=== PATIENT | female | born 1960 | race Caucasian/White ===

== ENCOUNTER 2016-07-06 00:54 | Emergency (ER) | payer OTHER ==
[~2016-07-06] VITALS: Ht 165.1 cm; Wt 63.5 kg
[~2016-07-06 00:54] MED LIST: K-TAB ER20 MEQ PO
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
--- NOTE | 2016-07-06 02:15 | CT SCAN REPORT ---
EXAMINATION: NONCONTRAST HEAD CT NONCONTRAST MAXILLOFACIAL CT INDICATION INFORMATION: Fall, struck head COMPARISON: None TECHNIQUE: Separate noncontrast CT examinations of the head and maxillofacial bones were performed. Coronal and sagittal images were created for each examination at the technologist workstation. DLP: 1036.36 mGy-cm FINDINGS: Head: There is no evidence of acute intracranial hemorrhage or territorial infarction. No abnormal mass-effect or midline shift is seen. Huang to white matter differentiation is well preserved. No extra-axial fluid collections are identified. The ventricles are normal in size. There is no abnormal attenuation within the brain parenchyma. The osseous structures and soft tissues are normal. The mastoid air cells are well aerated. Maxillofacial: No acute maxillofacial fractures are seen. There is mild deformity of the left orbital floor, suggesting sequelae of prior injury. The frontal, maxillary, ethmoid, and sphenoid sinuses are well aerated. The uncinate process is normal bilaterally. The infundibula and middle meati are patent. The nasal septum is midline. The mandibular condyles are well-seated in the condylar fossa. There is degenerative change at the atlantodens articulation. The orbits demonstrate a normal appearance bilaterally. The globes are intact, and there are no suspicious findings to suggest retrobulbar hemorrhage. IMPRESSION: 1. Head: No acute intracranial findings. 2. Maxillofacial: No acute findings identified. Suspect old left orbital floor fracture.
--- NOTE | 2016-07-06 02:17 | RADIOLOGY REPORT ---
EXAMINATION: XR SHOULDER, RIGHT CLINICAL INFORMATION: Fall, pain COMPARISON: None TECHNIQUE: Three views of the right shoulder. FINDINGS: There is a displaced fracture through the humeral neck, with displacement of the humeral shaft anteriorly relative to the humeral head. The humeral head fragment appears aligned with the glenoid. The acromioclavicular joint is intact. IMPRESSION: Displaced fracture of the humeral neck.
[2016-07-06 02:48] VITALS: BP 102/54
== END 2016-07-06 02:49 ==
LOC: ERH 00:54
DX: S42.201A Unspecified fracture of upper end of right humerus, initial encounter for closed fracture (principal); W19.XXXA Unspecified fall, initial encounter
CPT/HCPCS: 73030-RT

== ENCOUNTER 2016-07-11 14:08 | Observation (INO) | payer OTHER ==
[~2016-07-11] VITALS: Ht 160 cm; Wt 49.9 kg
--- NOTE | 2016-07-11 14:20 | NUR ---
PT TO TRIAGE SENT IN BY DR CHILDRESS FOR LOW POTASSIUM AND WBC COUNT. HX OF SAME AND RECEIVES INFUSIONS. DENIES CHEST PAIN/SOB. HX IBS AND RECENT EPISODES OF DIARRHEA. AFEBRILE ON ARRIVAL 96.3. PT IN R ARM IMMOBILIZER FOR SHOULDER FX, TOOK VICODIN AT 1PM AND CURRENTLY REPORTS PAIN 7/10
--- NOTE | 2016-07-11 14:28 | ED GENERAL ADULT ---
History of Present Illness General Chief Complaint: General Adult Stated Complaint: SIB DR. CHILDRESS FOR EVAL Source: patient, family Exam Limitations: no limitations Vital Signs & Intake/Output Vital Signs & Intake/Output Vital Signs Date Time Temp Pulse Resp B/P Pulse O2 O2 Flow FiO2 Ox Delivery Rate 07/11 1934 96.2 71 18 133/63 93 Room Air 07/11 1609 96.1 80 18 128/65 98 Room Air 07/11 1415 96.2 75 16 97/65 96 Room Air Allergies Coded Allergies: moxifloxacin (From AVELOX) (Severe, ANAPHYLAXIS 11/07/15) Penicillins (Intermediate, RASH 11/07/15) bupropion (From WELLBUTRIN) (Intermediate, HEADACHES, SEVERE VOMITING 11/07/15) cephalexin (From KEFLEX) (Intermediate, SEVERE VOMITING 11/07/15) clindamycin (From CLEOCIN) (Intermediate, SEVERE VOMITING 11/07/15) erythromycin base (Intermediate, SEVERE VOMITING 11/07/15) varenicline (From CHANTIX) (SEVERE HEADACHE MAKES LOOPY PER PT 07/11/16) Reconcile Medications Albuterol Sulfate (Ventolin Hfa) 90 MCG HFA.AER.AD 2 PUF INH PRN COPD ( Reported) Albuterol Sulfate 2.5 MG/3 ML (0.083 %) VIAL.NEB 1 Vial INH/ERICA PRN COPD ( Reported) Aspirin (Ecotrin*) 81 MG TABLET.DR 1 TAB PO DAILY HEART/BLOOD (Reported) Bepotastine Besilate (Bepreve) 1.5 % DROPS 1 GTT OPH PRN BOTH EYES - PROPHYLAXIS (Reported) Celecoxib 200 MG CAPSULE 1 CAP PO BID PAIN/INFLAMMATION (Reported) Cholecalciferol (Vitamin D3) (Vitamin D3) 1,000 UNIT CAPSULE 1 CAP PO DAILY SUPPLEMENT (Reported) Cyanocobalamin (Vitamin B-12) (Vitamin B12) (Unknown Strength) TABLET (Unknown Dose) PO DAILY SUPPLEMENT (Reported) Diclofenac Sodium (Voltaren) 1 % GEL..GRAM. 1 GM TOP PRN JOINT PAIN (Reported ) apply to affected area(s) Fluticasone/Salmeterol (Advair 500-50 Diskus) 500 MCG-50 MCG/DOSE BLST.W.DEV 1 PUF INH BID COPD (Reported) Hydrocodone/Acetaminophen (Hydrocodon-Acetaminoph 7.5-325) 7.5 MG-325 MG TABLET 1-2 TAB PO Q4-6 PRN PRN PAIN (Reported) Lorazepam (Ativan) 0.5 MG TABLET 1 TAB PO PRN ANXIETY (Reported) Loteprednol Etabonate (Lotemax) 0.5 % DROPS.SUSP 1 GTT OPH PRN BOTH EYES - PROPHYLAXIS (Reported) Metaxalone 800 MG TABLET 1 TAB PO TID PRN MUSCLE SPASMS (Reported) Metoprolol Tartrate 25 MG TABLET 0.5 TAB PO DAILY BP (Reported) Potassium Chloride 10 MEQ CAPSULE.ER 1 CAP PO BID SUPPLEMENT (Reported) Rosuvastatin Calcium (Crestor) 10 MG TABLET 1 TAB PO DAILY CHOLESTEROL ( Reported) Tiotropium [place] (Spiriva) 18 MCG CAP.W.DEV 1 CAP INH DAILY COPD (Reported) Tramadol HCl 50 MG TABLET 1 TAB PO TIDPRN PRN PAIN (Reported) Zolpidem Tartrate 10 MG TABLET 1 TAB PO PRN SLEEP (Reported) Triage Note: PT TO TRIAGE SENT IN BY DR CHILDRESS FOR LOW POTASSIUM AND WBC COUNT. HX OF SAME AND RECEIVES INFUSIONS. DENIES CHEST PAIN/SOB. HX IBS AND RECENT EPISODES OF DIARRHEA. AFEBRILE ON ARRIVAL 96.3. PT IN R ARM IMMOBILIZER FOR SHOULDER FX, TOOK VICODIN AT 1PM AND CURRENTLY REPORTS PAIN 11/10 Triage Nurses Notes Reviewed? yes Onset: Abrupt Duration: day(s): Timing: recent history HPI: 07/11/16 55-year-old female presents to the emergency department status post vomiting, had outpatient labs that showed hypokalemia. Potassium was 2.4. She denies chest pain or shortness of breath. She has a history of COPD and a lung nodule. She also has a recent history for right humerus fracture. No abdominal pain or fever. She says she's had significant hypokalemia in the past. The onset of the symptoms were abrupt, the duration is really unknown, the severity is significant as her symptoms required her to come to the emergency department for care. Past History Travel History Traveled to [place] past 21 day No Medical History Any Pertinent Medical History? 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 No Review of Systems Review of Systems Constitutional: Denies: fever. EENTM: Denies: visual changes. Respiratory: Reports: no symptoms. Cardiovascular: Denies: chest pain. GI: Reports: vomiting. Denies: abdominal pain. Genitourinary: Reports: no symptoms. Musculoskeletal: Reports: no symptoms. Skin: Reports: no symptoms. Neurological/Psychological: Reports: no symptoms. Hematologic/Endocrine: Reports: no symptoms. Immunologic/Allergic: Reports: no symptoms. Physical Exam Physical Exam General Appearance: alert, awake, anxious, mild distress Head: atraumatic, normal appearance Eyes: Bilateral: normal appearance, PERRL, EOMI. Ears, Nose, Throat: normal pharynx, normal ENT inspection Neck: normal inspection, supple, full range of motion Respiratory: normal breath sounds, chest non-tender, no respiratory distress Cardiovascular: regular rate/rhythm Peripheral Pulses: 4+ brachial (R), 4+ brachial (L) Gastrointestinal: non-tender Back: decreased range of motion Extremities: normal inspection, normal range of motion Neurologic/Psych: no motor/sensory deficits, awake, alert, oriented x 3, normal gait Skin: intact, normal color, warm/dry Core Measures ACS in differential dx? No CVA/TIA Diagnosis: No Severe Sepsis Present: No Septic Shock Present: No Progress Differential Diagnoses I considered the following diagnoses in my evaluation of the patient: [Cyclic vomiting syndrome, hypokalemia, renal disease, cardiac dysrhythmia, invasive lung cancer] Plan of Care: Orders Procedure Date/time Status Heart Healthy Diet 07/12 B Active CBC WITHOUT DIFFERENTIAL 07/12 06 Active BASIC ELECTROLYTES PLUS BUN&CR 07/12 06 Active Pathway - chart 07/11 195 Active House Staff 07/11 195 Active MAGNESIUM 07/11 1950 Complete POTASSIUM 07/11 1945 Complete Patient Data 07/[address] in observation 07/11 1841 Active Vital Signs 07/11 1841 Active Code Status 07/11 1841 Active Intake & Output 07/11 1444 Active COMPREHENSIVE METABOLIC PANEL 07/11 1429 Complete CBC WITHOUT DIFFERENTIAL 07/11 1429 Complete EKG 07/11 142 Active Lab Add-on Test 07/11 UNK Active Current Medications Sig/Ida Start time Last Medication Dose Stop Time Status Admin Magnesium Sulfate 2 GM ONCE ONE 07/11 2144 UNVr (Mag Sulfate) 07/12 0144 Dextrose/Water 250 ML (D5W) Potassium Chloride 40 MEQ Q10H 07/11 2144 UNVr (KCl 40MEQ in D5W NS 07/12 0744 1000ML) Dextrose/Sodium 1,000 ML Chloride (D5-Normal Saline) Ondansetron HCl 4 MG Q6P PRN 07/11 2114 AC (Zofran) Pantoprazole Sodium 40 MG DAILY 07/11 2114 AC (Protonix) Potassium Chloride 40 MEQ ONCE ONE 07/12 1999 CAN (K-Dur) 07/11 2000 Potassium Chloride 10 MEQ Q2H 07/11 1500 CAN 07/12 1701 Potassium Chloride 20 MEQ ONCE ONE 07/11 1430 CAN 07/12 1431 Laboratory Tests 07/11/16 1950: Magnesium 0.9 *L 07/11/16 1430: Anion Gap 15, Estimated GFR > 60, BUN/Creatinine Ratio 11.4, Glucose 88, Calcium 9.0, Total Bilirubin 0.7, AST 21, ALT 24, Alkaline Phosphatase 169 H, Total Protein 6.8, Albumin 3.9, Globulin 2.9, Albumin/Globulin Ratio 1.3, CBC w Diff NO MAN DIFF REQ, RBC 3.85 L, MCV 95.2, MCH 32.5 H, RDW 16.4 H, MPV 9.5, Gran % 70.6, Lymphocytes % 19.9 L, Monocytes % 8.5, Eosinophils % 0.4, Basophils % 0.6, Absolute Granulocytes 10.8 H, Absolute Lymphocytes 3.0, Absolute Monocytes 1.3 H, Absolute Eosinophils 0.1, Absolute Basophils 0.1, PUBS MCHC 34.1 Initial ED EKG: NSR, prolonged QT, ST segment depressions Prior EKG: unchanged Departure Departure Disposition: STILL A PATIENT Condition: Stable Clinical Impression Primary Impression: Hypokalemia Referrals: CAROL SHERMAN APRN (PCP/Family) Departure Forms: Customer Survey General Discharge Information Comments CT scan shown below PATIENT: GALDINO RYAN PRESENT AGE: 55 PATIENT ACCOUNT NO: [id number] : 56 LOCATION: [facility] ORDERING PHYSICIAN: ZACKARY SHER DO SERVICE DATE: 07/11/16 EXAM TYPE: CAT - CT CHEST W IV CONTRAST EXAMINATION: CT CHEST WITH CONTRAST CLINICAL INFORMATION: Lung nodule. Follow up. COMPARISON: Chest x-ray 07/13/2013. CT of chest 12/19/2015. CT chest 06/25/2016. TECHNIQUE: Multidetector volumetric CT imaging of the chest was obtained after the administration of 93 mL of Optiray 320 intravenous contrast without immediate adverse reactions. Axial MIP volume rendering provided. Sagittal and coronal reformatted images were obtained. DLP: 163.5 mGy-cm FINDINGS: LUNGS: Lung masses: 1. Mass in left hilum. This measures AP 3.5 x transverse 2.9 cm on axial image 245 (4). This has increased in size since CAT scan 12/19/2015. This is highly suspicious for lung malignancy. 2. Ground-glass nodule right upper lobe measuring 6 mm image 66 (5). 3. Multiple micronodules that are stable since CAT scan 09/14/2014 favoring benign etiology. There is ground-glass and linear opacities of both lung bases, can be subsegmental atelectasis and/or scarring. No infiltrate. There are emphysematous changes of the lungs. Bilateral apical pleural parenchymal reticular nodular scarring again noted. MEDIASTINUM: Bulky lymphadenopathy in the mediastinum in the pretracheal retrovascular space, AP window and subcarinal. Normal enhancement of the pulmonary arteries. Atherosclerotic vascular wall calcifications of aorta without aneurysm. There are coronary artery calcifications. PLEURA: There is no pleural effusion. No pleural mass or thickening. AXILLA: No lymphadenopathy. UPPER ABDOMEN: There is fullness without specific nodule of the left adrenal gland. The right adrenal gland normal. No focal lesion. Partially visualized liver or spleen. OSSEOUS STRUCTURES: Fracture through the surgical neck of the right humerus with displacement of the fracture. This is only partially imaged. Multilevel degenerative change of the dorsal spine. Neural stimulator probe at the midthoracic spinal canal. IMPRESSION: 1. Left hilar lung mass highly suspicious for malignancy. Consider bronchoscopy for further assessment. There is associated mediastinal lymphadenopathy. 2. A 5 mm ground-glass nodule right upper lobe. 3. Multiple small subcentimeter micronodules in lungs stable since CAT scan 09/14/2014 favoring benign etiology. 4. Fullness of the left adrenal gland without specific mass. 5. Displaced fracture of the right proximal humerus. DICTATED BY: CAMERON HILL MD DATE/TIME DICTATED:07/11/161808 COMMUNITY RESOURCE OFFICER:JP DATE/TIME TRANSCRIBED:07/11/161808 CONFIDENTIAL, DO NOT COPY WITHOUT APPROPRIATE AUTHORIZATION. <Electronically signed in Other Vendor System> SIGNED BY: CAMERON HILL MD 07/11/16 4574 Observation Note Spoke With: MARY PENN MD Physician Advisor Notified: BRANT GOEL,KAJAL Bain Place Patient In: Non-ED OBS Care Area Rationale for Observation: My rational for observation is as follows [the patient needs observation for IV potassium, repeat serum potassium level, follow CT scan of the chest with IV contrast; consider pulmonary consultation]. Critical Care Note Critical Care Note Critical Care Time: 30-74 min
[2016-07-11 14:50] LABS: ABSOLUTE BASOPHIL COUNT 0.1 /CUMM (0.0-0.2); ABSOLUTE EOSINOPHIL COUNT 0.1 /CUMM (0.0-0.7); ABSOLUTE GRANULOCYTE CT 10.8 /CUMM (1.4-6.5); ABSOLUTE MONOCYTE COUNT 1.3 /CUMM (0.10-0.60); BASOPHIL % 0.6 % (0.0-2.0); EOSINOPHIL % 0.4 % (0-5); GRANULOCYTE % 70.6 % (42.2-75.2); HEMATOCRIT 36.7 % (37-47); MEAN CORPUSCULAR HGB 32.5 PG (27.0-31.0); MEAN CORPUSCULAR HGB CONC 34.1 G/DL (33.0-37.0); MEAN CORPUSCULAR VOLUME 95.2 FL (81.0-99.0); MEAN PLATELET VOLUME 9.5 FL (7.4-10.4); PLATELET COUNT 219 /CUMM (130-400); RBC DISTRIBUTION WIDTH 16.4 % (11.5-14.5); RED BLOOD CELL CT 3.85 /CUMM (4.20-5.40); WHITE BLOOD CELL COUNT 15.3 /CUMM (4.8-10.8)
--- NOTE | 2016-07-11 14:53 | NUR ---
PT TO RM 8, UNABLE TO CHANGE INTO GOWN D/T FX SHOULDER, PT STATES TOO PAINFUL TO MOVE. PT PLACED ON DYE EXPERT WHICH SHOWS NSR, RATE OF 73. IV INITIATED, LABS DRAWN AND SENT. EKG IN PROGRESS. FAMILY AT BEDSIDE
--- NOTE | 2016-07-11 14:59 | NUR ---
CRITICAL TEST RESULTS [id number] GALDINO RYAN 55 F TESTS AND RESULTS: POTASSIUM 2.2 Results received and read back by: HUY ZAMBRANO Results received date and time: 07/11/16 1500 The following provider was notified of the results, and read the results back: DR SHER Notified date and time: 07/11/16 at 1500
--- NOTE | 2016-07-11 16:08 | NUR ---
2ND KCL 10MEQ INFUSING PER EMAR. PT MEDICATED WIHT VICODIN PER EMAR FOR R SHOULDER PAIN. AWAITING CAT SCAN.
--- NOTE | 2016-07-11 16:21 | NUR ---
PT TO CAT SCAN BY WHEELCHAIR.
--- NOTE | 2016-07-11 16:55 | NUR ---
PT WAS UNABLE TO LAY DOWN FOR CAT SCAN DUE TO R SHOULDER PAIN. PT RETURNED TO ROOM, MD CHRISTOS MADE AWARE, PT MEDICATED WITH DILAUDID PER EMAR.
[2016-07-11] MEDS ORDERED: VITAMIN B122500 MC1 PO (17:22)
[2016-07-11] MEDS ORDERED: METAXALONE800 M1 PO (17:23)
[2016-07-11] MEDS ORDERED: CELECOXIB200 M1 PO (17:23)
[2016-07-11] MEDS ORDERED: VITAMIN D31000 UNI1 PO (17:23)
[2016-07-11] MEDS ORDERED: VENTOLIN HFA18 GM INH (17:24)
[2016-07-11] MEDS ORDERED: TRAMADOL HCL50 M1 PO (17:25)
[2016-07-11] MEDS ORDERED: CRESTOR10 M1 PO (17:25)
[2016-07-11] MEDS ORDERED: HYDROCODON-ACE1 EAC3 PO (17:25)
[2016-07-11] MEDS ORDERED: LOTEMAX5 ML OPH (17:26)
[2016-07-11] MEDS ORDERED: ADVAIR 500-501 EACH INH (17:26)
[2016-07-11] MEDS ORDERED: BEPREVE10 ML OPH (17:27)
[2016-07-11] MEDS ORDERED: ZOLPIDEM TARTRA10 M1 PO (17:27)
[2016-07-11] MEDS ORDERED: SPIRIVA18 MCG INH (17:27)
[2016-07-11] MEDS ORDERED: ASPIRIN EC81 M1 PO (17:29)
[2016-07-11] MEDS ORDERED: ATIVAN0.5 M1 PO (17:29)
[2016-07-11] MEDS ORDERED: VOLTAREN100 GM TOP (17:29)
[2016-07-11] MEDS ORDERED: POTASSIUM CHLO10 ME3 PO (17:30)
[2016-07-11] MEDS ORDERED: METOPROLOL TART25 M1 PO (17:31)
[2016-07-11] MEDS ORDERED: ALBUTEROL2.5 MG/3 M INH/SOL (17:32)
--- NOTE | 2016-07-11 17:33 | NUR ---
PT REPORTS PAIN DECREASED AND 2/10 NOW, PT READY FOR CAT SCAN. CT CALLED.
--- NOTE | 2016-07-11 17:55 | NUR ---
PT TO AND FROM CAT SCAN BY STRETCHER.
--- NOTE | 2016-07-11 18:45 | CT SCAN REPORT ---
EXAMINATION: CT CHEST WITH CONTRAST CLINICAL INFORMATION: Lung nodule. Follow up. COMPARISON: Chest x-ray 07/13/2013. CT of chest 12/19/2015. CT chest 06/25/2016. TECHNIQUE: Multidetector volumetric CT imaging of the chest was obtained after the administration of 93 mL of Optiray 320 intravenous contrast without immediate adverse reactions. Axial MIP volume rendering provided. Sagittal and coronal reformatted images were obtained. DLP: 163.5 mGy-cm FINDINGS: LUNGS: Lung masses: 1. Mass in left hilum. This measures AP 3.5 x transverse 2.9 cm on axial image 245 (4). This has increased in size since CAT scan 12/19/2015. This is highly suspicious for lung malignancy. 2. Ground-glass nodule right upper lobe measuring 6 mm image 66 (5). 3. Multiple micronodules that are stable since CAT scan 09/14/2014 favoring benign etiology. There is ground-glass and linear opacities of both lung bases, can be subsegmental atelectasis and/or scarring. No infiltrate. There are emphysematous changes of the lungs. Bilateral apical pleural parenchymal reticular nodular scarring again noted. MEDIASTINUM: Bulky lymphadenopathy in the mediastinum in the pretracheal retrovascular space, AP window and subcarinal. Normal enhancement of the pulmonary arteries. Atherosclerotic vascular wall calcifications of aorta without aneurysm. There are coronary artery calcifications. PLEURA: There is no pleural effusion. No pleural mass or thickening. AXILLA: No lymphadenopathy. UPPER ABDOMEN: There is fullness without specific nodule of the left adrenal gland. The right adrenal gland normal. No focal lesion. Partially visualized liver or spleen. OSSEOUS STRUCTURES: Fracture through the surgical neck of the right humerus with displacement of the fracture. This is only partially imaged. Multilevel degenerative change of the dorsal spine. Neural stimulator probe at the midthoracic spinal canal. IMPRESSION: 1. Left hilar lung mass highly suspicious for malignancy. Consider bronchoscopy for further assessment. There is associated mediastinal lymphadenopathy. 2. A 5 mm ground-glass nodule right upper lobe. 3. Multiple small subcentimeter micronodules in lungs stable since CAT scan 09/14/2014 favoring benign etiology. 4. Fullness of the left adrenal gland without specific mass. 5. Displaced fracture of the right proximal humerus.
--- NOTE | 2016-07-11 18:46 | NUR ---
3RD KCL 10MEQ INFUSING PER EMAR.
--- NOTE | 2016-07-11 19:57 | NUR ---
SST TUBE DRAWN FOR POTASSIUM LEVEL AND SENT TO LAB. MD ANDIE AT BEDSIDE FOR PT EVAL.
--- NOTE | 2016-07-11 20:05 | NUR ---
PT BECAME NAUSIOUS, VOMITED WITH CLEAR WATERY EMESIS, MEDICATED WITH ZOFRAN 4MG IV PER MD ANDIE ORDER.
--- NOTE | 2016-07-11 20:39 | NUR ---
PT STATES NAUSEA SUBSIDED. FOOD PROVIDED TO PT.
--- NOTE | 2016-07-11 20:57 | NUR ---
PT TO ROOM 174 BED 1
--- NOTE | 2016-07-11 21:08 | NUR ---
CRITICAL TEST RESULTS [id number] GALDINO RYAN 55 F TESTS AND RESULTS: POTASSIUM 2.7, MAGNESIUM 0.9 Results received and read back by: TETO MALHOTRA Results received date and time: 07/11/162107 The following provider was notified of the results, and read the results back: TRISTON GILL AT 420 Notified date and time: 07/11/16 at 2110
--- NOTE | 2016-07-11 21:48 | NUR ---
KIKE PAGED TWO TIMES TO REPORT PT REQUEST FOR PAIN MEDICATIONS WITH NO RESPONSE SINCE 2114. SOCRATES PAGED TWO TIMES WITH NO RESPONSE SINCE 2139.
--- NOTE | 2016-07-11 22:08 | NUR ---
REPORT GIVEN TO GENET COULTER. HOUSE STAFF TO BEDSIDE FOR EVAL AT THIS TIME. PAIN MEDICATIONS REQUESTED FOR PT AT THIS TIME BY THIS NURSE.
--- NOTE | 2016-07-11 22:10 | NUR ---
PER PHARMACY KCL 40MEQ IN D5WNS 1000ML WILL BE SENT TO FLOOR. MAGNESIUM SULFATE 2GM IN D5W HUNG AT THIS TIME PER EMAR. NURSE NOTIFIED IN REPORT AND AGREEABLE TO PLAN.
[2016-07-11 23:12] VITALS: BP 122/74
--- NOTE | 2016-07-11 23:56 | History & Physical ---
SANDOR GOEL,[facility] 07/11/16 8195: General Information and HPI MD Statement: I have seen and personally examined GALDINO RYAN and documented this H&P. The patient is a 55 year old F who presented with a patient stated chief complaint of abnormal lab values. Source of Information: patient Exam Limitations: no limitations History of Present Illness: This is a 55-year-old very pleasant lady with a past medical history of COPD, lung nodule, GERD, diarrhea predominant IBS, anxiety, hypertension, and a recent right shoulder immerse fracture secondary to a fall, is sent in by her mountain guide (Dr. Marcus) for evaluation of low potassium levels. Patient was scheduled for right shoulder fracture repair by Dr. Nice ( orthopedics) on July 16 and was at her mountain guide for preop evaluation and clearance. Of note, patient was seen in 11/07/2015 at the ED for hypokalemia and hypomagnesemia, she received potassium and magnesium replenishment and was sent home. Patient is endorsing an intermittent history of nausea vomiting, with 2 episodes of vomiting witnessed at the ED. She denies any blood in vomit or acute abdominal pain. She is also endorsing unintentional weight loss of about 30 pounds in about 4 months. Of note, she is following up with a mountain guide and Dr. Cortes for possible bronchoscopy for left hilar lung mass and right upper lobe nodules. She is still an active smoker and currently smokes half a pack a day. Patient denies any fever, chills or cough, increased use of her nebulizer therapy, recent infection, sick contacts, recent travel, chest pain, palpitation , abdominal pain, dizziness, weakness or dysuria. Allergies/Medications Allergies: Coded Allergies: moxifloxacin (From AVELOX) (Severe, ANAPHYLAXIS 11/07/15) Penicillins (Intermediate, RASH 11/07/15) bupropion (From WELLBUTRIN) (Intermediate, HEADACHES, SEVERE VOMITING 11/07/15) cephalexin (From KEFLEX) (Intermediate, SEVERE VOMITING 11/07/15) clindamycin (From CLEOCIN) (Intermediate, SEVERE VOMITING 11/07/15) erythromycin base (Intermediate, SEVERE VOMITING 11/07/15) varenicline (From CHANTIX) (SEVERE HEADACHE MAKES LOOPY PER PT 07/11/16) Home Med list Albuterol Sulfate (Ventolin Hfa) 90 MCG HFA.AER.AD 2 PUF INH Q4-PRN PRN COPD (Reported) Albuterol Sulfate 2.5 MG/3 ML (0.083 %) VIAL.NEB 1 Vial INH/ERICA DAILY NEEDED PRN COPD (Reported) Aspirin (Ecotrin*) 81 MG TABLET.DR 1 TAB PO DAILY HEART/BLOOD (Reported) Bepotastine Besilate (Bepreve) 1.5 % DROPS 1 GTT OPH PRN BOTH EYES - PROPHYLAXIS (Reported) Celecoxib 200 MG CAPSULE 1 CAP PO BID PAIN/INFLAMMATION (Reported) Cholecalciferol (Vitamin D3) (Vitamin D3) 1,000 UNIT CAPSULE 1 CAP PO DAILY SUPPLEMENT (Reported) Cyanocobalamin (Vitamin B-12) (Vitamin B12) 2,500 MCG TABLET 1 TAB PO DAILY SUPPLEMENT (Reported) Diclofenac Sodium (Voltaren) 1 % GEL..GRAM. 1 GM TOP PRN JOINT PAIN (Reported ) apply to affected area(s) Fluticasone/Salmeterol (Advair 500-50 Diskus) 500 MCG-50 MCG/DOSE BLST.W.DEV 1 PUF INH BID COPD (Reported) Hydrocodone/Acetaminophen (Hydrocodon-Acetaminoph 7.5-325) 7.5 MG-325 MG TABLET 1-2 TAB PO Q4-6 PRN PRN PAIN (Reported) Reason to Stop at ADM: pain pathway Lorazepam (Ativan) 0.5 MG TABLET 1 TAB PO DAILY NEEDED PRN ANXIETY ( Reported) Loteprednol Etabonate (Lotemax) 0.5 % DROPS.SUSP 1 GTT OPH PRN BOTH EYES - PROPHYLAXIS (Reported) Metaxalone 800 MG TABLET 1 TAB PO TID PRN MUSCLE SPASMS (Reported) Metoprolol Tartrate 25 MG TABLET 0.5 TAB PO DAILY BP (Reported) Potassium Chloride 10 MEQ CAPSULE.ER 1 CAP PO BID SUPPLEMENT (Reported) Rosuvastatin Calcium (Crestor) 10 MG TABLET 1 TAB PO DAILY CHOLESTEROL ( Reported) Tiotropium [place] (Spiriva) 18 MCG CAP.W.DEV 1 CAP INH DAILY COPD (Reported) Zolpidem Tartrate 10 MG TABLET 1 TAB PO AT BEDTIME PRN SLEEP (Reported) Past History Travel History Traveled to [place] past 21 day No Medical History Neurological: migraine EENT: NONE Cardiovascular: hypertension, hyperlipidemia Respiratory: COPD, LUNG CA Gastrointestinal: GERD, irritable bowel syndrome Hepatic: NONE Renal: NONE Musculoskeletal: chronic back pain, R SHOULDER FX Psychiatric: anxiety Endocrine: NONE Blood Disorders: NONE Cancer(s): NONE 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 Exam & Diagnostic Data Last 24 Hrs of Vital Signs/I&O Vital Signs Date Time Temp Pulse Resp B/P Pulse O2 O2 Flow FiO2 Ox Delivery Rate 07/11 2312 99.6 72 20 122/74 93 Room Air 07/11 2208 96.4 73 18 124/66 93 Room Air Room Air 07/11 1934 96.2 71 18 133/63 93 Room Air 07/11 1609 96.1 80 18 128/65 98 Room Air 07/11 1415 96.2 75 16 97/65 96 Room Air Intake & Output 07/12 0800 07/12 0000 07/11 1600 Intake Total 100 Output Total Balance 100 Intake, Oral 100 Patient 49.895 kg Weight Physical Exam General Appearance Alert, Oriented X3, Cooperative, No Acute Distress Skin No Significant Lesion HEENT EOMI, Mucous Membr. moist/pink, healing scar at the right maxillary area Neck Supple, No JVD, No thryomegaly, +2 Carotid Pulse wo Bruit Lymphatic Cervical nl Cardiovascular Regular Rate, Normal S1, Normal S2, No Murmurs, Gallops, Rubs Lungs b/l faint wheezes on the upper lobes Abdomen Normal Bowel Sounds, Soft, No Tenderness, No Hepatospenomegaly, No Masses Neurological Normal Speech, Normal Tone, Sensation Intact Extremities No Edema, Normal Pulses, No Tenderness/Swelling Vascular Normal Pulses, Pulses Symmetrical Assessment/Plan Assessment: This is a 35-year-old very pleasant lady with one episode of ED visit for hypokalemia and hypomagnesemia in 2016, and self-reported history of chronic intermittent vomiting presents for evaluation of hyperkalemia. At the ED patient had about 2 episodes of vomiting. At the ED she is noted to have a potassium level of 2.2 and magnesium levels 0.9. Her EKG is noted to be remarkable for symmetrical T-wave changes and QTC prolongation. Assessment and plan #Hypokalemia Patient's BEP does not show any renal etiology for her hypokalemia, she does not have any metabolic acidosis either. Most likely cause of patient's hypokalemia is ongoing history of intermittent vomiting. Albuterol use can cause hypokalemia however patient does not endorse frequent use and only uses albuterol about 2 times a week. Plan Status post 30 mEq potassium, will continue to replenish with 40 mEq Will trend BEP #Hypomagnesemia Possible etiology of hypomagnesemia include alcoholism, malnutrition, malabsorption from celiac and inflammatory bowel diseases and medication induced. Patient does have a social history of alcohol use however it is not frequent enough and therefore less likely to be the cause of hypomagnesemia. 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 Plan Status post 1 g, will administer another gram IV magnesium. Will start magnesium oxide 400 mg twice a day #Tobacco abuse She is currently smoking half a pack a day. Plan Smoking cessation counseling was done Nicotine patch 14 mg daily #History of right humerus fracture Will continue immobilization with sling Continue Celebrex Pain management #History of hypertension Continue metoprolol 12.5 daily #History of hyperlipidemia Continue atorvastatin #History of COPD No current acute exacerbation. Continue home meds of albuterol Spiriva, and Symbicort. . As Ranked By This Provider Problem List: 1. Hypokalemia 2. Hypomagnesemia Core Measures/Miscellaneous Acute Coronary Syndrome ACS Diagnosis: No Cerebrovascular Accident CVA/TIA Diagnosis: No Congestive Heart Failure CHF Diagnosis: No Venous Thromboembolism VTE Risk Factors: Age > 40 No Mech VTE prophylaxis d/t: No contraindications No VTE Pharm Prophylaxis d/t: No contraindications VTE Diagnosis: No VTE Type: NONE VTE Confirmed by (Test): NONE Severe Sepsis Severe Sepsis Present: No Septic Shock Septic Shock Present: No Miscellaneous Documentation Attending Case Discussed With: NORRIS CHAVES MD Primary Care Physician: CAROL SHERMAN APRN Patient sees these Specialists Orthopedics Level of Patient Care: General Medicine LIZ DE JESUS MD 07/11/16 0022: Resident Review Statement Resident Statement: examined this patient, discussed with international relations teacher, agreed with international relations teacher, discussed with family, reviewed EMR data (avail), discussed with nursing , reviewed images, amended to note Other Findings: 55 yo female with pmh of HTN, HLD, COPD, GERD, anxiety, chronic back pain, current smoker (1/2ppd, 40PY) was sent from Dr. Marcus's office due to abnormal potassium level. She came to [facility] on 07/06/16 after mechanical fall on the floor while getting out of bed. She had Rt. humerus fracture and was seen by Dr. Nice, orthopedic surgery as outpt. She was scheduled to get a surgery on 07/16, and she saw Dr. Marcus for pulmonary pre-op evaluation today. She had low potassium of 2.4 at her office, and 2.2 in ED. She has long-standing history of periodic nausea/vomiting 2-3 times/month without any history of DM. She also has diarrhea every few days. She vomited 2 times (no blood) in ED today, but she denies any abdominal pain. She has 7/10, throbbing pain, on Rt. shoulder. She has recent weight loss of 38 lbs within 4 months. Her appetite has not been great. She violeta any fever/chills, cough/sputum, chest pain or shortness of breath. She drinks 1-2 glasses of wine, 2-3 times/week, denies heavy alcohol abuse. V/S: 96.2F GA 71 RR 18 BP 133/63 93% on RA, alert, oriented x 3, in moderate stress with Rt. arm fracture on sling, EOM intact, PERRLA, no cervical LAD, regular rate, normal S1/S2, no murmurs, scaterred mild wheezing, soft, non tender abdomen, normal bowel sounds, no LE edema, moving all extremities except RUE with fracture/sling placed, sensation intact, cranial nerves grossly intact, no tremors, Rt. facial bruise. Labs: WBC 15.3, hb/hct 12.5/36.7, plt 219, Na 129, K 2.2 -> 2.7, BUN/Cr 8/0.7, Mg 0.9 EKG: no previous EKG, NSR 70, GA 156, QTc 493, T wave flattening/inv V2-6. CT chest: 1. Left hilar lung mass highly suspicious for malignancy. Consider bronchoscopy for further assessment. There is associated mediastinal lymphadenopathy. 2. A 5 mm ground-glass nodule right upper lobe. 3. Multiple small subcentimeter micronodules in lungs stable since CAT scan 09/14/2014 favoring benign etiology. 4. Fullness of the left adrenal gland without specific mass. 5. Displaced fracture of the right proximal humerus. 1. Hypokalemia/hypomagnesemia: Likely secondary to GI loss (vomiting/diarrhea dominant irritable bowel syndrome)/chronic PPI use, no heavy alcohol star, EKG showed QTc prolongation with anterolateral T wave changes, IV potassium 30mEq was given in ED, continue IV K 40mEq D5NS, and po K as tolerated. Replete IV Mg and start po Mg. Repeat BEP/mg in AM. No PPI for now. Repeat EKG in AM with QTc prolongation. 2. Rt. humeral fracture: pain management with po tyrenol/vicodin, IV morphine per pain score, keep arm sling with elevation, follow orthopedic surgery as outpt. 3. Lt. lung mass & RUL 5mm nodule: Pt will follow up Dr. Marcus/Dr. Cortes with bronchoscopy as outpt. 4. COPD: stable, continue INH/nebs as home dose. 5. HTN/HLD: c/w home dose aspirin, metoprolol 12.5mg qd, statin 6. current smoker: nicotine patch 14mg daily, smoking cessation counseling given. DVT ppx: SC lovenox, full code. ANDIE GOEL, [facility] 07/12/16 0038: Attending MD Review Statement Attending Statement Attending MD Statement: examined this patient, discuss w/resident/PA/MACHINE I COREMAKER, agreed w/resident/PA/MACHINE I COREMAKER Attending Assessment/Plan: 55 yo F smoker, with h/o IBS (diarrhea-predominant), HTN, COPD, HLD, GERD, chronic nack and back pain, was SIB Dr. Marcus for abnormal bloodwork ( hypokalemia). Patient has a h/o ?lousy stomach as she describes it, with recurrent episodes of nausea and vomiting once every few days, since she was a child. She had EGD (2008) which showed gastritis and mild hiatal hernia. She also reports diarrhea related to IBS once every few days, which is well controlled with Imodium. Colonoscopy (2008): benign hyperplastic polyp. She has had multiple episodes of hypokalemia (since November 2015) when she was seen in ER and potassium/magnesium were repleted. She has been on PO potassium since, however she most of the times cannot keep it down. Of note, patient was seen in ER on July 06 s/p syncopal episode (?vertigo) with head strike, resulting in a displaced fracture of right humeral neck. Shoulder was placed in a sling and she followed with Dr. Nice (Orthopedics) with eventual plan for surgery (July 16) once Dr. Marcus gives Pulmonary clearance given COPD and new left hilar lung mass that is suspicious for malignancy. Patient has had 38 lb weight loss over 4 months, has no appetite. She is scheduled to see Dr. Cortes for a bronchoscopic biopsy. VSS. Exam: AAO in distress due to right shoulder pain in sling, diffuse ecchymosis ++, dry mucous membranes. Chest b/l few scattered wheeze, but otherwise clear. Heart S1S2 regular, Abd soft, NT. Labs: WBC 15.3, K 2.2, Na 129 , Mag 0.9. EKG: SR, Qtc 493, ST depressions and TWI in lead V2-6 (old). CT chest : left hilar lung mass suspicious for malignancy with associated lymphadenopathy. 1. Hypokalemia in the setting of hypomagnesemia 2/2 recurrent nausea/ vomiting/ dirrhea predominant IBS and concurrent chronic PPI use. Patient does consume alcohol in moderation, another cause for low magnesium. She does not have hypercalcemia. No new EKG changes. 23 Obs on GM, replete potassium and magnesium through IV supplementation, anti- emetic, IV fluids. She has been on protonix since 2008, discontinuing PPI for now. Monitor Mag/ K levels. Will initiate slow Mag TID and PO Kdur BID (changed from daily to BID) from AM. 2. Hyponatremia likely 2/2 hypovolemia. Will give isotonic fluids and recheck sodium levels in AM. 3. Right displaced humeral neck fracture. Awaiting Pulm clearance by Dr. Marcus, needs outpatient broncho to assess lung mass. Continue pain management with tramadol and Vicodin, immobilizer and eventual outpatient surgery to repair the fracture by Dr. Nice. 4. COPD. Not in exacerbation. Smoking cessation counseling, nicotine patch. Ct. Advair and albuterol. DVT ppx Lovenox. Full code.
--- NOTE | 2016-07-12 07:30 | PN- Housestaff ---
See Addendum Subjective Follow-up For: Hypokalemia Hyponatremia Hypomagnesemia Right humerus fracture Tele-Events Since Last Visit: [employer] Hold. Subjective: Patient seen and examined at bedside this AM. She is sitting up in bed and her right arm remains in a sling. She has eaten about 1/3 of her diet. She reports her pain is a 7/10 but she just received some pain medication and is waiting for it to kick in. Review of Systems Constitutional: Denies: chills, fever, malaise. EENTM: Denies: visual changes, nasal congestion. Cardiovascular: Denies: chest pain, palpitations. Respiratory: Denies: cough, short of breath. Gastrointestinal: Denies: abdominal pain, nausea. Genitourinary: Denies: dysuria. Musculoskeletal: Reports: joint pain (Right shoulder). Skin: Reports: lesions (Bruises s/p fall, face and arm). Neurological/Psychological: Denies: confusion, headache. Hematologic/Endocrine: Denies: bleeding. Objective Last 24 Hrs of Vital Signs/I&O Vital Signs Date Time Temp Pulse Resp B/P Pulse O2 O2 Flow FiO2 Ox Delivery Rate 07/12 0748 97.7 62 16 110/70 97 Room Air 07/11 2312 99.6 72 20 122/74 93 Room Air 07/11 2208 96.4 73 18 124/66 93 Room Air Room Air 07/11 1934 96.2 71 18 133/63 93 Room Air 07/11 1609 96.1 80 18 128/65 98 Room Air 07/11 1415 96.2 75 16 97/65 96 Room Air Intake & Output 07/12 1600 07/12 0800 07/12 0000 Intake Total 500 100 Output Total Balance 500 100 Intake, IV 300 Intake, Oral 200 100 Patient 110 lb Weight Physical Exam General Appearance: Alert, Oriented X3, Cooperative, No Acute Distress Skin: Scattered bruises, noted on right face, right forarm and left arm s/p fall. HEENT: PERRLA, EOMI, Mucous Membr. moist/pink Neck: Supple, No JVD, +2 Carotid Pulse wo Bruit Lymphatic: Cervical nl Cardiovascular: Regular Rate, Normal S1, Normal S2, No Murmurs Lungs: Clear to Auscultation, Normal Air Movement Abdomen: Normal Bowel Sounds, Soft, No Tenderness, No Hepatospenomegaly, No Masses Neurological: Normal Speech, Normal Tone Extremities: No Clubbing, No Cyanosis, No Edema Vascular: Pulses Symmetrical Current Medications: Current Medications Sig/Ida Start time Last Medication Dose Route Stop Time Status Admin Acetaminophen 650 MG Q6P PRN 07/11 2200 AC PO Acetaminophen/ 1 TAB Q6P PRN 07/11 2200 AC Hydrocodone Bitart PO Acetaminophen/ 1 TAB ONCE ONE 07/11 1615 DC 07/11 Hydrocodone Bitart PO 07/11 1616 1607 Acetaminophen/ 0 .STK-MED ONE 07/11 1608 DC Hydrocodone Bitart PO Albuterol Sulfate 2 PUF Q4-PRN PRN 07/11 223 AC INH Albuterol Sulfate 3 ML DAILY NEEDED PRN 07/11 223 AC INH Aspirin Buffered 81 MG DAILY 07/12 1000 AC PO Atorvastatin Calcium 40 MG 1700 07/12 1700 AC PO Budesonide/ 2 PUF BID 07/11 2219 AC 07/11 Formoterol Fumarate INH 2300 Celecoxib 200 MG BID 07/12 1000 AC PO Cholecalciferol 1,000 IU DAILY 07/12 1000 AC PO Cyanocobalamin 1,000 MCG DAILY 07/12 1000 AC PO Diclofenac Sodium 1 KWADWO DAILY PRN 07/11 223 AC TOP Enoxaparin Sodium 40 MG DAILY 07/12 1000 AC SC Hydromorphone HCl 0 .STK-MED ONE 07/11 1646 DC .ROUTE Hydromorphone HCl 1 MG ONCE ONE 07/11 1645 DC 07/11 IV 07/11 1646 1655 Lorazepam 0.5 MG DAILY NEEDED PRN 07/11 2230 AC PO 07/18 2229 Magnesium Chloride 64 MG TID 07/12 1000 AC PO Magnesium Oxide 400 MG BID 07/12 0055 DC 07/11 PO 0130 Magnesium Sulfate 1 GM Q2H 07/11 2145 DC 07/12 Dextrose/Water 100 ML IV 07/12 0144 0000 Metaxalone 800 MG TID PRN 07/11 2230 AC PO Metoprolol Tartrate 12.5 MG DAILY 07/12 1000 AC PO Morphine Sulfate 0 .STK-MED ONE 07/11 2218 DC .ROUTE Morphine Sulfate 2 MG Q4P PRN 07/11 2200 AC 07/12 IV 0616 Nicotine 14 MG DAILY 07/12 1000 AC TOP Non-Formulary 0 SEE ADMIN CRITERIA 07/11 2229 UNV Medication ANY Omeprazole 0 .STK-MED ONE 07/11 191 DC PO Omeprazole 40 MG ONCE ONE 07/11 1845 DC 07/11 PO 07/11 184 191 Ondansetron HCl 4 MG Q6P PRN 07/11 2115 AC IV Ondansetron HCl 0 .STK-MED ONE 07/12 2003 DC .ROUTE Ondansetron HCl 4 MG ONCE ONE 07/12 1999 DC 07/11 IV 07/11 Pantoprazole Sodium 0 .STK-MED ONE 07/11 2218 DC IV Pantoprazole Sodium 40 MG DAILY 07/11 2115 DC 07/11 IV 2300 Potassium Chloride 20 MEQ BID 07/12 1000 AC PO Potassium Chloride 20 MEQ BID 07/11 2230 DC 07/11 PO 2300 Potassium Chloride 40 MEQ Q10H 07/11 2145 DC 07/12 Dextrose/Sodium 1,000 ML IV 07/12 0744 0000 Chloride Potassium Chloride 0 .STK-MED ONE 07/12 2003 DC PO Potassium Chloride 40 MEQ ONCE ONE 07/11 2000 CAN PO 07/11 2000 Potassium Chloride 10 MEQ ONCE ONE 07/11 1845 DC 07/11 IV 07/11 1846 1846 Potassium Chloride 10 MEQ Q2H 07/11 1500 CAN IV 07/12 1701 Potassium Chloride 10 MEQ Q1H 07/11 1500 DC 07/11 IV 07/11 1601 1607 Potassium Chloride 20 MEQ ONCE ONE 07/11 1430 CAN IV 07/12 1431 Sodium Chloride 1,000 ML ONCE ONE 07/11 1430 DC 07/11 IV 07/12 0029 1505 Tiotropium [place] 1 PUF DAILY 07/12 1000 AC INH Zolpidem Tartrate 10 MG AT BEDTIME PRN 07/11 2215 AC PO Last 24 Hrs of Lab/[place] Results Last 24 Hrs of Labs/Mics: Laboratory Tests 07/12/16 0720: Sodium Pending, Potassium Pending, Chloride Pending, Carbon Dioxide Pending, Anion Gap Pending, BUN Pending, Creatinine Pending, BUN/Creatinine Ratio Pending , Magnesium Pending, CBC w Diff Pending, WBC Pending, RBC Pending, Hgb Pending, Hct Pending, MCV Pending, MCH Pending, RDW Pending, Plt Count Pending, MPV Pending, PUBS MCHC Pending 07/11/16 1950: Phosphorus 3.4, Magnesium 0.9 *L 07/11/16 1430: Anion Gap 15, Estimated GFR > 60, BUN/Creatinine Ratio 11.4, Glucose 88, Calcium 9.0, Total Bilirubin 0.7, AST 21, ALT 24, Alkaline Phosphatase 169 H, Total Protein 6.8, Albumin 3.9, Globulin 2.9, Albumin/Globulin Ratio 1.3, CBC w Diff NO MAN DIFF REQ, RBC 3.85 L, MCV 95.2, MCH 32.5 H, RDW 16.4 H, MPV 9.5, Gran % 70.6, Lymphocytes % 19.9 L, Monocytes % 8.5, Eosinophils % 0.4, Basophils % 0.6, Absolute Granulocytes 10.8 H, Absolute Lymphocytes 3.0, Absolute Monocytes 1.3 H, Absolute Eosinophils 0.1, Absolute Basophils 0.1, PUBS MCHC 34.1 Orders Radiology Findings: Chest CT 07/11: IMPRESSION: 1. Left hilar lung mass highly suspicious for malignancy. Consider bronchoscopy for further assessment. There is associated mediastinal lymphadenopathy. 2. A 5 mm ground-glass nodule right upper lobe. 3. Multiple small subcentimeter micronodules in lungs stable since CAT scan 09/14/2014 favoring benign etiology. 4. Fullness of the left adrenal gland without specific mass. 5. Displaced fracture of the right proximal humerus. Assessment/Plan Assessment: Ms. Bolton is a pleasant 55 year old female with PMH COPD, lung nodule, GERD, diarrhea predominant IBS, anxiety, HTN and recent right shoulder humerus fracture secondary to fall who was sent in by her dry box tender Dr. Marcus for evaluation of her low potassium. Patient is an observation on the telemetry floor and the following is the management: 1. Hypokalmeia, hypomagnesemia * K of 2.2 on admission, Mg o 0.9 on admission * S/P repletion both in the ED and overnight * AM labs pending, will replete as necessary * Continue 20 mg PO KDur BID and 64 mg PO slow mag TID * Trend BEP 2. Tobacco abuse * Patient counseled on tobacco cessation * Continue nicotine patch 14 mg daily 3. Right humerus fracture s/p fall * Continue immobilization in sling * Continue celebrex, voltaren gel * Pain management pathway * F/U with Dr. Nice for further management after electrolyte optimization and clearance from Dr. Marcus 4. Lung nodule in setting of COPD * NO current COPD exacerbation * Continue spiriva, symbicort * F/U with Dr. Marcus for further mangement of lung nodule and COPD 5. HTN, HLD * Continue metoprolol 12.5 mg PO daily, atorvastatin daily, ASA 81 daily * Vital signs Q shift 6. Anxiety * Continue ativan as needed FULL CODE DVTP: SC Lovenox Problem List: 1. Hypokalemia 2. Hypomagnesemia 3. Proximal humeral fracture Pain Ratin Pain Location: Right humerus Pain Goal: Pain 7 or less Pain Plan: Per pain pathway Tomorrow's Labs & Rationales: BEP with magnesium
[2016-07-12] MEDS ORDERED: PRILOSEC OTC20 M1 PO (07:32)
[2016-07-12 07:48] VITALS: BP 110/70
[2016-07-12 09:03] LABS: ABSOLUTE BASOPHIL COUNT 0 /CUMM (0.0-0.2); ABSOLUTE EOSINOPHIL COUNT 0.1 /CUMM (0.0-0.7); ABSOLUTE GRANULOCYTE CT 8.2 /CUMM (1.4-6.5); ABSOLUTE LYMPH COUNT 1.2 /CUMM (1.2-3.4); ABSOLUTE MONOCYTE COUNT 0.7 /CUMM (0.10-0.60); BASOPHIL % 0.4 % (0.0-2.0); EOSINOPHIL % 0.5 % (0-5); GRANULOCYTE % 80.6 % (42.2-75.2); HEMATOCRIT 37.4 % (37-47); MEAN CORPUSCULAR HGB 32.1 PG (27.0-31.0); MEAN CORPUSCULAR VOLUME 97.1 FL (81.0-99.0); PLATELET COUNT 168 /CUMM (130-400); RBC DISTRIBUTION WIDTH 16.4 % (11.5-14.5); RED BLOOD CELL CT 3.85 /CUMM (4.20-5.40); WHITE BLOOD CELL COUNT 10.2 /CUMM (4.8-10.8)
--- NOTE | 2016-07-12 12:57 | Patient Discharge Instructions ---
Discharge Instructions General Discharge Information You were seen/treated for: Hypokalemia Hypomagnesemia Right humerus fracture Special Instructions: PLease follow up with your PCP within 7 days of discharge. PLease follow up with both Dr. Nice and Dr. Marcus within 7 days of discharge. Please attend your scheduled appt with Dr. Cortes and Dr. Marcus on for your biopsy. PLease take all meds as directed. Please have lab work on Thursday07/15/16 to check your potassium and magnesium levels. Send results to Dr. Marcus who you will see on that . Diet Recommended Diet: Heart Healthy Activity Activity Self Limited: Yes Acute Coronary Syndrome Inclusion Criteria At DC or during hospital stay patient has or had the following: ACS DIAGNOSIS No Discharge Core Measures Meds if any: Prescribed or Continued at Discharge Meds if any: NOT Prescribed or Continued at Discharge Congestive Heart Failure Inclusion Criteria At DC or during hospital stay patient has or had the following: CHF DIAGNOSIS No Discharge Core Measures Meds if any: Prescribed or Continued at Discharge Meds if any: NOT Prescribed or Continued at Discharge Cerebrovascular accident Inclusion Criteria At DC or during hospital stay patient has or had the following: CVA/TIA Diagnosis No Discharge Core Measures Meds if any: Prescribed or Continued at Discharge Meds if any: NOT Prescribed or Continued at Discharge Venous thromboembolism Inclusion Criteria VTE Diagnosis No VTE Type NONE VTE Confirmed by (Test) NONE Discharge Core Measures - Per Current guidelines, there needs to be overlap - treatment for the first 5 days of Warfarin therapy. - If discharged on Warfarin prior to 5 days of - overlap therapy, the patient will need to be - assessed for post discharge needs including - *Post discharge parental anticoagulation - *Warfarin and/or parental anticoagulation education - *Follow up date to check INR post discharge At least 5 days overlap therapy as Inpatient No Meds if any: Prescribed or Continued at Discharge Note: Overlap Therapy is Warfarin and Anticoagulant Meds if any: NOT Prescribed or Continued at Discharge
[2016-07-12] MEDS ORDERED: POTASSIUM CHLO20 ME4 PO ×2 (13:01→13:56)
[2016-07-12] MEDS ORDERED: MAGNESIUM OXID400 M1 PO (13:01)
[2016-07-12 15:21] VITALS: BP 110/60
[2016-07-12] MEDS ORDERED: POTASSIUM CHLO10 ME4 PO (16:10)
== END 2016-07-12 16:30 ==
LOC: ENRESERVDT → ENRESERVTM → ERH 14:08 → ERHI 18:41 → EDBEDREQ 19:44 → 1NO 22:29
PROVIDERS: Emergency Medicine; Internal Medicine; ADMIT Student in an Organized Health Care Education/Training Program
DX: E87.6 Hypokalemia (principal); J44.9 Chronic obstructive pulmonary disease, unspecified; K21.9 Gastro-esophageal reflux disease without esophagitis; K58.9 Irritable bowel syndrome, unspecified; F41.9 Anxiety disorder, unspecified; I10 Essential (primary) hypertension; F17.200 Nicotine dependence, unspecified, uncomplicated; E83.42 Hypomagnesemia; R91.1 Solitary pulmonary nodule
CPT/HCPCS: 6020; 36415; 82436; 93005; 93010; 96374; 96375; 99291; G0378; J1650; J2405; J3490; J7042

== ENCOUNTER 2016-07-17 16:29 | Observation (INO) | payer OTHER ==
[~2016-07-17] VITALS: Ht 160 cm; Wt 49.8 kg
[~2016-07-17 16:29] MED LIST changes: +ADVAIR 500-501 EACH INH; +ALBUTEROL2.5 MG/3 M INH/SOL; +ASPIRIN EC81 M1 PO; +ATIVAN0.5 M1 PO; +BEPREVE10 ML OPH; +CELECOXIB200 M1 PO; +CRESTOR10 M1 PO; +HYDROCODON-ACE1 EAC3 PO; +LOTEMAX5 ML OPH; +MAGNESIUM OXID400 M1 PO; +METAXALONE800 M1 PO; +METOPROLOL TART25 M1 PO; +POTASSIUM CHLO10 ME3 PO; +POTASSIUM CHLO10 ME4 PO; +POTASSIUM CHLO20 ME4 PO; +PRILOSEC OTC20 M1 PO; +SPIRIVA18 MCG INH; +TRAMADOL HCL50 M1 PO; +VENTOLIN HFA18 GM INH; +VITAMIN B122500 MC1 PO; +VITAMIN D31000 UNI1 PO; +VOLTAREN100 GM TOP; +ZOLPIDEM TARTRA10 M1 PO
--- NOTE | 2016-07-17 16:35 | ED UPPER/LOWER EXTREMITY COMPL ---
History of Present Illness General Chief Complaint: General Adult Stated Complaint: DVT PER DR Source: patient, old records, PCP Exam Limitations: no limitations Allergies Coded Allergies: moxifloxacin (From AVELOX) (Severe, ANAPHYLAXIS 11/07/15) Penicillins (Intermediate, RASH 11/07/15) bupropion (From WELLBUTRIN) (Intermediate, HEADACHES, SEVERE VOMITING 11/07/15) cephalexin (From KEFLEX) (Intermediate, SEVERE VOMITING 11/07/15) clindamycin (From CLEOCIN) (Intermediate, SEVERE VOMITING 11/07/15) erythromycin base (Intermediate, SEVERE VOMITING 11/07/15) varenicline (From CHANTIX) (SEVERE HEADACHE MAKES LOOPY PER PT 07/11/16) Reconcile Medications Albuterol Sulfate (Ventolin Hfa) 90 MCG HFA.AER.AD 2 PUF INH Q4-PRN PRN COPD (Reported) Albuterol Sulfate 2.5 MG/3 ML (0.083 %) VIAL.NEB 1 Vial INH/ERICA DAILY NEEDED PRN COPD (Reported) Apixaban (Eliquis) 5 MG TABLET 2 TAB PO BID BLOOD THINNER 2 TABS BID FOR 7 DAYS FOLLOWED BY 1 TAB BID Aspirin (Ecotrin*) 81 MG TABLET.DR 1 TAB PO DAILY HEART/BLOOD (Reported) Bepotastine Besilate (Bepreve) 1.5 % DROPS 1 GTT OPH PRN BOTH EYES - PROPHYLAXIS (Reported) Celecoxib 200 MG CAPSULE 1 CAP PO BID PAIN/INFLAMMATION (Reported) Cholecalciferol (Vitamin D3) (Vitamin D3) 1,000 UNIT CAPSULE 1 CAP PO DAILY SUPPLEMENT (Reported) Cyanocobalamin (Vitamin B-12) (Vitamin B12) 2,500 MCG TABLET 1 TAB PO DAILY SUPPLEMENT (Reported) Diclofenac Sodium (Voltaren) 1 % GEL..GRAM. 1 GM TOP PRN JOINT PAIN (Reported ) apply to affected area(s) Fluticasone/Salmeterol (Advair 500-50 Diskus) 500 MCG-50 MCG/DOSE BLST.W.DEV 1 PUF INH BID COPD (Reported) Hydrocodone/Acetaminophen (Hydrocodon-Acetaminoph 7.5-325) 7.5 MG-325 MG TABLET 1-2 TAB PO Q4-6 PRN PRN PAIN (Reported) Reason to Stop at ADM: pain pathway Lorazepam (Ativan) 0.5 MG TABLET 1 TAB PO DAILY NEEDED PRN ANXIETY ( Reported) Loteprednol Etabonate (Lotemax) 0.5 % DROPS.SUSP 1 GTT OPH PRN BOTH EYES - PROPHYLAXIS (Reported) Magnesium Oxide 400 MG TABLET 1 TAB PO DAILY Supplement Metaxalone 800 MG TABLET 1 TAB PO TID PRN MUSCLE SPASMS (Reported) Metoprolol Tartrate 25 MG TABLET 0.5 TAB PO DAILY BP (Reported) Omeprazole Magnesium (Prilosec Otc) (Unknown Strength) TABLET.DR (Unknown Dose ) PO EOD GERD (Reported) Reason to Stop at ADM: hypokalemia Potassium Chloride 10 MEQ TABLET.ER 2 TAB PO BID Supplement Rosuvastatin Calcium (Crestor) 10 MG TABLET 1 TAB PO DAILY CHOLESTEROL ( Reported) Tiotropium [place] (Spiriva) 18 MCG CAP.W.DEV 1 CAP INH DAILY COPD (Reported) Zolpidem Tartrate 10 MG TABLET 1 TAB PO AT BEDTIME PRN SLEEP (Reported) HPI: Patient presents for evaluation and treatment of a DVT. Unfortunately the patient has a lung cancer that will require a biopsy. In order to perform the biopsy the patient will have to stop discontinue anticoagulation therapy for her DVT placing her at risk of a PE. She is being evaluated for the possibility of an IVC filter placement to guard against pulmonary embolism during cessation of her anticoagulation treatment. Other than that to moderate constant aching left leg pain secondary to her DVT, the patient is without complaint at this time. (LYUDMILA GOEL,ZACKARY Davalos) Vital Signs & Intake/Output Vital Signs & Intake/Output Vital Signs Date Time Temp Pulse Resp B/P Pulse O2 O2 Flow FiO2 Ox Delivery Rate 07/18 1650 99.4 70 16 128/72 96 Room Air ED Intake and Output 07/19 0000 07/18 1200 Intake Total 110 600 Output Total 350 Balance -240 600 Intake, IV 50 Intake, Oral 60 600 Output, Urine 350 Patient 110 lb Weight Triage Nurses Notes Reviewed? yes (MASON GOEL,HUMBERTO) Past History Travel History Traveled to [place] past 21 day No Medical History Neurological: migraine EENT: NONE Cardiovascular: hypertension, hyperlipidemia Respiratory: COPD, LUNG CA Gastrointestinal: GERD, irritable bowel syndrome Hepatic: NONE Renal: NONE Musculoskeletal: chronic back pain, R SHOULDER FX Psychiatric: anxiety Endocrine: NONE Blood Disorders: NONE Cancer(s): NONE PEDIATRIC DENTAL HYGIENIST/Reproductive: NONE History of MRSA: No History of VRE: No History of CDIFF: No Surgical History Surgical History: non-contributory Psychosocial History Who do you live with Spouse What is your primary language [place] (LYUDMILA GOEL,ZACKARY Davalos) Medical History Any Pertinent Medical History? see below for history Family History Hx Contributory? No (HUMBERTO CUEVAS MD) Review of Systems Review of Systems Constitutional: Reports: no symptoms. EENTM: Reports: no symptoms. Respiratory: Reports: no symptoms. Cardiovascular: Reports: no symptoms. Gastrointestinal/Abdominal: Reports: diarrhea. Genitourinary: Reports: no symptoms. Musculoskeletal: Reports: see HPI, joint pain. Skin: Reports: no symptoms. Neurological/Psychological: Reports: no symptoms. Hematologic/Endocrine: Reports: no symptoms. Immunological: Reports: no symptoms. All Other Systems: Reviewed and Negative (HUMBERTO CUEVAS MD) Physical Exam Physical Exam General Appearance: well developed/nourished, mild distress Head: atraumatic Eyes: Bilateral: PERRL, EOMI. Ears, Nose, Throat: normal pharynx, normal ENT inspection, hearing grossly normal Neck: normal inspection, supple Cardiovascular/Respiratory: normal peripheral pulses, regular rate/rhythm Peripheral Pulses: 4+ carotid (R), 4+ carotid (L) Back: normal inspection, normal range of motion Shoulder Left: normal range of motion, normal inspection Shoulder Right: bone tenderness, evidence of injury, soft tissue tenderness, limited range of motion Elbow Left: normal range of motion, normal inspection Elbow Right: normal inspection Hand Left: normal inspection, normal range of motion Hand Right: normal inspection, normal range of motion Leg Left: normal range of motion, soft tissue tenderness, edema Leg Right: normal range of motion, normal inspection, edema Hip Left: normal range of motion, normal inspection Hip Right: normal range of motion, normal inspection Knee Left: normal range of motion, swelling, pain Knee Right: normal range of motion, normal inspection Foot Left: normal inspection, normal range of motion Foot Right: normal inspection, normal range of motion Neurologic/Tendon: normal sensation, normal motor functions, normal tendon functions Skin: intact, normal color, warm/dry Lymphatic: no anterior cervical lindsey (HUMBERTO CUEVAS MD) Progress Differential Diagnosis: DVT Plan of Care: Orders Procedure Date/time Status Heart Healthy Diet 07/18 D Active Nursing [facility] [place] 07/18 1714 Complete Nursing [facility] [place] 07/18 1713 Complete Diagnostic Imaging: Viewed by Me: Ultrasound. Discussed w/RAD: Ultrasound. Radiology Impression: occlusive thrombus L popliteal vein (HUMBERTO CUEVAS MD) Departure Departure Disposition: STILL A PATIENT Condition: Stable Referrals: CAROL SHERMAN APRN (PCP/Family) Departure Forms: Customer Survey General Discharge Information Prescriptions: Current Visit Scripts Apixaban (Eliquis) 2 TAB PO BID #60 TAB 2 TABS BID FOR 7 DAYS FOLLOWED BY 1 TAB BID Observation Note Spoke With: LAVINIA NAQVI MD Physician Advisor Notified: BRANT GOEL,KAJAL Bain (dr radha meehan) Place Patient In: Non-ED OBS Care Area Rationale for Observation: My rational for observation is as follows patient has a left lower extremity DVT and requires initiation of heparin prior to the placement of an IVC filter. The DVT places this patient at risk of a pulmonary embolism, dyspnea, chest pain, syncope, respiratory failure and . Initiation of newer novel anticoagulants such as Eliquis or XARALTO would place the patient at risk of bleeding with subsequent IVC filter placement given that these cannot be reversed easily. Ultimately the patient will require a biopsy of a lung cancer and the IVC filter were all for her some protection against pulmonary embolism while the patient is taken off of her anticoagulation. Given this I feel the patient requires hospitalization for the initiation of heparin and the placement of the IVC filter. (LYUDMILA GOEL,ZACKARY Davalos) Departure Time of Disposition: 1899 Clinical Impression Primary Impression: DVT, lower extremity, distal, acute Secondary Impressions: Leukocytosis Qualifiers: Leukocytosis type: unspecified Qualified Code: D72.829 - Elevated white blood cell count, unspecified (HUMBERTO CUEVAS MD)
--- NOTE | 2016-07-17 16:39 | NUR ---
PER PT AT DR WILLETT OFFICE FOR CONSULT SENT FOR US +FOR DVT TO LLE.
--- NOTE | 2016-07-17 18:09 | NUR ---
PT REFUSED BLOOD WORK AT THIS TIME
--- NOTE | 2016-07-17 18:46 | NUR ---
PER PT AT DR WILLETT OFFICE FOR CONSULT SENT FOR US +FOR DVT TO LLE. TRIAGE NOTE BY SARA Oh RN
--- NOTE | 2016-07-17 19:40 | NUR ---
LABS SENT (SST/LAV/BLUE/DU/PINK). PT CHANGED INTO GOWN, REQUESTED TO KEEP PANTS ON DUE TO BEING COLD.
[2016-07-17 19:51] LABS: ABSOLUTE BASOPHIL COUNT 0.1 /CUMM (0.0-0.2); ABSOLUTE EOSINOPHIL COUNT 0.2 /CUMM (0.0-0.7); ABSOLUTE GRANULOCYTE CT 14.5 /CUMM (1.4-6.5); ABSOLUTE LYMPH COUNT 1.7 /CUMM (1.2-3.4); ABSOLUTE MONOCYTE COUNT 0.8 /CUMM (0.10-0.60); BASOPHIL % 0.4 % (0.0-2.0); EOSINOPHIL % 1.1 % (0-5); GRANULOCYTE % 84.4 % (42.2-75.2); HEMATOCRIT 39.9 % (37-47); MEAN CORPUSCULAR HGB CONC 32.9 G/DL (33.0-37.0); MEAN CORPUSCULAR VOLUME 97.4 FL (81.0-99.0); MEAN PLATELET VOLUME 8.6 FL (7.4-10.4); PLATELET COUNT 227 /CUMM (130-400); RBC DISTRIBUTION WIDTH 16.4 % (11.5-14.5)
[2016-07-17 19:52] LABS: WHITE BLOOD CELL COUNT 17.1 /CUMM (4.8-10.8)
[2016-07-17 19:59] LABS: PTT 29 SEC (25-37)
--- NOTE | 2016-07-17 20:21 | NUR ---
HEPARIN INTIATED AFTER LABS SENT. PT WITH RIGHT ARM IN SLING AFTER FRACTURE PREVIOUSLY, NEEDS SURGERY BUT PER PT CANNOT BE CLEARED DUE TO LUNG NODULES AND NOW DVT. PT ONLY ABLE TO HAVE IV AND LABS IN LEFT ARM, MULTIPLE BRUISES LEFT ARM, IV PLACED LFA, PT REFUSING 2ND LINE TO ONLY OTHER AVAILABLE SITE WHICH IS [facility]. PT HAS NO NEED FOR OTHER IV MEDS AT THIS TIME.
--- NOTE | 2016-07-17 20:33 | NUR ---
MEDICATED WITH IMMODIUM FOR CHRONIC IBS SYMPTOMS; AWAITING ADMISSION AT THIS TIME.
--- NOTE | 2016-07-17 21:00 | History & Physical ---
MINOR GOEL,KRISSY 07/17/16 2100: General Information and HPI MD Statement: I have seen and personally examined VILMA RYAN and documented this H&P. The patient is a 55 year old F who presented with a patient stated chief complaint of [DVT]. Source of Information: patient, old records Exam Limitations: no limitations History of Present Illness: This is a 55-year-old female with past medical history significant for hypertension, hyperlipidemia, COPD, GERD, IBS diarrhea type, chronic back pain, and lung nodule, who comes in with chief complaint of swollen left lower extremity. Patient saw this a.m. for follow-up on a possible lung biopsy. At that time she was noted to have left calf swelling, erythema, and warmth, an outpatient ultrasound was ordered and DVT was confirmed. Of note, patient was last admitted on 07/11/2016 for a shoulder fracture after fall on July 05. She was evaluated and fracture was managed conservatively. During that admission she was noted to have low potassium at magnesium. Patient does state that she is less active over the past few days, however she is still able to ambulate and does get up out of bed every few hours for routine chores around home. Patient states she noticed swelling and erythema in bilateral LE on Thursday. The right LE gradually resolved, but the left continued to remain erythematous, warm to touch, and swollen. She noted a low-grade temp at home at 99.6. She does state she has some slight pain but doesn't cause her significant discomfort. When further questioning the patient, she states that she has noticed similar swelling off and on for the past few months. She denies any shortness of breath, or chest pain recently. She has noted a 38 pound unintentional weight loss in the past 4 months. Eyes any change in her bladder or bowel movement, or chest pain, but she does endorse low-grade fever, weight loss, and an episode of nausea/heaving when she first came into the ED. She drinks 2 alcoholic beverages a day, denies drug use, and she is down to less than half pack a day for smoking. However she states she was smoking half pack to a pack a day for about 40 years. Allergies/Medications Allergies: Coded Allergies: moxifloxacin (From AVELOX) (Severe, ANAPHYLAXIS 11/07/15) Penicillins (Intermediate, RASH 11/07/15) bupropion (From WELLBUTRIN) (Intermediate, HEADACHES, SEVERE VOMITING 11/07/15) cephalexin (From KEFLEX) (Intermediate, SEVERE VOMITING 11/07/15) clindamycin (From CLEOCIN) (Intermediate, SEVERE VOMITING 11/07/15) erythromycin base (Intermediate, SEVERE VOMITING 11/07/15) varenicline (From CHANTIX) (SEVERE HEADACHE MAKES LOOPY PER PT 07/11/16) Home Med list Albuterol Sulfate (Ventolin Hfa) 90 MCG HFA.AER.AD 2 PUF INH Q4-PRN PRN COPD (Reported) Albuterol Sulfate 2.5 MG/3 ML (0.083 %) VIAL.NEB 1 Vial INH/ERICA DAILY NEEDED PRN COPD (Reported) Aspirin (Ecotrin*) 81 MG TABLET.DR 1 TAB PO DAILY HEART/BLOOD (Reported) Bepotastine Besilate (Bepreve) 1.5 % DROPS 1 GTT OPH PRN BOTH EYES - PROPHYLAXIS (Reported) Celecoxib 200 MG CAPSULE 1 CAP PO BID PAIN/INFLAMMATION (Reported) Cholecalciferol (Vitamin D3) (Vitamin D3) 1,000 UNIT CAPSULE 1 CAP PO DAILY SUPPLEMENT (Reported) Cyanocobalamin (Vitamin B-12) (Vitamin B12) 2,500 MCG TABLET 1 TAB PO DAILY SUPPLEMENT (Reported) Diclofenac Sodium (Voltaren) 1 % GEL..GRAM. 1 GM TOP PRN JOINT PAIN (Reported ) apply to affected area(s) Fluticasone/Salmeterol (Advair 500-50 Diskus) 500 MCG-50 MCG/DOSE BLST.W.DEV 1 PUF INH BID COPD (Reported) Hydrocodone/Acetaminophen (Hydrocodon-Acetaminoph 7.5-325) 7.5 MG-325 MG TABLET 1-2 TAB PO Q4-6 PRN PRN PAIN (Reported) Reason to Stop at ADM: pain pathway Lorazepam (Ativan) 0.5 MG TABLET 1 TAB PO DAILY NEEDED PRN ANXIETY ( Reported) Loteprednol Etabonate (Lotemax) 0.5 % DROPS.SUSP 1 GTT OPH PRN BOTH EYES - PROPHYLAXIS (Reported) Magnesium Oxide 400 MG TABLET 1 TAB PO DAILY Supplement Metaxalone 800 MG TABLET 1 TAB PO TID PRN MUSCLE SPASMS (Reported) Metoprolol Tartrate 25 MG TABLET 0.5 TAB PO DAILY BP (Reported) Omeprazole Magnesium (Prilosec Otc) (Unknown Strength) TABLET.DR (Unknown Dose ) PO EOD GERD (Reported) Reason to Stop at ADM: hypokalemia Potassium Chloride 10 MEQ TABLET.ER 2 TAB PO BID Supplement Rosuvastatin Calcium (Crestor) 10 MG TABLET 1 TAB PO DAILY CHOLESTEROL ( Reported) Tiotropium [place] (Spiriva) 18 MCG CAP.W.DEV 1 CAP INH DAILY COPD (Reported) Zolpidem Tartrate 10 MG TABLET 1 TAB PO AT BEDTIME PRN SLEEP (Reported) Compliance With Home Meds: UNKNOWN Past History Travel History Traveled to [facility] past 21 day No Medical History Neurological: migraine EENT: NONE Cardiovascular: hypertension, hyperlipidemia Respiratory: COPD, LUNG CA Gastrointestinal: GERD, irritable bowel syndrome Hepatic: NONE Renal: NONE Musculoskeletal: chronic back pain, R SHOULDER FX Psychiatric: anxiety Endocrine: NONE Blood Disorders: NONE Cancer(s): NONE ACADEMIC COUNSELOR/Reproductive: NONE History of MRSA: No History of VRE: No History of CDIFF: No Surgical History Surgical History: non-contributory Past Family/Social History Functional Ability ADLs Independent: dressing, eating, toileting, bathing. Ambulation: independent IADLs Independent: shopping, housework, finances, food prep, telephone, transportation , medication admin. Review of Systems Review of Systems Constitutional: Reports: chills, fever, malaise, unexplained weight loss. EENTM: Reports: no symptoms. Cardiovascular: Denies: chest pain. Respiratory: Reports: cough. Denies: short of breath, wheezing. GI: Reports: diarrhea. Genitourinary: Reports: no symptoms. Musculoskeletal: Reports: muscle pain. Skin: Reports: erythema. Exam & Diagnostic Data Last 24 Hrs of Vital Signs/I&O Vital Signs Date Time Temp Pulse Resp B/P Pulse O2 O2 Flow FiO2 Ox Delivery Rate 07/17 2126 98.9 79 18 133/74 07/17 2124 98.9 79 18 133/74 96 Room Air 07/17 2016 99.3 88 18 146/75 93 Room Air 07/17 1807 97.0 80 20 118/56 100 Room Air 07/17 1641 96.8 90 24 115/75 92 Room Air Physical Exam General Appearance Alert, Oriented X3, Cooperative, No Acute Distress Skin left lower extremity calf swollen, erythematous, warm to touch. HEENT Atraumatic, PERRLA, EOMI Neck Supple Cardiovascular Regular Rate, Normal S1, Normal S2, No Murmurs Lungs Clear to Auscultation Abdomen Soft, No Tenderness Neurological Normal Speech, Cranial Nerves 3-12 NL Extremities left lower extremity, approximately twice the size of the right lower extremity. Erythematous. Warm to touch. Negative Homans sign. No tenderness to palpation. Vascular Pulses Symmetrical Last 24 Hrs of Labs/Flakito: Laboratory Tests 07/17/161934: Anion Gap 12, Estimated GFR > 60, BUN/Creatinine Ratio 14.0, Glucose 89, Calcium 9.6, PT 13.0 H, INR 1.24 H, APTT 29, CBC w Diff NO MAN DIFF REQ, RBC 4.10 L, MCV 97.4, MCH 32.0 H, RDW 16.4 H, MPV 8.6, Gran % 84.4 H, Lymphocytes % 9.7 L, Monocytes % 4.4, Eosinophils % 1.1, Basophils % 0.4, Absolute Granulocytes 14.5 H, Absolute Lymphocytes 1.7, Absolute Monocytes 0.8 H, Absolute Eosinophils 0.2, Absolute Basophils 0.1, PUBS MCHC 32.9 L Assessment/Plan Assessment: This is a 55-year-old female with past medical history significant for hypertension, hyperlipidemia, COPD, GERD, IBS, and lung nodule with 40 pounds of unintentional weight loss the last 4 months, who comes with chief complaint of swollen left lower extremity. Evaluation with outpatient ultrasound showed DVT. Patient admitted for anticoagulation and possible IVC filter placement. ED evaluation showed: Vitals: 99.3, 88, 18, 146/75, 93% on room air. CBC showed white count 17.1, hemoglobin 13.1, hematocrit 39.9, platelet 227. INR 1.24. BEP within normal limits. Plan 1. DVT: Patient has recent fracture of right upper extremity does managed conservatively. She does state that she is less active however denies prolonged immobility. Additionally, patient has suspicious lung mass in context of 40 pound weight loss in the past 4 months and almost [id number] smoking history. * IV heparin per protocol * Nothing by mouth at midnight in anticipation of IVC filter * Vascular surgery consult * Pulmonary consult * [facility] nebs * EKG 2. Leukocytosis: Patient has MAXIMUM TEMPERATURE 99.3, and a white count of 17.1. Of note, white count on July 12 was 10.2 and on it was 15.3 and she was not treated with abx in the interim. Currently looks like patient might have persistent leukocytosis or more likely has reactionary leukocytosis. She denies any upper respiratory symptoms, or any new GI symptoms. Continue to monitor patient closely. * Monitor off antibiotics 3. Alcohol withdrawal: Patient states that she drinks 2 alcoholic beverages a day. Denies any previous history of withdrawal seizures or difficulty skipping a beverage. * [facility] protocol 4. Fracture or r. humerus: Chronic stable. * Continue current management 5. COPD: Chronic and stable * [facility] fullcode npo heparin gtt As Ranked By This Provider Problem List: 1. DVT, lower extremity, distal, acute 2. Leukocytosis Qualifiers Leukocytosis type: unspecified Qualified Code: D72.829 - Elevated white blood cell count, unspecified 3. Proximal humeral fracture Core Measures/Miscellaneous Acute Coronary Syndrome ACS Diagnosis: No Cerebrovascular Accident CVA/TIA Diagnosis: No Congestive Heart Failure CHF Diagnosis: No Venous Thromboembolism VTE Risk Factors: Acute medical illness, Age > 40 [facility] prophylaxis d/t: No contraindications No VTE Pharm Prophylaxis d/t: No contraindications VTE Diagnosis: Yes VTE Type: Deep Venous Thrombosis VTE Confirmed by (Test): UNILATERAL VENOUS DOPPLER Severe Sepsis Severe Sepsis Present: No Septic Shock Septic Shock Present: No Miscellaneous Documentation Attending Case Discussed With: LAVINIA NAQVI MD Primary Care Physician: CAROL SHERMAN APRN Patient sees these Specialists unknown Level of Patient Care: General Medicine [facility] 07/17[facility]16 6863: Resident Review Statement Resident Statement: examined this patient, discussed with employee communications intern, agreed with employee communications intern, discussed with family, reviewed EMR data (avail), discussed with nursing , discussed with case mgmt, reviewed images, amended to note Other Findings: Vilma is a 55-year-old active smoker woman with a medical history of hypertension dyslipidemia COPD, IBS and GERD, chronic dependent edema w/o hx of HF (Echo 11/03/12 LVEF>65%). Recent mechanical fall resulting in displaced fracture of the humeral neck, was planned to undergo surgical repair, and was sent to her clinical nurse educator for pulmonary clearance. A CAT scan of the chest was done and revealed a left hilar lung mass highly suspicious for malignancy, 5 mm groundglass nodule in the right upper lobe, multiple small subcentimeter recurrent nodules this been stable since previous CAT scan done on 09/14/2014. Therefore, her surgery was deferred to a later time until further workup of this lung mass can be obtained. Since Thursday the patient began experiencing swelling and discomfort in the left lower extremity, and low-grade fevers of 99.9F. Of note, she has had 38 pounds of unintentional weight loss over the course of 3-4 months. She denies any lymphadenopathy anywhere else in her body, no abdominal fullness. Recent mammography was normal. Presently she does not have any pain in the left lower extremity, it is just swollen and warm. She denied any dyspnea and chest tightness or pain. No history of immobilization or personal/family history of hypercoagulable disorders. Vital signs stable, temperature is 99.9F, she is normotensive, 93% on room air. Physical examination is notable for swollen edematous left lower extremity with erythematous skin changes, and left arm in sling. Labs are notable for an elevated white count of 17,000. Bilateral Ultrasound of the lower extremities reveals occlusive thrombus within the left popliteal vein. DVT secondary to probable underlying malignancy, with resultant reactive leukocytosis in the setting of significant COPD. Presumably because of her lung disease, a resultant PE may be catastrophic in this patient and out of caution, her clinical nurse educator has recommended IVC filter placement. Additionally the patient is daily drinker of alcohol, however denies any episodes of withdrawal or seizures. Denies alcoholism. - Problems - Occlusive DVT in Left Popliteal vein Reactive leukocytosis Left hilar lung mass COPD ETOH R. Humeral Frx. - Plan - Heparin gtt to prevent thrombus extension Hold NSAIDs Consider transition to lovenox Keep NPO at midnight in anticipation of IVC filter placement Vascular surgery consult - ? IVC, local thrombolysis versus thrombolectomy Pulmonary consultation Obtain EKG Continue inhalers, TRC/nebs prn CIWA scoring given hx of 2 alcoholic beverages/day Pain control with tylenol/vicodin/morphine Full Code LAVINIA NAQVI 07/18/16 0534: Attending MD Review Statement Attending Statement Attending MD Statement: examined this patient, discuss w/resident/PA/INVESTIGATOR FRAUD, agreed w/resident/PA/INVESTIGATOR FRAUD, reviewed EMR data (avail), reviewed images, amended to note Attending Assessment/Plan: CC: left leg DVT PMH: HLD, COPD, GERD, IBS, chronic back pain, lung nodule under evaluation, ex- smoker Patient was following outpatient for left hilar lung mass with suspicion for malignancy, to be evaluated with bronchoscopy. Patient complained of left lower extremity swelling, started 3 days back. Outpatient Doppler was obtained which shows DVT, was sent for further management to ER. Off note patient also has right humerus fracture, right arm in sling, to be addressed after evaluation of lung mass. Patient denies chest pain, shortness of breath, palpitations, nausea, vomiting, LOC, fever. Vitals: Unremarkable, no tachycardia, saturating well on room air On examination: A O 3, right upper extremity in sling, neck supple, no JVD, no lymphadenopathy, mucosa moist. CVS: S1-S2, RRR. RS: Clear at bases. Abdomen: Soft, NT, bowel sounds present. No focal neurological deficit. Left lower extremity swollen. No dependent edema. Labs: WBC 17.1, neutrophils 84%, INR 1.24, BMP unremarkable Left lower extremity Doppler: Occlusive thrombus within the left popliteal vein. A AND P #1 left lower extremity DVT: In setting of Suspected malignant lung mass. Patient started on heparin, patient does not have any respiratory complaints at this point. Plan for IVC filter tomorrow as patient will be requiring time off anticoagulation for workup of lung mass. Consult Dr. Marcus #2 left hilar lung mass under evaluation #3 right humerus fracture: Continue sling, pain control #4 continue all her home medications #5 extensive alcohol history, continue when necessary Ativan according to CIWA protocol. Continue folic acid, thiamine
--- NOTE | 2016-07-17 21:23 | NUR ---
SEEN BY HOUSE STAFF. PAGED HOUSE STAFF AT 016 FOR COMPELTED EKG, NO REPLY AT THIS TIME.
[2016-07-17 21:27] VITALS: BP 133/74
--- NOTE | 2016-07-17 21:29 | NUR ---
PT TO ROOM 216 BED 1
--- NOTE | 2016-07-17 21:50 | NUR ---
REPORT CALLED TO NABEEL ON 2NB, MESSAGE LEFT FOR TRANSPORT.
--- NOTE | 2016-07-17 22:00 | NUR ---
RECEIVED PATIENT FROM ED. ALERT AND ORIENTED TIMES 3, VSS, ON ROOM AIR, NO SHORTNESS OF BREATH. ARRIVED ON A HEPARIN GTT SECONDARY TO LLE DTV, POSTIVE PULSES. RIGHT ARM IN SLING, S/P FRACTURE. PT HAS HISTORY OF FALLS, BED ALARM PLACED FOR SAFETY, PT IS ON CIWA, SCORING 1-2 AT THIS TIME. CALL COREAS WITHIN REACH. PT VERBAILIZES UNDERSTANDING.
[2016-07-18 01:49] LABS: PT 13.6 SEC (9.4-12.5); PTT 46 SEC (25-37)
--- NOTE | 2016-07-18 07:00 | PN- Housestaff ---
Subjective Follow-up For: DVT of left lower extremity Subjective: No acute events overnight. Patient seen and examined this morning. She feels good and has no complaints. She has pain in her right shoulder from the humerus fracture but it is well-controlled with pain medications. Review of Systems Constitutional: Reports: see HPI. Objective Last 24 Hrs of Vital Signs/I&O Vital Signs Date Time Temp Pulse Resp B/P Pulse O2 O2 Flow FiO2 Ox Delivery Rate 07/18 1650 99.4 70 16 128/72 96 Room Air 07/18 1442 98.9 80 20 118/70 94 Room Air 07/18 1205 80 124/72 07/18 1050 Room Air Room Air 07/18 0707 99.6 83 20 122/78 94 Room Air 07/17 212 98.9 79 18 133/74 07/17 2125 98.9 79 18 133/74 96 Room Air 07/17 2016 99.3 88 18 146/75 93 Room Air Intake & Output 07/18 1600 07/18 0800 07/18 0000 Intake Total 110 600 90 Output Total 350 Balance -240 600 90 Intake, IV 50 Intake, Oral 60 600 90 Output, Urine 350 Patient 49.786 kg 49.895 kg Weight Physical Exam General Appearance: Alert, Oriented X3, No Acute Distress HEENT: Atraumatic, Mucous Membr. moist/pink Neck: Supple Cardiovascular: Regular Rate, Normal S1, Normal S2 Lungs: Clear to Auscultation Abdomen: Soft, No Tenderness, Positive Bowel Sounds Extremities: LLE with 2+ Edema, RUE in Sling Current Medications: Current Medications Sig/Ida Start time Last Medication Dose Route Stop Time Status Admin Acetaminophen 650 MG Q6P PRN 07/17 2114 DCD PO Acetaminophen/ 1 TAB Q6P PRN 07/17 2114 DCD 07/18 Hydrocodone Bitart PO 1842 Acetaminophen/ 1 TAB ONCE ONE 07/17 2014 DC 07/17 Hydrocodone Bitart PO 07/17 Albuterol Sulfate 3 ML DAILY NEEDED PRN 07/17 2129 DCD INH Albuterol Sulfate 2 PUF Q4-PRN PRN 07/17 2129 DCD INH Aspirin Buffered 81 MG DAILY 07/18 1000 DCD 07/18 PO 0901 Atorvastatin Calcium 40 MG 1700 07/18 1700 DCD PO Cyanocobalamin 2,500 MCG DAILY 07/18 1000 DCD 07/18 PO 0901 Diphenhydramine HCl 25 MG Q6P PRN 07/17 211 DCD IV Fentanyl Citrate 0 .STK-MED ONE 07/18 1549 DC .ROUTE Heparin Sodium 5,000 UNIT .STK-MED ONE 07/18 0409 DC (Porcine) IV 07/18 0410 Heparin Sodium 2,064 UNIT BOLUS ONE 07/18 0300 DC 07/18 (Porcine) IV 07/18 0301 0413 Heparin Sodium 25,000 UNIT Q24H 07/17 1900 DC 07/17 (Porcine) IV 07/18 1007 1955 Sodium Chloride 500 ML Lidocaine 0 .STK-MED ONE 07/18 1404 DC .ROUTE Loperamide HCl 2 MG Q6P PRN 07/17 2330 DCD 07/18 PO 0901 Loperamide HCl 2 MG ONE ONE 07/17 2014 DC 07/17 PO 07/17 Lorazepam 0 Q1P PRN 07/17 2145 DCD IV Metoprolol Tartrate 12.5 MG DAILY 07/18 1000 DC PO Metoprolol Tartrate 12.5 MG DAILY 07/18 1000 DCD 07/18 PO 1205 Morphine Sulfate 10 MG .STK-MED ONE 07/18 0417 DC IM 07/18 0418 Morphine Sulfate 2 MG Q4P PRN 07/17 2115 DCD 07/18 IV 1651 Non-Formulary 0 SEE ADMIN CRITERIA 07/17 2130 CAN Medication ANY Non-Formulary 0 SEE ADMIN CRITERIA 07/17 2130 CAN Medication ANY Ondansetron HCl 4 MG .STK-MED ONE 07/18 1210 DC IM 07/18 1211 Ondansetron HCl 4 MG Q6P PRN 07/17 2115 DCD 07/18 IV 1214 Patient Medication 1 ED .STK-MED ONE 07/18 1356 DC Teaching ED 07/18 1357 Tetrahydrozoline HCl 1 GTT Q6P PRN 07/17 2330 DCD OPH Tiotropium [place] 1 PUF DAILY 07/18 1000 DCD 07/18 INH 0901 Zolpidem Tartrate 10 MG AT BEDTIME 07/18 2200 CAN PO Zolpidem Tartrate 10 MG AT BEDTIME PRN 07/17 2130 DCD 07/18 PO 0056 Last 24 Hrs of Lab/Flakito Results Last 24 Hrs of Labs/Mics: Laboratory Tests 07/18/16 0925: Anion Gap 8, Estimated GFR > 60, BUN/Creatinine Ratio 13.3, APTT 31, CBC w Diff NO MAN DIFF REQ, RBC 3.51 L, MCV 96.9, MCH 32.0 H, RDW 16.3 H, MPV 9.6, Gran % 81.3 H, Lymphocytes % 11.7 L, Monocytes % 5.6, Eosinophils % 1.0, Basophils % 0.4, Absolute Granulocytes 10.6 H, Absolute Lymphocytes 1.5, Absolute Monocytes 0.7 H, Absolute Eosinophils 0.1, Absolute Basophils 0.1, PUBS MCHC 33.0 07/18/16 0130: PT 13.6 H, INR 1.30 H, APTT 46 H Assessment/Plan Assessment: 55 y/o F with PMHx of COPD, HLD and lung mass suspicious for malignancy awaiting biopsy who presents with left lower extremity DVT. #Left lower extremity DVT: Needs IVC filter placement so that her anticoagulation can be stopped in anticipation for her lung biopsy. Started on IV heparin drip. * Plan for IR-guided IVC filter placement today. IV heparin stopped 4 hours prior to procedure. * Discharge home after procedure if clinically stable. * Start Eliquis 10 mg PO BID x 1 week followed by 5 mg PO BID after IVC placement. #Left lung hilar mass: * Follow up with Dr. Marcus as outpatient for further workup of the mass. Diet: Heart Healthy DVT PPx: IVC filter and Eliquis CODE: FULL Problem List: 1. Left leg DVT 2. Mass of left lung Pain Ratin Pain Location: RUE Pain Goal: Pain 4 or less Pain Plan: Morphine 2 mg IV Q4H PRN for severe pain (scale 7-10) Vicodin 1 tab PO Q6H PRN for moderate pain (scale 4-6) Tylenol 650 mg PO Q6H PRN for mild pain (scale 1-3) Tomorrow's Labs & Rationales: None Discharge Plan Discharge Disposition: home Stable for Discharge? Yes Anticipated Discharge (Day): today
[2016-07-18 07:07] VITALS: BP 122/78
[2016-07-18] MEDS ORDERED: ELIQUIS5 M1 PO ×2 (09:19→14:38)
--- NOTE | 2016-07-18 10:10 | NUR ---
1005 HEPARIN DRIP STOPPED PER MD ORDER.
[2016-07-18 10:12] LABS: ABSOLUTE BASOPHIL COUNT 0.1 /CUMM (0.0-0.2); ABSOLUTE EOSINOPHIL COUNT 0.1 /CUMM (0.0-0.7); ABSOLUTE GRANULOCYTE CT 10.6 /CUMM (1.4-6.5); ABSOLUTE LYMPH COUNT 1.5 /CUMM (1.2-3.4); ABSOLUTE MONOCYTE COUNT 0.7 /CUMM (0.10-0.60); BASOPHIL % 0.4 % (0.0-2.0); GRANULOCYTE % 81.3 % (42.2-75.2); MEAN CORPUSCULAR VOLUME 96.9 FL (81.0-99.0); MEAN PLATELET VOLUME 9.6 FL (7.4-10.4); PLATELET COUNT 193 /CUMM (130-400); RBC DISTRIBUTION WIDTH 16.3 % (11.5-14.5); RED BLOOD CELL CT 3.51 /CUMM (4.20-5.40); WHITE BLOOD CELL COUNT 13.1 /CUMM (4.8-10.8)
[2016-07-18 10:18] LABS: HEMATOCRIT 34.1 % (37-47)
[2016-07-18 10:19] LABS: PTT 31 SEC (25-37)
--- NOTE | 2016-07-18 13:30 | PN- Att Addend ---
Attending Addendum Attending Brief Note Patient seen and examined, feels okay. She does have pain in her right upper extremity from the previous humerus fracture. Vital Signs Date Time Temp Pulse Resp B/P Pulse O2 O2 Flow FiO2 Ox Delivery Rate 07/18 1205 80 124/72 07/18 1050 Room Air Room Air 07/18 0707 99.6 83 20 122/78 94 Room Air 07/17 2127 98.9 79 18 133/74 07/17 2125 98.9 79 18 133/74 96 Room Air 07/17 2016 99.3 88 18 146/75 93 Room Air 07/17 1807 97.0 80 20 118/56 100 Room Air 07/17 1641 96.8 90 24 115/75 92 Room Air on exam; aox3, nad. cv; s1,s2, rrr resp; clear abd; soft, nt, bs+ ext; 2+ edelle. rue is in a sling. Laboratory Tests 07/18 07/18 0925 0130 Chemistry Sodium (137 - 145 mmol/L) 133 L Potassium (3.5 - 5.1 mmol/L) 3.8 Chloride (98 - 107 mmol/L) 96 L Carbon Dioxide (22 - 30 mmol/L) 29 Anion Gap (5 - 16) 8 BUN (7 - 17 mg/dL) 8 Creatinine (0.5 - 1.0 mg/dL) 0.6 Estimated GFR (>60 ml/min) > 60 BUN/Creatinine Ratio (7 - 25 %) 13.3 Coagulation PT (9.4 - 12.5 SEC) 13.6 H INR (0.90 - 1.19) 1.30 H APTT (25 - 37 SEC) 31 46 H Hematology CBC w Diff NO MAN DIFF REQ WBC (4.8 - 10.8 /CUMM) 13.1 H RBC (4.20 - 5.40 /CUMM) 3.51 L Hgb (12.0 - 16.0 G/DL) 11.3 L Hct (37 - 47 %) 34.1 L MCV (81.0 - 99.0 FL) 96.9 MCH (27.0 - 31.0 PG) 32.0 H RDW (11.5 - 14.5 %) 16.3 H Plt Count (130 - 400 /CUMM) 193 MPV (7.4 - 10.4 FL) 9.6 Gran % (42.2 - 75.2 %) 81.3 H Lymphocytes % (20.5 - 51.1 %) 11.7 L Monocytes % (1.7 - 9.3 %) 5.6 Eosinophils % (0 - 5 %) 1.0 Basophils % (0.0 - 2.0 %) 0.4 Absolute Granulocytes (1.4 - 6.5 /CUMM) 10.6 H Absolute Lymphocytes (1.2 - 3.4 /CUMM) 1.5 Absolute Monocytes (0.10 - 0.60 /CUMM) 0.7 H Absolute Eosinophils (0.0 - 0.7 /CUMM) 0.1 Absolute Basophils (0.0 - 0.2 /CUMM) 0.1 PUBS MCHC (33.0 - 37.0 G/DL) 33.0 03/16 1935 Chemistry Sodium (137 - 145 mmol/L) 134 L Potassium (3.5 - 5.1 mmol/L) 4.3 Chloride (98 - 107 mmol/L) 94 L Carbon Dioxide (22 - 30 mmol/L) 28 Anion Gap (5 - 16) 12 BUN (7 - 17 mg/dL) 7 Creatinine (0.5 - 1.0 mg/dL) 0.5 Estimated GFR (>60 ml/min) > 60 BUN/Creatinine Ratio (7 - 25 %) 14.0 Glucose (65 - 99 mg/dL) 89 Calcium (8.4 - 10.2 mg/dL) 9.6 Coagulation PT (9.4 - 12.5 SEC) 13.0 H INR (0.90 - 1.19) 1.24 H APTT (25 - 37 SEC) 29 Hematology CBC w Diff NO MAN DIFF REQ WBC (4.8 - 10.8 /CUMM) 17.1 H RBC (4.20 - 5.40 /CUMM) 4.10 L Hgb (12.0 - 16.0 G/DL) 13.1 Hct (37 - 47 %) 39.9 MCV (81.0 - 99.0 FL) 97.4 MCH (27.0 - 31.0 PG) 32.0 H RDW (11.5 - 14.5 %) 16.4 H Plt Count (130 - 400 /CUMM) 227 MPV (7.4 - 10.4 FL) 8.6 Gran % (42.2 - 75.2 %) 84.4 H Lymphocytes % (20.5 - 51.1 %) 9.7 L Monocytes % (1.7 - 9.3 %) 4.4 Eosinophils % (0 - 5 %) 1.1 Basophils % (0.0 - 2.0 %) 0.4 Absolute Granulocytes (1.4 - 6.5 /CUMM) 14.5 H Absolute Lymphocytes (1.2 - 3.4 /CUMM) 1.7 Absolute Monocytes (0.10 - 0.60 /CUMM) 0.8 H Absolute Eosinophils (0.0 - 0.7 /CUMM) 0.2 Absolute Basophils (0.0 - 0.2 /CUMM) 0.1 PUBS MCHC (33.0 - 37.0 G/DL) 32.9 L A/P; 55 y/o F with pmh sig for hypertension, hyperlipidemia, COPD, GERD, IBS diarrhea type, chronic back pain, and recently diagnosed lung nodule who will be undergoing bx soon, placed on [employer] OBS for LLE DVT. Patient undergoing IVC filter placement today. Initially she was started on heparin drip. Heparin drip has been stopped for the procedure. After the procedure we will start her on Eliquis. She is scheduled to have a lung nodule biopsy done within the next [address] Marcus had recommended IVC filter so that and in anticipation for her lung biopsy procedure, her anticoagulation can be stopped. Continue all current medications. Patient is able to ambulate without any problem. After the procedure she can be discharged home.
--- NOTE | 2016-07-18 14:36 | Patient Discharge Instructions ---
Discharge Instructions General Discharge Information You were seen/treated for: Deep vein thrombosis of left leg You had these procedures: Inferior vena cava filter placement Watch for these problems: Black or bloody bowel movements Blood in your urine Confusion or difficulty speaking Chest pain worsened by deep breathing Shortness of breath or lightheadedness Special Instructions: Please see your primary care physician Genoveva Ledesma APRN within one week of discharge. Please follow up with your traffic police officer Dr. Marcus within two weeks of discharge. Please take all medications as prescribed. Diet Recommended Diet: Heart Healthy Activity Full Activity/No Limits: Yes Acute Coronary Syndrome Inclusion Criteria At DC or during hospital stay patient has or had the following: ACS DIAGNOSIS No Discharge Core Measures Meds if any: Prescribed or Continued at Discharge Meds if any: NOT Prescribed or Continued at Discharge Congestive Heart Failure Inclusion Criteria At DC or during hospital stay patient has or had the following: CHF DIAGNOSIS No Discharge Core Measures Meds if any: Prescribed or Continued at Discharge Meds if any: NOT Prescribed or Continued at Discharge Cerebrovascular accident Inclusion Criteria At DC or during hospital stay patient has or had the following: CVA/TIA Diagnosis No Discharge Core Measures Meds if any: Prescribed or Continued at Discharge Meds if any: NOT Prescribed or Continued at Discharge Venous thromboembolism Inclusion Criteria VTE Diagnosis No VTE Type Deep Venous Thrombosis VTE Confirmed by (Test) EXT BILATERAL VENOUS DOPP Discharge Core Measures - Per Current guidelines, there needs to be overlap - treatment for the first 5 days of Warfarin therapy. - If discharged on Warfarin prior to 5 days of - overlap therapy, the patient will need to be - assessed for post discharge needs including - *Post discharge parental anticoagulation - *Warfarin and/or parental anticoagulation education - *Follow up date to check INR post discharge At least 5 days overlap therapy as Inpatient No (Eliquis - No Need for Overlap) Why was Parental Med stopped Other Anticoagulant given Meds if any: Prescribed or Continued at Discharge Warfarin No Overlap Therapy No Note: Overlap Therapy is Warfarin and Anticoagulant Meds if any: NOT Prescribed or Continued at Discharge No Warfarin d/t Prescribed other Anticoag No Overlap Therapy d/t Prescribed other Anticoag Comment Eliquis - No Need for Overlap
[2016-07-18 14:42] VITALS: BP 118/70
[2016-07-18 16:50] VITALS: BP 128/72
--- NOTE | 2016-07-18 16:52 | ULTRASOUND REPORT ---
CLINICAL HISTORY: This patient is a 55-year-old female with DVT and contraindication to anticoagulation (upcoming surgery), who presents to interventional radiology for pulmonary embolus prophylaxis. PROCEDURES: 1. Real-time ultrasound-guided access into the right common femoral vein after documentation of selected vessel patency, and permanent imaging storing in the patient records. 2. Inferior venacavogram. 3. IVC filter placement. 4. Post filter placement venogram of the IVC. PHYSICIANS: Dr. Tierra Nash (attending). MONITORING: Continuous blood pressure, pulse oximetry as well as heartrate monitoring was performed by an independent registered nurse. MEDICATIONS: 10 mL of 1% lidocaine SQ. COMPLICATIONS: None. ESTIMATED BLOOD LOSS: <50 mL SPECIMENS: None. IMPLANT: [place] CONTRAST: 40 mL Optiray. FLUOROSCOPY TIME: 0.8 minutes. PROCEDURE NOTE: Informed consent was obtained from the patient prior to the procedure. During this process, the procedure and potential alternatives were explained along with the intended outcome and benefits. The risks of the procedure, including the possibility of an unsuccessful procedure, as well as the risk of not doing the procedure, were discussed. The patient was given the opportunity to ask questions regarding the procedure and appeared competent to make decisions. A signed consent form documenting this discussion was placed in the medical record. SITE MARKING: As part of the preprocedure verification policy, a site marking procedure was initiated. Due to the nature the procedure, the insertion site could not be predetermined thus invoking the policy of exemption to site laterality and marking. Insertion site marking was performed in the procedure room in conjunction with imaging confirmation. A time-out procedure was performed. The patient was placed supine on the fluoroscopy table. The right groin was prepped and draped in the usual sterile fashion. Under ultrasound and fluoroscopic guidance, the common femoral vein was accessed with a 5 Fr Micropuncture set. A 0.035 Bentson wire was advanced into the IVC. The sheath from a [place] filter set was advanced over the wire into the IVC, and the wire was removed. Gentle hand injection of contrast through the sheath confirmed positioning in the iliac vein. An inferior venacavogram was performed in this position. The sheath system was then placed in an infrarenal position, and the dilator was removed. The filter was then deployed in an infrarenal position. A venogram of the IVC was performed. The sheath was removed and manual compression was applied until hemostasis was achieved. FINDINGS: 1. Patient right common femoral vein. 2. Successful placement of a retrievable [place] filter in an infrarenal position. 3. Post filter placement venogram of the IVC. IMPRESSION: Successful placement of a retrievable IVC filter. PLAN: 1. The patient was stable after the procedure and was transferred to the interventional recovery area. The patient will be transferred to the floor. 2. The IVC filter may be removed if the high risk period for pulmonary embolus ceases or if systemic anticoagulation can administered without risk of complication. 3. The patient will follow up at the Interventional Radiology Clinic to assess timing of IVC filter removal if clinically appropriate.
--- NOTE | 2016-07-18 20:05 | Discharge Summary ---
Visit Information Visit Dates Admission Date: 07/17/16 Discharge Date: 07/18/16 Hospital Course Course Attending Physician: BRIANNE GOEL,[facility] Primary Care Physician: GENOVEVA SHERMAN APRN Other Care Providers: Time Clock Repairer Verona Marcus MD Hospital Course: Ms. Bolton is a 55 y/o female smoker with PMHx of COPD, HTN and left hilar lung mass suspicious for malignancy awaiting biopsy who was sent in from manager programs Dr. Marcus's office for further management of left lower extremity DVT found by Doppler ultrasound. Below are the issues that were addressed during current admission: #LLE DVT: Outpatient Doppler ultrasound had revealed occlusive thrombus within the left popliteal vein. Patient was started on IV heparin. Per Dr. Marcus, decision was made to place IVC filter so that anticoagulation could be stopped in anticipation for lung biopsy scheduled within the next 1-2 weeks. Patient went for IR-guided IVC filter placement the day following admission. IV heparin drip was stopped four hours prior to procedure. Following successful placement of IVC filter, patient was discharged home on Eliquis. She was instructed to take Eliquis 10 mg PO BID x 1 week followed by 5 mg PO BID and follow up with Dr. Marcus. Allergies: Coded Allergies: moxifloxacin (From AVELOX) (Severe, ANAPHYLAXIS 11/07/15) Penicillins (Intermediate, RASH 11/07/15) bupropion (From WELLBUTRIN) (Intermediate, HEADACHES, SEVERE VOMITING 11/07/15) cephalexin (From KEFLEX) (Intermediate, SEVERE VOMITING 11/07/15) clindamycin (From CLEOCIN) (Intermediate, SEVERE VOMITING 11/07/15) erythromycin base (Intermediate, SEVERE VOMITING 11/07/15) varenicline (From CHANTIX) (SEVERE HEADACHE MAKES LOOPY PER PT 07/11/16) Significant Procedures: IVC filter placement (07/18/16) Disposition Summary Disposition Principal Diagnosis: DVT of left lower extremity Additional Diagnosis: N/A Discharge Disposition: home or self care Discharge Instructions General Discharge Information Code Status: Full Code Patient's Diet: Heart Healthy Patient's Activity: Full Activity/No Limits Follow-Up Instructions/Appts: Please see your primary care physician Genoveva Sherman APRN within one week of discharge. Please follow up with your manager programs Dr. Marcus within two weeks of discharge. Please take all medications as prescribed. Medications at Discharge Discharge Medications: Continue taking these medications: Cyanocobalamin (Vitamin B-12) (Vitamin B12) 2,500 MCG TABLET 1 Tablet ORAL DAILY Comments: Last Taken: 07/18/16 Time: 9:00 AM Cholecalciferol (Vitamin D3) (Vitamin D3) 1,000 UNIT CAPSULE 1 Capsule ORAL DAILY Comments: NOT GIVEN IN HOSPITAL Celecoxib (Celecoxib) 200 MG CAPSULE 1 Capsule ORAL TWICE DAILY Qty = 60 Comments: NOT GIVEN IN HOSPITAL Metaxalone (Metaxalone) 800 MG TABLET 1 Tablet ORAL THREE TIMES DAILY as needed for MUSCLE SPASMS Qty = 60 Comments: Last Taken: NOT GIVEN IN HOSPITAL Time: Albuterol Sulfate (Ventolin Hfa) 90 MCG HFA.AER.AD 2 Puff Inhale through mouth EVERY 4 HOURS NEEDED as needed for COPD Qty = 18 Comments: Last Taken: NOT GIVEN IN HOSPITAL Time: Hydrocodone/Acetaminophen (Hydrocodon-Acetaminoph 7.5-325) 7.5 MG-325 MG TABLET 1-2 Tablet ORAL EVERY 4-6 HOURS NEEDED as needed for PAIN Qty = 40 Instructions: Reason to Stop at ADM: pain pathway Comments: Last Taken: 07/18/16 Time: 12:00 PM Rosuvastatin Calcium (Crestor) 10 MG TABLET 1 Tablet ORAL DAILY Qty = 90 Comments: Last Taken: NOT GIVEN IN HOSPITAL Time: Loteprednol Etabonate (Lotemax) 0.5 % DROPS.SUSP 1 Drop In the eye as needed for BOTH EYES - PROPHYLAXIS Qty = 5 Comments: Last Taken: NOT GIVEN IN HOSPITAL Time: Fluticasone/Salmeterol (Advair 500-50 Diskus) 500 MCG-50 MCG/DOSE BLST.W.DEV 1 Puff Inhale through mouth TWICE DAILY Qty = 60 Comments: Last Taken: NOT GIVEN IN HOSPITAL Time: Tiotropium [place] (Spiriva) 18 MCG CAP.W.DEV 1 Capsule Inhale through mouth DAILY Qty = 30 Comments: Last Taken: 07/18/16 Time: 9:00 AM Bepotastine Besilate (Bepreve) 1.5 % DROPS 1 Drop In the eye as needed for BOTH EYES - PROPHYLAXIS Qty = 10 Comments: Last Taken: NOT GIVEN IN HOSPITAL Time: Zolpidem Tartrate (Zolpidem Tartrate) 10 MG TABLET 1 Tablet ORAL AT BEDTIME as needed for SLEEP Qty = 30 Comments: Last Taken: 07/18/16 Time: 12:55 AM Diclofenac Sodium (Voltaren) 1 % GEL..GRAM. 1 Gram On the skin as needed for JOINT PAIN Qty = 300 Instructions: apply to affected area(s) Comments: Last Taken: NOT GIVEN IN HOSPITAL Time: Lorazepam (Ativan) 0.5 MG TABLET 1 Tablet ORAL DAILY NEEDED as needed for ANXIETY Comments: Last Taken: NOT GIVEN IN HOSPITAL Time: Aspirin (Ecotrin*) 81 MG TABLET.DR 1 Tablet ORAL DAILY Comments: Last Taken: 07/18/16 Time: 9:00 AM Metoprolol Tartrate (Metoprolol Tartrate) 25 MG TABLET 0.5 Tablet ORAL DAILY Comments: NOT GIVEN IN HOSPITAL 12.5 MG GIVEN 07/18/16 @ 12:00 PM Albuterol Sulfate (Albuterol Sulfate) 2.5 MG/3 ML (0.083 %) VIAL.NEB 1 Vial Inhale Solution DAILY NEEDED as needed for COPD Comments: Last Taken: NOT GIVEN IN HOSPITAL Time: Omeprazole Magnesium (Prilosec Otc) (Unknown Strength) TABLET. Unknown Dose ORAL Every other day Instructions: Reason to Stop at ADM: hypokalemia Comments: NOT GIVEN IN HOSPITAL Magnesium Oxide (Magnesium Oxide) 400 MG TABLET 1 Tablet ORAL DAILY Qty = 30 Comments: NOT GIVEN IN HOSPITAL Potassium Chloride (Potassium Chloride) 10 MEQ TABLET.ER 2 Tablet ORAL TWICE DAILY Days = 30 Comments: NOT GIVEN IN HOSPITAL Start taking the following new medications: Apixaban (Eliquis) 5 MG TABLET 2 Tablet ORAL TWICE DAILY Qty = 60 No Refills Instructions: 2 TABS BID FOR 7 DAYS FOLLOWED BY 1 TAB BID Comments: NOT GIVEN IN HOSPITAL Copies To: Verona MARCUS MD; GENOVEVA SHERMAN APRN
== END 2016-07-18 18:49 ==
LOC: ENRESERVDT → ENRESERVTM → ERH 16:29 → ENPENDDIS 19:54 → ERHI 19:54 → 2NB 19:54
PROVIDERS: Emergency Medicine; Internal Medicine Hematology & Oncology; ADMIT Internal Medicine
DX: I82.4Z2 Acute embolism and thrombosis of unspecified deep veins of left distal lower extremity (principal); I10 Essential (primary) hypertension; E78.5 Hyperlipidemia, unspecified; J44.9 Chronic obstructive pulmonary disease, unspecified; K21.9 Gastro-esophageal reflux disease without esophagitis; K58.9 Irritable bowel syndrome, unspecified; M54.9 Dorsalgia, unspecified; R91.1 Solitary pulmonary nodule; S42.301A Unspecified fracture of shaft of humerus, right arm, initial encounter for closed fracture; W18.30XA Fall on same level, unspecified, initial encounter; Y93.9 Activity, unspecified
CPT/HCPCS: 6040; 36415; 82436; 93005; 93010; 96374; 96375; 96376; C1725; C1769; G0378; J1644; J2405; J3490

== ENCOUNTER 2016-07-23 14:48 | Inpatient (IN) | payer OTHER ==
[~2016-07-23] VITALS: Ht 160 cm; Wt 51.7 kg
[~2016-07-23 14:48] MED LIST changes: +ELIQUIS5 M1 PO
--- NOTE | 2016-07-23 14:51 | NUR ---
BIBA FOR STROKE ALERT, LAST SEEN NORMAL AROUND 1300, AT 1400 FOUND BY DTR ALTERED WITH LEFT FACIAL DROOP AND LEFT SIDE WEAKNESS, C/O MILD HEADACHE. FS 150S FOR EMS, ARRIVES ALERT/ORIENTED WITH SLURRED SPEECH. RECENT ADMISSION FOR DVT AND IVC FILTER PLACED, HEPARIN GTT TRANSITIONED TO ELIQUIS.
--- NOTE | 2016-07-23 14:51 | NUR ---
DR CUEVAS AT BEDSIDE ON ARRIVAL. PT ALSO WITH RIGHT ARM FRACTURE, PER PT NEEDS SURGERY BUT HAS NOT BEEN CLEARED DUE TO ?LUNG NODULE AND DVT. ARM IN SLING. EMS UNABLE TO GET IV ACCESS.
--- NOTE | 2016-07-23 15:00 | NUR ---
TO CT WITH RN AT THIS TIME
--- NOTE | 2016-07-23 15:19 | CT SCAN REPORT ---
EXAMINATION: CT HEAD WITHOUT CONTRAST CLINICAL INFORMATION: Left-sided facial and left upper and left lower extremity weakness. COMPARISON: CT of the head done on 07/06/2016. TECHNIQUE: Contiguous axial imaging was performed from the skull base to vertex without intravenous administration of contrast. DLP: 600.71 mGy-cm FINDINGS: There is no evidence of acute intracranial hemorrhage or territorial infarction. No abnormal mass effect or midline shift is seen. Huang to white matter differentiation is well preserved. No extra-axial fluid collections are identified. The ventricles are normal in size. There is no abnormal attenuation within the brain parenchyma. The osseous structures and soft tissues are normal. The right mastoid air cells and visualized portions of the paranasal sinuses are well aerated. The left mastoid air cell is partially aerated and appear unchanged since 07/06/2016. IMPRESSION: No acute intracranial pathology.
--- NOTE | 2016-07-23 15:19 | NUR ---
RETURNED FROM CT SCAN. IV PLACED IN LEFT WRIST, LABS DRAWN.
--- NOTE | 2016-07-23 15:20 | NUR ---
O2 SATS ON ROOM AIR 90%. CONGESTED COUGH. PLACED ON 2 LITERS NC O2 AND SATS 99%
--- NOTE | 2016-07-23 15:21 | NUR ---
EKG BEING DONE. PT COMPLAINING OF HEAD ACHE UPON ARRIVAL AND NOW COMPLAINING OF NAUSEA
--- NOTE | 2016-07-23 15:34 | ED AMS/SEIZURE/WEAK/DIZZY ---
See Addendum History of Present Illness General Chief Complaint: Neuro Symptoms/ Deficit Stated Complaint: BIBA ?STROKE Source: patient, family, old records, EMS Exam Limitations: no limitations Vital Signs & Intake/Output Vital Signs & Intake/Output Vital Signs Date Time Temp Pulse Resp B/P Pulse O2 O2 Flow FiO2 Ox Delivery Rate 07/23 1525 Room Air 07/23 1454 96.5 98 18 106/62 96 Room Air Allergies Coded Allergies: moxifloxacin (From AVELOX) (Severe, ANAPHYLAXIS 11/07/15) Penicillins (Intermediate, RASH 11/07/15) bupropion (From WELLBUTRIN) (Intermediate, HEADACHES, SEVERE VOMITING 11/07/15) cephalexin (From KEFLEX) (Intermediate, SEVERE VOMITING 11/07/15) clindamycin (From CLEOCIN) (Intermediate, SEVERE VOMITING 11/07/15) erythromycin base (Intermediate, SEVERE VOMITING 11/07/15) varenicline (From CHANTIX) (SEVERE HEADACHE MAKES LOOPY PER PT 07/11/16) Reconcile Medications Albuterol Sulfate (Ventolin Hfa) 90 MCG HFA.AER.AD 2 PUF INH Q4-PRN PRN COPD (Reported) Albuterol Sulfate 2.5 MG/3 ML (0.083 %) VIAL.NEB 1 Vial INH/ERICA DAILY NEEDED PRN COPD (Reported) Apixaban (Eliquis) 5 MG TABLET 2 TAB PO BID BLOOD THINNER 2 TABS BID FOR 7 DAYS FOLLOWED BY 1 TAB BID Aspirin (Ecotrin*) 81 MG TABLET.DR 1 TAB PO DAILY HEART/BLOOD (Reported) Bepotastine Besilate (Bepreve) 1.5 % DROPS 1 GTT OPH PRN BOTH EYES - PROPHYLAXIS (Reported) Celecoxib 200 MG CAPSULE 1 CAP PO BID PAIN/INFLAMMATION (Reported) Cholecalciferol (Vitamin D3) (Vitamin D3) 1,000 UNIT CAPSULE 1 CAP PO DAILY SUPPLEMENT (Reported) Cyanocobalamin (Vitamin B-12) (Vitamin B12) 2,500 MCG TABLET 1 TAB PO DAILY SUPPLEMENT (Reported) Diclofenac Sodium (Voltaren) 1 % GEL..GRAM. 1 GM TOP PRN JOINT PAIN (Reported ) apply to affected area(s) Fluticasone/Salmeterol (Advair 500-50 Diskus) 500 MCG-50 MCG/DOSE BLST.W.DEV 1 PUF INH BID COPD (Reported) Hydrocodone/Acetaminophen (Hydrocodon-Acetaminoph 7.5-325) 7.5 MG-325 MG TABLET 1-2 TAB PO Q4-6 PRN PRN PAIN (Reported) Reason to Stop at ADM: pain pathway Lorazepam (Ativan) 0.5 MG TABLET 1 TAB PO DAILY NEEDED PRN ANXIETY ( Reported) Loteprednol Etabonate (Lotemax) 0.5 % DROPS.SUSP 1 GTT OPH PRN BOTH EYES - PROPHYLAXIS (Reported) Magnesium Oxide 400 MG TABLET 1 TAB PO DAILY Supplement Metaxalone 800 MG TABLET 1 TAB PO TID PRN MUSCLE SPASMS (Reported) Metoprolol Tartrate 25 MG TABLET 0.5 TAB PO DAILY BP (Reported) Omeprazole Magnesium (Prilosec Otc) (Unknown Strength) TABLET.DR (Unknown Dose ) PO EOD GERD (Reported) Reason to Stop at ADM: hypokalemia Potassium Chloride 10 MEQ TABLET.ER 2 TAB PO BID Supplement Rosuvastatin Calcium (Crestor) 10 MG TABLET 1 TAB PO DAILY CHOLESTEROL ( Reported) Tiotropium [place] (Spiriva) 18 MCG CAP.W.DEV 1 CAP INH DAILY COPD (Reported) Zolpidem Tartrate 10 MG TABLET 1 TAB PO AT BEDTIME PRN SLEEP (Reported) Core Measure Meds Pre-Hospital Eliquis Triage Note: BIBA FOR STROKE ALERT, LAST SEEN NORMAL AROUND 1300, AT 1400 FOUND BY DTR ALTERED WITH LEFT FACIAL DROOP AND LEFT SIDE WEAKNESS, C/O MILD HEADACHE. FS 150S FOR EMS, ARRIVES ALERT/ORIENTED WITH SLURRED SPEECH. RECENT ADMISSION FOR DVT AND IVC FILTER PLACED, HEPARIN GTT TRANSITIONED TO ELIQUIS. Triage Nurses Notes Reviewed? yes Onset: Just prior to arrival Duration: hour(s):, constant, continues in ED Timing: recent history Injury Environment: home Severity: severe No Modifying Factors: none Associated Symptoms: cough LMP (ages 10-50): post menopausal : No Patient currently breastfeeds: No HPI: Patient lasting normal 12:45 PM. 45 minutes prior to admission patient was found with left facial droop slurred speech left upper and lower extremity weakness with headache. There is no complaint of fever chills nausea vomiting diarrhea abdominal pain chest pain shortness of breath dysuria rash bleeding. Past History Travel History Traveled to [place] past 21 day No Medical History Any Pertinent Medical History? see below for history Neurological: migraine EENT: NONE Cardiovascular: hypertension, hyperlipidemia Respiratory: COPD, LUNG CA Gastrointestinal: GERD, irritable bowel syndrome Hepatic: NONE Renal: NONE Musculoskeletal: chronic back pain, R SHOULDER FX Psychiatric: anxiety Endocrine: NONE Blood Disorders: NONE Cancer(s): NONE [employer]/Reproductive: NONE History of MRSA: No History of VRE: No History of CDIFF: No Surgical History Surgical History: non-contributory Psychosocial History Who do you live with Spouse What is your primary language Slovenian Tobacco Use: Current Not Daily Daily Tobacco Use Amount/Type: => 5 Cigarettes daily ETOH Use: heavy use Illicit Drug Use: denies illicit drug use Family History Hx Contributory? No Review of Systems Review of Systems Constitutional: Reports: see HPI, weakness. EENTM: Reports: no symptoms. Respiratory: Reports: no symptoms. Cardiovascular: Reports: no symptoms. GI: Reports: no symptoms. Genitourinary: Reports: no symptoms. Musculoskeletal: Reports: no symptoms. Skin: Reports: no symptoms. Neurological/Psychological: Reports: see HPI, numbness, unable to move lower ext, unable to move upper ext, weakness. Hematologic/Endocrine: Reports: no symptoms. Immunologic/Allergic: Reports: no symptoms. All Other Systems: Reviewed and Negative Physical Exam Physical Exam General Appearance: well developed/nourished, alert, awake, anxious, moderate distress Head: atraumatic, normal appearance Eyes: Bilateral: normal appearance, PERRL, EOMI. Ears, Nose, Throat: normal pharynx, normal ENT inspection, hearing grossly normal, moist mucus membranes Neck: normal inspection, supple, full range of motion, no midline tenderness Respiratory: chest non-tender, no respiratory distress, quiet respiration, crackles Cardiovascular: regular rate/rhythm, normal peripheral pulses, norml femoral pulses equa Peripheral Pulses: 4+ carotid (R), 4+ carotid (L) Gastrointestinal: normal bowel sounds, soft, non-tender, no organomegaly Back: normal inspection, normal range of motion, no vertebral tenderness Extremities: normal range of motion, no ligament instability Neurologic/Psych: awake, alert, oriented x 3, motor weakness (LUE/LLE), motor/ sensory deficits, + babinski Reflexes: 1+: bicep (L), knee (L). 2+: bicep (R), knee (R). Skin: intact, normal color Lymphatic: no anterior cervical lindsey Core Measures ACS in differential dx? No CVA/TIA Diagnosis: Yes NIH Stroke Scale: Total 13 Date Last Known Well: 07/23/16 Time Last Known Well: 1245 Neurological S/S of CVA: Difficulty Speaking, Facial Hemiparesis, Left Hemiparesis, Muscle Weakness Symptom Start Date: 07/23/16 Symptom Start Time: 1400 Reason tPA not ordered Medical Contraindication (on eliquis) Severe Sepsis Present: No Septic Shock Present: No Bedside Dysphagia Screen Bedside Swallow Eval Done: Yes Result of Evaluation: Pass Progress Differential Diagnosis: arrythmia, CVA/stroke, electrolyte imbalance, hypoxia, intracranial Hem., pneumonia Plan of Care: Orders Procedure Date/time Status CTA CHEST-PULMONARY EMBOLISM 07/23 1535 Active Durable Medical Equipment 07/23 1458 Active XRY-PORTABLE CHEST XRAY 07/23 1457 Active TROPONIN LEVEL 07/23 1457 Active PROTHROMBIN TIME 07/23 1457 Active COMPREHENSIVE METABOLIC PANEL 07/23 1457 Active CBC WITHOUT DIFFERENTIAL 07/23 1457 Active EKG 07/23 1457 Active TYPE & SCREEN (NOT X-MATCH) 07/23 1457 Active Laboratory Tests 07/23/16 1515: Sodium Pending, Potassium Pending, Chloride Pending, Carbon Dioxide Pending, Anion Gap Pending, BUN Pending, Creatinine Pending, BUN/Creatinine Ratio Pending , Glucose Pending, Calcium Pending, Total Bilirubin Pending, AST Pending, ALT Pending, Alkaline Phosphatase Pending, Troponin I Pending, Total Protein Pending , Albumin Pending, Globulin Pending, Albumin/Globulin Ratio Pending, PT Pending, INR Pending, CBC w Diff Pending, WBC Pending, RBC Pending, Hgb Pending, Hct Pending, MCV Pending, MCH Pending, RDW Pending, Plt Count Pending, MPV Pending, PUBS MCHC Pending Diagnostic Imaging: Viewed by Me: CT Scan. Discussed w/RAD: CT Scan. Radiology Impression: no acute abnormality Initial ED EKG: pending Hand-Off Endorsed To: GEORGETTE PINO MD Endorsed Time: 1532 Pending: CT (CTA chest), consult (neuro), labs Comments: Nuclear medicine radiologist called with concerns for rapidly progressive PE. CTA chest ordered. Departure Departure Disposition: STILL A PATIENT Condition: Stable Clinical Impression Primary Impression: Acute CVA (cerebrovascular accident) Referrals: HELLER DOOR OPERATOR,CAROL A. (PCP/Family) Departure Forms: Customer Survey General Discharge Information
[2016-07-23 15:50] LABS: PT 27.6 SEC (9.4-12.5)
--- NOTE | 2016-07-23 15:53 | NUR ---
LABS REDRAWN PER REQUEST OF LAB
--- NOTE | 2016-07-23 15:55 | RADIOLOGY REPORT ---
EXAMINATION: XR PORTABLE CHEST CLINICAL INFORMATION: Evaluate for pneumonia COMPARISON: CT chest dated 07/11/2016 TECHNIQUE: Portable AP view of the chest was obtained. FINDINGS: Cardia mediastinal silhouette is within normal limits. Minor patchy nodular appearing opacity noted in the right base. This represents a new finding compared to the prior CT chest. Spinal stimulator probe in place. IMPRESSION: Small patchy opacity in the right base may represent small evolving infiltrate.
--- NOTE | 2016-07-23 16:08 | NUR ---
DR PINO IN TO SPEAK WITH PT AND HSB. THEY WERE INFORMED THAT CT SCAN IS NEGATIVE FOR BLEED BUT THAT BY HER SYMPTOMS SHE HAS HAD A CVA. INFORMED THAT THERE IS CONCNERN FOR PE (BASED ON PET SCAN DONE RECENTLY) AND PT WILL GO FOR CTA OF LUNGS TO WORK HER UP FOR PE.
--- NOTE | 2016-07-23 16:09 | NUR ---
PT GIVEN ICE CHIP AND COUGHED AND CHOKED ON IT. PT TO BE STRICT NPO. DR PINO AWARE
[2016-07-23 16:10] LABS: ABSOLUTE BASOPHIL COUNT 0 /CUMM (0.0-0.2); ABSOLUTE EOSINOPHIL COUNT 0.2 /CUMM (0.0-0.7); ABSOLUTE GRANULOCYTE CT 11.3 /CUMM (1.4-6.5); ABSOLUTE LYMPH COUNT 1.5 /CUMM (1.2-3.4); ABSOLUTE MONOCYTE COUNT 0.6 /CUMM (0.10-0.60); BASOPHIL % 0.4 % (0.0-2.0); EOSINOPHIL % 1.2 % (0-5); GRANULOCYTE % 82.7 % (42.2-75.2); HEMATOCRIT 35.1 % (37-47); MEAN CORPUSCULAR HGB 31.6 PG (27.0-31.0); MEAN CORPUSCULAR HGB CONC 32.8 G/DL (33.0-37.0); MEAN CORPUSCULAR VOLUME 96.3 FL (81.0-99.0); MEAN PLATELET VOLUME 9.5 FL (7.4-10.4); PLATELET COUNT 218 /CUMM (130-400); RBC DISTRIBUTION WIDTH 16.9 % (11.5-14.5); RED BLOOD CELL CT 3.64 /CUMM (4.20-5.40); WHITE BLOOD CELL COUNT 13.7 /CUMM (4.8-10.8)
--- NOTE | 2016-07-23 16:32 | NUR ---
SENT FOR CTA SCAN
--- NOTE | 2016-07-23 16:46 | NUR ---
CRITICAL TEST RESULTS [id number] GALDINO RYAN 55 F TESTS AND RESULTS: TROPONIN .33 Results received and read back by: DUSTIN CUETO Results received date and time: 07/23/16 1646 The following provider was notified of the results, and read the results back: DR Fish PINO Notified date and time: 07/23/16 at 1646
--- NOTE | 2016-07-23 16:58 | History & Physical ---
RADHA GOEL,SHEFALI 07/23/16 1658: General Information and HPI Source of Information: patient, family, old records Exam Limitations: no limitations, clinical condition History of Present Illness: Patient is a 55-year-old female with significant past medical history of chronic smoking, COPD, hypertension, right humerus neck fracture, right hilar lymphadenopathy under evaluation? Malignancy, DVT on IVC filter and Eliquis presented with chief complaints of left facial droop and left-sided weakness. Patient was oriented to time, place and person. According to the patient, she took gingerale in the morning, and lasting. She was normal around 12:45 p.m. After that she felt weakness in the face and the arm and brought in by EMS. She was also feeling nausea, dizziness, headache. She also claims that couple of weeks ago, she had fracture of the upper arm bone and was waiting for surgery. Few days ago she was feeling that her left knee is giving away. She also claims that she was feeling difficulty in taking deep breath. She also had an episode of severe pain in the back a day before, and which is recovered by its own. She denies chest pain, palpitation, fall, bleeding from any site of the body. She has pain stimulator device in neck, so cannt go through MRI. Past medical history - PE (right lower lobe, right/left posterior basal segment) left hilar lymphadenipathy under evaluation ? malignancy Right humerus neck fracture DVT on IVC filter and Eliquis Anterior cervical discectomy start (2004), Cervical plating C5,6,7 Hypertension COPD Chronic smoker Allergies-penicillin, erythromycin, Keflex, clindamycin, Bactrim Allergies/Medications Allergies: Coded Allergies: moxifloxacin (From AVELOX) (Severe, ANAPHYLAXIS 11/07/15) Penicillins (Intermediate, RASH 11/07/15) bupropion (From WELLBUTRIN) (Intermediate, HEADACHES, SEVERE VOMITING 11/07/15) cephalexin (From KEFLEX) (Intermediate, SEVERE VOMITING 11/07/15) clindamycin (From CLEOCIN) (Intermediate, SEVERE VOMITING 11/07/15) erythromycin base (Intermediate, SEVERE VOMITING 11/07/15) varenicline (From CHANTIX) (SEVERE HEADACHE MAKES LOOPY PER PT 07/11/16) Home Med list Albuterol Sulfate (Ventolin Hfa) 90 MCG HFA.AER.AD 2 PUF INH Q4-PRN PRN COPD (Reported) Albuterol Sulfate 2.5 MG/3 ML (0.083 %) VIAL.NEB 1 Vial INH/ERICA DAILY NEEDED PRN COPD (Reported) Apixaban (Eliquis) 5 MG TABLET 2 TAB PO BID BLOOD THINNER 2 TABS BID FOR 7 DAYS FOLLOWED BY 1 TAB BID Aspirin (Ecotrin*) 81 MG TABLET.DR 1 TAB PO DAILY HEART/BLOOD (Reported) Bepotastine Besilate (Bepreve) 1.5 % DROPS 1 GTT OPH PRN BOTH EYES - PROPHYLAXIS (Reported) Celecoxib 200 MG CAPSULE 1 CAP PO BID PAIN/INFLAMMATION (Reported) Cholecalciferol (Vitamin D3) (Vitamin D3) 1,000 UNIT CAPSULE 1 CAP PO DAILY SUPPLEMENT (Reported) Cyanocobalamin (Vitamin B-12) (Vitamin B12) 2,500 MCG TABLET 1 TAB PO DAILY SUPPLEMENT (Reported) Diclofenac Sodium (Voltaren) 1 % GEL..GRAM. 1 GM TOP PRN JOINT PAIN (Reported ) apply to affected area(s) Fluticasone/Salmeterol (Advair 500-50 Diskus) 500 MCG-50 MCG/DOSE BLST.W.DEV 1 PUF INH BID COPD (Reported) Hydrocodone/Acetaminophen (Hydrocodon-Acetaminoph 7.5-325) 7.5 MG-325 MG TABLET 1-2 TAB PO Q4-6 PRN PRN PAIN (Reported) Reason to Stop at ADM: pain pathway Lorazepam (Ativan) 0.5 MG TABLET 1 TAB PO DAILY NEEDED PRN ANXIETY ( Reported) Loteprednol Etabonate (Lotemax) 0.5 % DROPS.SUSP 1 GTT OPH PRN BOTH EYES - PROPHYLAXIS (Reported) Magnesium Oxide 400 MG TABLET 1 TAB PO DAILY Supplement Metaxalone 800 MG TABLET 1 TAB PO TID PRN MUSCLE SPASMS (Reported) Metoprolol Tartrate 25 MG TABLET 0.5 TAB PO DAILY BP (Reported) Omeprazole Magnesium (Prilosec Otc) (Unknown Strength) TABLET.DR (Unknown Dose ) PO EOD GERD (Reported) Reason to Stop at ADM: hypokalemia Potassium Chloride 10 MEQ TABLET.ER 2 TAB PO BID Supplement Rosuvastatin Calcium (Crestor) 10 MG TABLET 1 TAB PO DAILY CHOLESTEROL ( Reported) Tiotropium [place] (Spiriva) 18 MCG CAP.W.DEV 1 CAP INH DAILY COPD (Reported) Zolpidem Tartrate 10 MG TABLET 1 TAB PO AT BEDTIME PRN SLEEP (Reported) Past History Travel History Traveled to [place] past 21 day No Medical History Neurological: migraine EENT: NONE Cardiovascular: hypertension, hyperlipidemia Respiratory: COPD, LUNG CA Gastrointestinal: GERD, irritable bowel syndrome Hepatic: NONE Renal: NONE Musculoskeletal: chronic back pain, R SHOULDER FX Psychiatric: anxiety Endocrine: NONE Blood Disorders: NONE Cancer(s): NONE DOCUMENT CLERK/Reproductive: NONE History of MRSA: No History of VRE: No History of CDIFF: No Surgical History Surgical History: laminectomy, cervical discectomy Past Family/Social History Psychosocial History Smoking Status: Current Everyday Smoker ETOH Use: heavy use Illicit Drug Use: denies illicit drug use Functional Ability ADLs Independent: dressing, eating, toileting, bathing. Ambulation: independent IADLs Independent: shopping, housework, finances, food prep, telephone, transportation , medication admin. Review of Systems Review of Systems Constitutional: Reports: weakness. Cardiovascular: Denies: chest pain, edema, orthopena, palpitations, peripheral edema. Respiratory: Reports: short of breath. Denies: cough, hemoptysis, orthopnea, sputum production, stridor. GI: Denies: abdominal pain, bloating, constipation, diarrhea, distention. Genitourinary: Denies: discharge, dysuria, frequency, hematuria. Musculoskeletal: Reports: back pain, joint pain. Skin: Reports: erythema, rash (right humerous). Neurological/Psychological: Reports: anxiety, depressed, headache, unable to move lower ext, unable to move upper ext, weakness. Exam & Diagnostic Data Last 24 Hrs of Vital Signs/I&O Vital Signs Date Time Temp Pulse Resp B/P Pulse O2 O2 Flow FiO2 Ox Delivery Rate 07/23 1700 97.6 90 16 128/62 99 Nasal 2.0L Cannula 07/23 1525 Room Air 07/23 1454 96.5 98 18 106/62 96 Room Air Physical Exam General Appearance Alert, Oriented X3, Cooperative, No Acute Distress Skin right humerous erythema, bluish discoloration of head of humerouse HEENT PERRLA, decrease movement of right medial and left lateral rectus movements are restricted. Neck painful flexion Cardiovascular Normal S1, Normal S2, murmur, Lungs Clear to Auscultation, occasional crepts Abdomen Soft, No Tenderness Neurological Normal Speech, Sensation Intact, facial nerve palsy on left side, 3 /5 left upper limb, 4/5 left lower limb Extremities No Clubbing, No Cyanosis, pitting edema Vascular Normal Pulses, Pulses Symmetrical Assessment/Plan Assessment: Patient is a 55-year-old female with significant past medical history of chronic smoking, COPD, hypertension, right humerus neck fracture, right hilar lymphadenopathy under evaluation? Malignancy, DVT on IVC filter and Eliquis presented with chief complaints of left facial droop and left-sided weakness. Vital signs at the time of admission-temperature 96.5, pulse 98, respiratory rate 18, blood pressure 106/62, SPO2 96% CT head without contrast - No acute intracranial pathology. Chest x-ray - patchy opacity in the right base may represent small evolving infiltrate Plan - Stroke underevaluation probably right MCA infarct - * She presented with weakness in the left upper and lower limb with the facial nerve palsy of the left side. * CT scan of the head no acute intracranial pathology. * Patient cannot have MRI as she has electrical nerve stimulation device. * Discussed with neurologist, if we start her on heparin drip she may be at high risk of herrhagic conversion.We will continue aspirin and Eliquis. * Patient failed swallow evaluation in ED. * We will keep her NPO. * We will continue P/R Aspirin. * We did Carotid doppler - which showed <50% stenosis of Rt ICA, 50-79%of Lt ICA , Nonvisualization of right vertebral artery * Neuro check every 1 hour Hx of DVT on IVC filter and Eliquis presented with Bilateral PE * Chest x-ray showed- Minor patchy nodular appearing opacity noted in the right base.Spinal stimulator probe in place * CTA showed - Acute pulmonary embolism in bilateral lower lobe segmental and subsegmental pulmonary arteries, right greater than left. * Her recent trops are positve 0.33. * We will observe patient in ICU * We will watch for Spo2 and keep it >92% * We discussed with Dr espino * We will trend her troponins/EKG * We will do extensive Doppler to r/o clot , both lower extremity and upper extremity and pelvic veins Hx of Lobulated left hilar mass and mediastinal lymphadenopathy * She has this mass in her last CT chest * She is due for biopsy Comminuted fracture subcapital location right humerus - * She had this fracture on 07/06/16. * She is not cleared for surgery due to Mediatinal lymphadenopathy and DVT. COPD - * TRC/Neb DVT prophylaxis-ALP S Diet- NPO CODE STATUS -full code As Ranked By This Provider Problem List: 1. Acute CVA (cerebrovascular accident) 2. Mass of left lung 3. Left leg DVT 4. DVT, lower extremity, distal, acute 5. Proximal humeral fracture Core Measures/Miscellaneous Acute Coronary Syndrome ACS Diagnosis: Yes Date of most recent Echo 11/03/12 HUBER/ARB For EF <40% No ASA W/I 24hr of admit Yes Beta-Stephon W/I 24hrs Yes LDL assessed W/I 24 hrs Yes Currently on Statin Yes Cerebrovascular Accident CVA/TIA Diagnosis: Yes NIH Stroke Scale: Total 5 Date Last Known Well: 07/23/16 Time Last Known Well: 1245 Neurological S/S of CVA: Difficulty Speaking, Facial Hemiparesis, Left Hemiparesis, Muscle Weakness Symptom Start Date: 07/23/16 Symptom Start Time: 1400 Reason tPA not ordered Medical Contraindication (on eliquis) Bedside Swallow Eval Done: Yes Result of Evaluation: Pass Antithrombotic: Yes AFIB: No Aflutter: No Anticoagulant: Yes Evidence of Atherosclerosis: Yes LDL Assessed Within 24 Hours: Yes Currently on Statin: Yes Rehab Needs Assessed: Medical Eval for Rehab PT Consult Ordered: Yes Congestive Heart Failure CHF Diagnosis: No Venous Thromboembolism VTE Risk Factors: Age > 40, Cancer/chemo/oth therapy, Previous VTE, Smoking No [facility] VTE prophylaxis d/t: No contraindications No VTE Pharm Prophylaxis d/t: Medical contraindication VTE Diagnosis: Yes VTE Type: Deep Venous Thrombosis VTE Confirmed by (Test): CT CHEST ANGIOGRAM Severe Sepsis Severe Sepsis Present: No Septic Shock Septic Shock Present: No Miscellaneous Documentation Attending Case Discussed With: MARY PENN MD Primary Care Physician: CAROL SHERMAN APRN 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 Bolton is a 55-year-old female with past medical history significant for hypertension, hyperlipidemia, COPD, GERD, IBS (diarrhea type), chronic back pain with neurostimulator in place, who presents to the ED for evalutation of facial droop. It should be noted that the patient had a pathological fracture of her right proximal humerus which displaced 07/05/16. Subsequently she was admitted to the hospital 07/11/16 for LLE swelling, which turned out to be a left popliteal vein DVT for which she was on aspirin and eliquis. She also had an IVC filter placed for possible lung nodule bx (see below). Also, it should be noted that the patient has a long hx of smoking, currently enrolled in the Lung Ca screening program with multiple nodules, most notably a left hilar mass 3.5 x 2.9 cm which is suspicious for malignancy. She was scheduled for a biopsy of the lesion, however given her DVT, this was deferred. Per the patient's and daughter were at the bedside, the patient was last seen normal approximately 12:45 PM today. At around 2 PM he noticed that she had left-sided facial droop associated with dysarthria, and at. She also endorses as well as left upper and lower extremity weakness. Review of systems, as dictated above. Pt does endorse that she had left leg weakness/her leg giving out over the last few days. She also endorsed headache, dizziness, and nausea - however is unchanged from from baseline. Vital signs initial temperature, 96.5. Heart rate 98. Respiratory rate 18. Blood pressure 106/62 saturating 96% 2 L of oxygen. Physical exam as indicated above. EKG showed normal sinus rhythm at a rate of 95 bpm. AR 144 ms. QTC 438 ms. Questionable Q waves in leads V1 and V2. NIH stroke scale was 13. Labs were significant for white count 13.7, H&H 11.5/35.1, platelets 218. Sodium 133, potassium 4.2. BUN/Cr 10/0.5. Glucose 112. Alkaline phosphatase 221. Troponin 0.33. Chest x-ray showed a possible right lower lobe infiltrate. Head CT without contrast was negative for acute pathology. Previous CT, 07/11/2006 showed a left hilar lung mass highly suspicious for, as well as 5 mm groundglass nodule in the right upper lobe. Multiple subcentimeter micronodules bilaterally were also noted which were unchanged from previous investigation. FDG PET interpretted today showed: 1. An FDG avid left hilar mass is most likely malignant. 2. FDG avid lymphadenopathy in the proximal left peribronchial region as well as multiple FDG avid mediastinal and a single left supraclavicular FDG avid lymph node are most likely metastases. 3. Pleural-based wedge shaped opacities including a prominent segmental appearing opacity in the lateral basal segment of the right lower lobe show only minimal FDG activity, and are very strongly suspicious for pulmonary embolism, with infarction in the left lower lobe focus. A CTA of the lungs today revealed BL lower lobe segmental and subsegmental pulm arteries R>L, with wedge-shaped reticular opacity most suspicious for acute infarct posterior lateral aspect right lower lobe. Smaller groundglass foci noted in the right middle lobe and right upper lobe as well as the left upper lobe may represent mosaic perfusion in this individual. Problem List Ischemic CVA Bilateral PE R subclavian DVT Elevated troponin Loculated Left Hilar Mass with mediastinal lymphadenopathy LLE DVT Displaced right humerus fracture COPD Chronic Back pain Assessment and Plan * We will admit the patient to telemetry for continuous neuro monitoring with NIH/neuro checks q2 hours as she was previously on eliquis and given her CVA has a likelihood of converting from an ischemic to a hemorrhagic CVA. * Neuro informed and on board - we will continue ASA and eliquis for now and hold off on Heparin. * As the patient failed a bedside swallow evaluation, we will dose with 300mg of AR aspirin and resume PO meds including aspirin and eliquis * There is still a debate of weather or not heparin should be started as the patient does have an extensive clot burden (multiple sites). * We will further reinvestigate with duplex ultrasounds of both legs, pelvic veins, and right arm (although this may be limited due to her displaced fracture ) to further assess for clot burden as she has already had a dose of IV contrast and we want to avoid inducing contrast induced nephropathy. * If the ultrasounds do come back with extensive burden, we will revist the issue of IV heparin. This issue was extensively discussed with the patients family and the risk of possible conversion was stressed. * We will also get BL carotid U/S to further evaluate her CVA. * We will also trend trops and get serial EKGs at 10 and 4, as well as an echocardiogram to evaluate for right heart strain. * As we do not know the patholgy of the cancer as there is no tissue specimen yet, we cannot determine prognosis acurately, but given that the size of the tumor progressed this extensively in less than 2 weeks, with mediastinal involvement and that fact that she has clotted while on PO anticoagulation, she does carry a poor prognosis. ? small cell lung ca? * Additionally, we will continue her COPD meds, and give an IV pain regimen as ordered for mild/moderate and severe pain. Consults to be placed in the am (neuro/pulm aware now) Ortho Cardio Onc Vascular FULL CODE - discussion about code status and the patients poor prognosis was performed with the patient and her family and the patient decided she'd like to be full code for now and to revisit the issue again tomorrow. NPO for now pending a swallow eval as the patient failed the bedside swallow No AC Pain pathway on board MARY PENN MD 07/24/16 0811: Attending MD Review Statement Attending Statement Attending MD Statement: examined this patient, discuss w/resident/PA/FIBERGLASS DOWEL DRAWING OPERATOR, agreed w/resident/PA/FIBERGLASS DOWEL DRAWING OPERATOR, reviewed EMR data (avail) Attending Assessment/Plan: Agree with resident assessment and plan. Will admit to ICU for CVA, start ASA and statin, continue Eliquis per neurology. PE with clot burden and subclavian DVT, will not start heparin due to possibility of hemorrhagic conversion. Critical care, orthopedic, vascular, neurology consults. Continue home medications. Poor prognosis.
--- NOTE | 2016-07-23 17:00 | NUR ---
RETURNED FROM CT SCAN. LOGROLLED FOR LINEN STRAIGHTENING AND TO UNDRESS PT. RED SOCKS PLACED ON FEET
--- NOTE | 2016-07-23 18:11 | CT SCAN REPORT ---
EXAMINATION: CT ANGIOGRAM OF THE CHEST WITH AND WITHOUT CONTRAST (CT PULMONARY ANGIOGRAM FOR PE) CLINICAL INFORMATION: Suspicion of PE based on the PET/CT COMPARISON: PET/CT dated 07/22/[address] chest dated 07/11/2016. TECHNIQUE: Prior to contrast administration, noncontrast localization images were obtained. Subsequently, multidetector volumetric imaging was performed from the thoracic inlet to below the diaphragms following the administration of 80 mL Omnipaque 350 intravenous contrast. No contrast reaction reported Sagittal, coronal, and MIP oblique sagittal reformatted images were obtained on the CT workstation, uploaded to PACS, and reviewed. Total exam dose-length product 407.25 mGy-cm FINDINGS: QUALITY OF STUDY/CONTRAST BOLUS: Satisfactory. PULMONARY ARTERIES: Acute pulmonary embolism noted in the right lower lobe segmental segmental pulmonary arteries with most significant involvement noted in the right posterior basal segment.. Pulmonary embolism also noted in the posterior basal segment left lower lobe segmental and subsegmental pulmonary arteries. Large left hilar mass encasing the distal main left-sided pulmonary arteries and branches. THORACIC AORTA: Atherosclerotic disease of the aorta. LUNG: Wedged shaped reticular opacity posterior lateral aspect right lower lobe suspicious for acute infarct. Segmental pulmonary artery with embolus extending to the level of the infarct. There is patchy groundglass attenuation noted in the right upper lobe and right middle lobe. Subtle groundglass attenuation also noted in the left upper lobe. These are likely due to mosaic perfusion. Dependent atelectatic changes noted in the left base.. There is a large left hilar mass or adenopathy encasing the left hilar vascular structures and the distal left mainstem bronchus. This mass demonstrates heterogeneous enhancement and measures approximately 3.4 x 3.2 cm. It demonstrates interval increase compared to prior CT chest dated 07/11/2016. PLEURA: Interval small right-sided effusion. MEDIASTINUM: Interval increase in the mediastinal lymphadenopathy. Larger nodes noted in the AP window and prevascular space measuring approximately 3.4 x 2.3 cm. Enlarged left paratracheal and pretracheal lymph nodes also identified measuring approximately 3.4 x 1.7 cm and 1.5 x 1.5 cm respectively.. Matted left hilar lymphadenopathy versus left hilar mass as detailed. No evidence of septal bowing or right heart strain. CHEST WALL/AXILLA: Acute fracture or subcapital location right humeral neck. Given the abnormal lucency in this region, it is suspicious for a pathologic fracture. The adjacent soft tissues demonstrate abnormal soft tissue swelling with associated hypodensity. These findings may be secondary to hematoma or soft tissue mass. Increased density of the soft tissues also identified posterior to the proximal shaft. This demonstrates further increase compared to recent prior PET/CT. Although this may be due to recent hematoma, contrast extravasation from an injured vessel is a possibility. Smaller linear fracture fragments also identified in the vicinity. Suggestion of filling defect in the right subclavian vein may be partly attributed to opacified and unopacified contrast. However, thrombus cannot be entirely excluded (series 400 image 35) OSSEOUS STRUCTURES: Acute comminuted fracture subcapital location right humeral neck is incompletely included in the examination as detailed. Adjacent possible hematoma formation. It is suspicious for pathologic fracture. Patient has neurostimulator device noted in the spinal canal. UPPER ABDOMEN: Multiple foci of decreased attenuation noted in the peripheral aspect of the spleen. Larger focus noted in the anterior pole of the spleen included in the examination. Differential possibility includes splenic infarcts or splenic masses. The appearance is not typical for heterogeneous enhancement with early contrast phase. Left adrenal enlargement noted again. Mild prominence of the right adrenal gland. Bilateral adrenal glands maintaining adreniform shape. Similar appearance was seen on remote CT dated 12/19/2009.. IMPRESSION: 1. Acute pulmonary embolism noted in bilateral lower lobe segmental and subsegmental pulmonary arteries, right greater than left. 2. Wedge-shaped reticular opacity most suspicious for acute infarct posterior lateral aspect right lower lobe. Smaller groundglass foci noted in the right middle lobe and right upper lobe as well as the left upper lobe may represent mosaic perfusion in this individual. 3. Lobulated left hilar mass and mediastinal lymphadenopathy demonstrates interval increase compared to 07/11/2016. 4. Comminuted fracture subcapital location right humerus is most suspicious for a pathologic fracture. Adjacent masslike hypodensity may be associated with hematoma or soft tissue mass. Soft tissue hyperdensity noted posterior to the humeral shaft may also be associated with hematoma. Given the interval increase in the hyperdensity compared to the previous examination, contrast extravasation from an injured vessel is a likely possibility. Right subclavian DVT suspected as detailed. Critical results were discussed with Dr. Perez at 5:20 PM on 07/23/2016. VTE: positive
--- NOTE | 2016-07-23 18:30 | NUR ---
PT IN ULTRASOUND FOR CAROTID ULTRASOUND
--- NOTE | 2016-07-23 18:45 | NUR ---
PT COMPLAINING OF NAUSEA IN ULTRASOUND. GIVEN ZOFRAN.
--- NOTE | 2016-07-23 19:00 | NUR ---
DR BELLA AT BEDSIDE. VERBAL ORDER RECIEVED TO HOLD HEPARIN GTT FOR NOW.
--- NOTE | 2016-07-23 19:34 | NUR ---
CAROTID STUDIES COMPLETED IN ULTRAOUND. PT PALE, DIAPHORETIC. NAUSEA IMPROVED AFTER ZOFRAN. PT BROUGHT BACK TO ED FOR ASSESSMENT. ULTRASOUND OF LEGS TO BED DONE AT BEDSIDE IN ED. LÓPEZ PLACED UPON RETURN TO ED
--- NOTE | 2016-07-23 19:43 | NUR ---
PT COMPLAININ OF LEFT SHOULDER PAIN-PT ASKING FOR PAIN MEDICINE. WAS TAKING VICODIN AT HOME. GIVEN 2MG MORPHINE FOR PAIN
--- NOTE | 2016-07-23 19:47 | ULTRASOUND REPORT ---
EXAMINATION: US DUPLEX CAROTID AND VERTEBRAL CLINICAL INFORMATION: Ischemic CVA COMPARISON: None TECHNIQUE: Real-time ultrasound and Doppler techniques (integrating B-mode 2D vascular images, Doppler spectral analysis and color flow Doppler imaging) were utilized to interrogate the extracranial carotid and vertebral arteries bilaterally. The degree of stenosis determined by criteria similar to NASCET. FINDINGS: There is extensive fibrocalcific plaque seen within both carotid bulbs extending into the ICA origins. Mild turbulent flow. Peak systolic velocity within the right ICA is 1 13 cm/s with a peak and diastolic velocity of 37 cm/s. Corresponding parameters on the left are 136 and 63 cm/s. There is antegrade low resistance waveform noted within the left vertebral artery. The right vertebral artery is not visualized. IMPRESSION: 1. Less than 50% luminal diameter narrowing of the right ICA origin and carotid bulb. 2. 50-79% stenosis of the left distal ICA. Extent of stenosis is close to the 50% range. 3. Nonvisualization of the right vertebral artery.
--- NOTE | 2016-07-23 20:28 | NUR ---
MEDICATED FOR SHOULDER PAIN WITH MORPHINE. STATES MINIMAL RELIEF OF PAIN. MEDICATED WITH DILAUDID. BEDSIDE ULTRASOUND OF LEGS BEING DONE
--- NOTE | 2016-07-23 20:31 | NUR ---
PAGED DR FRIEND AND VERIFIED THAT PT IS NOT TO GET THE HEPARIN GTT THAT IS ORDERED. ALSO INFORMED MD THAT PT CANNOT SWALLOW ANY OF THE MEDS ON THE MAR DUE TO ASPIRATION CONCERNS. INQUIRED IF PT NEEDS IVF. VERBAL ORDER RECIEVED FROM DR FRIEND TO CHART PO MEDS NOT GIVEN. STATES SHE WILL DISCONTINUE HEPARIN GTT. NO OTHER ORDERS RECIEVED
--- NOTE | 2016-07-23 20:59 | NUR ---
PAGED DR Ulises GARCIA TO INFORM HER THAT PUPPY TRAINER WAS UNABLE TO PERFORM AXILLARY ULTRASOUND DUE TO PT NOT BEING ABLE TO ABDUCT HER RIGHT ARM DUE TO FX SHOULDER
--- NOTE | 2016-07-23 21:15 | NUR ---
PT REMAINS DROWSY BUT AROUSABLE. CONTINUES TO HAVE LEFT FACIAL DROOP AND LEFT SIDE WEAKNESS. HAS BEEN STRICT NPO DUE TO CHOKING WITH 1 ICE CHIP. STATES SHE HAS HAD SOME PAIN IMPROVEMENT AFTER DILAUDID AND MORPHINE. PT DRESSED IN HOSP GOWN WITH RED SOCKS. RIGHT ARM WITH DIFFUSE ECCHYMOSIS ALONG ENTIRE ARM. NO OTHER SKIN BREAKDOWN OR REDNESS NOTED. PT ORIENTED X3 AND VERBALIZED UNDERSTANDING OF PLAN OF CARE
--- NOTE | 2016-07-23 21:41 | NUR ---
REPORT CALLED TO ZENOBIA IN ICU. ZENOBIA NOTIFIED THAT PT NEEDS 2200 TROPONIN AND EKG
--- NOTE | 2016-07-23 21:59 | ULTRASOUND REPORT ---
EXAMINATION: BILATERAL LOWER EXTREMITY VENOUS ULTRASOUND CLINICAL INFORMATION: Follow-up known left DVT COMPARISON: 07/17/2016 TECHNIQUE: Doppler spectral analysis and color flow Doppler imaging was performed of the lower extremities. Compression and augmentation maneuvers were performed. FINDINGS: Right lower extremity negative for DVT. On the left, there is once again completely occlusive clot seen within the popliteal vein similar to previous. No definite propagation. ADDITIONAL FINDINGS: There is no popliteal cyst. There is question of a hernia in the right inguinal region with involvement of bowel IMPRESSION: Stable left-sided popliteal vein occlusive thrombus. No new thrombus seen. Probable right inguinal hernia. EXAMINATION: ARM VENOUS ULTRASOUND WITH DOPPLER, Right CLINICAL INFORMATION: Possible clot COMPARISON: None TECHNIQUE: Upper extremity deep venous ultrasound utilizing Huang scale and normal phasic waveforms respiration. FINDINGS: Normal compressibility. No focal lesion to indicate DVT. Internal jugular and subclavian veins also appear to be patent within the visualized segments. Superficial veins grossly normal. Duplex Doppler. IMPRESSION: No DVT demonstrated in the right upper extremity.
[2016-07-24] VITALS: BP 118/80
--- NOTE | 2016-07-24 01:19 | NUR ---
0000 PATIENT RECEIVED ALERT AND ORIENTED X3, LEFT FACIAL DROOP PRESENT BUT SPEECH CLEAR, RUE UNTESTABLE DUE TO SHOULDER FX- IN SLING, HOWEVER ABLE TO GRASP WITH FINGERS ON COMMAND, WEAK GRASP ON COMMAND OF LUE BUT UNABLE TO LIFT ARM AT ALL, LLE ABLE TO MOVE TOES BUT NOT LEG, NO LIMITATION OF MOVEMENT WITH RLE, SKIN PINK, WARM AND DRY, O2 VIA NC AT 2L/MIN- CONTINUOUS O2 SAT 96 TO 100%, BREATHE SOUNDS COARSE AND DIMINISHED LEFT BASE, NONPRODUCTIVE CONGESTIVE SOUNDING COUGH, ANATOMIC PATHOLOGY MANAGER SINUS WITHOUT ECTOPY, HEART RATE 90'S/MIN, ABDOMEN SOFT, LÓPEZ TO GRAVITY DRAINAGE WITH CLEAR DANIEL COLORED UO, PATIENT C/O HAVING A PANIC ATTACK- SKIN LIGHTLY DIAPHORETIC, C/O DIFFICULTY BREATHING- SEEN BY DR RAMIREZ- PER MD PATIENT MEDICATED FOR RIGHT SHOULDER PAIN WIT PRN DILAUDID, PATIENT ALSO RECEIVED ASA SUPP NOT GIVEN IN ER PER MD 0030 PATIENT MORE RELAXED AFTER PAIN MED BUT STATES DILAUDID NOT VERY EFFECTIVE, PERSISTENT RIGHT SIDED GAZE NOTED 0100 IV TYLENOL DOSE GIVEN ORDERED
--- NOTE | 2016-07-24 03:31 | NUR ---
PATIENT ABLE TO LIFT BOTH LOWER EXTREMITIES WITHOUT DRIFT THIS AM, CONTINUES TO BE ABLE TO MOVE LEFT FINGERS ON LUE BUT UNABLE TO LIFT LEFT ARM, RIGHT SIDED GAZE PERSISTS, DOES LEFT FACIAL DROOP, PATIENT REMAINS ORIENTED X3, ADDITIONAL 0.2 MG OF DILAUDED GIVEN FOR CONTINUED PAIN CONTROL ORDERED AFTER VOLTAREN 1% WAS INEFFECTIVE FOR NECK AND RIGHT SHOULDER PAIN
[2016-07-24 05:14] LABS: ABSOLUTE BASOPHIL COUNT 0 /CUMM (0.0-0.2); ABSOLUTE EOSINOPHIL COUNT 0.1 /CUMM (0.0-0.7); ABSOLUTE GRANULOCYTE CT 11.6 /CUMM (1.4-6.5); ABSOLUTE LYMPH COUNT 0.9 /CUMM (1.2-3.4); ABSOLUTE MONOCYTE COUNT 0.8 /CUMM (0.10-0.60); BASOPHIL % 0.3 % (0.0-2.0); EOSINOPHIL % 0.4 % (0-5); GRANULOCYTE % 86.8 % (42.2-75.2); HEMATOCRIT 32.2 % (37-47); MEAN CORPUSCULAR HGB 31.8 PG (27.0-31.0); MEAN CORPUSCULAR HGB CONC 32.9 G/DL (33.0-37.0); MEAN CORPUSCULAR VOLUME 96.6 FL (81.0-99.0); MEAN PLATELET VOLUME 9.3 FL (7.4-10.4); PLATELET COUNT 199 /CUMM (130-400); RBC DISTRIBUTION WIDTH 16.3 % (11.5-14.5); RED BLOOD CELL CT 3.34 /CUMM (4.20-5.40); WHITE BLOOD CELL COUNT 13.4 /CUMM (4.8-10.8)
--- NOTE | 2016-07-24 07:03 | Cons- CRCU ---
General Information and HPI Allergies/Medications Allergies: Coded Allergies: moxifloxacin (From AVELOX) (Severe, ANAPHYLAXIS 11/07/15) Penicillins (Intermediate, RASH 11/07/15) bupropion (From WELLBUTRIN) (Intermediate, HEADACHES, SEVERE VOMITING 11/07/15) cephalexin (From KEFLEX) (Intermediate, SEVERE VOMITING 11/07/15) clindamycin (From CLEOCIN) (Intermediate, SEVERE VOMITING 11/07/15) erythromycin base (Intermediate, SEVERE VOMITING 11/07/15) varenicline (From CHANTIX) (SEVERE HEADACHE MAKES LOOPY PER PT 07/11/16) Home Med List: Albuterol Sulfate (Ventolin Hfa) 90 MCG HFA.AER.AD 2 PUF INH Q4-PRN PRN COPD (Reported) Albuterol Sulfate 2.5 MG/3 ML (0.083 %) VIAL.NEB 1 Vial INH/ERICA DAILY NEEDED PRN COPD (Reported) Apixaban (Eliquis) 5 MG TABLET 2 TAB PO BID BLOOD THINNER 2 TABS BID FOR 7 DAYS FOLLOWED BY 1 TAB BID Aspirin (Ecotrin*) 81 MG TABLET.DR 1 TAB PO DAILY HEART/BLOOD (Reported) Bepotastine Besilate (Bepreve) 1.5 % DROPS 1 GTT OPH PRN BOTH EYES - PROPHYLAXIS (Reported) Celecoxib 200 MG CAPSULE 1 CAP PO BID PAIN/INFLAMMATION (Reported) Cholecalciferol (Vitamin D3) (Vitamin D3) 1,000 UNIT CAPSULE 1 CAP PO DAILY SUPPLEMENT (Reported) Cyanocobalamin (Vitamin B-12) (Vitamin B12) 2,500 MCG TABLET 1 TAB PO DAILY SUPPLEMENT (Reported) Diclofenac Sodium (Voltaren) 1 % GEL..GRAM. 1 GM TOP PRN JOINT PAIN (Reported ) apply to affected area(s) Fluticasone/Salmeterol (Advair 500-50 Diskus) 500 MCG-50 MCG/DOSE BLST.W.DEV 1 PUF INH BID COPD (Reported) Hydrocodone/Acetaminophen (Hydrocodon-Acetaminoph 7.5-325) 7.5 MG-325 MG TABLET 1-2 TAB PO Q4-6 PRN PRN PAIN (Reported) Reason to Stop at ADM: pain pathway Lorazepam (Ativan) 0.5 MG TABLET 1 TAB PO DAILY NEEDED PRN ANXIETY ( Reported) Loteprednol Etabonate (Lotemax) 0.5 % DROPS.SUSP 1 GTT OPH PRN BOTH EYES - PROPHYLAXIS (Reported) Magnesium Oxide 400 MG TABLET 1 TAB PO DAILY Supplement Metaxalone 800 MG TABLET 1 TAB PO TID PRN MUSCLE SPASMS (Reported) Metoprolol Tartrate 25 MG TABLET 0.5 TAB PO DAILY BP (Reported) Omeprazole Magnesium (Prilosec Otc) (Unknown Strength) TABLET.DR (Unknown Dose ) PO EOD GERD (Reported) Reason to Stop at ADM: hypokalemia Potassium Chloride 10 MEQ TABLET.ER 2 TAB PO BID Supplement Rosuvastatin Calcium (Crestor) 10 MG TABLET 1 TAB PO DAILY CHOLESTEROL ( Reported) Tiotropium Hunter (Spiriva) 18 MCG CAP.W.DEV 1 CAP INH DAILY COPD (Reported) Zolpidem Tartrate 10 MG TABLET 1 TAB PO AT BEDTIME PRN SLEEP (Reported) Past History Travel History Traveled to [place] past 21 day No Medical History Blood Transfusion Hx: No Neurological: migraine EENT: NONE Cardiovascular: hypertension, hyperlipidemia, DVT S/P IVC FILTER Respiratory: COPD, LUNG CA Gastrointestinal: GERD, irritable bowel syndrome Hepatic: NONE Renal: NONE Musculoskeletal: chronic back pain, R SHOULDER FX Psychiatric: anxiety Endocrine: NONE Blood Disorders: NONE Cancer(s): NONE ECHO TECHNOLOGIST/Reproductive: NONE Surgical History Surgical History: laminectomy, cervical discectomy Psychosocial History Where Do You Live? Home Smoking Status: Current Everyday Smoker ETOH Use: heavy use Illicit Drug Use: denies illicit drug use Functional Ability ADLs Independent: dressing, eating, toileting, bathing. Ambulation: independent IADLs Independent: shopping, housework, finances, food prep, telephone, transportation , medication admin. Assessment/Plan Consult Acknowledgment - Thank you for your consult request.
--- NOTE | 2016-07-24 07:36 | Cons- CRCU ---
KENTON ESCUDERO 07/24/16 0735: General Information and HPI Consulting Request Date of Consult: 07/24/16 Requested By: 07/24/2016 Reason for Consult: pulmonaryembolism Critical care evaluation Source of Information: patient, old records Exam Limitations: clinical condition History of Present Illness: Mrs. Bolton is a 55-year-old female with past medical history significant for hypertension, hyperlipidemia, COPD, GERD, IBS (diarrhea type), chronic back pain with neurostimulator in place, DVT on IVC filter and Eliquis,presented with chief complaints of left facial droop and left-sided weakness. It should be noted that the patient had a pathological fracture of her right proximal humerus which displaced 07/05/16. Subsequently she was admitted to the hospital 07/11/16 for LLE swelling, which turned out to be a left popliteal vein DVT for which she was on aspirin and eliquis. She also had an IVC filter placed for possible lung nodule bx (see below). Also, it should be noted that the patient has a long hx of smoking, currently enrolled in the Lung Ca screening program with multiple nodules, most notably a left hilar mass 3.5 x 2.9 cm which is suspicious for malignancy. She was scheduled for a biopsy of the lesion, however given her DVT, this was deferred. Per the patient's and daughter were at the bedside, the patient was last seen normal approximately 12:45 PM today. At around 2 PM he noticed that she had left-sided facial droop associated with dysarthria, and at. She also endorses as well as left upper and lower extremity weakness. Allergies/Medications Allergies: Coded Allergies: moxifloxacin (From AVELOX) (Severe, ANAPHYLAXIS 11/07/15) Penicillins (Intermediate, RASH 11/07/15) bupropion (From WELLBUTRIN) (Intermediate, HEADACHES, SEVERE VOMITING 11/07/15) cephalexin (From KEFLEX) (Intermediate, SEVERE VOMITING 11/07/15) clindamycin (From CLEOCIN) (Intermediate, SEVERE VOMITING 11/07/15) erythromycin base (Intermediate, SEVERE VOMITING 11/07/15) varenicline (From CHANTIX) (SEVERE HEADACHE MAKES LOOPY PER PT 07/11/16) Home Med List: Albuterol Sulfate (Ventolin Hfa) 90 MCG HFA.AER.AD 2 PUF INH Q4-PRN PRN COPD (Reported) Albuterol Sulfate 2.5 MG/3 ML (0.083 %) VIAL.NEB 1 Vial INH/ERICA DAILY NEEDED PRN COPD (Reported) Apixaban (Eliquis) 5 MG TABLET 2 TAB PO BID BLOOD THINNER 2 TABS BID FOR 7 DAYS FOLLOWED BY 1 TAB BID Aspirin (Ecotrin*) 81 MG TABLET.DR 1 TAB PO DAILY HEART/BLOOD (Reported) Bepotastine Besilate (Bepreve) 1.5 % DROPS 1 GTT OPH PRN BOTH EYES - PROPHYLAXIS (Reported) Celecoxib 200 MG CAPSULE 1 CAP PO BID PAIN/INFLAMMATION (Reported) Cholecalciferol (Vitamin D3) (Vitamin D3) 1,000 UNIT CAPSULE 1 CAP PO DAILY SUPPLEMENT (Reported) Cyanocobalamin (Vitamin B-12) (Vitamin B12) 2,500 MCG TABLET 1 TAB PO DAILY SUPPLEMENT (Reported) Diclofenac Sodium (Voltaren) 1 % GEL..GRAM. 1 GM TOP PRN JOINT PAIN (Reported ) apply to affected area(s) Fluticasone/Salmeterol (Advair 500-50 Diskus) 500 MCG-50 MCG/DOSE BLST.W.DEV 1 PUF INH BID COPD (Reported) Hydrocodone/Acetaminophen (Hydrocodon-Acetaminoph 7.5-325) 7.5 MG-325 MG TABLET 1-2 TAB PO Q4-6 PRN PRN PAIN (Reported) Reason to Stop at ADM: pain pathway Lorazepam (Ativan) 0.5 MG TABLET 1 TAB PO DAILY NEEDED PRN ANXIETY ( Reported) Loteprednol Etabonate (Lotemax) 0.5 % DROPS.SUSP 1 GTT OPH PRN BOTH EYES - PROPHYLAXIS (Reported) Magnesium Oxide 400 MG TABLET 1 TAB PO DAILY Supplement Metaxalone 800 MG TABLET 1 TAB PO TID PRN MUSCLE SPASMS (Reported) Metoprolol Tartrate 25 MG TABLET 0.5 TAB PO DAILY BP (Reported) Omeprazole Magnesium (Prilosec Otc) (Unknown Strength) TABLET.DR (Unknown Dose ) PO EOD GERD (Reported) Reason to Stop at ADM: hypokalemia Potassium Chloride 10 MEQ TABLET.ER 2 TAB PO BID Supplement Rosuvastatin Calcium (Crestor) 10 MG TABLET 1 TAB PO DAILY CHOLESTEROL ( Reported) Tiotropium Kismet (Spiriva) 18 MCG CAP.W.DEV 1 CAP INH DAILY COPD (Reported) Zolpidem Tartrate 10 MG TABLET 1 TAB PO AT BEDTIME PRN SLEEP (Reported) Review of Systems Review of Systems Constitutional: Reports: see HPI. EENTM: Reports: see HPI. Cardiovascular: Denies: chest pain, edema, orthopena, palpitations, peripheral edema, syncope. Respiratory: Reports: no symptoms. GI: Reports: no symptoms. Genitourinary: Reports: no symptoms. Musculoskeletal: Reports: back pain. Neurological/Psychological: Reports: anxiety, depressed, numbness, weakness. 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 Home Smoking Status: Current Everyday Smoker ETOH Use: heavy use Illicit Drug Use: denies illicit drug use Functional Ability ADLs Independent: dressing, eating, toileting, bathing. Ambulation: independent IADLs Independent: shopping, housework, finances, food prep, telephone, transportation , medication admin. Exam & Diagnostic Data Last 24 Hrs of Vital Signs/I&O Vital Signs Date Time Temp Pulse Resp B/P Pulse O2 O2 Flow FiO2 Ox Delivery Rate 07/24 0400 97 Nasal 2.0L Cannula 07/24 0001 98 Nasal 2.0L Cannula 07/24 0000 99 Nasal 2.0L Cannula 07/24 0000 97.1 98 20 118/80 99 Nasal 2.0L Cannula 07/23 2117 98.6 89 18 145/68 99 Nasal 2.0L Cannula 07/24 1951 99 Nasal 2.0L Cannula 07/23 1933 96.8 88 16 122/59 99 Nasal 2.0L Cannula 07/23 1700 97.6 90 16 128/62 99 Nasal 2.0L Cannula 07/23 1525 Room Air 07/23 1454 96.5 98 18 106/62 96 Room Air Intake & Output 07/24 1600 07/24 0800 07/24 0000 Intake Total 400 Output Total 193 Balance 207 Intake, IV 400 Number 0 Bowel Movements Output, Urine 193 Patient 115 lb Weight Physical Exam General Appearance: no apparent distress, alert, awake, comfortable Head: normal appearance Eyes: Bilateral: normal appearance, PERRL. Ears, Nose, Throat: normal pharynx Neck: normal inspection Respiratory: chest non-tender, quiet respiration Cardiovascular: regular rate/rhythm Rectal: deferred Back: normal inspection Extremities: no edema Neurologic/Psych: awake, alert, oriented x 3, facial droop, motor weakness, motor/sensory deficits, left sided weakness; upper extremity > lower extremity possible MADAY stroke Cranial Nerves: normal speech, PERRL, facial droop, facial weakness Last 48 Hrs of Labs/Flakito: Laboratory Tests 07/24/16 0410: Troponin I 0.33 *H 07/24/16 041: Anion Gap 8, Estimated GFR > 60, BUN/Creatinine Ratio 18.0, Ktn-O-Uvckeyciyjw Pept 649 H, Triglycerides 99, Cholesterol 114, LDL Cholesterol, Calc 38 L, HDL Cholesterol 57, Cholesterol/HDL Ratio 2, CBC w Diff NO MAN DIFF REQ, RBC 3.34 L , MCV 96.6, MCH 31.8 H, RDW 16.3 H, MPV 9.3, Gran % 86.8 H, Lymphocytes % 6.7 L, Monocytes % 5.8, Eosinophils % 0.4, Basophils % 0.3, Absolute Granulocytes 11.6 H, Absolute Lymphocytes 0.9 L, Absolute Monocytes 0.8 H, Absolute Eosinophils 0.1, Absolute Basophils 0, PUBS MCHC 32.9 L 07/23/16 2240: Troponin I 0.38 *H 07/23/16 1807: Troponin I Cancelled 07/23/16 1515: Anion Gap 8, Estimated GFR > 60, BUN/Creatinine Ratio 20.0, Glucose 112 H, Calcium 9.3, Total Bilirubin 0.6, AST 28, ALT 24, Alkaline Phosphatase 221 H, Troponin I 0.33 *H, Total Protein 6.0 L, Albumin 3.0 L, Globulin 3.0, Albumin/ Globulin Ratio 1.0 L, PT 27.6 H, INR 2.65 H, CBC w Diff NO MAN DIFF REQ, RBC 3.64 L, MCV 96.3, MCH 31.6 H, RDW 16.9 H, MPV 9.5, Gran % 82.7 H, Lymphocytes % 11.1 L, Monocytes % 4.6, Eosinophils % 1.2, Basophils % 0.4, Absolute Granulocytes 11.3 H, Absolute Lymphocytes 1.5, Absolute Monocytes 0.6, Absolute Eosinophils 0.2, Absolute Basophils 0, PUBS MCHC 32.8 L Assessment/Plan Impression/Plan: 55 years old woman was admitted for CVA and bilateral PE in the setting of lung mass and significant smoking Hx. Pertinent Data EKG showed normal sinus rhythm at a rate of 95 bpm. RI 144 ms. QTC 438 ms. Questionable Q waves in leads V1 and V2. NIH stroke scale was 13. Labs were significant for white count 13.7, H&H 11.5/35.1, platelets 218. Sodium 133, potassium 4.2. BUN/Cr 10/0.5. Glucose 112. Alkaline phosphatase 221. Troponin 0.33. Chest x-ray showed a possible right lower lobe infiltrate. Head CT without contrast was negative for acute pathology. previous CT, 07/11/2006 showed a left hilar lung mass highly suspicious for, as well as 5 mm groundglass nodule in the right upper lobe. Multiple subcentimeter micronodules bilaterally were also noted which were unchanged from previous investigation. FDG PET interpretted today showed: 1. An FDG avid left hilar mass is most likely malignant. 2. FDG avid lymphadenopathy in the proximal left peribronchial region as well as multiple FDG avid mediastinal and a single left supraclavicular FDG avid lymph node are most likely metastases. 3. Pleural-based wedge shaped opacities including a prominent segmental appearing opacity in the lateral basal segment of the right lower lobe show only minimal FDG activity, and are very strongly suspicious for pulmonary embolism, with infarction in the left lower lobe focus. CHEST CTA: 1. Acute pulmonary embolism noted in bilateral lower lobe segmental and subsegmental pulmonary arteries, right greater than left. 2. Wedge-shaped reticular opacity most suspicious for acute infarct posterior lateral aspect right lower lobe. Smaller groundglass foci noted in the right middle lobe and right upper lobe as well as the left upper lobe may represent mosaic perfusion in this individual. 3. Lobulated left hilar mass and mediastinal lymphadenopathy demonstrates interval increase compared to 07/11/2016. 4. Comminuted fracture subcapital location right humerus is most suspicious for a pathologic fracture. Adjacent masslike hypodensity may be associated with hematoma or soft tissue mass. Soft tissue hyperdensity noted posterior to the humeral shaft may also be associated with hematoma. Given the interval increase in the hyperdensity compared to the previous examination, contrast extravasation from an injured vessel is a likely possibility. Right subclavian DVT suspected as detailed. List of Problems Ischemic CVA Bilateral PE R subclavian DVT Elevated troponin Loculated Left Hilar Mass with mediastinal lymphadenopathy LLE DVT Displaced right humerus fracture COPD Chronic Back pain Plan 1) ischemic stroke: in the setting of PE and recurrent DVT most possibly 2/2 to Lung cance (?). Patient was on AC with NOVEL agents for her prior DVT and there is reasonable concern regarding hemorrhagic transformation of the ischemic area. Initial head CT was negative for blood/pathology, however, the sensitivity of CT for ischemia during the acute phase is not high enough. She could not get MRI because of having nerev stimulator. * Repeat CT scan, looking for area of infarct * Consult neurology regarding post-sroke care in terms of AC * patient was already on ASA adding clopidogrel needs to be further assessed. 2) Bilater PE: bilateral lower lobe segmental and subsegmental pulmonary arteries, right greater than left. In the setting of associated with pulmonary infarcts. Hx of prior left left poplit s/p IVC on eliquis ( compliant with med). PESI score of 90, which is associated with higher rates of adverse outcomes. She has a growing left hilar mass with significant smokin hX s/p PET scan. Levonox in this setting reyna be superio to NOVEL agaents/Heparin. Patient has elevated troponin, which could indicates RV restrain. I added proBNP to be followed. Rv/ LV ratio is another indiaction of RV restraint the ratio of >0.9 is related with RV restraint and poorer prognosis. * Place cardiology consult * Obtain echo; Rv/LV ratio * follow Pro-Bnp lvl * Consider Levonox for AC after discussing with hemtology * Follow PET scan results * obtain PFT * Posible bronchoscopy after risk assessment by pulm and cardio for tissue Bx * goal of care discussion * trend troponin * Physical therapy Elevated troponin leukocytosis- no sign of infection. Possibly related to PE. watch offf Abx Loculated Left Hilar Mass with mediastinal lymphadenopathy LLE DVT Displaced right humerus fracture COPD- continue Symbicort 2 puff BID and Albuterol Q4 Chronic Back pain- continue dilaudid and morphine and tylenol Senna and docusate for constipation Problem List: 1. Leukocytosis 2. Left leg DVT 3. Mass of left lung 4. Acute CVA (cerebrovascular accident) 5. DVT, lower extremity, distal, acute 6. Proximal humeral fracture 7. Hypomagnesemia 8. Hypokalemia Consult Acknowledgment - Thank you for your consult request. [place] CHILDRESS MD 07/24/16 0932: General Information and HPI Consulting Request Date of Consult: 07/24/16 Requested By: Dr. Sims Allergies/Medications Current Medications: Current Medications Sig/Iad Start time Last Medication Dose Route Stop Time Status Admin Acetaminophen 1,000 MG .STK-MED ONE 07/24 0056 DC IV 07/24 0057 Acetaminophen 1,000 MG Q6P PRN 07/23 181 AC 07/24 IV 0102 Albuterol Sulfate 2 PUF Q4-PRN PRN 07/23 181 AC INH Albuterol Sulfate 3 ML DAILY NEEDED PRN 07/23 1815 AC 07/23 INH 2302 Apixaban 10 MG BID 07/23 2199 CAN PO Aspirin 300 MG ONCE ONE 07/23 204 DC 07/24 RI 07/23 204 0003 Aspirin Buffered 81 MG DAILY 07/23 181 DC PO Budesonide/ 2 PUF BID 07/23 220 AC 07/24 Formoterol Fumarate INH 0002 Dextrose/Sodium 1,000 ML Q20H 07/24 0145 AC 07/24 Chloride IV 0143 Diclofenac Sodium 1 KWADWO Q4P PRN 07/23 181 AC 07/24 TOP 0310 Docusate Sodium 100 MG BID 07/23 2200 DC PO Heparin Sodium 25,000 UNIT Q24H 07/23 1845 DC (Porcine) IV Sodium Chloride 500 ML Hydromorphone HCl 0.2 MG ONCE ONE 07/24 0330 DC 07/24 IV 07/24 0331 0324 Hydromorphone HCl 0 .STK-MED ONE 07/23 2025 DC .ROUTE Hydromorphone HCl 0.5 MG Q4P PRN 07/23 1815 AC 07/24 IV 0904 Lorazepam 0.5 MG Q6PRN PRN 07/24 0800 CAN IV Lorazepam 0.25 MG Q6PRN PRN 07/24 0800 AC 07/24 IV 0800 Lorazepam 0.25 MG ONCE ONE 07/24 0130 DC 07/24 IV 07/24 013 0137 Lorazepam 0.5 MG DAILY NEEDED PRN 07/23 1815 DC PO 07/30 181 Magnesium Oxide 400 MG DAILY 07/24 1000 CAN PO Metaxalone 800 MG TID PRN 07/23 181 DC PO Morphine Sulfate 0 .STK-MED ONE 07/23 1940 DC .ROUTE Morphine Sulfate 2 MG Q4P PRN 07/23 1815 AC 07/23 IV 1943 Omeprazole 40 MG DAILY AC 07/24 0700 CAN PO Ondansetron HCl 4 MG Q6P PRN 07/24 0400 AC 07/24 IV 0401 Ondansetron HCl 4 MG ONCE ONE 07/23 1845 DC 07/23 IV 07/23 184 1850 Ondansetron HCl 0 .STK-MED ONE 07/23 184 DC .ROUTE Potassium Chloride 20 MEQ BID 07/23 2200 CAN PO Senna/Docusate Sodium 2 TAB AT BEDTIME PRN 07/23 181 DC PO Tiotropium Kismet 1 PUF DAILY 07/24 1000 AC INH Zolpidem Tartrate 10 MG AT BEDTIME PRN 07/23 2200 CAN PO Assessment/Plan Other Findings/Comments: I have personally seen and examined the patient and agree with the resident's assesssment and plan as above. The patient is a 55-year-old female well-known to me from previous outpatient visits and hospitalizations. The patient has a history significant for hypertension, hyperlipidemia, COPD, GERD, IBS, and chronic back pain with a neurostimulator and place. The patient had a lung cancer screening CT done on 06/25/2016. This demonstrated a left hilar mass with some mediastinal adenopathy, suspicious for malignancy. The patient was set up as an outpatient with a plan for biopsy. In the interim however she fell and fractured her right humerus which will require surgery. The patient was seen by orthopedic surgery as an outpatient and canceled her plan for biopsy workup. I discussed the findings on the CAT scan with orthopedic surgery, and it was recommended to the patient that we proceed with biopsy of the lung. Subsequently I evaluated the patient in the office. She had increased left lower tubbs a swelling and was sent for a lower extremity Doppler which was positive for DVT. The patient was admitted, started on a heparin drip and an IVC filter was put in place in anticipation of a lung biopsy and eventually orthopedic surgery. The patient was discharged to home on Eliquis. The patient had a PET scan on 07/22/2016 that demonstrated an FDG avid left hilar mass most consistent with malignancy. There was also FDG avid lymphadenopathy scattered throughout as well as a positive left supraclavicular lymph node. There was also a question of possible new pulmonary emboli seen. A CT angiogram was ordered as an outpatient. In the interim, the patient was brought to the emergency department following acute symptoms suggestive of a stroke. The patient had a CT scan of the brain that showed no evidence of bleeding and no evidence of acute infarct. She had a CT angiogram of the chest which did confirm new pulmonary emboli and increasing size of the left lung mass as well as adenopathy. She had evidence of pulmonary infarcts. The patient has been hemodynamically stable and did not have evidence of right heart strain. She was admitted to the critical care unit. The decision was made to monitor the patient off anticoagulation temporarily, due to the risk of possible hemorrhagic conversion. The patient had additional studies that showed no evidence of upper extremity DVT, and she is awaiting a venogram to rule out clot above her IVC filter. After discussing the case with both neurology and hematology, it was decided to start the patient on a low-dose heparin drip with no bolus, and keep the PTT between 50 and 60. Wake and alert, but continues to have significant left-sided weakness. She also has ongoing right-sided pain due to her fracture. Impression: 1. Acute right-sided ischemic stroke, with residual left-sided weakness. There is no evidence of tumor however this CAT scan was noncontrast. The patient cannot have an MRI due to implantation of a neurostimulator device. 2. Bilateral pulmonary emboli in segmental and subsegmental pulmonary arteries, right greater than left. There is also evidence of pulmonary infarcts. There is no report of right ventricular strain on the CT scan. She has remained hemodynamically stable and on 2 L of oxygen. Unclear if the pulmonary emboli were present prior to initiation of Eliquis as the patient did not have a CT angiogram. Therefore, I am unsure if the patient is an Eliquis failure. Hematology has been consulted for recommendations. 3. Left lower extremity DVT, now on IV heparin, status post IVC filter placement. 4. Increasing lung mass, mediastinal and hilar lymphadenopathy, and left supraclavicular lymph node, all suspicious for advancing metastatic lung cancer. 5. Elevated troponin - cardiology consulted. 6. Mild leukocytosis, likely secondary to stress. There is no obvious source of infection at present. 7. Displaced right humerus fracture which woke her surgical intervention. 8. History of COPD, currently stable. 9. History of chronic back pain. 10. Chronic constipation. Plan: * We will maintain the patient on a heparin drip with low therapeutic PTTs. We will monitor the patient's neurologic status. The heparin drip will be turned off and a repeat head CT will be performed if the patient has any acute neurological changes. * We will follow up neurology's recommendations. * The patient will have a repeat head CT 24 hours after her initial head CT to assess for infarct. * She will eventually require a CT of the brain with contrast to rule out metastases. It could not be done today due to increased IV contrast load. * Continue aspirin and statins. * Cardiology consult called. * Obtain echocardiogram. * Swallowing evaluation. Advance diet if able. * Continue on pain pathway. * Continue Symbicort 2 puffs twice daily and albuterol nebs as needed. * Continue bowel regimen. * Continue all supportive care. Unfortunately, the patient has potential for poor prognosis, and I have discussed this with her and her at length. Consult Acknowledgment - Thank you for your consult request.
[2016-07-24 08:00] VITALS: BP 116/60
--- NOTE | 2016-07-24 08:13 | Admission Certification ---
Admission Certification Certification Statement - As attending physician, I certify that at the time of - admission, based on clinical presentation, severity of - symptoms, need for further diagnostic testing and - therapeutic interventions, and risk of adverse outcomes - without in-hospital treatment, in my clinical assessment, - this patient requires an acute hospital stay for a minimum - of two nights or longer. I have also considered psychsocial - factors such as support system, advanced age, financial - issues, cognitive issues, and failed out-patient treatments, - past re-admission history, safety of patient, and lack of - compliance as applicable. Specific rationale supporting this admission is: Acute CVA with bilateral PE
--- NOTE | 2016-07-24 08:16 | NUR ---
0630 NO CHANGE IN NEURO STATUS NOTED, PATIENT REMAINS ORIENTED X3 WITH LEFT FACIAL DROOP BUT CLEAR SPEECH, LUE WEAKESS LIMB- CAN ALWAYS MOVE FINGERS ON COMMAND BUT WEAKLY AND WAS ABLE TO LIFT LUE OFF BED ONLY ONE TIME, DR GARCIA MADE AWARE OF DIFFICULTY OBTAINING COMPLETE PAIN RELIEF ON CURRENT MEDS- TO DISCUSS WITH TEAM
--- NOTE | 2016-07-24 10:15 | Cons- Cardiology ---
General Information and HPI Consulting Request Date of Consult: 07/24/16 Requested By: MARY PENN MD Reason for Consult: Positive troponin Source of Information: patient, family Exam Limitations: clinical condition, physical impairment History of Present Illness: Patient is a 55-year-old female with significant past medical history of chronic smoking, COPD, hypertension, right humerus neck fracture, right hilar lymphadenopathy under evaluation? Malignancy, DVT on IVC filter and Eliquis presented with chief complaints of left facial droop and left-sided weakness. Patient was oriented to time, place and person. According to the patient, she took gingerale in the morning, and lasting. She was normal around 12:45 p.m. After that she felt weakness in the face and the arm and brought in by EMS. She was also feeling nausea, dizziness, headache. She also claims that couple of weeks ago, she had fracture of the upper arm bone and was waiting for surgery. Few days ago she was feeling that her left knee is giving away. She also claims that she was feeling difficulty in taking deep breath. She also had an episode of severe pain in the back a day before, and which is recovered by its own. She denies chest pain, palpitation, fall, bleeding from any site of the body. She has pain stimulator device in neck, so cannt go through MRI. Above was obtained by the resident. Patient concurs with this story. She denies any previous cardiovascular issues and her only past problem has been hypertension. She has not seen me in 3 years. Telemetry was reviewed. Sinus rhythm rate of 80. Patient denies any chest pain but does admit to right shoulder pain related to her fractured humerus. Allergies/Medications Allergies: Coded Allergies: moxifloxacin (From AVELOX) (Severe, ANAPHYLAXIS 11/07/15) Penicillins (Intermediate, RASH 11/07/15) bupropion (From WELLBUTRIN) (Intermediate, HEADACHES, SEVERE VOMITING 11/07/15) cephalexin (From KEFLEX) (Intermediate, SEVERE VOMITING 11/07/15) clindamycin (From CLEOCIN) (Intermediate, SEVERE VOMITING 11/07/15) erythromycin base (Intermediate, SEVERE VOMITING 11/07/15) varenicline (From CHANTIX) (SEVERE HEADACHE MAKES LOOPY PER PT 07/11/16) Home Med List: Albuterol Sulfate (Ventolin Hfa) 90 MCG HFA.AER.AD 2 PUF INH Q4-PRN PRN COPD (Reported) Albuterol Sulfate 2.5 MG/3 ML (0.083 %) VIAL.NEB 1 Vial INH/ERICA DAILY NEEDED PRN COPD (Reported) Apixaban (Eliquis) 5 MG TABLET 2 TAB PO BID BLOOD THINNER 2 TABS BID FOR 7 DAYS FOLLOWED BY 1 TAB BID Aspirin (Ecotrin*) 81 MG TABLET.DR 1 TAB PO DAILY HEART/BLOOD (Reported) Bepotastine Besilate (Bepreve) 1.5 % DROPS 1 GTT OPH PRN BOTH EYES - PROPHYLAXIS (Reported) Celecoxib 200 MG CAPSULE 1 CAP PO BID PAIN/INFLAMMATION (Reported) Cholecalciferol (Vitamin D3) (Vitamin D3) 1,000 UNIT CAPSULE 1 CAP PO DAILY SUPPLEMENT (Reported) Cyanocobalamin (Vitamin B-12) (Vitamin B12) 2,500 MCG TABLET 1 TAB PO DAILY SUPPLEMENT (Reported) Diclofenac Sodium (Voltaren) 1 % GEL..GRAM. 1 GM TOP PRN JOINT PAIN (Reported ) apply to affected area(s) Fluticasone/Salmeterol (Advair 500-50 Diskus) 500 MCG-50 MCG/DOSE BLST.W.DEV 1 PUF INH BID COPD (Reported) Hydrocodone/Acetaminophen (Hydrocodon-Acetaminoph 7.5-325) 7.5 MG-325 MG TABLET 1-2 TAB PO Q4-6 PRN PRN PAIN (Reported) Reason to Stop at ADM: pain pathway Lorazepam (Ativan) 0.5 MG TABLET 1 TAB PO DAILY NEEDED PRN ANXIETY ( Reported) Loteprednol Etabonate (Lotemax) 0.5 % DROPS.SUSP 1 GTT OPH PRN BOTH EYES - PROPHYLAXIS (Reported) Magnesium Oxide 400 MG TABLET 1 TAB PO DAILY Supplement Metaxalone 800 MG TABLET 1 TAB PO TID PRN MUSCLE SPASMS (Reported) Metoprolol Tartrate 25 MG TABLET 0.5 TAB PO DAILY BP (Reported) Omeprazole Magnesium (Prilosec Otc) (Unknown Strength) TABLET.DR (Unknown Dose ) PO EOD GERD (Reported) Reason to Stop at ADM: hypokalemia Potassium Chloride 10 MEQ TABLET.ER 2 TAB PO BID Supplement Rosuvastatin Calcium (Crestor) 10 MG TABLET 1 TAB PO DAILY CHOLESTEROL ( Reported) Tiotropium [place] (Spiriva) 18 MCG CAP.W.DEV 1 CAP INH DAILY COPD (Reported) Zolpidem Tartrate 10 MG TABLET 1 TAB PO AT BEDTIME PRN SLEEP (Reported) Current Medications: Current Medications Sig/Ida Start time Last Medication Dose Route Stop Time Status Admin Acetaminophen 1,000 MG .STK-MED ONE 07/24 0056 DC IV 07/24 0057 Acetaminophen 1,000 MG Q6P PRN 07/23 181 AC 07/24 IV 0102 Albuterol Sulfate 2 PUF Q4-PRN PRN 07/23 181 AC INH Albuterol Sulfate 3 ML DAILY NEEDED PRN 07/23 181 AC 07/23 INH 2302 Apixaban 10 MG BID 07/23 2199 CAN PO Aspirin 300 MG ONCE ONE 07/23 2044 DC 07/24 NV 07/23 2045 0003 Aspirin Buffered 81 MG DAILY 07/23 181 DC PO Budesonide/ 2 PUF BID 07/23 220 AC 07/24 Formoterol Fumarate INH 0002 Dextrose/Sodium 1,000 ML Q20H 07/24 0145 AC 07/24 Chloride IV 0143 Diclofenac Sodium 1 KWADWO Q4P PRN 07/23 1815 AC 07/24 TOP 0310 Docusate Sodium 100 MG BID 07/23 220 DC PO Heparin Sodium 25,000 UNIT Q24H 07/23 1845 DC (Porcine) IV Sodium Chloride 500 ML Hydromorphone HCl 0.2 MG ONCE ONE 07/24 0330 DC 07/24 IV 07/24 0331 0324 Hydromorphone HCl 0 .STK-MED ONE 07/23 2025 DC .ROUTE Hydromorphone HCl 0.5 MG Q4P PRN 07/23 1815 AC 07/24 IV 0904 Lorazepam 0.5 MG Q6PRN PRN 07/24 0800 CAN IV Lorazepam 0.25 MG Q6PRN PRN 07/24 0800 AC 07/24 IV 0800 Lorazepam 0.25 MG ONCE ONE 07/24 0130 DC 07/24 IV 07/24 013 0137 Lorazepam 0.5 MG DAILY NEEDED PRN 07/23 181 DC PO 07/30 181 Magnesium Oxide 400 MG DAILY 07/24 1000 CAN PO Metaxalone 800 MG TID PRN 07/23 181 DC PO Morphine Sulfate 0 .STK-MED ONE 07/23 1940 DC .ROUTE Morphine Sulfate 2 MG Q4P PRN 07/23 181 AC 07/23 IV 194 Omeprazole 40 MG DAILY AC 07/24 0700 CAN PO Ondansetron HCl 4 MG Q6P PRN 07/24 0400 AC 07/24 IV 0401 Ondansetron HCl 4 MG ONCE ONE 07/23 1845 DC 07/23 IV 07/23 184 1850 Ondansetron HCl 0 .STK-MED ONE 07/23 184 DC .ROUTE Potassium Chloride 20 MEQ BID 07/23 220 CAN PO Senna/Docusate Sodium 2 TAB AT BEDTIME PRN 07/23 181 DC PO Tiotropium [place] 1 PUF DAILY 07/24 1000 AC INH Zolpidem Tartrate 10 MG AT BEDTIME PRN 07/23 220 CAN PO Review of Systems Review of Systems Constitutional: Reports: malaise, weakness. EENTM: Reports: see HPI. Cardiovascular: Denies: no symptoms. Respiratory: Reports: see HPI. GI: Denies: no symptoms. Genitourinary: Denies: no symptoms. Musculoskeletal: Reports: see HPI. Skin: Reports: see HPI. Neurological/Psychological: Reports: see HPI. Hematologic/Endocrine: Reports: see HPI. 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 Home Smoking Status: Current Everyday Smoker ETOH Use: heavy use Illicit Drug Use: denies illicit drug use Functional Ability ADLs Independent: dressing, eating, toileting, bathing. Ambulation: independent IADLs Independent: shopping, housework, finances, food prep, telephone, transportation , medication admin. Exam & Diagnostic Data Vital Signs and I&O Vital Signs Date Time Temp Pulse Resp B/P Pulse O2 O2 Flow FiO2 Ox Delivery Rate 07/24 0400 97 Nasal 2.0L Cannula 07/24 0001 98 Nasal 2.0L Cannula 07/24 0000 99 Nasal 2.0L Cannula 07/24 0000 97.1 98 20 118/80 99 Nasal 2.0L Cannula 07/23 2117 98.6 89 18 145/68 99 Nasal 2.0L Cannula 07/24 1951 99 Nasal 2.0L Cannula 07/23 1933 96.8 88 16 122/59 99 Nasal 2.0L Cannula 07/23 1700 97.6 90 16 128/62 99 Nasal 2.0L Cannula 07/23 1525 Room Air 07/23 1454 96.5 98 18 106/62 96 Room Air Intake & Output 07/24 1600 07/24 0800 07/24 0000 07/23 1600 07/23 0800 07/23 0000 Intake Total 400 Output Total 193 Balance 207 Intake, IV 400 Number 0 Bowel Movements Output, Urine 193 Patient 115 lb Weight Physical Exam: Gen. exam patient appears weak and cachectic Head normocephalic atraumatic Eyes sclera anicteric conjunctiva showed no pallor extraocular muscles were normal Neck jugular venous distention was noted. No palpable nodes no bruits Chest lungs equal air entry bilaterally Heart regular rhythm 1/6 systolic murmur Abdomen soft no organomegaly nontender Extremities right humerus in in a sling. Extremities no edema. Neurological left facial droop, left hemiparesis Labs/[place] Results: Laboratory Tests 07/24 07/24 07/23 0410 0410 2240 Chemistry Sodium (137 - 145 mmol/L) 135 L Potassium (3.5 - 5.1 mmol/L) 4.3 Chloride (98 - 107 mmol/L) 99 Carbon Dioxide (22 - 30 mmol/L) 27 Anion Gap (5 - 16) 8 BUN (7 - 17 mg/dL) 9 Creatinine (0.5 - 1.0 mg/dL) 0.5 Estimated GFR (>60 ml/min) > 60 BUN/Creatinine Ratio (7 - 25 %) 18.0 Troponin I (< 0.11 ng/ml) 0.33 *H 0.38 *H [id number] Pept (<125 pg/mL) 649 H Triglycerides (<150 mg/dL) 99 Cholesterol (<200 MG/DL) 114 LDL Cholesterol, Calc (65 - 129 mg/dL) 38 L HDL Cholesterol (40 - 60 mg/dL) 57 Cholesterol/HDL Ratio (0.00 - 4.23 %) 2 Hematology CBC w Diff NO MAN DIFF REQ WBC (4.8 - 10.8 /CUMM) 13.4 H RBC (4.20 - 5.40 /CUMM) 3.34 L Hgb (12.0 - 16.0 G/DL) 10.6 L Hct (37 - 47 %) 32.2 L MCV (81.0 - 99.0 FL) 96.6 MCH (27.0 - 31.0 PG) 31.8 H RDW (11.5 - 14.5 %) 16.3 H Plt Count (130 - 400 /CUMM) 199 MPV (7.4 - 10.4 FL) 9.3 Gran % (42.2 - 75.2 %) 86.8 H Lymphocytes % (20.5 - 51.1 %) 6.7 L Monocytes % (1.7 - 9.3 %) 5.8 Eosinophils % (0 - 5 %) 0.4 Basophils % (0.0 - 2.0 %) 0.3 Absolute Granulocytes (1.4 - 6.5 /CUMM) 11.6 H Absolute Lymphocytes (1.2 - 3.4 /CUMM) 0.9 L Absolute Monocytes (0.10 - 0.60 /CUMM) 0.8 H Absolute Eosinophils (0.0 - 0.7 /CUMM) 0.1 Absolute Basophils (0.0 - 0.2 /CUMM) 0 PUBS MCHC (33.0 - 37.0 G/DL) 32.9 L 07/23 07/23 1807 1515 Chemistry Sodium (137 - 145 mmol/L) 133 L Potassium (3.5 - 5.1 mmol/L) 4.2 Chloride (98 - 107 mmol/L) 97 L Carbon Dioxide (22 - 30 mmol/L) 27 Anion Gap (5 - 16) 8 BUN (7 - 17 mg/dL) 10 Creatinine (0.5 - 1.0 mg/dL) 0.5 Estimated GFR (>60 ml/min) > 60 BUN/Creatinine Ratio (7 - 25 %) 20.0 Glucose (65 - 99 mg/dL) 112 H Calcium (8.4 - 10.2 mg/dL) 9.3 Total Bilirubin (0.2 - 1.3 mg/dL) 0.6 AST (14 - 36 U/L) 28 ALT (9 - 52 U/L) 24 Alkaline Phosphatase (<127 U/L) 221 H Troponin I (< 0.11 ng/ml) Cancelled 0.33 *H Total Protein (6.3 - 8.2 g/dL) 6.0 L Albumin (3.5 - 5.0 g/dL) 3.0 L Globulin (1.9 - 4.2 gm/dL) 3.0 Albumin/Globulin Ratio (1.1 - 2.2 %) 1.0 L Coagulation PT (9.4 - 12.5 SEC) 27.6 H INR (0.90 - 1.19) 2.65 H Hematology CBC w Diff NO MAN DIFF REQ WBC (4.8 - 10.8 /CUMM) 13.7 H RBC (4.20 - 5.40 /CUMM) 3.64 L Hgb (12.0 - 16.0 G/DL) 11.5 L Hct (37 - 47 %) 35.1 L MCV (81.0 - 99.0 FL) 96.3 MCH (27.0 - 31.0 PG) 31.6 H RDW (11.5 - 14.5 %) 16.9 H Plt Count (130 - 400 /CUMM) 218 MPV (7.4 - 10.4 FL) 9.5 Gran % (42.2 - 75.2 %) 82.7 H Lymphocytes % (20.5 - 51.1 %) 11.1 L Monocytes % (1.7 - 9.3 %) 4.6 Eosinophils % (0 - 5 %) 1.2 Basophils % (0.0 - 2.0 %) 0.4 Absolute Granulocytes (1.4 - 6.5 /CUMM) 11.3 H Absolute Lymphocytes (1.2 - 3.4 /CUMM) 1.5 Absolute Monocytes (0.10 - 0.60 /CUMM) 0.6 Absolute Eosinophils (0.0 - 0.7 /CUMM) 0.2 Absolute Basophils (0.0 - 0.2 /CUMM) 0 PUBS MCHC (33.0 - 37.0 G/DL) 32.8 L Diagnostic Data EKG Results Sinus rhythm with low voltage borderline R-wave progression and nonspecific T- wave changes CXR Results Small patchy opacity in the right base may represent small evolving infiltrate. Other Results Carotid Doppler revealed 1. Less than 50% luminal diameter narrowing of the right ICA origin and carotid bulb. 2. 50-79% stenosis of the left distal ICA. Extent of stenosis is close to the 50% range. 3. Nonvisualization of the right vertebral artery. CTA of the chest revealed1. Acute pulmonary embolism noted in bilateral lower lobe segmental and subsegmental pulmonary arteries, right greater than left. 2. Wedge-shaped reticular opacity most suspicious for acute infarct posterior lateral aspect right lower lobe. Smaller groundglass foci noted in the right middle lobe and right upper lobe as well as the left upper lobe may represent mosaic perfusion in this individual. 3. Lobulated left hilar mass and mediastinal lymphadenopathy demonstrates interval increase compared to 07/11/2016. 4. Comminuted fracture subcapital location right humerus is most suspicious for a pathologic fracture. Adjacent masslike hypodensity may be associated with hematoma or soft tissue mass. Soft tissue hyperdensity noted posterior to the humeral shaft may also be associated with hematoma. Given the interval increase in the hyperdensity compared to the previous examination, contrast extravasation from an injured vessel is a likely possibility. Right subclavian DVT suspected as detailed. Head CT revealedNo acute intracranial pathology. Assessment/Plan Assessment/Plan In summary this 55-year-old female has the following problems Ischemic CVA Bilateral PE R subclavian DVT Elevated troponin Loculated Left Hilar Mass with mediastinal lymphadenopathy LLE DVT Displaced right humerus fracture COPD Chronic Back pain X A positive troponin is probably related to pulmonary embolus. She has an elevated BNP however her heart rate is 80. Echocardiogram will be obtained to evaluate the right ventricle and pulmonary hypertension. Of note pulmonary embolus and ischemic CVA has occurred in the setting of target anticoagulants like Elliquis. Strongly suggests that she probably has a hypercoagulable state and most likely related related to malignancy, and would be better served with Lovenox for for protection against arterial in venous thrombosis. Neurological evaluation is also pending. At present she is stable, awaiting echocardiogram, detailed discussion was held with the house staff. Consult Acknowledgment - Thank you for your consult request.
--- NOTE | 2016-07-24 12:44 | RADIOLOGY REPORT ---
EXAMINATION: XR MODIFIED BARIUM SWALLOW CLINICAL INFORMATION: Dysphagia status post stroke. Aspiration. COMPARISON: None. TECHNIQUE: A modified barium swallow was performed with speech pathologist in attendance. Pur?e, honey thick, nectar thick, and thin barium consistencies were given to the patient and the swallowing mechanism was observed fluoroscopically with several spot films taken. FLUOROSCOPY TIME: 3 minutes and 50 seconds. FINDINGS: There was poor initiation of the swallowing mechanism, and piecemeal deglutition was demonstrated with all consistencies. There was transient penetration when the patient swallowed nectar. There was definite aspiration when the patient swallowed thin barium by straw. This partially cleared when the patient coughed. IMPRESSION: 1. The study demonstrates evidence of piecemeal deglutition. 2. There was penetration when swallowing nectar, and definite aspiration was demonstrated when swallowing thin barium by straw. Speech pathologist assessment issued separately.
--- NOTE | 2016-07-24 13:32 | Cons- Neurology ---
General Information and HPI Consulting Request Date of Consult: 07/24/16 Requested By: MARY PENN MD History of Present Illness: Unfortunate 55-year-old chronic smoker with history of hypertension, COPD, recently diagnosed carcinoma of the lung, deep venous thrombosis and pulmonary embolism maintained on Eliquis and aspirin, who was admitted yesterday with acute left sided weakness which has not improved over the past [address] of the head showed no acute abnormalities. Carotid ultrasound shows bilateral carotid stenosis in the range of 50-79% on the left and less than 50% on the right. She has no prior history of TIA or CVA. She has had a recent fall with associated fracture of the right humerus. Allergies/Medications Allergies: Coded Allergies: moxifloxacin (From AVELOX) (Severe, ANAPHYLAXIS 11/07/15) Penicillins (Intermediate, RASH 11/07/15) bupropion (From WELLBUTRIN) (Intermediate, HEADACHES, SEVERE VOMITING 11/07/15) cephalexin (From KEFLEX) (Intermediate, SEVERE VOMITING 11/07/15) clindamycin (From CLEOCIN) (Intermediate, SEVERE VOMITING 11/07/15) erythromycin base (Intermediate, SEVERE VOMITING 11/07/15) varenicline (From CHANTIX) (SEVERE HEADACHE MAKES LOOPY PER PT 07/11/16) Home Med List: Albuterol Sulfate (Ventolin Hfa) 90 MCG HFA.AER.AD 2 PUF INH Q4-PRN PRN COPD (Reported) Albuterol Sulfate 2.5 MG/3 ML (0.083 %) VIAL.NEB 1 Vial INH/ERICA DAILY NEEDED PRN COPD (Reported) Apixaban (Eliquis) 5 MG TABLET 2 TAB PO BID BLOOD THINNER 2 TABS BID FOR 7 DAYS FOLLOWED BY 1 TAB BID Aspirin (Ecotrin*) 81 MG TABLET.DR 1 TAB PO DAILY HEART/BLOOD (Reported) Bepotastine Besilate (Bepreve) 1.5 % DROPS 1 GTT OPH PRN BOTH EYES - PROPHYLAXIS (Reported) Celecoxib 200 MG CAPSULE 1 CAP PO BID PAIN/INFLAMMATION (Reported) Cholecalciferol (Vitamin D3) (Vitamin D3) 1,000 UNIT CAPSULE 1 CAP PO DAILY SUPPLEMENT (Reported) Cyanocobalamin (Vitamin B-12) (Vitamin B12) 2,500 MCG TABLET 1 TAB PO DAILY SUPPLEMENT (Reported) Diclofenac Sodium (Voltaren) 1 % GEL..GRAM. 1 GM TOP PRN JOINT PAIN (Reported ) apply to affected area(s) Fluticasone/Salmeterol (Advair 500-50 Diskus) 500 MCG-50 MCG/DOSE BLST.W.DEV 1 PUF INH BID COPD (Reported) Hydrocodone/Acetaminophen (Hydrocodon-Acetaminoph 7.5-325) 7.5 MG-325 MG TABLET 1-2 TAB PO Q4-6 PRN PRN PAIN (Reported) Reason to Stop at ADM: pain pathway Lorazepam (Ativan) 0.5 MG TABLET 1 TAB PO DAILY NEEDED PRN ANXIETY ( Reported) Loteprednol Etabonate (Lotemax) 0.5 % DROPS.SUSP 1 GTT OPH PRN BOTH EYES - PROPHYLAXIS (Reported) Magnesium Oxide 400 MG TABLET 1 TAB PO DAILY Supplement Metaxalone 800 MG TABLET 1 TAB PO TID PRN MUSCLE SPASMS (Reported) Metoprolol Tartrate 25 MG TABLET 0.5 TAB PO DAILY BP (Reported) Omeprazole Magnesium (Prilosec Otc) (Unknown Strength) TABLET.DR (Unknown Dose ) PO EOD GERD (Reported) Reason to Stop at ADM: hypokalemia Potassium Chloride 10 MEQ TABLET.ER 2 TAB PO BID Supplement Rosuvastatin Calcium (Crestor) 10 MG TABLET 1 TAB PO DAILY CHOLESTEROL ( Reported) Tiotropium [place] (Spiriva) 18 MCG CAP.W.DEV 1 CAP INH DAILY COPD (Reported) Zolpidem Tartrate 10 MG TABLET 1 TAB PO AT BEDTIME PRN SLEEP (Reported) Review of Systems Review of Systems: Notable for pain in the right upper extremity, chronic neck pain, intermittent cough and a "heaviness" of the left arm. No recent fever, rash, diplopia, vomiting, hemoptysis, joint inflammation or abnormal bleeding. 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 Home Smoking Status: Current Everyday Smoker ETOH Use: heavy use Illicit Drug Use: denies illicit drug use Functional Ability ADLs Independent: dressing, eating, toileting, bathing. Ambulation: independent IADLs Independent: shopping, housework, finances, food prep, telephone, transportation , medication admin. Exam & Diagnostic Data Vital Signs and I&O Vital Signs Date Time Temp Pulse Resp B/P Pulse O2 O2 Flow FiO2 Ox Delivery Rate 07/24 0400 97 Nasal 2.0L Cannula 07/24 0001 98 Nasal 2.0L Cannula 07/24 0000 99 Nasal 2.0L Cannula 07/24 0000 97.1 98 20 118/80 99 Nasal 2.0L Cannula 07/23 2118 98.6 89 18 145/68 99 Nasal 2.0L Cannula 07/23 1952 99 Nasal 2.0L Cannula 07/23 1934 96.8 88 16 122/59 99 Nasal 2.0L Cannula 07/23 1700 97.6 90 16 128/62 99 Nasal 2.0L Cannula 07/23 1525 Room Air 07/23 1454 96.5 98 18 106/62 96 Room Air Intake & Output 07/24 1600 07/24 0800 07/24 0000 Intake Total 400 Output Total 193 Balance 207 Intake, IV 400 Number 0 Bowel Movements Output, Urine 193 Patient 114 lb 115 lb Weight Middle-aged female who is awake, alert and in no acute distress. The head was normocephalic. She was oriented to person and place. Speech was fluent. She extinguished her left visual field upon finger confrontation. There was mild left facial weakness. There was no dysarthria. The motor examination showed a flaccid paralysis of the left upper extremity. Power in the left lower extremity was 2-3 over 5, both proximal and distal. Babinski sign was present on the left. The right plantar response was flexor. On sensory examination, she extinguished light touch on the left to double simultaneous stimulation. Gait was untested. Assessment/Plan Assessment: On clinical grounds,[initial CT negative] Ms. Bolton has suffered an ischemic right hemispheric infarct manifest by heather-neglect and left hemiparesis, arm greater than leg. This occurs in the setting of a lung malignancy and recent DVT/PE and happened despite anticoagulation. This may reflect an underlying hypercoagulable state associated with malignancy. Her neurological deficit is significant and therapy going forward may be hampered by her anosognosia. Physical and occupational therapy should be involved. She may continue with aspirin and/or a NOAC if deemed important by general medicine/vascular. Repeat neuro imaging with CT or MRI would no doubt demonstrate her infarct, however would likely not alter management. Given the multiplicity of her serious, multiorgan system issues and a lung malignancy, palliative care may be appropriate in this setting. Please feel free to call with any further questions. Recommendations: As above Consult Acknowledgment - Thank you for your consult request.
--- NOTE | 2016-07-24 14:08 | NUR ---
PT REPORTS NO RELIEF FROM HER PAIN WHICH IS A LEVEL OF 8 DESPITE HER CURRENT PAIN MEDICATION PROTOCOL AND EXTRAT DOSES. HOUSESTAFF IS AWARE. ALTERNATIVE MEASURES OFFERRED ALONG WITH SUPPORT.
[2016-07-24 16:00] VITALS: BP 120/70
--- NOTE | 2016-07-24 16:39 | CT SCAN REPORT ---
EXAMINATION: CT HEAD WITHOUT CONTRAST CLINICAL INFORMATION: Left facial droop and weakness. COMPARISON: CT scan of the head 07/23/2016. TECHNIQUE: Contiguous axial imaging was performed from the skull base to vertex without intravenous administration of contrast. DLP: 600.71 mGy-cm FINDINGS: There is loss of oswald-white matter differentiation of the insular cortex and right frontal operculum consistent with early changes of acute ischemia. A few other small foci of cortical ischemia are visualized within the right precentral gyrus near the vertex for instance best illustrated on axial image 46 of 64 series 2 also consistent with acute infarct. There is no evidence of acute hemorrhagic transformation. No abnormal extra axial collection. There is no drainable mass effect or midline shift. Lateral and third ventricles are proportionate to the subarachnoid spaces. No hydrocephalus. The calvarium and skull base are intact. There is no mastoid or middle ear effusion. Visualized paranasal sinuses are well-aerated. IMPRESSION: There are acute ischemic changes within the right middle cerebral artery territory. No evidence of hemorrhagic transformation. This critical result was discussed with Daniel Kinney at 07/24/2016 4:28 PM and it was ascertained that the content and urgency of the report was understood at the time of direct communication.
--- NOTE | 2016-07-24 18:50 | NUR ---
PT DROWSY, WAKES EASILY, EYES GAZE TO RIGHT, HAS LEFT SIDE NEGLECT. DOES NOT MOVE LEFT ARM, IF ASKED TO SQUEEZE LEFT HAND SHE WILL SQUEEZE RIGHT HAND. DOES HAVE SOME MOVEMENT OF LEFT LEG. HER SPEECH IS SLOW. CT HEAD WAS DOEN THIS AFTERNOON. SHE HAS BEEN STARTED ON A HEPARIN DRIP AND THE FIRST PTT IS DUE AT 2200. FAMILY PRESENT AND HAVE BEEN UPDATED. SHE HAS PASSED A SWALLOW EVAL FOR A MODIFIED DIET HOWEVER SHE IS CONTINUING TO REPORT NAUSEA AND OCCASIONALLY SPITTING UP SALIVA. ZOFRAN IS GIVEN ORDERED AND FAMILY HAS BEEN ADVISED TO HOLD DINNER FOR THE PT. REPORTS RIGHT SHOULDER PAIN AND NECK PAIN AT A LEVEL OF 10 AND SHE REPORTS HER PAIN REDUCES TO 8 WITH CURRENT PAIN PLAN. SHE IS RECEIVING DILAUDID IV EVERY 4 HOURS. SHE ALSO REPORTS THAT SHE FREQUENTLY FEELS PANIC AND SHE IS RECEIVING IV ATIVAN ORDERED. ICU TEAM IS AWARE OF HER STATUS THROUGHOUT THE DAY. ALTERNATIVE MEASURES FOR COMFORT HAVE BEEN OFFERRED. PT IS UNABLE TO EFFECTIVELY USE HER INHALERS, SHE CANNOT MAINTAIN A SEAL. RT AND FINANCIAL SECRETARY NOTIFIED AND RESP RX WILL BE STARTED.
[2016-07-24 22:53] LABS: PTT 39 SEC (25-37)
[2016-07-24 23:00] VITALS: BP 120/60
--- NOTE | 2016-07-25 00:34 | NUR ---
FROM 1900-PT ALERT, ORIENTED TO SELF AND PLACE-PT KNOWS YEAR, NOT DAY OF WEEK OR DATE. LT FACIAL DROOP NOTED. SPEECH CLEAR. LT ARM FLACCID, MOVES LT LEG BUT IS WEAK. PUPILS EQUAL AND REACT BRISKLY TO LIGHT. BREATH SOUNDS CLEAR WITH DIMINISHED BREATHS BILATERALLY. NO COUGH, SOB OR RESP DISTRESS NOTED AT PRESENT. ON NIH SCALE. SEE FLOW SHEET FOR VS, 02 SATS, I/O'S. MONITOR SHOWS NSR, NO ECTOPY NOTED AT PRESENT. BP STABLE AT PRESENT. C/O RT SHOULDER PAIN-SEE EMAR FOR PAIN ADMINSTRATION. RT ARM IN SLING-PT WITH RT SHOULDER FX. HEPARIN GTT WAS INFUSING AT 18UNITS/KG/[id number]-REBOLUSED AND GTT CURRENTLY INFUSING AT 22UNITS/KG/HR. NO EVIDENCE OF BLEEDING NOTED AT PRESENT. LÓPEZ IN PLACE-BORDERLINE URINE OUTPUT OF DARK DANIEL URINE. ABD SOFT, NONTENDER, NONDISTENDED, POSITIVE BOWEL SOUNDS. NPO AFTER 0000. SKIN INTACT AT BEDSIDE-SUPPORTIVE OF PT
--- NOTE | 2016-07-25 02:27 | NUR ---
URINE OUTPUT 20ML OVER THE PAST 2HRS-REPORTED TO DR PATTEN-NO ORDERS GIVEN AT PRESENT-STATED WOULD COME AND EXAMINE PT-WILL MONITOR
--- NOTE | 2016-07-25 03:17 | NUR ---
INCREASED IVF TO 75ML/HR ORDERED. WILL MONITOR
[2016-07-25 05:46] LABS: ABSOLUTE BASOPHIL COUNT 0 /CUMM (0.0-0.2); ABSOLUTE EOSINOPHIL COUNT 0.1 /CUMM (0.0-0.7); ABSOLUTE GRANULOCYTE CT 10.5 /CUMM (1.4-6.5); ABSOLUTE LYMPH COUNT 1.6 /CUMM (1.2-3.4); ABSOLUTE MONOCYTE COUNT 0.7 /CUMM (0.10-0.60); BASOPHIL % 0.4 % (0.0-2.0); EOSINOPHIL % 1.1 % (0-5); GRANULOCYTE % 80.5 % (42.2-75.2); HEMATOCRIT 30.1 % (37-47); MEAN CORPUSCULAR HGB 31.6 PG (27.0-31.0); MEAN CORPUSCULAR HGB CONC 32.4 G/DL (33.0-37.0); MEAN CORPUSCULAR VOLUME 97.6 FL (81.0-99.0); MEAN PLATELET VOLUME 9.3 FL (7.4-10.4); PLATELET COUNT 202 /CUMM (130-400); RBC DISTRIBUTION WIDTH 16.6 % (11.5-14.5); RED BLOOD CELL CT 3.08 /CUMM (4.20-5.40)
[2016-07-25 05:57] LABS: PT 15.9 SEC (9.4-12.5); PTT 65 SEC (25-37)
--- NOTE | 2016-07-25 06:46 | NUR ---
PT IS CURRENTLY ALERT, ORIENTED X3. LT ARM REMAINS FLACCID, MOVING LT LEG WEAKLY. [id number] BRISKLY TO LIGHT. RATES RT SHOULDER AND NECK 5-8 FOR SHIFT-SEE EMAR FOR PAIN MED ADMINISTRATION. BREATH SOUNDS CLEAR, DIMINSIHED BREATH SOUNDS AT BASES BILATEDERALLY. PRODUCTIVE COUGH OF SM AMT OF THICK YELLOW SECREATIONS NOTED. MONITOR NSR, NO ECTOPY NOTED THOUGHOUT SHIFT. SBP-90-110'S FOR SHIFT. URINE OUTPUT REMAINS POOR DESPITE INCREASING IVF-REPORTED TO DR. STEELE. LÓPEZ IRRIGATED EASILY. SKIN INTACT. RT ARM REMAINS IN A SLING.
--- NOTE | 2016-07-25 07:04 | PN- Resident CRCU ---
Subjective HPI/CRCU Issues: Her urine output was 10-20 ml/hr. Her IVF increased to 75ml/hr. She was nauseous all night, and was still spitting up when I saw her this morning. Zofran has not been helping. I ordered reglan. She is also very anxious, requesting ativan dose to be increased. I spoke to her PCP, Mitzy Ledesma, who said that she prescribed pt 1mg ativan daily, but pt might have taken twice a day sometimes. She is also stating that dilaudid does not keep her pain down long enough, it only lasts for about 2.5 hours while it is ordered every 4 hours. As she is still having difficulty swallowing, would not be able to give her oxycontin because it cannot be crushed. Would consider fentanyl patch. She will be getting biopsy today around 3pm. Dr. Marcus has discussed with pathology to send the sample for cytology to guide further management. Will also get CT head with IV contrast to evaluate for brain mets. Will resume PT OT when able. Reviewed this morning's lab: hb 10.6 --> 9.8, on heparin, would closely monitor. WBC 13.4 --> 13, NA 135 --> 132, K 4.3 --> 3.5, Mag 1.2. Repleted with klor and mgsulf IV. 24 Hour Events: Max temp 98.1 SR 78-93 RR 12-26 systolic BP 90-124 diastolic bp 50-68 2L NC Objective Vital Signs & I&O Last 8 Hrs of Vitals and I&O: Intake & Output 07/25 1600 07/25 0800 07/25 0000 Intake Total 733 428 Output Total 125 190 Balance 608 238 Intake, IV 733 428 Intake, Oral 0 Number 0 0 Bowel Movements Output, Urine 125 190 Laboratory Tests 07/25 07/24 0436 2201 Chemistry Sodium (137 - 145 mmol/L) 132 L Potassium (3.5 - 5.1 mmol/L) 3.5 Chloride (98 - 107 mmol/L) 97 L Carbon Dioxide (22 - 30 mmol/L) 29 Anion Gap (5 - 16) 6 BUN (7 - 17 mg/dL) 11 Creatinine (0.5 - 1.0 mg/dL) 0.5 Estimated GFR (>60 ml/min) > 60 Glucose (65 - 99 mg/dL) 126 H Calcium (8.4 - 10.2 mg/dL) 8.6 Phosphorus (2.5 - 4.5 mg/dL) 4.0 Magnesium (1.6 - 2.3 mg/dL) 1.2 L Total Bilirubin (0.2 - 1.3 mg/dL) 0.7 AST (14 - 36 U/L) 26 ALT (9 - 52 U/L) 23 Albumin (3.5 - 5.0 g/dL) 2.6 L Coagulation PT (9.4 - 12.5 SEC) 15.9 H INR (0.90 - 1.19) 1.52 H APTT (25 - 37 SEC) 65 H 39 H Hematology CBC w Diff NO MAN DIFF REQ WBC (4.8 - 10.8 /CUMM) 13.0 H RBC (4.20 - 5.40 /CUMM) 3.08 L Hgb (12.0 - 16.0 G/DL) 9.8 L Hct (37 - 47 %) 30.1 L MCV (81.0 - 99.0 FL) 97.6 MCH (27.0 - 31.0 PG) 31.6 H RDW (11.5 - 14.5 %) 16.6 H Plt Count (130 - 400 /CUMM) 202 MPV (7.4 - 10.4 FL) 9.3 Gran % (42.2 - 75.2 %) 80.5 H Lymphocytes % (20.5 - 51.1 %) 12.6 L Monocytes % (1.7 - 9.3 %) 5.4 Eosinophils % (0 - 5 %) 1.1 Basophils % (0.0 - 2.0 %) 0.4 Absolute Granulocytes (1.4 - 6.5 /CUMM) 10.5 H Absolute Lymphocytes (1.2 - 3.4 /CUMM) 1.6 Absolute Monocytes (0.10 - 0.60 /CUMM) 0.7 H Absolute Eosinophils (0.0 - 0.7 /CUMM) 0.1 Absolute Basophils (0.0 - 0.2 /CUMM) 0 PUBS MCHC (33.0 - 37.0 G/DL) 32.4 L Vital Signs Date Time Temp Pulse Resp B/P Pulse O2 O2 Flow FiO2 Ox Delivery Rate 07/25 0851 95 Room Air Room Air 07/25 0539 95 Nasal 2.0L Cannula 07/25 0400 98 Nasal 2.0L Cannula 07/25 0000 100 Nasal 2.0L Cannula 07/24 2300 97.6 93 16 120/60 100 Nasal 2.0L Cannula 07/24 2000 96 Nasal 2.0L Cannula 07/24 1927 99 Nasal 2.0L Cannula 07/24 1600 97.2 90 18 120/70 93 Nasal 2.0L Cannula 07/24 1600 94 Nasal 2.0L Cannula 07/24 1200 93 Nasal 2.0L Cannula 07/24 1115 Nasal 2.0L Cannula Exam General Appearance: alert, awake, moderate distress, nauseous, retching, spitting up Head: preference to look to the right Respiratory: normal breath sounds, no respiratory distress Cardiovascular: regular rate/rhythm Gastrointestinal: soft, non-tender Extremities: right upper extremity in sling, bruised Cranial Nerves: facial droop, left sided weakness , unchanged from previous exam Current Medications: Current Medications Sig/Ida Start time Last Medication Dose Route Stop Time Status Admin Acetaminophen 1,000 MG Q6P PRN 07/23 1815 AC 07/25 IV 0416 Albuterol Sulfate 3 ML EVERY 4 HRS/AWAKE 07/25 1999 AC 07/25 INH 0851 Albuterol Sulfate 2 PUF Q4 07/24 1413 DC 07/24 INH 1846 Albuterol Sulfate 2 PUF Q4-PRN PRN 07/23 1815 DC INH Albuterol Sulfate 3 ML DAILY NEEDED PRN 07/23 1815 DC 07/24 INH 1115 Budesonide/ 2 PUF BID 07/23 2200 DC 07/24 Formoterol Fumarate INH 1253 Dextrose/Sodium 1,000 ML Q20H 07/24 0145 AC 07/24 Chloride IV 2113 Diclofenac Sodium 1 KWADWO Q4P PRN 07/23 1815 AC 07/24 TOP 0310 Glycerin 2 SPRAY Q2P PRN 07/25 0845 AC PO Heparin Sodium 5,000 UNIT .STK-MED ONE 07/24 2339 DC (Porcine) IV 07/24 2340 Heparin Sodium 25,000 UNIT Q24H 07/24 1215 AC 07/24 (Porcine) IV 1600 Sodium Chloride 500 ML Hydromorphone HCl 0.5 MG ONCE ONE 07/24 1245 DC 07/24 IV 07/24 1246 1125 Hydromorphone HCl 0.5 MG Q4P PRN 07/23 1815 AC 07/25 IV 0913 Ipratropium [place] 2.5 ML EVERY 4 HRS/AWAKE 07/24 2000 AC 07/25 INH 0851 Lorazepam 0.5 MG Q4 HRS NEEDED PRN 07/25 0830 AC 07/25 PO 08/01 0829 0841 Lorazepam 0.25 MG Q6PRN PRN 07/24 0800 AC 07/24 IV 1431 Magnesium Sulfate 1 GM Q2H 07/25 0730 AC 07/25 Dextrose/Water 100 ML IV 07/25 1129 0836 Melatonin 5 MG AT BEDTIME 07/24 2300 AC 07/24 PO 2249 Metoclopramide HCl 10 MG Q6P PRN 07/25 0830 AC IV Morphine Sulfate 2 MG Q4P PRN 07/23 1815 AC 07/24 IV 1235 Ondansetron HCl 4 MG Q6P PRN 07/24 0400 AC 07/25 IV 0914 Potassium Chloride 20 MEQ BID 07/25 0830 AC PO 07/25 2201 Potassium Chloride 40 MEQ BID 07/25 0730 DC PO 07/25 2201 Tiotropium [place] 1 PUF DAILY 07/24 1000 DC 07/24 INH 1130 Impression/Plan Impression/Problem List Impression: 55-year-old female with past medical history significant for hypertension, hyperlipidemia, COPD, GERD, IBS (diarrhea type), chronic back pain with neurostimulator in place, DVT s/p IVC filter, on eliquis and aspirin, who presents to the ED for evaluation of left facial droop. In addition to left facial droop, she also has left sided weakness, dysphagia, left visual field defect, with CT showing acute ischemic changes within the right middle cerebral artery territory. Carotid ultrasound shows bilateral carotid stenosis in the range of 50-79% on the left and less than 50% on the right. She was found to have bilateral PE, despite being on eliquis. She was started on IV heparin. Problem list: # Right MCA infarct with left sided facial droop, left sided weakness, dysphagia , left visual field defect # Acute pulmonary embolism # Demand ischemia # Suspected lung cancer # Right humerus fracture # Anxiety # Chronic back pain Respiratory # Acute pulmonary embolism - Acute pulmonary embolism noted in bilateral lower lobe segmental and subsegmental pulmonary arteries, right greater than left. Wedge-shaped reticular opacity most suspicious for acute infarct posterior lateral aspect right lower lobe. Smaller groundglass foci noted in the right middle lobe and right upper lobe as well as the left upper lobe may represent mosaic perfusion in this individual. - Pt already had IVC filter in place, and was on eliquis for DVT - Stable left-sided popliteal vein occlusive thrombus. No new thrombus seen. Probable right inguinal hernia. * On IV heparin * Consider lovenox for correction anticoagulation * IR for venogram # Suspected lung cancer - Lobulated left hilar mass and mediastinal lymphadenopathy demonstrates interval increase compared to 07/11/2016. - An FDG avid left hilar mass is most likely malignant. - FDG avid lymphadenopathy in the proximal left peribronchial region as well as multiple FDG avid mediastinal and a single left supraclavicular FDG avid lymph node are most likely metastases. * FNA biopsy of supraclavicular node on 07/25, follow up cytology. Check PD1, PDL1 for pembrolizumab immunotherapy, EGFR, ALK for erlotinib/crizotinib targeted therapy. # COPD * TRC/nebs, ipratropium and albuterol * Not receiving inhalers while in hospital Neuro # Right MCA infarct with left sided facial droop, left sided weakness, dysphagia , left visual field defect. * Follow CT head with IV contrast to evaluate for mets * ST,OT,PT * Cannot get MRI due to incompatibility of neurostimulator * Should evaluate for ASD/VSD Cardiovascular # Demand ischemia - Trop up to 0.38 - Echo: Normal global left ventricular size, wall thickness, systolic function with no obvious regional wall motion abnormalities. Left ventricular ejection fraction is estimated at > 60 %. Normal left ventricular diastolic filling pattern for age. Normal right ventricular size and function. Right ventricular systolic pressure estimated at 35 mmHg. Minimal pericardial effusion. Alimentary # Dysphagia - MBS done * ST following, recc puree and nectar, continue to follow reccs # Nausea and vomiting * Zofran and reglan ordered PRN * Replete electrolytes Metabolic # Hypokalemia - K 3.5 * Replete as needed # Hypomagnesiumia - Mag 1.2 * Replete as needed Psych # Anxiety - Mitzy Ledesma, her PCP, prescribed 1 mg PO ativan daily, sometimes she takes BID. * Ativan 0.5 mg q6p ordered * 5mg melatonin at bedtime # Chronic back pain * Consider long acting opioids (but cannot crush) * On dilaudid 0.5 q 4, morphine 2 q4p, iv tylenol 1000 q6p * Consider fentanyl patch # Right humeral fracture - Comminuted fracture subcapital location right humerus is most suspicious for a pathologic fracture. Adjacent masslike hypodensity may be associated with hematoma or soft tissue mass. Soft tissue hyperdensity noted posterior to the humeral shaft may also be associated with hematoma. Given the interval increase in the hyperdensity compared to the previous examination, contrast extravasation from an injured vessel is a likely possibility. Right subclavian DVT suspected. - Right arm venous US: No DVT demonstrated in the right upper extremity. Diet: NPO for biopsy IVF: d51/2NS at 75 ml/hr DVT ppx: alps and heparin drip FULL CODE Consults: Neuro, cardio, oncology, PT, OT, ST Labs: ICU lab bundle for electrolyte abnormality, CBC for h/h on heparin Problem List: 1. Acute CVA (cerebrovascular accident) 2. Mass of left lung Pain Ratin Tomorrow's Labs & Rationales: ICU and CBC critically ill Plan DVT/Prophylaxis: mechanical, pharmacological
[2016-07-25 08:00] VITALS: BP 104/50
--- NOTE | 2016-07-25 09:33 | ECHOCARDIOGRAM REPORT ---
GALDINO RYAN Age: 55 : 1960 Gender: F Exam Date: 07/24/2016 17:09 Exam Location: [facility] Ht (in): 63 Wt (lb): 114 BSA: 1.51 BP: 118 / 80 Ordering Physician: SHAN NORTH MD Referring Physician: Ryan Hernandez MD Technologist: Nolvia James [facility] Room Number: 109 Indications: ACUTE PULMONARY EMBOLISM Rhythm: Technical Quality: FINDINGS Left Ventricle Normal global left ventricular size, wall thickness, systolic function with no obvious regional wall motion abnormalities. Left ventricular ejection fraction is estimated at > 60 %. Normal left ventricular diastolic filling pattern for age. Right Ventricle Normal right ventricular size and function. Right Atrium Normal right atrial size. Left Atrium Normal left atrial size. Mitral Valve Mild mitral annular calcification. No mitral stenosis. Trace mitral regurgitation. Aortic Valve Trileaflet aortic valve. No aortic stenosis. Mild aortic regurgitation. Tricuspid Valve Structurally normal tricuspid valve. Mild tricuspid regurgitation. Right ventricular systolic pressure estimated at 35 mmHg. Pulmonic Valve Pulmonic valve not well visualized, grossly normal. Pericardium Minimal pericardial effusion. Great Vessels Normal size aortic root and proximal ascending aorta. CONCLUSIONS Normal global left ventricular size, wall thickness, systolic function with no obvious regional wall motion abnormalities. Left ventricular ejection fraction is estimated at > 60 %. Normal left ventricular diastolic filling pattern for age. Normal right ventricular size and function. Right ventricular systolic pressure estimated at 35 mmHg. Minimal pericardial effusion. Mateo Waldrop M.D. (Electronically Signed) Final Date: 25 July 2016 09:32 MEASUREMENTS (Male / Female) Normal Values 2D ECHO LV Diastolic Diameter PLAX 4.0 cm 4.2 - 5.9 / 3.9 - 5.3 cm LV Systolic Diameter PLAX 1.9 cm 2.1 - 4.0 cm LV Fractional Shortening PLAX 52.5 % 25 - 46 % LV Ejection Fraction 2D Teich 84.0 % IVS Diastolic Thickness 0.9 cm LVPW Diastolic Thickness 0.8 cm LV Relative Wall Thickness 0.4 RV Internal Dim ED PLAX 2.0 cm 1.9 - 3.8 cm LVOT Diameter 1.9 cm Aortic Root Diameter 2.6 cm LA Systolic Diameter LX 2.9 cm 3.0 - 4.0 / 2.7 - 3.8 cm LA Volume 33.0 cm 18 - 58 / 22 - 52 cm Ascending Aorta Diameter 2.7 cm DOPPLER AV Peak Velocity 143.0 cm/s AV Peak Gradient 8.2 mmHg AV Mean Velocity 85.8 cm/s AV Mean Gradient 4.0 mmHg AV Velocity Time Integral 24.3 cm LVOT Peak Velocity 123.0 cm/s LVOT Peak Gradient 6.1 mmHg LVOT Mean Velocity 78.5 cm/s LVOT Mean Gradient 3.0 mmHg LVOT Velocity Time Integral 23.6 cm LVOT Stroke Volume 66.9 cm AV Area Cont Eq vti 2.8 cm AV Area Cont Eq pk 2.4 cm MV Peak Velocity 115.0 cm/s MV Peak Gradient 5.3 mmHg MV Mean Velocity 70.5 cm/s MV Mean Gradient 2.0 mmHg Mitral E Point Velocity 97.7 cm/s Mitral A Point Velocity 83.9 cm/s Mitral E to A Ratio 1.2 MV PHT Velocity 119.0 cm/s MV Deceleration [place] 702.0 cm/s MV Pressure Half Time 50.9 ms MV Area PHT 4.3 cm MV Deceleration Time 161.0 ms TR Peak Velocity 264.0 cm/s TR Peak Gradient 27.9 mmHg Right Atrial Pressure 5.0 mmHg Pulmonary Artery Systolic Pressu 32.9 mmHg Right Ventricular Systolic Press 32.9 mmHg PV Peak Velocity 99.2 cm/s PV Peak Gradient 3.9 mmHg PV Mean Velocity 72.3 cm/s PV Mean Gradient 2.0 mmHg PV Velocity Time Integral 20.0 cm LV E' Lateral Velocity 11.8 cm/s Mitral E to LV E' Lateral Ratio 8.3 LV E' Septal Velocity 8.1 cm/s Mitral E to LV E' Septal Ratio 12.1
--- NOTE | 2016-07-25 10:26 | PN- CRCU ---
Subjective HPI/Critical Care Issues: The patient is awake and alert. She continues to complain of increased anxiety and severe right arm pain. She is receiving Ativan and Dilaudid for her symptoms. She remains afebrile. The patient is on 2 L nasal cannula with saturations in the high 90s. Her urine output has been low over the last shift. She is on a pureed/nectar thick liquid due to severe aspiration. Objective Current Medications: Current Medications Sig/Ida Start time Last Medication Dose Route Stop Time Status Admin Acetaminophen 1,000 MG Q6P PRN 07/23 1815 AC 07/25 IV 0416 Albuterol Sulfate 3 ML EVERY 4 HRS/AWAKE 07/25 1999 AC 07/25 INH 0851 Albuterol Sulfate 2 PUF Q4 07/24 1413 DC 07/24 INH 1846 Albuterol Sulfate 2 PUF Q4-PRN PRN 07/23 1815 DC INH Albuterol Sulfate 3 ML DAILY NEEDED PRN 07/23 1815 DC 07/24 INH 1115 Budesonide/ 2 PUF BID 07/23 2200 DC 07/24 Formoterol Fumarate INH 1253 Dextrose/Sodium 1,000 ML Q20H 07/24 0145 AC 07/24 Chloride IV 2113 Diclofenac Sodium 1 KWADWO Q4P PRN 07/23 1815 AC 07/24 TOP 0310 Glycerin 2 SPRAY Q2P PRN 07/25 0845 AC PO Heparin Sodium 5,000 UNIT .STK-MED ONE 07/24 2339 DC (Porcine) IV 07/24 2340 Heparin Sodium 25,000 UNIT Q24H 07/24 1215 AC 07/24 (Porcine) IV 1600 Sodium Chloride 500 ML Hydromorphone HCl 0.5 MG ONCE ONE 07/24 1245 DC 07/24 IV 07/24 1246 1125 Hydromorphone HCl 0.5 MG Q4P PRN 07/23 1815 AC 07/25 IV 0913 Ipratropium [place] 2.5 ML EVERY 4 HRS/AWAKE 07/25 1999 AC 07/25 INH 0851 Lorazepam 0.5 MG Q6-PRN PRN 07/25 0945 AC PO 08/01 0931 Lorazepam 0.5 MG Q4 HRS NEEDED PRN 07/25 0830 DC 07/25 PO 08/01 0829 0841 Lorazepam 0.25 MG Q6PRN PRN 07/24 0800 AC 07/24 IV 1431 Magnesium Sulfate 1 GM Q2H 07/25 0730 AC 07/25 Dextrose/Water 100 ML IV 07/25 1129 0836 Melatonin 5 MG AT BEDTIME 07/24 2300 AC 07/24 PO 2249 Metoclopramide HCl 10 MG Q6P PRN 07/25 0830 AC IV Morphine Sulfate 2 MG Q4P PRN 07/23 1815 AC 07/24 IV 1235 Ondansetron HCl 4 MG Q6P PRN 07/24 0400 AC 07/25 IV 0914 Potassium Chloride 20 MEQ BID 07/25 0830 AC PO 07/25 2201 Potassium Chloride 40 MEQ BID 07/25 0730 DC PO 07/25 2201 Tiotropium [place] 1 PUF DAILY 07/24 1000 DC 07/24 INH 1130 Vital Signs & I&O Last 24 Hrs of Vitals and I&O: Vital Signs Date Time Temp Pulse Resp B/P Pulse O2 O2 Flow FiO2 Ox Delivery Rate 07/25 0851 95 Room Air Room Air 07/25 0539 95 Nasal 2.0L Cannula 07/25 0400 98 Nasal 2.0L Cannula 07/25 0000 100 Nasal 2.0L Cannula 07/24 2300 97.6 93 16 120/60 100 Nasal 2.0L Cannula 07/24 2000 96 Nasal 2.0L Cannula 07/24 1927 99 Nasal 2.0L Cannula 07/24 1600 97.2 90 18 120/70 93 Nasal 2.0L Cannula 07/24 1600 94 Nasal 2.0L Cannula 07/24 1200 93 Nasal 2.0L Cannula 07/24 1115 Nasal 2.0L Cannula Intake & Output 07/25 1600 07/25 0800 07/25 0000 Intake Total 733 428 Output Total 125 190 Balance 608 238 Intake, IV 733 428 Intake, Oral 0 Number 0 0 Bowel Movements Output, Urine 125 190 Physical Exam General Appearance: no apparent distress, alert, awake, comfortable Head: normal appearance Eyes: PERRL. Neck: supple Respiratory: chest non-tender, quiet respiration Cardiovascular: regular rate/rhythm Extremities: no edema Neurologic/Psych: awake, alert, oriented, facial droop, motor weakness, left sided weakness, upper greater than lower extremity Results Last 24 Hrs of Lab Results: Laboratory Tests 07/25/16 0436: Anion Gap 6, Estimated GFR > 60, Glucose 126 H, Calcium 8.6, Phosphorus 4.0, Magnesium 1.2 L, Total Bilirubin 0.7, AST 26, ALT 23, Albumin 2.6 L, PT 15.9 H, INR 1.52 H, APTT 65 H, CBC w Diff NO MAN DIFF REQ, RBC 3.08 L, MCV 97.6, MCH 31.6 H, RDW 16.6 H, MPV 9.3, Gran % 80.5 H, Lymphocytes % 12.6 L, Monocytes % 5.4, Eosinophils % 1.1, Basophils % 0.4, Absolute Granulocytes 10.5 H, Absolute Lymphocytes 1.6, Absolute Monocytes 0.7 H, Absolute Eosinophils 0.1 , Absolute Basophils 0, PUBS MCHC 32.4 L 07/24/16 2201: APTT [address] Scan Findings: There are acute ischemic changes within the right middle cerebral artery territory. No evidence of hemorrhagic transformation. Impression/Plan Impression/Plan Impression/Plan: 1. Acute right-sided ischemic stroke, with residual left-sided weakness and dysphagia. Metastatic disease needs to be excluded. 2. Bilateral pulmonary emboli in segmental and subsegmental pulmonary arteries, right greater than left, with evidence of pulmonary infarcts. There is no report of right ventricular strain on the CT scan. She has remained hemodynamically stable and on 2 L of oxygen. Unclear if the pulmonary emboli were present prior to initiation of Eliquis as the patient did not have a CT angiogram. Therefore, I am unsure if the patient is an Eliquis failure. Hematology has been consulted for recommendations. 3. Left lower extremity DVT, now on IV heparin, status post IVC filter placement. 4. Increasing lung mass, mediastinal and hilar lymphadenopathy, and left clavicular lymph node, all suspicious for advancing metastatic lung cancer. 5. Elevated troponin - cardiology consulted. 6. Mild leukocytosis, likely secondary to stress. There is no obvious source of infection at present. 7. Displaced right humerus fracture which will require surgical intervention. 8. History of COPD, currently stable. 9. History of chronic back pain. 10. Chronic constipation. Recommendations: * Please check a CT scan of the brain with IV contrast to rule out metastatic disease. * Ultrasound-guided fine-needle aspirate of the FDG avid left clavicular lymph node ordered for later today. Heparin will be on hold 2 hours prior to the procedure. * Maintain the patient on strict aspiration precautions. * Continue to follow speech therapy's recommendations. * Continue aspirin and statins. Continue Ativan 0.5 mg every 6 hours. We will adjust as necessary. * Continue the patient on pain pathway. * Increase IVFs to 100 ml/hr. * Monitor strict I's and O's. * Decrease IV fluids when urine output is adequate. * Continue Symbicort twice daily and when necessary albuterol. * DVT prophylaxis - on IV heparin. * Appreciate all consultants recommendations. * Continue to monitor in the [facility]. * Patients updated.
--- NOTE | 2016-07-25 10:53 | Cons- Oncology ---
General Information and HPI Consulting Request Date of Consult: 07/25/16 Requested By: MARY PENN MD Reason for Consult: Lung cancer, PE, DVT, CVA Source of Information: patient, old records Exam Limitations: no limitations History of Present Illness: Mrs. Bolton is a 55-year-old female with history of HTN, HLD, COPD, GERD, IBS, chronic back pain with a neurostimulator, DVT with IVC filter and on apixaban, right arm fracture, and every day smoker who presented to the hospital with left facial drooping, slurred speech, and left-sided weakness. Due to concern for stroke, she came to the hospital. In the ED, she was evaluated with CT scan of the head. This was negative on admission. She was CTA of the chest demonstrated bilateral pulmonary embolism and possible right subclavian DVT. She was admitted to the ICU for further monitoring and initiation of heparin drip. She needed close observation for possible hemorrhagic conversion. with regard to her possible lung cancer, she was seen as an outpatient by Dr. Marcus. She was in the lung cancer screening program and had CT done on 2016 which demonstrated left hilar mass with mediastinal adenopathy suspicious for malignancy. She was set up to have biopsy but suffered from a fall and fractured her right humerus. She states she had a syncopal episode prior to the fall. She was seen by surgery and planned to undergo surgery. Dr. Marcus discussed with orthepedic surgery regarding the diagnosis of likely lung cancer. Due to the extensiveness of the right shoulder surgery, it was recommended she work up for her lung malignancy prior. She was seen again and noted to have left lower extremity edema. US was done and noted to be positive for DVT. She was admitted for heparin drip and IVC filter placed in anticipation of lung biopsy and right humerus surgery. She was discharged on apixaban. She underwent PET scan on 07/22/2016 which demonstrated left sided lung disease with medistinal and likely left supraclavicular adenopathy. It is unclear if the right humerus is a metastatic lesion. It is unclear if the left femur is metastatic. She currently is doing okay. She has improving slurred speech and left sided weakness. Allergies/Medications Allergies: Coded Allergies: moxifloxacin (From AVELOX) (Severe, ANAPHYLAXIS 11/07/15) Penicillins (Intermediate, RASH 11/07/15) bupropion (From WELLBUTRIN) (Intermediate, HEADACHES, SEVERE VOMITING 11/07/15) cephalexin (From KEFLEX) (Intermediate, SEVERE VOMITING 11/07/15) clindamycin (From CLEOCIN) (Intermediate, SEVERE VOMITING 11/07/15) erythromycin base (Intermediate, SEVERE VOMITING 11/07/15) varenicline (From CHANTIX) (SEVERE HEADACHE MAKES LOOPY PER PT 07/11/16) Home Med List: Albuterol Sulfate (Ventolin Hfa) 90 MCG HFA.AER.AD 2 PUF INH Q4-PRN PRN COPD (Reported) Albuterol Sulfate 2.5 MG/3 ML (0.083 %) VIAL.NEB 1 Vial INH/ERICA DAILY NEEDED PRN COPD (Reported) Apixaban (Eliquis) 5 MG TABLET 2 TAB PO BID BLOOD THINNER 2 TABS BID FOR 7 DAYS FOLLOWED BY 1 TAB BID Aspirin (Ecotrin*) 81 MG TABLET.DR 1 TAB PO DAILY HEART/BLOOD (Reported) Bepotastine Besilate (Bepreve) 1.5 % DROPS 1 GTT OPH PRN BOTH EYES - PROPHYLAXIS (Reported) Celecoxib 200 MG CAPSULE 1 CAP PO BID PAIN/INFLAMMATION (Reported) Cholecalciferol (Vitamin D3) (Vitamin D3) 1,000 UNIT CAPSULE 1 CAP PO DAILY SUPPLEMENT (Reported) Cyanocobalamin (Vitamin B-12) (Vitamin B12) 2,500 MCG TABLET 1 TAB PO DAILY SUPPLEMENT (Reported) Diclofenac Sodium (Voltaren) 1 % GEL..GRAM. 1 GM TOP PRN JOINT PAIN (Reported ) apply to affected area(s) Fluticasone/Salmeterol (Advair 500-50 Diskus) 500 MCG-50 MCG/DOSE BLST.W.DEV 1 PUF INH BID COPD (Reported) Hydrocodone/Acetaminophen (Hydrocodon-Acetaminoph 7.5-325) 7.5 MG-325 MG TABLET 1-2 TAB PO Q4-6 PRN PRN PAIN (Reported) Reason to Stop at ADM: pain pathway Lorazepam (Ativan) 0.5 MG TABLET 1 TAB PO DAILY NEEDED PRN ANXIETY ( Reported) Loteprednol Etabonate (Lotemax) 0.5 % DROPS.SUSP 1 GTT OPH PRN BOTH EYES - PROPHYLAXIS (Reported) Magnesium Oxide 400 MG TABLET 1 TAB PO DAILY Supplement Metaxalone 800 MG TABLET 1 TAB PO TID PRN MUSCLE SPASMS (Reported) Metoprolol Tartrate 25 MG TABLET 0.5 TAB PO DAILY BP (Reported) Omeprazole Magnesium (Prilosec Otc) (Unknown Strength) TABLET.DR (Unknown Dose ) PO EOD GERD (Reported) Reason to Stop at ADM: hypokalemia Potassium Chloride 10 MEQ TABLET.ER 2 TAB PO BID Supplement Rosuvastatin Calcium (Crestor) 10 MG TABLET 1 TAB PO DAILY CHOLESTEROL ( Reported) Tiotropium Galva (Spiriva) 18 MCG CAP.W.DEV 1 CAP INH DAILY COPD (Reported) Zolpidem Tartrate 10 MG TABLET 1 TAB PO AT BEDTIME PRN SLEEP (Reported) Current Medications: Current Medications Sig/Ida Start time Last Medication Dose Route Stop Time Status Admin Acetaminophen 1,000 MG Q6P PRN 07/23 1815 AC 07/25 IV 0416 Albuterol Sulfate 3 ML EVERY 4 HRS/AWAKE 07/25 1999 AC 07/25 INH 0523 Albuterol Sulfate 2 PUF Q4 07/24 1413 DC 07/24 INH 1846 Albuterol Sulfate 2 PUF Q4-PRN PRN 07/23 1815 DC INH Albuterol Sulfate 3 ML DAILY NEEDED PRN 07/23 1815 DC 07/24 INH 1115 Budesonide/ 2 PUF BID 07/23 2200 DC 07/24 Formoterol Fumarate INH 1253 Dextrose/Sodium 1,000 ML Q20H 07/24 0145 AC 07/24 Chloride IV 2113 Diclofenac Sodium 1 KWADWO Q4P PRN 07/23 1815 AC 07/24 TOP 0310 Glycerin 2 SPRAY Q2P PRN 07/25 0845 PO Heparin Sodium 5,000 UNIT .STK-MED ONE 07/24 2339 DC (Porcine) IV 07/24 2340 Heparin Sodium 25,000 UNIT Q24H 07/24 1215 AC 07/24 (Porcine) IV 1600 Sodium Chloride 500 ML Hydromorphone HCl 0.5 MG ONCE ONE 07/24 1245 DC 07/24 IV 07/24 1246 1125 Hydromorphone HCl 0.5 MG Q4P PRN 07/23 1815 AC 07/25 IV 0513 Ipratropium Galva 2.5 ML EVERY 4 HRS/AWAKE 07/25 1999 AC 07/25 INH 0523 Lorazepam 0.5 MG Q4 HRS NEEDED PRN 07/25 0830 AC 07/25 PO 08/01 0829 0841 Lorazepam 0.25 MG Q6PRN PRN 07/24 0800 AC 07/24 IV 1431 Magnesium Sulfate 1 GM Q2H 07/25 0730 AC 07/25 Dextrose/Water 100 ML IV 07/25 1129 0836 Melatonin 5 MG AT BEDTIME 07/24 2300 AC 07/24 PO 2249 Metoclopramide HCl 10 MG Q6P PRN 07/25 0830 AC IV Morphine Sulfate 2 MG Q4P PRN 07/23 1815 AC 07/24 IV 1235 Ondansetron HCl 4 MG Q6P PRN 07/24 0400 AC 07/25 IV 0312 Potassium Chloride 20 MEQ BID 07/25 0830 AC PO 07/25 2201 Potassium Chloride 40 MEQ BID 07/25 0730 DC PO 07/25 2201 Tiotropium Galva 1 PUF DAILY 07/24 1000 DC 07/24 INH 1130 Review of Systems Review of Systems Constitutional: Reports: weakness. Cardiovascular: Reports: palpitations, peripheral edema, syncope. Denies: chest pain. Respiratory: Reports: short of breath. GI: Reports: abdominal pain. Genitourinary: Denies: dysuria. Musculoskeletal: Reports: back pain, joint pain, neck pain. Neurological/Psychological: Reports: cognitive dysfunction, confusion, weakness, other (slurred speech, facial droopin). Hematologic/Endocrine: Reports: bruising. All Other Systems: Reviewed and Negative Past History Travel History Traveled to [place] past 21 day No Medical History Blood Transfusion Hx: No Neurological: migraine EENT: NONE Cardiovascular: hypertension, hyperlipidemia, DVT S/P IVC FILTER Respiratory: COPD, LUNG CA Gastrointestinal: GERD, irritable bowel syndrome Hepatic: NONE Renal: NONE Musculoskeletal: chronic back pain, R SHOULDER FX Psychiatric: anxiety Endocrine: NONE Blood Disorders: NONE Cancer(s): NONE, lung cancer [employer]/Reproductive: NONE Surgical History Surgical History: laminectomy, cervical discectomy Family History Relations & Conditions If Any: Relation not specified for: *No pertinent family history Psychosocial History Where Do You Live? Home Smoking Status: Current Everyday Smoker ETOH Use: heavy use Illicit Drug Use: denies illicit drug use Functional Ability ADLs Independent: dressing, eating, toileting, bathing. Ambulation: independent IADLs Independent: shopping, housework, finances, food prep, telephone, transportation , medication admin. Exam & Diagnostic Data Vital Signs and I&O Vital Signs Date Time Temp Pulse Resp B/P Pulse O2 O2 Flow FiO2 Ox Delivery Rate 07/25 0539 95 Nasal 2.0L Cannula 07/25 0400 98 Nasal 2.0L Cannula 07/25 0000 100 Nasal 2.0L Cannula 07/24 2300 97.6 93 16 120/60 100 Nasal 2.0L Cannula 07/24 2000 96 Nasal 2.0L Cannula 07/24 1927 99 Nasal 2.0L Cannula 07/24 1600 97.2 90 18 120/70 93 Nasal 2.0L Cannula 07/24 1600 94 Nasal 2.0L Cannula 07/24 1200 93 Nasal 2.0L Cannula 07/24 1115 Nasal 2.0L Cannula Intake & Output 07/25 1600 07/25 0800 07/25 0000 Intake Total 733 428 Output Total 125 190 Balance 608 238 Intake, IV 733 428 Intake, Oral 0 Number 0 0 Bowel Movements Output, Urine 125 190 Physical Exam General Appearance: no apparent distress, alert, awake, anxious, thin Head: atraumatic, right face with ecchymosis Eyes: Bilateral: PERRL. Ears, Nose, Throat: normal pharynx, normal ENT inspection Neck: supple Respiratory: chest non-tender, no respiratory distress, decreased breath sounds, crackles Cardiovascular: edema, tachycardia, systolic murmur Gastrointestinal: normal bowel sounds, soft, non-tender Extremities: pedal edema (LLE), right shoulder with 3 cm ? hematoma, right arm in sling Neurologic/Psych: awake, alert, oriented x 3, facial droop, motor weakness (left arm and leg weakness), mild dysarthria Skin: ecchymosis (scatter) Last 48 Hours of Lab Results: Laboratory Tests 07/25 07/24 07/24 0436 2201 0410 Chemistry Sodium (137 - 145 mmol/L) 132 L Potassium (3.5 - 5.1 mmol/L) 3.5 Chloride (98 - 107 mmol/L) 97 L Carbon Dioxide (22 - 30 mmol/L) 29 Anion Gap (5 - 16) 6 BUN (7 - 17 mg/dL) 11 Creatinine (0.5 - 1.0 mg/dL) 0.5 Estimated GFR (>60 ml/min) > 60 Glucose (65 - 99 mg/dL) 126 H Calcium (8.4 - 10.2 mg/dL) 8.6 Phosphorus (2.5 - 4.5 mg/dL) 4.0 Magnesium (1.6 - 2.3 mg/dL) 1.2 L Total Bilirubin (0.2 - 1.3 mg/dL) 0.7 AST (14 - 36 U/L) 26 ALT (9 - 52 U/L) 23 Troponin I (< 0.11 ng/ml) 0.33 *H Albumin (3.5 - 5.0 g/dL) 2.6 L Coagulation PT (9.4 - 12.5 SEC) 15.9 H INR (0.90 - 1.19) 1.52 H APTT (25 - 37 SEC) 65 H 39 H Hematology CBC w Diff NO MAN DIFF REQ WBC (4.8 - 10.8 /CUMM) 13.0 H RBC (4.20 - 5.40 /CUMM) 3.08 L Hgb (12.0 - 16.0 G/DL) 9.8 L Hct (37 - 47 %) 30.1 L MCV (81.0 - 99.0 FL) 97.6 MCH (27.0 - 31.0 PG) 31.6 H RDW (11.5 - 14.5 %) 16.6 H Plt Count (130 - 400 /CUMM) 202 MPV (7.4 - 10.4 FL) 9.3 Gran % (42.2 - 75.2 %) 80.5 H Lymphocytes % (20.5 - 51.1 %) 12.6 L Monocytes % (1.7 - 9.3 %) 5.4 Eosinophils % (0 - 5 %) 1.1 Basophils % (0.0 - 2.0 %) 0.4 Absolute Granulocytes (1.4 - 6.5 /CUMM) 10.5 H Absolute Lymphocytes (1.2 - 3.4 /CUMM) 1.6 Absolute Monocytes (0.10 - 0.60 /CUMM) 0.7 H Absolute Eosinophils (0.0 - 0.7 /CUMM) 0.1 Absolute Basophils (0.0 - 0.2 /CUMM) 0 PUBS MCHC (33.0 - 37.0 G/DL) 32.4 L 07/24 07/23 07/23 0410 2240 1807 Chemistry Sodium (137 - 145 mmol/L) 135 L Potassium (3.5 - 5.1 mmol/L) 4.3 Chloride (98 - 107 mmol/L) 99 Carbon Dioxide (22 - 30 mmol/L) 27 Anion Gap (5 - 16) 8 BUN (7 - 17 mg/dL) 9 Creatinine (0.5 - 1.0 mg/dL) 0.5 Estimated GFR (>60 ml/min) > 60 BUN/Creatinine Ratio (7 - 25 %) 18.0 Troponin I (< 0.11 ng/ml) 0.38 *H Cancelled [id number] Pept (<125 pg/mL) 649 H Triglycerides (<150 mg/dL) 99 Cholesterol (<200 MG/DL) 114 LDL Cholesterol, Calc (65 - 129 mg/dL) 38 L HDL Cholesterol (40 - 60 mg/dL) 57 Cholesterol/HDL Ratio (0.00 - 4.23 %) 2 Hematology CBC w Diff NO MAN DIFF REQ WBC (4.8 - 10.8 /CUMM) 13.4 H RBC (4.20 - 5.40 /CUMM) 3.34 L Hgb (12.0 - 16.0 G/DL) 10.6 L Hct (37 - 47 %) 32.2 L MCV (81.0 - 99.0 FL) 96.6 MCH (27.0 - 31.0 PG) 31.8 H RDW (11.5 - 14.5 %) 16.3 H Plt Count (130 - 400 /CUMM) 199 MPV (7.4 - 10.4 FL) 9.3 Gran % (42.2 - 75.2 %) 86.8 H Lymphocytes % (20.5 - 51.1 %) 6.7 L Monocytes % (1.7 - 9.3 %) 5.8 Eosinophils % (0 - 5 %) 0.4 Basophils % (0.0 - 2.0 %) 0.3 Absolute Granulocytes (1.4 - 6.5 /CUMM) 11.6 H Absolute Lymphocytes (1.2 - 3.4 /CUMM) 0.9 L Absolute Monocytes (0.10 - 0.60 /CUMM) 0.8 H Absolute Eosinophils (0.0 - 0.7 /CUMM) 0.1 Absolute Basophils (0.0 - 0.2 /CUMM) 0 PUBS MCHC (33.0 - 37.0 G/DL) 32.9 L 07/23 1515 Chemistry Sodium (137 - 145 mmol/L) 133 L Potassium (3.5 - 5.1 mmol/L) 4.2 Chloride (98 - 107 mmol/L) 97 L Carbon Dioxide (22 - 30 mmol/L) 27 Anion Gap (5 - 16) 8 BUN (7 - 17 mg/dL) 10 Creatinine (0.5 - 1.0 mg/dL) 0.5 Estimated GFR (>60 ml/min) > 60 BUN/Creatinine Ratio (7 - 25 %) 20.0 Glucose (65 - 99 mg/dL) 112 H Calcium (8.4 - 10.2 mg/dL) 9.3 Total Bilirubin (0.2 - 1.3 mg/dL) 0.6 AST (14 - 36 U/L) 28 ALT (9 - 52 U/L) 24 Alkaline Phosphatase (<127 U/L) 221 H Troponin I (< 0.11 ng/ml) 0.33 *H Total Protein (6.3 - 8.2 g/dL) 6.0 L Albumin (3.5 - 5.0 g/dL) 3.0 L Globulin (1.9 - 4.2 gm/dL) 3.0 Albumin/Globulin Ratio (1.1 - 2.2 %) 1.0 L Coagulation PT (9.4 - 12.5 SEC) 27.6 H INR (0.90 - 1.19) 2.65 H Hematology CBC w Diff NO MAN DIFF REQ WBC (4.8 - 10.8 /CUMM) 13.7 H RBC (4.20 - 5.40 /CUMM) 3.64 L Hgb (12.0 - 16.0 G/DL) 11.5 L Hct (37 - 47 %) 35.1 L MCV (81.0 - 99.0 FL) 96.3 MCH (27.0 - 31.0 PG) 31.6 H RDW (11.5 - 14.5 %) 16.9 H Plt Count (130 - 400 /CUMM) 218 MPV (7.4 - 10.4 FL) 9.5 Gran % (42.2 - 75.2 %) 82.7 H Lymphocytes % (20.5 - 51.1 %) 11.1 L Monocytes % (1.7 - 9.3 %) 4.6 Eosinophils % (0 - 5 %) 1.2 Basophils % (0.0 - 2.0 %) 0.4 Absolute Granulocytes (1.4 - 6.5 /CUMM) 11.3 H Absolute Lymphocytes (1.2 - 3.4 /CUMM) 1.5 Absolute Monocytes (0.10 - 0.60 /CUMM) 0.6 Absolute Eosinophils (0.0 - 0.7 /CUMM) 0.2 Absolute Basophils (0.0 - 0.2 /CUMM) 0 PUBS MCHC (33.0 - 37.0 G/DL) 32.8 L Imaging/Other Studies: Head CT 07/24/2016: There are acute ischemic changes within the right middle cerebral artery territory. No evidence of hemorrhagic transformation. Venous doppler RUE 07/23/2016: No DVT demonstrated in the right upper extremity. Chest CTA 07/23/2016: 1. Acute pulmonary embolism noted in bilateral lower lobe segmental and subsegmental pulmonary arteries, right greater than left. 2. Wedge-shaped reticular opacity most suspicious for acute infarct posterior lateral aspect right lower lobe. Smaller groundglass foci noted in the right middle lobe and right upper lobe as well as the left upper lobe may represent mosaic perfusion in this individual. 3. Lobulated left hilar mass and mediastinal lymphadenopathy demonstrates interval increase compared to 07/11/2016. 4. Comminuted fracture subcapital location right humerus is most suspicious for a pathologic fracture. Adjacent masslike hypodensity may be associated with hematoma or soft tissue mass. Soft tissue hyperdensity noted posterior to the humeral shaft may also be associated with hematoma. Given the interval increase in the hyperdensity compared to the previous examination, contrast extravasation from an injured vessel is a likely possibility. Right subclavian DVT suspected as detailed. Carotid doppler 07/23/2016: 1. Less than 50% luminal diameter narrowing of the right ICA origin and carotid bulb. 2. 50-79% stenosis of the left distal ICA. Extent of stenosis is close to the 50 % range. 3. Nonvisualization of the right vertebral artery. PET 07/22/2016: 1. An FDG avid left hilar mass is most likely malignant. 2. FDG avid lymphadenopathy in the proximal left peribronchial region as well as multiple FDG avid mediastinal and a single left supraclavicular FDG avid lymph node are most likely metastases. 3. Pleural-based wedge shaped opacities including a prominent segmental appearing opacity in the lateral basal segment of the right lower lobe show only minimal FDG activity, and are very strongly suspicious for pulmonary embolism, with infarction in the RIGHT lower lobe focus. Further evaluation with a CTA chest pulmonary embolism study is strongly recommended. If a pneumonitis was responsible for these abnormalities, they would almost certainly be much more FDG avid. 4. Right shoulder fracture with diffuse FDG in the adjacent soft tissues. Photopenia in the right femoral head suggests this might be due to a lytic metastasis, but there is no abnormal FDG activity in the bone to support this. If clinically indicated this could be further evaluated with MRI. 5. A small FDG avid focus in the left axilla shows no corresponding CT abnormality. While this could be metastatic lesion, the patient was injected in the left arm and this may be due to some lymphatic transit of infiltrated radiopharmaceutical at the injection site. 6. A small focus of FDG activity is present in the marrow of the proximal left femur. This may represent some normal marrow uptake, which is also seen elsewhere, but because of the focal appearance, this may also represent a metastasis. 7. No additional abnormalities suspicious for other metastatic or malignant lesions are noted. 8. Hepatomegaly. 9. Vascular calcifications including coronary. Assessment/Plan Assessment: Mrs. Bolton is a 55-year-old female with history of HTN, HLD, COPD, GERD, IBS, chronic back pain with a neurostimulator, DVT with IVC filter and on apixaban, right arm fracture, and every day smoker who presented to the hospital with left facial drooping, slurred speech, and left-sided weakness. Due to concern for stroke, she came to the hospital. Initial CT head demonstrated no acute hemorrhage. Repeat scan on 07/24/2016 demonstrated acute ischemic changes within the right middle cerebral artery territory without hemorrhagic transformation. She is currently on heparin drip without bolus. Given her significant clot burden, it is reasonable to continue anticoagulation and monitor for signs and symptoms of hemorrhagic conversion. With regard to her likely lung malignancy, she will need evaluation of her brain for metastatic disease especially with the stroke. She is unable to get MRI due to spinal neurostimulator. She will need CT head with contrast. PET demonstrated likely stage IIIB disease at least. It is unclear if the right humerus had metastatic disease. She does have diffuse osteopenia. The fracture may not be pathologic. The left femur lesion is nonspecific and again wonder if it is metastatic. If not metastatic, she would have stage IIIB disease with potential for definitive therapy with concurrent chemoradiation. Otherwise, she has metastatic disease. She should have her supraclavicular lymph node biopsied to have tissues diagnosis with mutation sent (ALK, EGFR, ROS1, and PD1). Recommendations: 1. Biopsy left supraclavicular node 2. Continue heparin drip without bolus 3. Monitor closely for neurological changes 4. CT head with contrast Problem List: 1. Acute CVA (cerebrovascular accident) 2. Mass of left lung 3. Proximal humeral fracture 4. Left leg DVT Other Findings/Comments: Please call [phone] with any questions or concerns. Consult Acknowledgment - Thank you for your consult request.
--- NOTE | 2016-07-25 12:16 | PN- Cardiology ---
Subjective Subjective: Resting comfortably although she does have pain in the right arm. Denies significant dyspnea at rest. No chest pain or palpitations. Objective Vital Signs and I&Os Vital Signs Date Time Temp Pulse Resp B/P Pulse O2 O2 Flow FiO2 Ox Delivery Rate 07/25 0851 95 Room Air Room Air 07/25 0539 95 Nasal 2.0L Cannula 07/25 0400 98 Nasal 2.0L Cannula 07/25 0000 100 Nasal 2.0L Cannula 07/24 2300 97.6 93 16 120/60 100 Nasal 2.0L Cannula 07/24 2000 96 Nasal 2.0L Cannula 07/24 1927 99 Nasal 2.0L Cannula 07/24 1600 97.2 90 18 120/70 93 Nasal 2.0L Cannula 07/24 1600 94 Nasal 2.0L Cannula Intake & Output 07/25 1600 07/25 0800 07/25 0000 07/24 1600 07/24 0800 07/24 0000 Intake Total 733 428 400 400 Output Total 125 190 350 193 Balance 608 238 50 207 Intake, IV 733 428 400 400 Intake, Oral 0 Number 0 0 0 0 Bowel Movements Output, Urine 125 190 350 193 Patient 114 lb 115 lb Weight Physical Exam: General: no apparent distress. Alert. Eyes: No obvious scleral icterus. HEENT: No jugular venous distention or abnormal jugular venous pulsations. Cardiovascular: Normal intensity S1/S2. Regular. Respiratory: No rales or rhonchi Abdomen: no guarding or rebound tenderness. Musculoskeletal: Right arm in sling, no edema Skin: Warm Neurologic: Facial droop noted Current Medications: Current Medications Sig/Ida Start time Last Medication Dose Route Stop Time Status Admin Acetaminophen 1,000 MG Q6P PRN 07/23 181 AC 07/25 IV 0416 Albuterol Sulfate 3 ML EVERY 4 HRS/AWAKE 07/25 1999 AC 07/25 INH 1148 Albuterol Sulfate 2 PUF Q4 07/24 1413 DC 07/24 INH 1846 Albuterol Sulfate 2 PUF Q4-PRN PRN 07/23 181 DC INH Albuterol Sulfate 3 ML DAILY NEEDED PRN 07/23 181 DC 07/24 INH 1115 Budesonide/ 2 PUF BID 07/23 2200 DC 07/24 Formoterol Fumarate INH 1253 Dextrose/Sodium 1,000 ML Q20H 07/24 0145 AC 07/24 Chloride IV 2113 Diclofenac Sodium 1 KWADWO Q4P PRN 07/23 1815 AC 07/24 TOP 0310 Glycerin 2 SPRAY Q2P PRN 07/25 0845 AC PO Heparin Sodium 5,000 UNIT .STK-MED ONE 07/24 2339 DC (Porcine) IV 07/24 2340 Heparin Sodium 25,000 UNIT Q24H 07/24 1215 AC 07/24 (Porcine) IV 1600 Sodium Chloride 500 ML Hydromorphone HCl 0.5 MG ONCE ONE 07/24 1245 DC 07/24 IV 07/24 1246 1125 Hydromorphone HCl 0.5 MG Q4P PRN 07/23 1815 AC 07/25 IV 0913 Ipratropium [place] 2.5 ML EVERY 4 HRS/AWAKE 07/24 2000 AC 07/25 INH 1148 Lorazepam 0.5 MG Q6-PRN PRN 07/25 0945 AC PO 08/01 0931 Lorazepam 0.5 MG Q4 HRS NEEDED PRN 07/25 0830 DC 07/25 PO 08/01 0829 0841 Lorazepam 0.25 MG Q6PRN PRN 07/24 0800 DC 07/24 IV 1431 Magnesium Sulfate 1 GM Q2H 07/25 0730 DC 07/25 Dextrose/Water 100 ML IV 07/25 1129 0836 Melatonin 5 MG AT BEDTIME 07/24 2300 AC 07/24 PO 2249 Metoclopramide HCl 10 MG Q6P PRN 07/25 0830 AC IV Morphine Sulfate 2 MG Q4P PRN 07/23 1815 AC 07/24 IV 1235 Ondansetron HCl 4 MG .STK-MED ONE 07/25 0307 DC IM 07/25 0308 Ondansetron HCl 4 MG Q6P PRN 07/24 0400 AC 07/25 IV 0914 Potassium Chloride 20 MEQ BID 07/25 0830 AC PO 07/25 2201 Potassium Chloride 40 MEQ BID 07/25 0730 DC PO 07/25 2201 Tiotropium [place] 1 PUF DAILY 07/24 1000 DC 07/24 INH 1130 Results Last 48 Hrs of Labs/Mics: Laboratory Tests 07/25/16 0436: Anion Gap 6, Estimated GFR > 60, Glucose 126 H, Calcium 8.6, Phosphorus 4.0, Magnesium 1.2 L, Total Bilirubin 0.7, AST 26, ALT 23, Albumin 2.6 L, PT 15.9 H, INR 1.52 H, APTT 65 H, CBC w Diff NO MAN DIFF REQ, RBC 3.08 L, MCV 97.6, MCH 31.6 H, RDW 16.6 H, MPV 9.3, Gran % 80.5 H, Lymphocytes % 12.6 L, Monocytes % 5.4, Eosinophils % 1.1, Basophils % 0.4, Absolute Granulocytes 10.5 H, Absolute Lymphocytes 1.6, Absolute Monocytes 0.7 H, Absolute Eosinophils 0.1 , Absolute Basophils 0, PUBS MCHC 32.4 L 07/24/16 2201: APTT 39 H 07/24/16 0410: Troponin I 0.33 *H 07/24/16 041: Anion Gap 8, Estimated GFR > 60, BUN/Creatinine Ratio 18.0, Rak-F-Djpjdcntksy Pept 649 H, Triglycerides 99, Cholesterol 114, LDL Cholesterol, Calc 38 L, HDL Cholesterol 57, Cholesterol/HDL Ratio 2, CBC w Diff NO MAN DIFF REQ, RBC 3.34 L , MCV 96.6, MCH 31.8 H, RDW 16.3 H, MPV 9.3, Gran % 86.8 H, Lymphocytes % 6.7 L, Monocytes % 5.8, Eosinophils % 0.4, Basophils % 0.3, Absolute Granulocytes 11.6 H, Absolute Lymphocytes 0.9 L, Absolute Monocytes 0.8 H, Absolute Eosinophils 0.1, Absolute Basophils 0, PUBS MCHC 32.9 L 07/23/16 2240: Troponin I 0.38 *H 07/23/16 1807: Troponin I Cancelled 07/23/16 1515: Anion Gap 8, Estimated GFR > 60, BUN/Creatinine Ratio 20.0, Glucose 112 H, Calcium 9.3, Total Bilirubin 0.6, AST 28, ALT 24, Alkaline Phosphatase 221 H, Troponin I 0.33 *H, Total Protein 6.0 L, Albumin 3.0 L, Globulin 3.0, Albumin/ Globulin Ratio 1.0 L, PT 27.6 H, INR 2.65 H, CBC w Diff NO MAN DIFF REQ, RBC 3.64 L, MCV 96.3, MCH 31.6 H, RDW 16.9 H, MPV 9.5, Gran % 82.7 H, Lymphocytes % 11.1 L, Monocytes % 4.6, Eosinophils % 1.2, Basophils % 0.4, Absolute Granulocytes 11.3 H, Absolute Lymphocytes 1.5, Absolute Monocytes 0.6, Absolute Eosinophils 0.2, Absolute Basophils 0, PUBS MCHC 32.8 L Microbiology 07/23 2229 URINE ROUT: Urine Culture - COMP 07/23 2229 UPPER RESP: Surveillance Culture - COMP 07/23 2229 GI: Surveillance Culture - COMP Recent Imaging Studies: Telemetry tracings were personally reviewed and shows sinus rhythm Echocardiogram Normal global left ventricular size, wall thickness, systolic function with no obvious regional wall motion abnormalities. Left ventricular ejection fraction is estimated at > 60 %. Normal left ventricular diastolic filling pattern for age. Normal right ventricular size and function. Right ventricular systolic pressure estimated at 35 mmHg. Minimal pericardial effusion. Assessment/Plan Assessment/Plan 1. Acute CVA 2. Acute pulmonary embolism/DVT despite anticoagulation 3. Increasing lung mass likely due to advanced lung cancer 4. Elevated troponin likely due to acute pulmonary was 5. Right humeral fracture 6. COPD 7. Spinal neurostimulator The patient is currently hemodynamically stable with no sustained arrhythmias noted on telemetry. I interpreted her transthoracic echocardiogram today which fortunately shows no regional wall motion abnormalities, no right ventricular dysfunction, and no obvious pulmonary hypertension. She remains on intravenous heparin and may be a candidate for Lovenox in the future. Dipak Waldrop MD [facility] Continue telemetry? Yes
--- NOTE | 2016-07-25 12:39 | CT SCAN REPORT ---
EXAMINATION: CT HEAD WITHOUT AND WITH CONTRAST CLINICAL INFORMATION: Lung mass, pulmonary embolus, evaluate for metastases. COMPARISON: 07/24/2016. TECHNIQUE: Contiguous axial imaging was performed from the skull base to vertex before and after the administration of 100 mL of Optiray 320 intravenous contrast. DLP: 1201 mGy-cm FINDINGS: The head is tilted somewhat limiting evaluation. Scanogram demonstrates post instrumented fusion changes in the lower cervical spine. The nasopharynx is widely patent. There is no evidence of acute intracranial hemorrhage or territorial infarction. No abnormal mass effect or midline shift is seen. Huang to white matter differentiation is well preserved. No extra-axial fluid collections are identified. Postcontrast imaging demonstrates no evidence of focal masses. The ventricles are normal in size. There is no abnormal attenuation within the brain parenchyma. The osseous structures and soft tissues are normal. The mastoid air cells and visualized portions of the paranasal sinuses are well aerated. The petrous apices are pneumatized and clear. IMPRESSION: No evidence of metastatic disease or acute intracranial pathology.
--- NOTE | 2016-07-25 13:59 | NUR ---
PT IS AWAKE AND ORIENTED. SHE REPORTS PERSISTENT NAUSEA DESPITE IV ZOFRAN, SHE ALSO REPORTS ONLY SLIGHT PAIN RELIEF FROM IV DILAUDID EVERY 4 HOURS. ALSO SHE REQUESTS PO ATIVAN 1 MG EVERY FOUR HOURS FOR PANIC SHE STATES THIS IS WHAT SHE TAKES AT HOME. ICU TEAM AND DR. CHILDRESS IN, PTS POC ADJUSTED. SHE IS CURRENTLY RECEIVING 0.5MG ATIVAN EVERY 6 HOURS AND CONTINUES IV DILAUDID EVERY 4 HOURS. REGLAN HAS BEEN ADDED. SHE DOES BECOME SEDATED AFTER THE MEDS REUQIRING 02 AT 2L AND WAKING HER FREQUENTLY. FAMILY IN AND UPDATES GIVEN. CT HEAD WITH IV CONTRAST DONE. IVF INCREASED TO 1OO MLS PER HOUR. SHE WAS ABLE TO TAKE MEDS WITH NECTAR THICK LIQUID, HOWEVER SHE DOES COUGH WHEN SWALLOWING. NPO EXCEPT MEDS FOR BX THIS AFTERNOON. IV HEPARIN D/C/D AT 1230 IN PREPARATION FOR PROCEDURE.
--- NOTE | 2016-07-25 15:29 | NUR ---
TRANSFERRED TO ULTRASOUND FOR LYMPH NODE BIOPSY, MONITORED BY REPAIR SUPERVISOR ON [facility] FOR PROCEDURE.
--- NOTE | 2016-07-25 15:44 | NUR ---
SPEECH THERAPY: ATTEMPTED TO SEE PT IN THE AFTERNOON, PT NPO FOR BIOPSY OF LYMPH NODE; UNABLE TO BE FORMALLY SEEN FOR DYSPHAGIA TX. PER MAHENDRA DE LEÓN, PT WAS OBSERVED TO COUGH W/ MEDS& NECTAR THICK LIQUIDS VIA TSP THIS AM. MBS RESULTS INDICATED TRANSIENT PENETRATION X1 W/ NECTAR THICK LIQUIDS ELICITING A COUGH REFLEX TO EJECT (SEE FULL REPORT FOR ADDITIONAL INFORMATION). RN MADE AWARE. PER RN, PT HAS ALSO BEEN LETHARGIC. REC PT CONTINUE W/ CURRENT DIET OF PUREE AND NECTAR THICK LIQUIDS W/ STRICT ASPIRATION PRECAUTIONS TO FEED PT W/ SLOW RATE, SMALL BITES/SIPS, ALL NECTAR THICK LIQUIDS VIA TSP AND TO ONLY FEED PT WHEN ALERT/AWAKE. RN AND ST ATTEMPTED TO COORDINATE ADMINISTRATION OF MEDS ORALLY PRIOR TO PROCEDURE, RN INSTRUCTED TO PAGE ST. NO PAGE RECEIVED; AT APPROX. 3:30 PM, PT NO LONGER IN ROOM AND SENT DOWN FOR PROCEDURE. ST TO CONTINUE TO FOLLOW PT FOR DIET TOLERANCE/UPGRADE ON FRIDAY 07/28.
[2016-07-25 16:00] VITALS: BP 128/70
--- NOTE | 2016-07-25 16:18 | NUR ---
PT RETURNED FROM ULTRASOUND BIOPSY. BANDAID TO LEFT NECK BIOPSY SITE.
--- NOTE | 2016-07-25 17:26 | ULTRASOUND REPORT ---
EXAMINATION: ULTRASOUND-GUIDED BIOPSY OF LEFT NECK LYMPHADENOPATHY. CLINICAL INFORMATION: 55-year-old female with worsening left hilar mass and mediastinal lymphadenopathy. Biopsy requested. COMPARISON: PET/CT 07/22/2016 INTERVENTIONAL RADIOLOGIST: Zac Arango M.D. SEDATION: Sedation was not required for today's procedure. 1% lidocaine was utilized for local anesthetic. TECHNIQUE/FINDINGS: Informed consent was obtained from the patient prior to the procedure. During this process, the procedure and potential alternatives were explained, along with the intended outcome and benefits. The risks of the procedure, as well as the risk of not doing the procedure, were discussed. The patient was given the opportunity to ask questions regarding the procedure and appeared competent to make medical decisions. A consent form which documents this discussion was placed in the medical record. IMAGING: Appropriate pre-procedure medical history and imaging studies were reviewed. Sonographic evaluation of the left neck demonstrates an abnormal appearing, enlarged (2.8 x 1.3 x 1.7 cm) suspected lymph node. The enlarged lymph node was targeted and there was concurrent visualization of the needle entry into the nodule with permanent recording and reporting. TECHNIQUE/FINDINGS: A timeout was performed. The left side of the neck was prepped and draped in usual sterile fashion. Lidocaine was administered for local anesthesia. The enlarged left neck lymph node was targeted under ultrasound. Under direct ultrasound guidance, three separate 25-gauge needles were passed into the lymph node. The tip of the needle was confirmed to be within the lymph node with each needle pass. Multiple aspirations were performed with each needle pass. Several cytology slides were prepared. Preliminary cytology indicated adequate cellularity, however, the pathologist was unsure whether or not enough tissue was present for multiple slide preparations. For this reason, an additional pass was made using a 20-gauge Phong needle. Hemostasis was assured and a sterile dressing was applied. POSTPROCEDURE SCANNING: There was no evidence of hematoma or adverse sequela. The patient tolerated the procedure well and was discharged home with instructions after standard monitoring. The specimen was appropriately labeled and sent with a request for the final pathology report to be sent to the referring clinician. IMPRESSION: Successful ultrasound-guided biopsy of left neck lymphadenopathy.
[2016-07-25 23:13] LABS: PTT 44 SEC (25-37)
[2016-07-26] VITALS: BP 102/60
--- NOTE | 2016-07-26 03:21 | NUR ---
0000 PATIENT RECEIVED ALERT AND ORIENTED X3, LEFT FACIAL DROOP BUT SPEECH CLEAR, SKIN PALE, WARM AND DRY, LEFT NECK BANDAID CLEAN, DRY AND INTACT, NO MOVEMENT LUE, RUE ECCYMOTIC- ABLE TO MOVE HAND ON COMMAND WITHIN LIMITATIONS OF SLING FOR RIGHT SHOULDER FX, RLE- NO DRIFT, ABLE TO MOVE TOES AND WEAKLY MOVE LLE ON COMMAND, VP EMERGING MEDIA SINUS WITHOUT ECTOPY, HEART RATE 80'S/MIN, O2 AT 2L/MIN VIA NC- CONTINUOUS O2 SAT AT 97%, NONPRODUCTIVE COUGH NOTED, ABDOMEN SOFT, +BS, PASSING FLATUS BUT UNABLE TO HAVE BM AT THIS TIME, LÓPEZ TO GRAVITY DRAINAGE WITH CLEAR DANIEL UO, HEPARIN DRIP INCREASED TO 26 ML/HR (27 U/KG/HR) FOR PTT RESULT OF 44 SECONDS- NO BOLUS PER DR RAMIREZ, NEXT PTT DUE AT 0530 0050 MEDICATED WITH PRN ATIVAN FOR C/O ANXIETY WITH REPORTED GOOD EFFECT BY PATIENT 0215 C/O DIFFICULTY BREATHING- O2 SAT AT 99%, CONGESTED NONPRODUCTIVE COUGH- RESPIRATORY TREATMENT GIVEN BY RT 0230 C/O NAUSEA- REGLAN DOSE GIVEN WITH REPORTED RELIEF 0250 MEDICATED WITH PRN DILAUDID FOR 9/10 RIGHT SHOULDER PAIN 0330 PATIENT SLEEPING AFTER PAIN MED
[2016-07-26 05:59] LABS: ABSOLUTE BASOPHIL COUNT 0.1 /CUMM (0.0-0.2); ABSOLUTE EOSINOPHIL COUNT 0.2 /CUMM (0.0-0.7); ABSOLUTE GRANULOCYTE CT 9.9 /CUMM (1.4-6.5); ABSOLUTE LYMPH COUNT 1.3 /CUMM (1.2-3.4); ABSOLUTE MONOCYTE COUNT 0.8 /CUMM (0.10-0.60); BASOPHIL % 0.6 % (0.0-2.0); EOSINOPHIL % 1.7 % (0-5); GRANULOCYTE % 80.2 % (42.2-75.2); HEMATOCRIT 29.3 % (37-47); MEAN CORPUSCULAR HGB 31.6 PG (27.0-31.0); MEAN CORPUSCULAR HGB CONC 32.8 G/DL (33.0-37.0); MEAN CORPUSCULAR VOLUME 96.3 FL (81.0-99.0); MEAN PLATELET VOLUME 8.5 FL (7.4-10.4); PLATELET COUNT 231 /CUMM (130-400); RED BLOOD CELL CT 3.04 /CUMM (4.20-5.40); WHITE BLOOD CELL COUNT 12.4 /CUMM (4.8-10.8)
[2016-07-26 06:06] LABS: PTT 57 SEC (25-37)
[2016-07-26 08:00] VITALS: BP 100/60
--- NOTE | 2016-07-26 08:21 | NUR ---
0630 NO CHANGES IN STATUS NOTED OVERNIGHT, AWAITING AM MD ROUNDS, AT BEDSIDE
--- NOTE | 2016-07-26 09:03 | PN- Resident CRCU ---
Subjective HPI/CRCU Issues: Pt underwent biopsy of lymph node yesterday, tolerated procedure well, heparin restarted post procedure. She reports tigan helps with her nausea overnight, while reglan and zofran did not. She is starting to feel sick to her stomach again and would like ativan to help with her anxiety as well. Na up from 132 to 134, k 3.5 to 3.6, ordered kcl X 3 through IV (pt cannot take kdur because it cannot be crushed, and klor would be difficult to give given her current swallowing difficulty, mag 1.2 to 1.6, ordered 1 X mag sulf. Her sat was good this am, so she is off the oxygen now. UO improved, will dc fluids. encourage po intake. Patient currently stable to be transferred to tele. Objective Vital Signs & I&O Last 8 Hrs of Vitals and I&O: Intake & Output 07/26 1600 07/26 0800 07/26 0000 Intake Total 957 880 Output Total 340 350 Balance 617 530 Intake, IV 942 860 Intake, Oral 15 20 Output, Urine 340 350 Laboratory Tests 07/26 07/25 07/25 0545 2235 1600 Chemistry Sodium (137 - 145 mmol/L) 134 L Potassium (3.5 - 5.1 mmol/L) 3.6 Chloride (98 - 107 mmol/L) 99 Carbon Dioxide (22 - 30 mmol/L) 28 Anion Gap (5 - 16) 7 BUN (7 - 17 mg/dL) 5 L Creatinine (0.5 - 1.0 mg/dL) 0.5 Estimated GFR (>60 ml/min) > 60 Glucose (65 - 99 mg/dL) 118 H Calcium (8.4 - 10.2 mg/dL) 8.7 Phosphorus (2.5 - 4.5 mg/dL) 4.0 Magnesium (1.6 - 2.3 mg/dL) 1.6 Total Bilirubin (0.2 - 1.3 mg/dL) 0.6 AST (14 - 36 U/L) 27 ALT (9 - 52 U/L) 32 Albumin (3.5 - 5.0 g/dL) 2.7 L Coagulation APTT (25 - 37 SEC) 57 H 44 H Cancelled Hematology CBC w Diff NO MAN DIFF REQ WBC (4.8 - 10.8 /CUMM) 12.4 H RBC (4.20 - 5.40 /CUMM) 3.04 L Hgb (12.0 - 16.0 G/DL) 9.6 L Hct (37 - 47 %) 29.3 L MCV (81.0 - 99.0 FL) 96.3 MCH (27.0 - 31.0 PG) 31.6 H RDW (11.5 - 14.5 %) 16.0 H Plt Count (130 - 400 /CUMM) 231 MPV (7.4 - 10.4 FL) 8.5 Gran % (42.2 - 75.2 %) 80.2 H Lymphocytes % (20.5 - 51.1 %) 10.9 L Monocytes % (1.7 - 9.3 %) 6.6 Eosinophils % (0 - 5 %) 1.7 Basophils % (0.0 - 2.0 %) 0.6 Absolute Granulocytes (1.4 - 6.5 /CUMM) 9.9 H Absolute Lymphocytes (1.2 - 3.4 /CUMM) 1.3 Absolute Monocytes (0.10 - 0.60 /CUMM) 0.8 H Absolute Eosinophils (0.0 - 0.7 /CUMM) 0.2 Absolute Basophils (0.0 - 0.2 /CUMM) 0.1 PUBS MCHC (33.0 - 37.0 G/DL) 32.8 L Laboratory Tests 07/26/16 0545: Anion Gap 7, Estimated GFR > 60, Glucose 118 H, Calcium 8.7, Phosphorus 4.0, Magnesium 1.6, Total Bilirubin 0.6, AST 27, ALT 32, Albumin 2.7 L, APTT 57 H, CBC w Diff NO MAN DIFF REQ, RBC 3.04 L, MCV 96.3, MCH 31.6 H, RDW 16.0 H, MPV 8.5, Gran % 80.2 H, Lymphocytes % 10.9 L, Monocytes % 6.6, Eosinophils % 1.7, Basophils % 0.6, Absolute Granulocytes 9.9 H, Absolute Lymphocytes 1.3, Absolute Monocytes 0.8 H, Absolute Eosinophils 0.2, Absolute Basophils 0.1, PUBS MCHC 32.8 L 07/25/165: APTT 44 H 07/25/16 1600: APTT Cancelled Microbiology Date/Time Procedure - Status Source Growth 07/25 2230 Blood Culture - CAN BLOOD Cancelled: Cancelled via OE: Duplicate Order 07/25 2230 Blood Culture - CAN BLOOD Cancelled: Cancelled via OE: Duplicate Order Vital Signs Date Time Temp Pulse Resp B/P Pulse O2 O2 Flow FiO2 Ox Delivery Rate 07/26 0400 94 Nasal 2.0L Cannula 07/26 0304 94 Nasal 2.0L Cannula 07/26 0000 97 Nasal 2.0L Cannula 07/26 0000 97.5 88 18 102/60 97 Nasal 2.0L Cannula 07/25 2000 94 Room Air Room Air 07/25 1620 99 Nasal 2.0L Cannula 07/25 1600 96.9 97 20 128/70 98 Nasal 2.0L Cannula 07/25 1533 96 Nasal 2.0L Cannula 07/25 1444 Room Air Room Air 07/25 1200 97 Nasal 2.0L Cannula Exam General Appearance: alert, awake, anxious Head: tends to look to the right Respiratory: normal breath sounds, no respiratory distress Cardiovascular: regular rate/rhythm Gastrointestinal: normal bowel sounds, soft, non-tender Extremities: right arm in sling Cranial Nerves: neuro exam unchanged Current Medications: Current Medications Sig/Ida Start time Last Medication Dose Route Stop Time Status Admin Acetaminophen 1,000 MG Q6P PRN 07/23 1814 AC 07/25 IV 0416 Albuterol Sulfate 3 ML EVERY 4 HRS/AWAKE 07/25 1999 AC 07/26 INH 0850 Dextrose/Sodium 1,000 ML Q20H 07/24 0145 AC 07/26 [place] 0232 Diclofenac Sodium 1 KWADWO Q4P PRN 07/23 1814 AC 07/24 TOP 0310 Glycerin 2 SPRAY Q2P PRN 07/25 0845 AC PO Heparin Sodium 2,060 UNIT ONE ONE 07/26 0740 DC 07/26 (Porcine) IV 07/26 0741 0745 Heparin Sodium 25,000 UNIT Q24H 07/24 1215 AC 07/25 (Porcine) IV 1953 Sodium Chloride 500 ML Hydromorphone HCl 0.5 MG Q4P PRN 07/23 1814 AC 07/26 IV 0657 Ipratropium [place] 2.5 ML EVERY 4 HRS/AWAKE 07/25 1999 AC 07/26 INH 0850 Lidocaine 1 ML .STK-MED ONE 07/25 1534 DC ID 07/25 1535 Lorazepam 0.5 MG Q6-PRN PRN 07/25 0945 AC 07/26 PO 08/01 0931 0049 Magnesium Sulfate 1 GM ONCE ONE 07/26 1030 UNVr Dextrose/Water 100 ML IV 07/26 1429 Magnesium Sulfate 1 GM Q2H 07/26 1015 DC Dextrose/Water 100 ML IV 07/26 1414 Magnesium Sulfate 1 GM Q2H 07/25 0730 DC 07/25 Dextrose/Water 100 ML IV 07/25 1129 1000 Melatonin 5 MG AT BEDTIME 07/24 2300 AC 07/25 PO 2212 Metoclopramide HCl 10 MG Q6P PRN 07/25 0830 DC 07/26 IV 0227 Morphine Sulfate 2 MG Q4P PRN 07/23 1815 AC 07/24 IV 1235 Ondansetron HCl 4 MG Q6P PRN 07/24 0400 DC 07/26 IV 0506 Potassium Chloride 10 MEQ Q1H 07/26 1030 UNVr IV 07/26 1231 Potassium Chloride 20 MEQ 4 TIMES/DAY 07/26 1015 DC PO 07/26 2201 Potassium Chloride 20 MEQ BID 07/25 0830 DC 07/25 PO 07/25 2201 2212 Trimethobenzamide HCl 200 MG TID PRN 07/26 0900 AC IM Trimethobenzamide HCl 200 MG ONCE ONE 07/26 0545 DC 07/26 IM 07/26 0546 0537 Impression/Plan Impression/Problem List Impression: 55-year-old female with past medical history significant for hypertension, hyperlipidemia, COPD, GERD, IBS (diarrhea type), chronic back pain with neurostimulator in place, DVT s/p IVC filter, on eliquis and aspirin, who presents to the ED for evaluation of left facial droop. In addition to left facial droop, she also has left sided weakness, dysphagia, left visual field defect, with CT showing acute ischemic changes within the right middle cerebral artery territory. Carotid ultrasound shows bilateral carotid stenosis in the range of 50-79% on the left and less than 50% on the right. She was found to have bilateral PE, despite being on eliquis. She was started on IV heparin. Problem list: # Right MCA infarct with left sided facial droop, left sided weakness, dysphagia , left visual field defect # Acute pulmonary embolism # Demand ischemia # Suspected lung cancer # Right humerus fracture # Anxiety # Chronic back pain Respiratory # Acute pulmonary embolism - Acute pulmonary embolism noted in bilateral lower lobe segmental and subsegmental pulmonary arteries, right greater than left. Wedge-shaped reticular opacity most suspicious for acute infarct posterior lateral aspect right lower lobe. Smaller groundglass foci noted in the right middle lobe and right upper lobe as well as the left upper lobe may represent mosaic perfusion in this individual. - Pt already had IVC filter in place, and was on eliquis for DVT - Stable left-sided popliteal vein occlusive thrombus. No new thrombus seen. Probable right inguinal hernia. * On IV heparin * Consider lovenox for halfway anticoagulation * IR for venogram # Suspected lung cancer - Lobulated left hilar mass and mediastinal lymphadenopathy demonstrates interval increase compared to 07/11/2016. - An FDG avid left hilar mass is most likely malignant. - FDG avid lymphadenopathy in the proximal left peribronchial region as well as multiple FDG avid mediastinal and a single left supraclavicular FDG avid lymph node are most likely metastases. * FNA biopsy of supraclavicular node on 07/25, follow up cytology. Check PD1, PDL1 for pembrolizumab immunotherapy, EGFR, ALK for erlotinib/crizotinib targeted therapy. # COPD * TRC/nebs, ipratropium and albuterol * Not receiving inhalers while in hospital Neuro # Right MCA infarct with left sided facial droop, left sided weakness, dysphagia , left visual field defect. - CT with IV contrast did not show brain mets * ST,OT,PT * Cannot get MRI due to incompatibility of neurostimulator * Should evaluate for ASD/VSD Cardiovascular # Demand ischemia - Trop up to 0.38 - Echo: Normal global left ventricular size, wall thickness, systolic function with no obvious regional wall motion abnormalities. Left ventricular ejection fraction is estimated at > 60 %. Normal left ventricular diastolic filling pattern for age. Normal right ventricular size and function. Right ventricular systolic pressure estimated at 35 mmHg. Minimal pericardial effusion. Alimentary # Dysphagia - MBS done * ST following, recc puree and nectar, continue to follow reccs # Nausea and vomiting * Tigan ordered PRN, reglan and zofran discontinued * Replete electrolytes Metabolic # Hypokalemia - 07/25: K 3.5 * Replete as needed # Hypomagnesiumia - 07/25: Mag 1.2 * Replete as needed Psych # Anxiety - Mitzy Ledesma, her PCP, prescribed 1 mg PO ativan daily, sometimes she takes BID. * Ativan 0.5 mg q6p ordered * 5mg melatonin at bedtime # Chronic back pain * Consider long acting opioids (but cannot crush) * On dilaudid 0.5 q 4, morphine 2 q4p, iv tylenol 1000 q6p * Consider fentanyl patch # Right humeral fracture - Comminuted fracture subcapital location right humerus is most suspicious for a pathologic fracture. Adjacent masslike hypodensity may be associated with hematoma or soft tissue mass. Soft tissue hyperdensity noted posterior to the humeral shaft may also be associated with hematoma. Given the interval increase in the hyperdensity compared to the previous examination, contrast extravasation from an injured vessel is a likely possibility. Right subclavian DVT suspected. - Right arm venous US: No DVT demonstrated in the right upper extremity. Diet: Heart healthy puree and nectar IVF: off DVT ppx: alps and heparin drip FULL CODE Consults: Neuro, cardio, oncology, PT, OT, ST Labs: BEP, MAG, phos for electrolyte abnormality, CBC for h/h on heparin Problem List: 1. Acute CVA (cerebrovascular accident) Pain Ratin Tomorrow's Labs & Rationales: bep mag phos for electrolyte abnormality cbc for h/h on heparin Plan DVT/Prophylaxis: mechanical, pharmacological
--- NOTE | 2016-07-26 10:42 | PN- Pulmonary ---
Subjective HPI/Critical Care Issues: Pt underwent biopsy of lymph node yesterday, tolerated procedure well, heparin restarted post procedure. She reports tigan helps with her nausea overnight, while reglan and zofran did not. She is starting to feel sick to her stomach again and would like ativan to help with her anxiety as well. Na up from 132 to 134, k 3.5 to 3.6, ordered kcl X 3 through IV (pt cannot take kdur because it cannot be crushed, and klor would be difficult to give given her current swallowing difficulty, mag 1.2 to 1.6, ordered 1 X mag sulf. Her sat was good this am, so she is off the oxygen now. Patient currently stable to be transferred to . Objective Current Medications: Current Medications Sig/Ida Start time Last Medication Dose Route Stop Time Status Admin Acetaminophen 1,000 MG Q6P PRN 07/23 181 AC 07/25 IV 0416 Albuterol Sulfate 3 ML EVERY 4 HRS/AWAKE 07/25 1999 AC 07/26 INH 0850 Dextrose/Sodium 1,000 ML Q20H 07/24 0145 AC 07/26 [place] 0232 Diclofenac Sodium 1 KWADWO Q4P PRN 07/23 181 AC 07/24 TOP 0310 Glycerin 2 SPRAY Q2P PRN 07/25 0845 AC PO Heparin Sodium 2,060 UNIT ONE ONE 07/26 0740 DC 07/26 (Porcine) IV 07/26 0741 0745 Heparin Sodium 25,000 UNIT Q24H 07/24 1215 AC 07/25 (Porcine) IV 1953 Sodium Chloride 500 ML Hydromorphone HCl 0.5 MG Q4P PRN 07/23 181 AC 07/26 IV 0657 Ipratropium [place] 2.5 ML EVERY 4 HRS/AWAKE 07/25 1999 AC 07/26 INH 0850 Lidocaine 1 ML .STK-MED ONE 07/25 1534 DC ID 07/25 1535 Lorazepam 0.5 MG Q6-PRN PRN 07/25 0945 AC 07/26 PO 08/01 0931 0049 Magnesium Sulfate 1 GM ONCE ONE 07/26 1030 AC Dextrose/Water 100 ML IV 07/26 1429 Magnesium Sulfate 1 GM Q2H 07/26 1015 DC Dextrose/Water 100 ML IV 07/26 1414 Magnesium Sulfate 1 GM Q2H 07/25 0730 DC 07/25 Dextrose/Water 100 ML IV 07/25 1129 1000 Melatonin 5 MG AT BEDTIME 07/24 2300 AC 07/25 PO 221 Metoclopramide HCl 10 MG Q6P PRN 07/25 0830 DC 07/26 IV 0227 Morphine Sulfate 2 MG Q4P PRN 07/23 1815 AC 07/24 IV 1235 Ondansetron HCl 4 MG Q6P PRN 07/24 0400 DC 07/26 IV 0506 Potassium Chloride 10 MEQ Q1H 07/26 1030 AC IV 07/26 1231 Potassium Chloride 20 MEQ 4 TIMES/DAY 07/26 1015 DC PO 07/26 2201 Potassium Chloride 20 MEQ BID 07/25 08 DC 07/25 PO 07/25 220 221 Trimethobenzamide HCl 200 MG TID PRN 07/26 0900 AC IM Trimethobenzamide HCl 200 MG ONCE ONE 07/26 0545 DC 07/26 IM 07/26 0546 0537 Laboratory Tests 07/26 07/25 07/25 0545 2235 1600 Chemistry Sodium (137 - 145 mmol/L) 134 L Potassium (3.5 - 5.1 mmol/L) 3.6 Chloride (98 - 107 mmol/L) 99 Carbon Dioxide (22 - 30 mmol/L) 28 Anion Gap (5 - 16) 7 BUN (7 - 17 mg/dL) 5 L Creatinine (0.5 - 1.0 mg/dL) 0.5 Estimated GFR (>60 ml/min) > 60 Glucose (65 - 99 mg/dL) 118 H Calcium (8.4 - 10.2 mg/dL) 8.7 Phosphorus (2.5 - 4.5 mg/dL) 4.0 Magnesium (1.6 - 2.3 mg/dL) 1.6 Total Bilirubin (0.2 - 1.3 mg/dL) 0.6 AST (14 - 36 U/L) 27 ALT (9 - 52 U/L) 32 Albumin (3.5 - 5.0 g/dL) 2.7 L Coagulation APTT (25 - 37 SEC) 57 H 44 H Cancelled Hematology CBC w Diff NO MAN DIFF REQ WBC (4.8 - 10.8 /CUMM) 12.4 H RBC (4.20 - 5.40 /CUMM) 3.04 L Hgb (12.0 - 16.0 G/DL) 9.6 L Hct (37 - 47 %) 29.3 L MCV (81.0 - 99.0 FL) 96.3 MCH (27.0 - 31.0 PG) 31.6 H RDW (11.5 - 14.5 %) 16.0 H Plt Count (130 - 400 /CUMM) 231 MPV (7.4 - 10.4 FL) 8.5 Gran % (42.2 - 75.2 %) 80.2 H Lymphocytes % (20.5 - 51.1 %) 10.9 L Monocytes % (1.7 - 9.3 %) 6.6 Eosinophils % (0 - 5 %) 1.7 Basophils % (0.0 - 2.0 %) 0.6 Absolute Granulocytes (1.4 - 6.5 /CUMM) 9.9 H Absolute Lymphocytes (1.2 - 3.4 /CUMM) 1.3 Absolute Monocytes (0.10 - 0.60 /CUMM) 0.8 H Absolute Eosinophils (0.0 - 0.7 /CUMM) 0.2 Absolute Basophils (0.0 - 0.2 /CUMM) 0.1 PUBS MCHC (33.0 - 37.0 G/DL) 32.8 L 07/25 07/25 07/24 UNK 0436 2201 Chemistry Sodium (137 - 145 mmol/L) 132 L Potassium (3.5 - 5.1 mmol/L) 3.5 Chloride (98 - 107 mmol/L) 97 L Carbon Dioxide (22 - 30 mmol/L) 29 Anion Gap (5 - 16) 6 BUN (7 - 17 mg/dL) 11 Creatinine (0.5 - 1.0 mg/dL) 0.5 Estimated GFR (>60 ml/min) > 60 Glucose (65 - 99 mg/dL) 126 H Calcium (8.4 - 10.2 mg/dL) 8.6 Phosphorus (2.5 - 4.5 mg/dL) 4.0 Magnesium (1.6 - 2.3 mg/dL) 1.2 L Total Bilirubin (0.2 - 1.3 mg/dL) 0.7 AST (14 - 36 U/L) 26 ALT (9 - 52 U/L) 23 Albumin (3.5 - 5.0 g/dL) 2.6 L Coagulation PT (9.4 - 12.5 SEC) 15.9 H INR (0.90 - 1.19) 1.52 H APTT (25 - 37 SEC) 65 H 39 H Hematology CBC w Diff NO MAN DIFF REQ WBC (4.8 - 10.8 /CUMM) 13.0 H RBC (4.20 - 5.40 /CUMM) 3.08 L Hgb (12.0 - 16.0 G/DL) 9.8 L Hct (37 - 47 %) 30.1 L MCV (81.0 - 99.0 FL) 97.6 MCH (27.0 - 31.0 PG) 31.6 H RDW (11.5 - 14.5 %) 16.6 H Plt Count (130 - 400 /CUMM) 202 MPV (7.4 - 10.4 FL) 9.3 Gran % (42.2 - 75.2 %) 80.5 H Lymphocytes % (20.5 - 51.1 %) 12.6 L Monocytes % (1.7 - 9.3 %) 5.4 Eosinophils % (0 - 5 %) 1.1 Basophils % (0.0 - 2.0 %) 0.4 Absolute Granulocytes (1.4 - 6.5 /CUMM) 10.5 H Absolute Lymphocytes (1.2 - 3.4 /CUMM) 1.6 Absolute Monocytes (0.10 - 0.60 /CUMM) 0.7 H Absolute Eosinophils (0.0 - 0.7 /CUMM) 0.1 Absolute Basophils (0.0 - 0.2 /CUMM) 0 PUBS MCHC (33.0 - 37.0 G/DL) 32.4 L Miscellaneous Flow Cytometry Specimen Pending Microbiology Date/Time Procedure - Status Source Growth 07/25 2230 Blood Culture - CAN BLOOD Cancelled: Cancelled via OE: Duplicate Order 07/25 2230 Blood Culture - CAN BLOOD Cancelled: Cancelled via OE: Duplicate Order 07/23 2229 Urine Culture - COMP URINE ROUT 07/23 2229 Surveillance Culture - COMP UPPER RESP 07/23 2229 Surveillance Culture - COMP GI Vital Signs & I&O Last 24 Hrs of Vitals and I&O: Vital Signs Date Time Temp Pulse Resp B/P Pulse O2 O2 Flow FiO2 Ox Delivery Rate 07/26 0400 94 Nasal 2.0L Cannula 07/26 0304 94 Nasal 2.0L Cannula 07/26 0000 97 Nasal 2.0L Cannula 07/26 0000 97.5 88 18 102/60 97 Nasal 2.0L Cannula 07/25 2000 94 Room Air Room Air 07/25 1620 99 Nasal 2.0L Cannula 07/25 1600 96.9 97 20 128/70 98 Nasal 2.0L Cannula 07/25 1533 96 Nasal 2.0L Cannula 07/25 1444 Room Air Room Air 07/25 1200 97 Nasal 2.0L Cannula Intake & Output 07/26 1600 07/26 0800 07/26 0000 Intake Total 957 880 Output Total 340 350 Balance 617 530 Intake, IV 942 860 Intake, Oral 15 20 Output, Urine 340 350 Impression/Plan Impression/Plan Impression/Plan: Exam General Appearance: alert, awake, anxious Head: tends to look to the right Respiratory: normal breath sounds, no respiratory distress Cardiovascular: regular rate/rhythm Gastrointestinal: normal bowel sounds, soft, non-tender Extremities: right arm in sling Cranial Nerves: neuro exam unchanged IMPRESSION 1. Acute right-sided ischemic stroke, with residual left-sided weakness and dysphagia. CT head with intravenous contrast negative for any metastases 2. Bilateral pulmonary emboli in segmental and subsegmental pulmonary arteries, right greater than left, with evidence of pulmonary infarcts. There is no report of right ventricular strain on the CT scan. She has remained hemodynamically stable and on 2 L of oxygen. 3. Left lower extremity DVT, now on IV heparin, status post IVC filter placement. 4. Increasing lung mass, mediastinal and hilar lymphadenopathy, and left clavicular lymph node, all suspicious for advancing metastatic lung cancer. s/p bx 5. Elevated troponin - cardiology consulted. 6. Mild leukocytosis, likely secondary to stress. There is no obvious source of infection at present. 7. Displaced right humerus fracture which will require surgical intervention. with prob bx 8. History of COPD, currently stable. 9. History of chronic back pain. 10. Chronic constipation. REC Continue heparin Continue other by mouth medications Low-dose Ativan Encourage by mouth fluids Discontinue IV fluids as she appears euvolemic and a blood pressure seems to have stabilized and her BUN/creatinine is stable Continue nebulizer therapy Low-dose morphine By mouth potassium replacement 40 mEq 2 doses 1 g magnesium intravenously Patient can be transferred to telemetry floor Prognosis is poor
--- NOTE | 2016-07-26 11:37 | PN- Neurology ---
Subjective Subjective: Improvement noted by family and staff Review of Systems: mild headache, unchanged Objective Vital Signs and I&Os Vital Signs Date Time Temp Pulse Resp B/P Pulse O2 O2 Flow FiO2 Ox Delivery Rate 07/26 0835 97 Nasal 2.0L Cannula 07/26 0400 94 Nasal 2.0L Cannula 07/26 0304 94 Nasal 2.0L Cannula 07/26 0000 97 Nasal 2.0L Cannula 07/26 0000 97.5 88 18 102/60 97 Nasal 2.0L Cannula 07/25 2000 94 Room Air Room Air 07/25 1620 99 Nasal 2.0L Cannula 07/25 1600 96.9 97 20 128/70 98 Nasal 2.0L Cannula 07/25 1533 96 Nasal 2.0L Cannula 07/25 1444 Room Air Room Air 07/25 1200 97 Nasal 2.0L Cannula Intake & Output 07/26 1600 07/26 0800 07/26 0000 07/25 1600 07/25 0800 07/25 0000 Intake Total 957 880 537 733 428 Output Total 340 350 350 125 190 Balance 617 530 187 608 238 Intake, IV 942 860 537 733 428 Intake, Oral 15 20 0 Number 0 0 Bowel Movements Output, Urine 340 350 350 125 190 Physical Exam: Alert, speech clear,language intact VFF, recognizes left side (agnosia improved) still gaze palsy to left no movement left arm 2-3/5 left leg Current Medications: Current Medications Sig/Ida Start time Last Medication Dose Route Stop Time Status Admin Acetaminophen 1,000 MG Q6P PRN 07/23 1814 AC 07/25 IV 0416 Albuterol Sulfate 3 ML EVERY 4 HRS/AWAKE 07/25 1999 AC 07/26 INH 0850 Dextrose/Sodium 1,000 ML Q20H 07/24 0145 AC 07/26 [place] 0232 Diclofenac Sodium 1 KWADWO Q4P PRN 07/23 181 AC 07/24 TOP 0310 Glycerin 2 SPRAY Q2P PRN 07/25 0845 AC PO Heparin Sodium 2,060 UNIT ONE ONE 07/26 0740 DC 07/26 (Porcine) IV 07/26 0741 0745 Heparin Sodium 25,000 UNIT Q24H 07/24 1215 AC 07/25 (Porcine) IV 1953 Sodium Chloride 500 ML Hydromorphone HCl 0.5 MG Q4P PRN 07/23 1814 AC 07/26 IV 1119 Ipratropium [place] 2.5 ML EVERY 4 HRS/AWAKE 07/24 2000 AC 07/26 INH 0850 Lidocaine 1 ML .STK-MED ONE 07/25 1534 DC ID 07/25 1535 Lorazepam 0.5 MG Q6-PRN PRN 07/25 0945 AC 07/26 PO 08/01 0931 0049 Magnesium Sulfate 1 GM ONCE ONE 07/26 1030 AC 07/26 Dextrose/Water 100 ML IV 07/26 1429 1050 Magnesium Sulfate 1 GM Q2H 07/26 1015 DC Dextrose/Water 100 ML IV 07/26 1414 Melatonin 5 MG AT BEDTIME 07/24 2300 AC 07/25 PO 2212 Metoclopramide HCl 10 MG Q6P PRN 07/25 0830 DC 07/26 IV 0227 Morphine Sulfate 2 MG Q4P PRN 07/23 1815 AC 07/24 IV 1235 Ondansetron HCl 4 MG Q6P PRN 07/24 0400 DC 07/26 IV 0506 Potassium Chloride 10 MEQ Q1H 07/26 1030 AC IV 07/26 1231 Potassium Chloride 20 MEQ 4 TIMES/DAY 07/26 1015 DC PO 07/26 2201 Potassium Chloride 20 MEQ BID 07/25 0830 DC 07/25 PO 07/25 2201 2212 Trimethobenzamide HCl 200 MG TID PRN 07/26 0900 AC IM Trimethobenzamide HCl 200 MG ONCE ONE 07/26 0545 DC 07/26 IM 07/26 0546 0537 Results Last 24 Hours of Lab Results: Laboratory Tests 07/26 07/25 07/25 0545 2235 1600 Chemistry Sodium (137 - 145 mmol/L) 134 L Potassium (3.5 - 5.1 mmol/L) 3.6 Chloride (98 - 107 mmol/L) 99 Carbon Dioxide (22 - 30 mmol/L) 28 Anion Gap (5 - 16) 7 BUN (7 - 17 mg/dL) 5 L Creatinine (0.5 - 1.0 mg/dL) 0.5 Estimated GFR (>60 ml/min) > 60 Glucose (65 - 99 mg/dL) 118 H Calcium (8.4 - 10.2 mg/dL) 8.7 Phosphorus (2.5 - 4.5 mg/dL) 4.0 Magnesium (1.6 - 2.3 mg/dL) 1.6 Total Bilirubin (0.2 - 1.3 mg/dL) 0.6 AST (14 - 36 U/L) 27 ALT (9 - 52 U/L) 32 Albumin (3.5 - 5.0 g/dL) 2.7 L Coagulation APTT (25 - 37 SEC) 57 H 44 H Cancelled Hematology CBC w Diff NO MAN DIFF REQ WBC (4.8 - 10.8 /CUMM) 12.4 H RBC (4.20 - 5.40 /CUMM) 3.04 L Hgb (12.0 - 16.0 G/DL) 9.6 L Hct (37 - 47 %) 29.3 L MCV (81.0 - 99.0 FL) 96.3 MCH (27.0 - 31.0 PG) 31.6 H RDW (11.5 - 14.5 %) 16.0 H Plt Count (130 - 400 /CUMM) 231 MPV (7.4 - 10.4 FL) 8.5 Gran % (42.2 - 75.2 %) 80.2 H Lymphocytes % (20.5 - 51.1 %) 10.9 L Monocytes % (1.7 - 9.3 %) 6.6 Eosinophils % (0 - 5 %) 1.7 Basophils % (0.0 - 2.0 %) 0.6 Absolute Granulocytes (1.4 - 6.5 /CUMM) 9.9 H Absolute Lymphocytes (1.2 - 3.4 /CUMM) 1.3 Absolute Monocytes (0.10 - 0.60 /CUMM) 0.8 H Absolute Eosinophils (0.0 - 0.7 /CUMM) 0.2 Absolute Basophils (0.0 - 0.2 /CUMM) 0.1 PUBS MCHC (33.0 - 37.0 G/DL) 32.8 L Recent Imaging Studies: Enhanced CT: IMPRESSION: No evidence of metastatic disease or acute intracranial pathology. Assessment/Plan Assessment: CVA, right MCA pattern, some improvement in deficits noted on admission. on IV heparin, no hemorrhagic transformation. Plan: continue Rx as planned, PT OT, advance activity as tolerated
[2016-07-26 15:29] LABS: PTT > 120 SEC (25-37)
[2016-07-26 16:00] VITALS: BP 118/60
[2016-07-26 17:56] VITALS: BP 122/74
[2016-07-26 23:00] VITALS: BP 112/70
[2016-07-26 23:13] LABS: PTT 41 SEC (25-37)
[2016-07-27 07:49] VITALS: BP 115/66
[2016-07-27 08:27] LABS: ABSOLUTE BASOPHIL COUNT 0.1 /CUMM (0.0-0.2); ABSOLUTE EOSINOPHIL COUNT 0.3 /CUMM (0.0-0.7); ABSOLUTE GRANULOCYTE CT 9.4 /CUMM (1.4-6.5); ABSOLUTE LYMPH COUNT 1.6 /CUMM (1.2-3.4); ABSOLUTE MONOCYTE COUNT 0.8 /CUMM (0.10-0.60); BASOPHIL % 0.5 % (0.0-2.0); EOSINOPHIL % 2.7 % (0-5); GRANULOCYTE % 76.9 % (42.2-75.2); HEMATOCRIT 28.9 % (37-47); MEAN CORPUSCULAR HGB 31.5 PG (27.0-31.0); MEAN CORPUSCULAR HGB CONC 32.7 G/DL (33.0-37.0); MEAN CORPUSCULAR VOLUME 96.3 FL (81.0-99.0); MEAN PLATELET VOLUME 8.9 FL (7.4-10.4); PLATELET COUNT 256 /CUMM (130-400); RBC DISTRIBUTION WIDTH 15.9 % (11.5-14.5); RED BLOOD CELL CT 2.99 /CUMM (4.20-5.40); WHITE BLOOD CELL COUNT 12.2 /CUMM (4.8-10.8)
--- NOTE | 2016-07-27 08:46 | PN- Housestaff ---
ADITI MANUEL 07/27/16 0846: Subjective Follow-up For: Ischemic CVA Bilateral PE Complaints: no complaints Tele-Events Since Last Visit: Normal sinus rhythm, heart rate 89-102, no overnight events were noted. Subjective: Patient comfortable. Did not have any complaints. Left-sided agnosia, improved compared to yesterday (as per Dr. Caldera). Review of Systems Constitutional: Reports: see HPI. Objective Last 24 Hrs of Vital Signs/I&O Vital Signs Date Time Temp Pulse Resp B/P Pulse O2 O2 Flow FiO2 Ox Delivery Rate 07/27 0844 94 Nasal 2.0L Cannula 07/27 0749 98.1 80 19 115/66 96 07/27 0000 Nasal 2.0L Cannula 07/26 2300 98.4 87 22 112/70 92 Nasal 2.0L Cannula 07/26 2025 92 Room Air Room Air 07/26 1756 99.0 90 18 122/74 91 Room Air 07/26 1600 95 Room Air Room Air 07/26 1600 98.9 92 20 118/60 95 Room Air Room Air Intake & Output 07/27 1600 07/27 0800 07/27 0000 Intake Total 368 407 Output Total 350 200 Balance 18 207 Intake, IV 248 247 Intake, Oral 120 160 Number 0 1 Bowel Movements Output, Urine 350 200 Physical Exam General Appearance: No Acute Distress Other Physical Findings: General Exam: AAOx3, No acute distress, Skin: No rashes, no breakdown HEENT: PERRLA, EOMI Neck: Supple, No JVD No cervical lymphadenopathy CVS: Reg Rate, Normal S1,S2, No MGR Resp: Normal air entry, no ronchi/rales Abdomen: Soft, No tenderness, Normal Bowel Sounds Neuro: Normal Speech, Strength 4/5 left lower extremity, 2/5 left upper extremity, 5/5 right upper and lower extremity. Sensation intact, CN III-XII NL , Reflexes 2+ Extremities: No cyanosis, pedal edema Current Medications: Current Medications Sig/Ida Start time Last Medication Dose Route Stop Time Status Admin Acetaminophen 1,000 MG Q6P PRN 07/23 1815 AC 07/25 IV 0416 Albuterol Sulfate 3 ML TID 07/26 2200 AC 07/27 INH 0838 Albuterol Sulfate 3 ML EVERY 4 HRS/AWAKE 07/24 2000 DC 07/26 INH 1228 Dextrose/Sodium 1,000 ML Q20H 07/24 0145 DC 07/26 [place] 0232 Diclofenac Sodium 1 KWADWO Q4P PRN 07/23 1815 AC 07/24 TOP 0310 Glycerin 2 SPRAY Q2P PRN 07/25 0845 AC PO Heparin Sodium 3,878 UNIT ONCE ONE 07/27 0130 DC 07/27 (Porcine) IV 07/27 0131 0225 Heparin Sodium 25,000 UNIT Q24H 07/24 1215 AC 07/26 (Porcine) IV 1339 Sodium Chloride 500 ML Hydromorphone HCl 0.5 MG Q4P PRN 07/23 1815 AC 07/27 IV 0827 Ipratropium [place] 2.5 ML TID 07/26 2200 AC 07/27 INH 0838 Ipratropium [place] 2.5 ML EVERY 4 HRS/AWAKE 07/24 2000 DC 07/26 INH 1228 Lorazepam 0.5 MG Q6-PRN PRN 07/25 0945 AC 07/27 PO 08/01 0931 0455 Magnesium Sulfate 1 GM ONCE ONE 07/26 1030 DC 07/26 Dextrose/Water 100 ML IV 07/26 1429 1050 Magnesium Sulfate 1 GM Q2H 07/26 1015 DC Dextrose/Water 100 ML IV 07/26 1414 Melatonin 5 MG AT BEDTIME 07/24 2300 AC 07/26 PO 2121 Metoclopramide HCl 10 MG Q6P PRN 07/25 0830 DC 07/26 IV 0227 Morphine Sulfate 2 MG Q4P PRN 07/23 1815 AC 07/27 IV 0630 Ondansetron HCl 4 MG Q6P PRN 07/24 0400 DC 07/26 IV 0506 Polyethylene Glycol 17 GM DAILY PRN 07/27 0515 AC 07/27 PO 0828 Potassium Chloride 20 MEQ 4 TIMES/DAY 07/26 1400 AC 07/26 PO 07/27 1001 2121 Potassium Chloride 10 MEQ Q1H 07/26 1030 DC 07/26 IV 07/26 1231 1254 Potassium Chloride 20 MEQ 4 TIMES/DAY 07/26 1015 DC PO 07/26 2201 Senna 187 MG AT BEDTIME PRN 07/27 0515 AC PO Trimethobenzamide HCl 200 MG TID PRN 07/26 0900 AC 07/26 IM 2121 Last 24 Hrs of Lab/[place]ak[place] Results Last 24 Hrs of Labs/Mics: Laboratory Tests 07/27/16 0814: APTT Pending 07/27/16 0610: Sodium Pending, Potassium Pending, Chloride Pending, Carbon Dioxide Pending, Anion Gap Pending, BUN Pending, Creatinine Pending, BUN/Creatinine Ratio Pending , Phosphorus Pending, Magnesium Pending, CBC w Diff NO MAN DIFF REQ, RBC 2.99 L , MCV 96.3, MCH 31.5 H, RDW 15.9 H, MPV 8.9, Gran % 76.9 H, Lymphocytes % 13.3 L, Monocytes % 6.6, Eosinophils % 2.7, Basophils % 0.5, Absolute Granulocytes 9.4 H, Absolute Lymphocytes 1.6, Absolute Monocytes 0.8 H, Absolute Eosinophils 0.3, Absolute Basophils 0.1, PUBS MCHC 32.7 L 07/26/16 2230: APTT 41 H 07/26/16 1420: APTT > 120 *H Assessment/Plan Assessment: 55-year-old female with past medical history significant for hypertension, hyperlipidemia, COPD, GERD, IBS (diarrhea type), chronic back pain with neurostimulator in place, DVT s/p IVC filter, on eliquis and aspirin, who presents to the ED for evaluation of left facial droop. In addition to left facial droop, she also has left sided weakness, dysphagia, left visual field defect, with CT showing acute ischemic changes within the right middle cerebral artery territory. Carotid ultrasound shows bilateral carotid stenosis in the range of 50-79% on the left and less than 50% on the right. She was found to have bilateral PE, despite being on eliquis. She was started on IV heparin. Problem list: # Right MCA infarct with left sided facial droop, left sided weakness, dysphagia , left visual field defect # Acute pulmonary embolism # Demand ischemia # Suspected lung cancer # Right humerus fracture # Anxiety # Chronic back pain # Acute pulmonary embolism - Acute pulmonary embolism noted in bilateral lower lobe segmental and subsegmental pulmonary arteries, right greater than left. Wedge-shaped reticular opacity most suspicious for acute infarct posterior lateral aspect right lower lobe. Smaller groundglass foci noted in the right middle lobe and right upper lobe as well as the left upper lobe may represent mosaic perfusion in this individual. - Pt already had IVC filter in place, and was on eliquis for DVT - Stable left-sided popliteal vein occlusive thrombus. No new thrombus seen. Probable right inguinal hernia. * On IV heparin * Consider lovenox for alf anticoagulation * IR for venogram # Suspected lung cancer - Lobulated left hilar mass and mediastinal lymphadenopathy demonstrates interval increase compared to 07/11/2016. - An FDG avid left hilar mass is most likely malignant. - FDG avid lymphadenopathy in the proximal left peribronchial region as well as multiple FDG avid mediastinal and a single left supraclavicular FDG avid lymph node are most likely metastases. * FNA biopsy of supraclavicular node on 07/25, follow up cytology. Check PD1, PDL1 for pembrolizumab immunotherapy, EGFR, ALK for erlotinib/crizotinib targeted therapy. # COPD * TRC/nebs, ipratropium and albuterol * Not receiving inhalers while in hospital Neuro # Right MCA infarct with left sided facial droop, left sided weakness, dysphagia , left visual field defect. - CT with IV contrast did not show brain mets * ST,OT,PT * Cannot get MRI due to incompatibility of neurostimulator * Should evaluate for ASD/VSD Cardiovascular # Demand ischemia - Trop up to 0.38 - Echo: Normal global left ventricular size, wall thickness, systolic function with no obvious regional wall motion abnormalities. Left ventricular ejection fraction is estimated at > 60 %. Normal left ventricular diastolic filling pattern for age. Normal right ventricular size and function. Right ventricular systolic pressure estimated at 35 mmHg. Minimal pericardial effusion. Alimentary # Dysphagia - MBS done * ST following, recc puree and nectar, continue to follow reccs # Nausea and vomiting * Tigan ordered PRN, reglan and zofran discontinued * Replete electrolytes Metabolic # Hypokalemia * Replete as needed # Hypomagnesiumia * Replete as needed Psych # Anxiety - Mitzy Ledesma, her PCP, prescribed 1 mg PO ativan daily, sometimes she takes BID. * Ativan 0.5 mg q6p ordered * 5mg melatonin at bedtime # Chronic back pain * Consider long acting opioids (but cannot crush) * On dilaudid 0.5 q 4, morphine 2 q4p, iv tylenol 1000 q6p * Consider fentanyl patch # Right humeral fracture - Comminuted fracture subcapital location right humerus is most suspicious for a pathologic fracture. Adjacent masslike hypodensity may be associated with hematoma or soft tissue mass. Soft tissue hyperdensity noted posterior to the humeral shaft may also be associated with hematoma. Given the interval increase in the hyperdensity compared to the previous examination, contrast extravasation from an injured vessel is a likely possibility. Right subclavian DVT suspected. - Right arm venous US: No DVT demonstrated in the right upper extremity. Problem List: 1. Acute CVA (cerebrovascular accident) 2. Mass of left lung 3. Left leg DVT Pain Ratin Pain Location: Back Pain Goal: Pain 4 or less Pain Plan: tylenol Tomorrow's Labs & Rationales: CBC BEP ZANA LOUISE 07/27/16 1050: Attending MD Review Statement Attending Statement Attending MD Statement: examined this patient, discuss w/resident/PA/[employer], agreed w/resident/PA/[employer], discussed with family, reviewed EMR data (avail), discussed with nursing, discussed with case mgmt, reviewed images Attending Assessment/Plan: 55-year-old female with past medical history significant for hypertension, hyperlipidemia, COPD, GERD, IBS (diarrhea type), chronic back pain with neurostimulator in place, DVT s/p IVC filter, on eliquis and aspirin, who presents to the ED for evaluation of left facial droop. In addition to left facial droop, she also has left sided weakness, dysphagia, left visual field defect, with CT showing acute ischemic changes within the right middle cerebral artery territory. Carotid ultrasound shows bilateral carotid stenosis in the range of 50-79% on the left and less than 50% on the right. She was found to have bilateral PE, despite being on eliquis. # Acute pulmonary embolism - Acute pulmonary embolism - Pt already had IVC filter in place, and was on eliquis for DVT , On IV heparin. Hematology following. # Suspected lung cancer - Lobulated left hilar mass and mediastinal lymphadenopathy demonstrates interval increase compared to 07/11/2016. oncology following. had biopsy done here inpatient. # COPD * TRC/nebs, ipratropium and albuterol * Not receiving inhalers while in hospital # Right MCA infarct with left sided facial droop, left sided weakness, dysphagia , left visual field defect. - CT with IV contrast did not show brain mets * ST,OT,PT * Cannot get MRI due to incompatibility of neurostimulator. Cardiovascular # Demand ischemia - Trop up to 0.38 - Echo: Normal global left ventricular size, wall thickness, systolic function with no obvious regional wall motion abnormalities. Left ventricular ejection fraction is estimated at > 60 %. Normal left ventricular diastolic filling pattern for age. Normal right ventricular size and function. Right ventricular systolic pressure estimated at 35 mmHg. Minimal pericardial effusion. f/u cardiology. # Dysphagia - MBS done * ST following, recc puree and ivonnear, continue to follow reccs # Anxiety - Mitzy Ledesma, her PCP, prescribed 1 mg PO ativan daily, sometimes she takes BID. * Ativan 0.5 mg q6p ordered * 5mg melatonin at bedtime # Chronic back pain continue with pain meds. # Right humeral fracture - Comminuted fracture subcapital location right humerus is most suspicious for a pathologic fracture. pain control f/u Neuro, cardio, hem/oncology, PT, OT, ST prognosis remains poor.
[2016-07-27 08:52] LABS: PTT > 120 SEC (25-37)
--- NOTE | 2016-07-27 14:41 | PN- Pulmonary ---
Subjective HPI/Critical Care Issues: Relatively same Transferred out of the unit No vomiting, or diarrhea Objective Current Medications: Current Medications Sig/Ida Start time Last Medication Dose Route Stop Time Status Admin Acetaminophen 1,000 MG Q6P PRN 07/23 181 AC 07/25 IV 0416 Albuterol Sulfate 3 ML TID 07/26 2200 AC 07/27 INH 1428 Albuterol Sulfate 3 ML EVERY 4 HRS/AWAKE 07/25 1999 DC 07/26 INH 1228 Diclofenac Sodium 1 KWADWO Q4P PRN 07/23 181 AC 07/24 TOP 0310 Glycerin 2 SPRAY Q2P PRN 07/25 0845 AC PO Heparin Sodium 3,878 UNIT ONCE ONE 07/27 0130 DC 07/27 (Porcine) IV 07/27 013 0225 Heparin Sodium 25,000 UNIT Q24H 07/24 1215 AC 07/27 (Porcine) IV 1008 Sodium Chloride 500 ML Hydromorphone HCl 0.5 MG Q4P PRN 07/23 181 AC 07/27 IV [address] 2.5 ML TID 07/26 2199 AC 07/27 INH [address] 2.5 ML EVERY 4 HRS/AWAKE 07/25 1999 DC 07/26 INH 1228 Lorazepam 0.5 MG Q6-PRN PRN 07/25 0945 AC 07/27 PO 08/01 0931 0455 Magnesium Sulfate 1 GM Q2H 07/27 1330 AC Dextrose/Water 100 ML IV 07/27 1729 Melatonin 5 MG AT BEDTIME 07/24 2300 AC 07/26 PO 2121 Morphine Sulfate 2 MG Q4P PRN 07/23 181 AC 07/27 IV 1037 Polyethylene Glycol 17 GM DAILY PRN 07/27 0515 AC 07/27 PO 0828 Potassium Chloride 20 MEQ 4 TIMES/DAY 07/26 1400 DC 07/27 PO 07/27 1001 0948 Senna 187 MG AT BEDTIME PRN 07/27 0515 AC PO Trimethobenzamide HCl 200 MG TID PRN 07/26 0900 AC 07/26 IM 2121 Laboratory Tests 07/27 07/27 07/26 0814 0610 2230 Chemistry Sodium (137 - 145 mmol/L) 131 L Potassium (3.5 - 5.1 mmol/L) 4.3 Chloride (98 - 107 mmol/L) 100 Carbon Dioxide (22 - 30 mmol/L) 27 Anion Gap (5 - 16) 4 L BUN (7 - 17 mg/dL) 4 L Creatinine (0.5 - 1.0 mg/dL) 0.5 Estimated GFR (>60 ml/min) > 60 BUN/Creatinine Ratio (7 - 25 %) 8.0 Phosphorus (2.5 - 4.5 mg/dL) 4.4 Magnesium (1.6 - 2.3 mg/dL) 1.5 L Coagulation APTT (25 - 37 SEC) > 120 *H 41 H Hematology CBC w Diff NO MAN DIFF REQ WBC (4.8 - 10.8 /CUMM) 12.2 H RBC (4.20 - 5.40 /CUMM) 2.99 L Hgb (12.0 - 16.0 G/DL) 9.4 L Hct (37 - 47 %) 28.9 L MCV (81.0 - 99.0 FL) 96.3 MCH (27.0 - 31.0 PG) 31.5 H RDW (11.5 - 14.5 %) 15.9 H Plt Count (130 - 400 /CUMM) 256 MPV (7.4 - 10.4 FL) 8.9 Gran % (42.2 - 75.2 %) 76.9 H Lymphocytes % (20.5 - 51.1 %) 13.3 L Monocytes % (1.7 - 9.3 %) 6.6 Eosinophils % (0 - 5 %) 2.7 Basophils % (0.0 - 2.0 %) 0.5 Absolute Granulocytes (1.4 - 6.5 /CUMM) 9.4 H Absolute Lymphocytes (1.2 - 3.4 /CUMM) 1.6 Absolute Monocytes (0.10 - 0.60 /CUMM) 0.8 H Absolute Eosinophils (0.0 - 0.7 /CUMM) 0.3 Absolute Basophils (0.0 - 0.2 /CUMM) 0.1 PUBS MCHC (33.0 - 37.0 G/DL) 32.7 L 07/26 07/26 07/25 1420 0545 2235 Chemistry Sodium (137 - 145 mmol/L) 134 L Potassium (3.5 - 5.1 mmol/L) 3.6 Chloride (98 - 107 mmol/L) 99 Carbon Dioxide (22 - 30 mmol/L) 28 Anion Gap (5 - 16) 7 BUN (7 - 17 mg/dL) 5 L Creatinine (0.5 - 1.0 mg/dL) 0.5 Estimated GFR (>60 ml/min) > 60 Glucose (65 - 99 mg/dL) 118 H Calcium (8.4 - 10.2 mg/dL) 8.7 Phosphorus (2.5 - 4.5 mg/dL) 4.0 Magnesium (1.6 - 2.3 mg/dL) 1.6 Total Bilirubin (0.2 - 1.3 mg/dL) 0.6 AST (14 - 36 U/L) 27 ALT (9 - 52 U/L) 32 Albumin (3.5 - 5.0 g/dL) 2.7 L Coagulation APTT (25 - 37 SEC) > 120 *H 57 H 44 H Hematology CBC w Diff NO MAN DIFF REQ WBC (4.8 - 10.8 /CUMM) 12.4 H RBC (4.20 - 5.40 /CUMM) 3.04 L Hgb (12.0 - 16.0 G/DL) 9.6 L Hct (37 - 47 %) 29.3 L MCV (81.0 - 99.0 FL) 96.3 MCH (27.0 - 31.0 PG) 31.6 H RDW (11.5 - 14.5 %) 16.0 H Plt Count (130 - 400 /CUMM) 231 MPV (7.4 - 10.4 FL) 8.5 Gran % (42.2 - 75.2 %) 80.2 H Lymphocytes % (20.5 - 51.1 %) 10.9 L Monocytes % (1.7 - 9.3 %) 6.6 Eosinophils % (0 - 5 %) 1.7 Basophils % (0.0 - 2.0 %) 0.6 Absolute Granulocytes (1.4 - 6.5 /CUMM) 9.9 H Absolute Lymphocytes (1.2 - 3.4 /CUMM) 1.3 Absolute Monocytes (0.10 - 0.60 /CUMM) 0.8 H Absolute Eosinophils (0.0 - 0.7 /CUMM) 0.2 Absolute Basophils (0.0 - 0.2 /CUMM) 0.1 PUBS MCHC (33.0 - 37.0 G/DL) 32.8 L 03/24 1600 Coagulation APTT Cancelled Microbiology Date/Time Procedure - Status Source Growth 07/25 2230 Blood Culture - CAN BLOOD Cancelled: Cancelled via OE: Duplicate Order 07/25 2230 Blood Culture - CAN BLOOD Cancelled: Cancelled via OE: Duplicate Order Vital Signs & I&O Last 24 Hrs of Vitals and I&O: Vital Signs Date Time Temp Pulse Resp B/P Pulse O2 O2 Flow FiO2 Ox Delivery Rate 07/27 1249 93 Room Air 07/27 0844 94 Nasal 2.0L Cannula 07/27 0800 Nasal 2.0L Cannula 07/27 0749 98.1 80 19 115/66 96 07/27 0000 Nasal 2.0L Cannula 07/26 2300 98.4 87 22 112/70 92 Nasal 2.0L Cannula 07/26 2024 92 Room Air Room Air 07/26 1756 99.0 90 18 122/74 91 Room Air 07/26 1600 95 Room Air Room Air 07/26 1600 98.9 92 20 118/60 95 Room Air Room Air Intake & Output 07/27 1600 07/27 0800 07/27 0000 Intake Total 326.7 368 407 Output Total 450 350 200 Balance -123.3 18 207 Intake, IV 266.7 248 247 Intake, Oral 60 120 160 Number 5 0 1 Bowel Movements Output, Urine 450 350 200 Impression/Plan Impression/Plan Impression/Plan: Exam General Appearance: alert, awake, anxious Head: tends to look to the right Respiratory: normal breath sounds, no respiratory distress Cardiovascular: regular rate/rhythm Gastrointestinal: normal bowel sounds, soft, non-tender Extremities: right arm in sling Cranial Nerves: neuro exam unchanged IMPRESSION 1. Acute right-sided ischemic stroke, with residual left-sided weakness and dysphagia. CT head with intravenous contrast negative for any metastases 2. Bilateral pulmonary emboli in segmental and subsegmental pulmonary arteries, right greater than left, with evidence of pulmonary infarcts. There is no report of right ventricular strain on the CT scan. She has remained hemodynamically stable and on 2 L of oxygen. 3. Left lower extremity DVT, now on IV heparin, status post IVC filter placement. 4. Increasing lung mass, mediastinal and hilar lymphadenopathy, and left clavicular lymph node, all suspicious for advancing metastatic lung cancer. s/p bx 5. Elevated troponin - cardiology consulted. 6. Mild leukocytosis, likely secondary to stress. There is no obvious source of infection at present. 7. Displaced right humerus fracture which will require surgical intervention. with prob bx 8. History of COPD, currently stable. 9. History of chronic back pain. 10. Chronic constipation. REC Continue heparin Continue other by mouth medications Low-dose Ativan Encourage by mouth fluids Continue nebulizer therapy Low-dose morphine Prognosis is poor
[2016-07-27 16:00] VITALS: BP 112/70
--- NOTE | 2016-07-27 16:07 | NUR ---
1600 PT O2 WAS 89% ON ROOM AIR. PLACED PT BACK ON 2L NC WITH BUBBLER AND SAT CAME UP TO 94%. DINA FROM RESPIRATORY AWARE. WILL CONTINUE TO MONITOR PT.
[2016-07-27 19:15] LABS: PTT 38 SEC (25-37)
[2016-07-28 02:32] LABS: PTT 49 SEC (25-37)
[2016-07-28 07:58] VITALS: BP 122/69; BP 130/82
--- NOTE | 2016-07-28 07:58 | PN- Oncology ---
Subjective Subjective: She still has pain in her right shoulder. She does have some neck pain under her ears bilaterally. She has no fever or chills. She has had biopsy of her left supraclavicular lymph node. Review of Systems Constitutional: Denies: chills, fever. Cardiovascular: Denies: chest pain. Gastrointestinal: Denies: abdominal pain. Musculoskeletal: Reports: back pain, joint pain, neck pain. Neurological/Psychological: Reports: unable to move upper ext (left). All Other Systems: Reviewed and Negative Objective Vital Signs and I&Os Vital Signs Date Time Temp Pulse Resp B/P Pulse O2 O2 Flow FiO2 Ox Delivery Rate 07/27 1950 94 Nasal 2.0L Cannula 07/27 1600 98.7 86 20 112/70 89 Room Air 07/27 1249 93 Room Air 07/27 0844 94 Nasal 2.0L Cannula 07/27 0800 Nasal 2.0L Cannula 07/27 0749 98.1 80 19 115/66 96 Intake & Output 07/28 0800 07/28 0000 07/27 1600 07/27 0800 07/27 0000 07/26 1600 Intake Total 752.05 326.7 085 772 8834 Output Total 400 450 350 200 850 Balance 352.05 -123.3 18 207 344 Intake, IV 482.05 266.7 429 927 5614 Intake, Oral 270 60 120 160 100 Number 1 5 0 1 1 Bowel Movements Output, Urine 400 450 350 200 850 Physical Exam: General Appearance: no apparent distress, alert, awake, anxious, thin Head: atraumatic, right face with ecchymosis Eyes: Bilateral: PERRL. Ears, Nose, Throat: normal pharynx Respiratory: chest non-tender, no respiratory distress, decreased breath sounds, crackles Cardiovascular: edema, tachycardia, systolic murmur Gastrointestinal: normal bowel sounds, soft, non-tender Extremities: pedal edema (LLE), right arm in sling Neurologic/Psych: awake, alert, oriented x 3, facial droop, motor weakness (left arm unable to be moved and left leg weakness 2/5), mild dysarthria Skin: ecchymosis (scatter) Current Medications: Current Medications Sig/Ida Start time Last Medication Dose Route Stop Time Status Admin Acetaminophen 1,000 MG Q6P PRN 07/23 1815 AC 07/25 IV 0416 Albuterol Sulfate 3 ML TID 07/26 2200 AC 07/27 INH 1950 Diclofenac Sodium 1 KWADWO Q4P PRN 07/23 1815 AC 07/24 TOP 0310 Glycerin 2 SPRAY Q2P PRN 07/25 0845 AC PO Heparin Sodium 2,100 UNIT ONCE ONE 07/28 0300 DC 07/28 (Porcine) IV 07/28 0301 0300 Heparin Sodium 3,900 UNIT ONCE ONE 07/27 2000 DC 07/27 (Porcine) IV 07/27 Heparin Sodium 25,000 UNIT .STK-MED ONE 07/27 1001 DC (Porcine) IV 07/27 1002 Heparin Sodium 25,000 UNIT Q24H 07/24 1215 AC 07/28 (Porcine) IV 0320 Sodium Chloride 500 ML Hydromorphone HCl 0.5 MG Q4P PRN 07/23 1815 AC 07/28 IV [address] 2.5 ML TID 07/26 2200 AC 07/27 INH 1950 Lorazepam 0.5 MG ONCE ONE 07/28 0130 DC 07/28 IV 07/28 0131 0134 Lorazepam 0.5 MG Q6-PRN PRN 07/25 0945 AC 07/27 PO 08/01 0931 2134 Magnesium Sulfate 1 GM Q2H 07/27 1330 DC 07/27 Dextrose/Water 100 ML IV 07/27 1729 1826 Melatonin 5 MG AT BEDTIME 07/24 2300 AC 07/27 PO 2134 Morphine Sulfate 2 MG Q4P PRN 07/23 1815 AC 07/28 IV 0700 Polyethylene Glycol 17 GM DAILY PRN 07/27 0515 AC 07/27 PO 0828 Potassium Chloride 20 MEQ 4 TIMES/DAY 07/26 1400 DC 07/27 PO 07/27 1001 0948 Senna 187 MG AT BEDTIME PRN 07/27 0515 AC PO Trimethobenzamide HCl 200 MG TID PRN 07/26 0900 AC 07/27 IM 1713 Results Last 24 Hours of Lab Results: Laboratory Tests 07/28 07/27 07/27 0205 1645 0814 Coagulation APTT (25 - 37 SEC) 49 H 38 H > 120 *H Recent Imaging Studies: CT head with contrast 07/25/2016: No evidence of metastatic disease or acute intracranial pathology. Assessment/Plan Assessment/Recommendations: Mrs. Bolton is a 55-year-old female with history of HTN, HLD, COPD, GERD, IBS, chronic back pain with a neurostimulator, DVT with IVC filter and on apixaban, right arm fracture, and every day smoker who presented to the hospital with left facial drooping, slurred speech, and left-sided weakness. Due to concern for stroke, she came to the hospital. Initial CT head demonstrated no acute hemorrhage. Repeat scan on 07/24/2016 demonstrated acute ischemic changes within the right middle cerebral artery territory without hemorrhagic transformation. She is currently on heparin drip without bolus. Given her significant clot burden, it is reasonable to continue anticoagulation and monitor for signs and symptoms of hemorrhagic conversion. She had the stroke and PE while on Eliquis. There is concern of possible failure of Eliquis in this patient with likely hypercoagulable state from malignancy. Once she is stable, she may be transitioned to enoxaparin. She has left hilar lung mass, left peribronchial, mediastinal, and left supraclavicular adenopathy on PET scan. She has a non-specific left mildly FDG avid lesion (SUV 2.5) in the marrow on the left proximal femur. CT head with contrast (unable to get MRI due to neurostimulator) was negative for metastatic disease. She did undergo biopsy of the left supraclavicular lymph node. Pathology is pending currently. 1. Follow up pathology result 2. Continue heparin drip without bolus with transition to enoxaparin 3. Monitor closely for neurological changes Please call [phone] with any questions or concerns. Problem List: 1. Acute CVA (cerebrovascular accident) 2. Left leg DVT 3. Mass of left lung
[2016-07-28 09:58] LABS: ABSOLUTE BASOPHIL COUNT 0.1 /CUMM (0.0-0.2); ABSOLUTE EOSINOPHIL COUNT 0.2 /CUMM (0.0-0.7); ABSOLUTE GRANULOCYTE CT 13.6 /CUMM (1.4-6.5); ABSOLUTE LYMPH COUNT 1.5 /CUMM (1.2-3.4); ABSOLUTE MONOCYTE COUNT 1.1 /CUMM (0.10-0.60); BASOPHIL % 0.4 % (0.0-2.0); EOSINOPHIL % 1.3 % (0-5); GRANULOCYTE % 82.3 % (42.2-75.2); HEMATOCRIT 31.1 % (37-47); MEAN CORPUSCULAR HGB 31.3 PG (27.0-31.0); MEAN CORPUSCULAR HGB CONC 32.6 G/DL (33.0-37.0); MEAN PLATELET VOLUME 9.6 FL (7.4-10.4); PLATELET COUNT 283 /CUMM (130-400); RBC DISTRIBUTION WIDTH 15.1 % (11.5-14.5); RED BLOOD CELL CT 3.24 /CUMM (4.20-5.40); WHITE BLOOD CELL COUNT 16.5 /CUMM (4.8-10.8)
--- NOTE | 2016-07-28 11:06 | PN- Housestaff ---
RADHA GOEL,SHEFALI 07/28/16 1106: Subjective Follow-up For: Right MCA infarct deep vein thrombosis and multiple embolization to the lungs Right humerus fracture Complaints: pain in the neck and the right humerus Tele-Events Since Last Visit: Normal sinus rhythm, heart rate between 96-107, no any overnight events Subjective: Patient is seen and examined at the bedside. She was oriented to time, place and person. She was little bit drowsy, although responding to verbal commands. She was complaining of pain in the night despite of all pain medication. She denies for any chest pain, shortness of breath, headache, nausea, vomiting, abdominal pain. Review of Systems Constitutional: Denies: no symptoms, chills, diaphoresis, fever, malaise, weakness. Cardiovascular: Denies: chest pain, edema, orthopena, palpitations. Respiratory: Denies: cough, hemoptysis, orthopnea, short of breath. Gastrointestinal: Denies: abdominal pain, bloating, constipation, diarrhea, distention. Genitourinary: Denies: discharge, dysuria, frequency, hematuria. Musculoskeletal: Reports: back pain, joint pain, muscle pain, muscle stiffness, neck pain. Skin: Denies: no symptoms. Neurological/Psychological: Reports: anxiety, depressed. Objective Last 24 Hrs of Vital Signs/I&O Vital Signs Date Time Temp Pulse Resp B/P Pulse O2 O2 Flow FiO2 Ox Delivery Rate 07/28 0808 94 Nasal 2.0L Cannula 07/28 0800 Nasal 2.0L Cannula 07/28 0758 99.2 91 18 122/69 96 Room Air 2.0L 07/27 1950 94 Nasal 2.0L Cannula Intake & Output 07/28 1600 07/28 0800 07/28 0000 Intake Total 152.5 521.6 752.05 Output Total 250 400 400 Balance -97.5 121.6 352.05 Intake, IV 32.5 281.6 482.05 Intake, Oral 120 240 270 Number 1 Bowel Movements Output, Urine 250 400 400 Physical Exam General Appearance: Alert, Oriented X3, Cooperative, No Acute Distress Skin: No Rashes, No Breakdown Neck: Supple, No JVD, no local tenderness Cardiovascular: Normal S1, Normal S2, murmur Lungs: bilateral clear with mild basal crepts Abdomen: Soft, No Tenderness Neurological: Normal Speech, 0/5 JOSE CARLOS, 5/5 LLL, facilal weakness on left side, Extremities: No Clubbing, No Cyanosis, No Edema Vascular: Normal Pulses, Pulses Symmetrical Assessment/Plan Assessment: 55-year-old female with past medical history significant for hypertension, hyperlipidemia, COPD, GERD, IBS (diarrhea type), chronic back pain with neurostimulator in place, DVT s/p IVC filter, on eliquis and aspirin, who presents to the ED for evaluation of left facial droop. In addition to left facial droop, she also has left sided weakness, dysphagia, left visual field defect, with CT showing acute ischemic changes within the right middle cerebral artery territory. Carotid ultrasound shows bilateral carotid stenosis in the range of 50-79% on the left and less than 50% on the right. She was found to have bilateral PE, despite being on eliquis. She was started on IV heparin. Problem list: Right MCA infarct with left sided facial droop, left sided weakness, dysphagia, left visual field defect Acute pulmonary embolism Demand ischemia Suspected lung cancer Right humerus fracture Anxiety Chronic back/Neck pain DVT/PE,on IVC filter Acute pulmonary embolism * We stopped the heparin drip and started her on injection, Lovenox 50 milligrams twice a day according to the weight * Watch for bleeding Suspected lung cancer * FNA biopsy of supraclavicular node on 07/25, follow up cytology. Check PD1, PDL1 for pembrolizumab immunotherapy, EGFR, ALK for erlotinib/crizotinib targeted therapy. COPD * TRC/nebs, ipratropium and albuterol Right MCA infarct with left sided facial droop, left sided weakness, dysphagia, left visual field defect. * CT with IV contrast did not show brain mets * ST,OT,PT * Cannot get MRI due to incompatibility of neurostimulator * Should evaluate for ASD/VSD * Tigan if needed Demand ischemia * On heparin * Patient's recovering we stopped telemetry monitoring Anxiety Mitzy Ledesma, her PCP, prescribed 1 mg PO ativan daily, sometimes she takes BID. * Ativan 0.5 mg q6p ordered * 5mg melatonin at bedtime Chronic back pain * Consider long acting opioids (but cannot crush) * On dilaudid 0.5 q 4, morphine 2 q4p, iv tylenol 1000 q6p * Consider fentanyl patch Right humeral fracture * Pain management according to pain protocol * He place a consult from Dr. Nice and follow his rcms Hymagnesemia - * Tab Magnesium 65 mg BID * We will recheck it regulary Diet -heart healthy diet -Puree/nectar thick liquid DVT prophylaxis -Lovenox CODE STATUS -full code Problem List: 1. Acute CVA (cerebrovascular accident) 2. Mass of left lung 3. Left leg DVT 4. Leukocytosis 5. DVT, lower extremity, distal, acute 6. Proximal humeral fracture 7. Hypomagnesemia 8. Hypokalemia Pain Ratin Pain Location: neck and back Pain Goal: Remain pain free Pain Plan: moderate to severe Tomorrow's Labs & Rationales: cbc - f/u anemia and bleeding BEP - f/u K Mag - f/u mag DVT/Prophylaxis: mechanical, pharmacological MARY PENN MD 07/28/16 1426: Attending MD Review Statement Attending Statement Attending MD Statement: examined this patient, discuss w/resident/PA/[employer], agreed w/resident/PA/[employer], reviewed EMR data (avail) Attending Assessment/Plan: Continue current management, continue Lovenox as bridge, follow oncology recommendations
--- NOTE | 2016-07-28 11:08 | PN- Cardiology ---
Subjective Subjective: Patient reports some nausea with poor appetite today. No chest pain or palpitations. Still with pain in the right arm improved with the morphine. Objective Vital Signs and I&Os Vital Signs Date Time Temp Pulse Resp B/P Pulse O2 O2 Flow FiO2 Ox Delivery Rate 07/28 0808 94 Nasal 2.0L Cannula 07/28 0800 Nasal 2.0L Cannula 07/28 0758 99.2 91 18 122/69 96 Room Air 2.0L 07/27 1950 94 Nasal 2.0L Cannula 07/27 1600 98.7 86 20 112/70 89 Room Air 07/27 1249 93 Room Air Intake & Output 07/28 1600 07/28 0800 07/28 0000 07/27 1600 07/27 0800 07/27 0000 Intake Total 521.6 752.05 326.7 368 407 Output Total 400 400 450 350 200 Balance 121.6 352.05 -123.3 18 207 Intake, IV 281.6 482.05 266.7 248 247 Intake, Oral 240 270 60 120 160 Number 1 5 0 1 Bowel Movements Output, Urine 400 400 450 350 200 Physical Exam: General: Sitting up in chair. Alert. Eyes: No obvious scleral icterus. HEENT: No jugular venous distention or abnormal jugular venous pulsations. Cardiovascular: Normal intensity S1/S2. Regular. Respiratory: No rales or rhonchi Abdomen: no guarding or rebound tenderness. Musculoskeletal: Right arm in sling, no edema Skin: Warm Current Medications: Current Medications Sig/Ida Start time Last Medication Dose Route Stop Time Status Admin Acetaminophen 1,000 MG Q6P PRN 07/23 181 AC 07/25 IV 0416 Albuterol Sulfate 3 ML TID 07/26 2200 AC 07/28 INH 0807 Diclofenac Sodium 1 KWADWO Q4P PRN 07/23 181 AC 07/24 TOP 0310 Glycerin 2 SPRAY Q2P PRN 07/25 0845 AC PO Heparin Sodium 2,100 UNIT ONCE ONE 07/28 0300 DC 07/28 (Porcine) IV 07/28 300 0300 Heparin Sodium 3,900 UNIT ONCE ONE 07/28 1999 DC 07/27 (Porcine) IV 07/27 Heparin Sodium 25,000 UNIT Q24H 07/24 1215 AC 07/28 (Porcine) IV 0320 Sodium Chloride 500 ML Hydromorphone HCl 0.5 MG Q4P PRN 07/23 1815 AC 07/28 IV 1005 Ipratropium [place] 2.5 ML TID 07/26 2200 AC 07/28 INH 0807 Lorazepam 0.5 MG ONCE ONE 07/28 0130 DC 07/28 IV 07/28 0131 0134 Lorazepam 0.5 MG Q6-PRN PRN 07/25 0945 AC 07/27 PO 08/01 0931 2134 Magnesium Sulfate 1 GM Q2H 07/27 1330 DC 07/27 Dextrose/Water 100 ML IV 07/27 1729 1826 Melatonin 5 MG AT BEDTIME 07/24 2300 AC 07/27 PO 2134 Morphine Sulfate 2 MG Q4P PRN 07/23 1815 AC 07/28 IV 0700 Polyethylene Glycol 17 GM DAILY PRN 07/27 0515 AC 07/27 PO 0828 Senna 187 MG AT BEDTIME PRN 07/27 0515 AC PO Trimethobenzamide HCl 200 MG TID PRN 07/26 0900 AC 07/27 IM 1713 Results Last 48 Hrs of Labs/Mics: Laboratory Tests 07/28/16 1027: Sodium Pending, Potassium Pending, Chloride Pending, Carbon Dioxide Pending, Anion Gap Pending, BUN Pending, Creatinine Pending, BUN/Creatinine Ratio Pending , Magnesium Pending, APTT Pending 07/28/16 0837: CBC w Diff NO MAN DIFF REQ, RBC 3.24 L, MCV 96.0, MCH 31.3 H, RDW 15.1 H, MPV 9.6, Gran % 82.3 H, Lymphocytes % 9.1 L, Monocytes % 6.9, Eosinophils % 1.3, Basophils % 0.4, Absolute Granulocytes 13.6 H, Absolute Lymphocytes 1.5, Absolute Monocytes 1.1 H, Absolute Eosinophils 0.2, Absolute Basophils 0.1, PUBS MCHC 32.6 L 07/28/16 0205: APTT 49 H 07/27/16 1645: APTT 38 H 07/27/16 0814: APTT > 120 *H 07/27/16 0610: Anion Gap 4 L, Estimated GFR > 60, BUN/Creatinine Ratio 8.0, Phosphorus 4.4, Magnesium 1.5 L, CBC w Diff NO MAN DIFF REQ, RBC 2.99 L, MCV 96.3, MCH 31.5 H , RDW 15.9 H, MPV 8.9, Gran % 76.9 H, Lymphocytes % 13.3 L, Monocytes % 6.6, Eosinophils % 2.7, Basophils % 0.5, Absolute Granulocytes 9.4 H, Absolute Lymphocytes 1.6, Absolute Monocytes 0.8 H, Absolute Eosinophils 0.3, Absolute Basophils 0.1, PUBS MCHC 32.7 L 07/26/16 2230: APTT 41 H 07/26/16 1420: APTT > 120 *H Recent Imaging Studies: Telemetry tracings were personally reviewed and shows sinus rhythm Assessment/Plan Assessment/Plan 1. Acute CVA 2. Acute pulmonary embolism/DVT despite anticoagulation in the setting of malignancy 3. Increasing lung mass likely due to advanced lung cancer 4. Elevated troponin likely due to acute pulmonary embolism, no regional wall motion abnormalities or right ventricular dysfunction by Echocardiogram 5. Right humeral fracture 6. COPD 7. Spinal neurostimulator The patient remains hemodynamically stable with no sustained arrhythmias noted on telemetry. She is status post lymph node biopsy with pathology pending. Remains on intravenous heparin with the plan to transition to Lovenox in the near future. The elevated troponins with flat troponin curve without regional wall motion abnormalities on echocardiogram are suggestive of demand ischemia in the setting of pulmonary embolism. Cardiac status remains stable, will see as needed. Please do not hesitate to contact me with any questions or concerns. Dipak Waldrop MD FAC Continue telemetry? No
--- NOTE | 2016-07-28 11:21 | PN- Pulmonary ---
Subjective HPI/Critical Care Issues: pt seen and examined saturating well off o2 upon exam stable from respiratory perspective c/o nausea Objective Current Medications: Current Medications Sig/Ida Start time Last Medication Dose Route Stop Time Status Admin Acetaminophen 1,000 MG Q6P PRN 07/23 181 AC 07/25 IV 0416 Albuterol Sulfate 3 ML TID 07/26 2200 AC 07/28 INH 0807 Diclofenac Sodium 1 KWADWO Q4P PRN 07/23 1815 AC 07/24 TOP 0310 Glycerin 2 SPRAY Q2P PRN 07/25 0845 AC PO Heparin Sodium 2,100 UNIT ONCE ONE 07/28 0300 DC 07/28 (Porcine) IV 07/28 0301 0300 Heparin Sodium 3,900 UNIT ONCE ONE 07/28 1999 DC 07/27 (Porcine) IV 07/27 Heparin Sodium 25,000 UNIT Q24H 07/24 1215 AC 07/28 (Porcine) IV 0320 Sodium Chloride 500 ML Hydromorphone HCl 0.5 MG Q4P PRN 07/23 181 AC 07/28 IV 1005 Ipratropium [place] 2.5 ML TID 07/26 2200 AC 07/28 INH 0807 Lorazepam 0.5 MG ONCE ONE 07/28 0130 DC 07/28 IV 07/28 0131 0134 Lorazepam 0.5 MG Q6-PRN PRN 07/25 0945 AC 07/27 PO 08/01 0931 2134 Magnesium Sulfate 1 GM Q2H 07/27 1330 DC 07/27 Dextrose/Water 100 ML IV 07/27 1729 1826 Melatonin 5 MG AT BEDTIME 07/24 2300 AC 07/27 PO 2134 Morphine Sulfate 2 MG Q4P PRN 07/23 1815 AC 07/28 IV 0700 Polyethylene Glycol 17 GM DAILY PRN 07/27 0515 AC 07/27 PO 0828 Senna 187 MG AT BEDTIME PRN 07/27 0515 AC PO Trimethobenzamide HCl 200 MG TID PRN 07/26 0900 AC 07/27 IM 1713 Vital Signs & I&O Last 24 Hrs of Vitals and I&O: Vital Signs Date Time Temp Pulse Resp B/P Pulse O2 O2 Flow FiO2 Ox Delivery Rate 07/28 0808 94 Nasal 2.0L Cannula 07/28 0800 Nasal 2.0L Cannula 07/28 0758 99.2 91 18 122/69 96 Room Air 2.0L 07/27 1950 94 Nasal 2.0L Cannula 07/27 1600 98.7 86 20 112/70 89 Room Air 07/27 1249 93 Room Air Intake & Output 07/28 1600 07/28 0800 07/28 0000 Intake Total 521.6 752.05 Output Total 400 400 Balance 121.6 352.05 Intake, IV 281.6 482.05 Intake, Oral 240 270 Number 1 Bowel Movements Output, Urine 400 400 Exam Other Physical Findings: gen awake and alert heent ncat cvs s1, s2 lungs rare rhonchi abd soft bs+ ext without edema, right arm in a sling Results Last 24 Hrs of Lab Results: Laboratory Tests 07/28/16 1027: Sodium Pending, Potassium Pending, Chloride Pending, Carbon Dioxide Pending, Anion Gap Pending, BUN Pending, Creatinine Pending, BUN/Creatinine Ratio Pending , Magnesium Pending, APTT Pending 07/28/16 0837: CBC w Diff NO MAN DIFF REQ, RBC 3.24 L, MCV 96.0, MCH 31.3 H, RDW 15.1 H, MPV 9.6, Gran % 82.3 H, Lymphocytes % 9.1 L, Monocytes % 6.9, Eosinophils % 1.3, Basophils % 0.4, Absolute Granulocytes 13.6 H, Absolute Lymphocytes 1.5, Absolute Monocytes 1.1 H, Absolute Eosinophils 0.2, Absolute Basophils 0.1, PUBS MCHC 32.6 L 07/28/16 0205: APTT 49 H 07/27/16 1645: APTT 38 H Impression/Plan Impression/Plan Impression/Plan: Impression 55 year old woman * CVA * PE/DVT * lung mass, likely malignancy underlying * elevated troponins * hurmeal fracture on right * hx COPD Plan -on heparin -anxiolysis -f/u pathology -tele monitoring -trc/nebs as needed DVT prophylaxis at all times
[2016-07-28 12:08] LABS: PTT 77 SEC (25-37)
[2016-07-28 16:53] VITALS: BP 123/69
--- NOTE | 2016-07-28 19:56 | Cons- Psychiatry ---
Psychiatric Consult Date of Consult: 07/28/16 Reason for Consult: "Anorexia and depression" History of Present Illness: 55 F JEVON from home 07/23/16 at 1451 for stroke alert, presenting with left facial droop and left-sided weakness. She had been on anticoagulation She had previously fallen and broken her right humerus on 07/05/16, and was awaiting surgery for repair. Past medical history significant for hypertension, hyperlipidemia, COPD, chronic smoking, GERD, IBS (diarrhea type), anterior cervical discectomy (2004), cervical plating C5,6,7, chronic back pain with neurostimulator in place, DVT s/ p IVC filter, on eliquis and aspirin. Current problems include: Right MCA infarct on CT with left sided facial droop, left sided weakness, dysphagia, left visual field defect Bilateral carotid stenosis on US Bilateral acute pulmonary embolism Demand ischemia Suspected lung cancer, FNA biopsy on 07/25, awaiting cytology Right humerus fracture Anxiety - On lorazepam 1 mg PO 1-2 tabs daily, from PCP Chronic back/Neck pain (Patient has an implanted neurostimulator) DVT/PE,on IVC filter Hypomagnesemia The patient reports that she took Wellbutrin for mild depression years ago, which has resolved. Wellbutrin/bupropion is listed as an allergy, due to headaches and severe vomiting (11/07/2015) She denies any other psychiatric diagnosis or treatment. She denies any family psychiatric history. She reports that she drinks 1-2 alcoholic drinks per day, the last was two days before presentation, or 07/21/16. The patient lives at home with her supportive family, including her spouse, Richar, her daughter, and her granddaughter. there is no recent CT CHANGE MANAGER history. Allergies: Coded Allergies: moxifloxacin (From AVELOX) (Severe, ANAPHYLAXIS 11/07/15) Penicillins (Intermediate, RASH 11/07/15) bupropion (From WELLBUTRIN) (Intermediate, HEADACHES, SEVERE VOMITING 11/07/15) cephalexin (From KEFLEX) (Intermediate, SEVERE VOMITING 11/07/15) clindamycin (From CLEOCIN) (Intermediate, SEVERE VOMITING 11/07/15) erythromycin base (Intermediate, SEVERE VOMITING 11/07/15) varenicline (From CHANTIX) (SEVERE HEADACHE MAKES LOOPY PER PT 07/11/16) Current Medications: Current Medications Sig/Ida Start time Last Medication Dose Route Stop Time Status Admin Acetaminophen 1,000 MG Q6P PRN 07/23 1815 AC 07/25 IV 0416 Albuterol Sulfate 3 ML TID 07/26 2200 AC 07/28 INH 1915 Diclofenac Sodium 1 KWADWO Q4P PRN 07/23 1815 AC 07/24 TOP 0310 Enoxaparin Sodium 55 MG BID 07/28 1500 AC 07/28 SC 1704 Enoxaparin Sodium 52 MG BID 07/28 1444 DC SC Glycerin 2 SPRAY Q2P PRN 07/25 0845 AC PO Heparin Sodium 2,100 UNIT ONCE ONE 07/28 0300 DC 07/28 (Porcine) IV 07/28 0301 0300 Heparin Sodium 3,900 UNIT ONCE ONE 07/28 1999 DC 07/27 (Porcine) IV 07/27 Heparin Sodium 25,000 UNIT Q24H 07/24 1215 DC 07/28 (Porcine) IV 07/28 1530 0320 Sodium Chloride 500 ML Hydromorphone HCl 0.5 MG Q4P PRN 07/23 1815 AC 07/28 IV 1417 Ipratropium [place] 2.5 ML TID 07/26 2200 AC 07/28 INH 1915 Lorazepam 0.5 MG ONCE ONE 07/28 0130 DC 07/28 IV 07/28 0131 0134 Lorazepam 0.5 MG Q6-PRN PRN 07/25 0945 AC 07/28 PO 08/01 0931 1725 Magnesium Chloride 64 MG BID 07/28 2200 AC PO Melatonin 5 MG AT BEDTIME 07/24 2300 AC 07/27 PO 2134 Morphine Sulfate 2 MG Q4P PRN 07/23 1815 AC 07/28 IV 1835 Nicotine 7 MG DAILY 07/28 1130 07/28 TOP 1314 Patient Medication 1 ED .STK-MED ONE 07/28 1348 DC Teaching ED 07/28 1349 Polyethylene Glycol 17 GM DAILY PRN 07/27 0515 AC 07/27 PO 0828 Senna 187 MG AT BEDTIME PRN 07/27 0515 AC PO Trimethobenzamide HCl 200 MG TID PRN 07/26 0900 AC 07/27 IM 1713 Past History Past Medical History Neurological: migraine EENT: NONE Cardiovascular: hypertension, hyperlipidemia, DVT S/P IVC FILTER Respiratory: COPD, LUNG CA Gastrointestinal: GERD, irritable bowel syndrome Hepatic: NONE Renal: NONE Musculoskeletal: chronic back pain, R SHOULDER FX Psychiatric: anxiety Endocrine: NONE Blood Disorders: NONE Cancer(s): NONE, lung cancer RECORDS MANAGEMENT ENGINEER/Reproductive: NONE Past Surgical History Surgical History: laminectomy, cervical discectomy Psychosocial History Strengths/Capabilities: Future-oriented, goal-directed. Supportive family Physical Limitations (Interventions): Able to move her right leg and her right hand, only, both in limited range and strength. she is unable to feed, reposition or toilet herself. Psychiatric Treatment History Psych Treatment Psychiatric Treatment Yes Inpatient Treatment No (denies) Outpatient Treatment Yes Location of Treatment Not evaluated Reason for Treatment "Mild depression," per the patient. Collateral needed. Risk Factors: chronic/serious med cond. Substance Use/Abuse History Drug Use/Abuse Substances Used/Abused Yes (Unsure if abuse at this time) Substance Used/Abused Alcohol Last Used 07/21/16 How much used/taken 1-2 drinks How often daily Substance Abuse Treatment Substance Abuse Treatment Past Substance Abuse [place] No (Denies) Assessment/Plan Mental Status Mental Status Exam: The patient is lying in her hospital bed, able to reach her call button with the limited motion of her right arm/hand, supportive family present for the first part of the interview, with her right arm in a sling. Affect is calm, with full range of expression. She is oriented to person, place, but not day. She is pleasant and conversational, but becoming sleepy after administration of opiate pain medication. Speech is clear without delay; all answers are direct. She reports visual hallucinations after her move from the ICU to her current bed , but states that they are not present, at the moment. She had been seeing ferrets on the wall. She denies auditory or tactile disturbances. She denies confused or disorganized thinking. Thought processes are logical and linear. The family was not present for the next part of the interview: Scales current depression as 1/10, anxiety as 5/10; 10/10 would be the most severe. She denies SI/HI, and denies history of suicide attempt. Lab Results: Laboratory Tests 07/28 07/28 07/28 1830 1027 0837 Chemistry Sodium (137 - 145 mmol/L) 131 L Potassium (3.5 - 5.1 mmol/L) 4.1 Chloride (98 - 107 mmol/L) 93 L Carbon Dioxide (22 - 30 mmol/L) 25 Anion Gap (5 - 16) 12 BUN (7 - 17 mg/dL) 6 L Creatinine (0.5 - 1.0 mg/dL) 0.5 Estimated GFR (>60 ml/min) > 60 BUN/Creatinine Ratio (7 - 25 %) 12.0 Magnesium (1.6 - 2.3 mg/dL) 1.6 Coagulation APTT (25 - 37 SEC) Cancelled 77 H Hematology CBC w Diff NO MAN DIFF REQ WBC (4.8 - 10.8 /CUMM) 16.5 H RBC (4.20 - 5.40 /CUMM) 3.24 L Hgb (12.0 - 16.0 G/DL) 10.1 L Hct (37 - 47 %) 31.1 L MCV (81.0 - 99.0 FL) 96.0 MCH (27.0 - 31.0 PG) 31.3 H RDW (11.5 - 14.5 %) 15.1 H Plt Count (130 - 400 /CUMM) 283 MPV (7.4 - 10.4 FL) 9.6 Gran % (42.2 - 75.2 %) 82.3 H Lymphocytes % (20.5 - 51.1 %) 9.1 L Monocytes % (1.7 - 9.3 %) 6.9 Eosinophils % (0 - 5 %) 1.3 Basophils % (0.0 - 2.0 %) 0.4 Absolute Granulocytes (1.4 - 6.5 /CUMM) 13.6 H Absolute Lymphocytes (1.2 - 3.4 /CUMM) 1.5 Absolute Monocytes (0.10 - 0.60 /CUMM) 1.1 H Absolute Eosinophils (0.0 - 0.7 /CUMM) 0.2 Absolute Basophils (0.0 - 0.2 /CUMM) 0.1 PUBS MCHC (33.0 - 37.0 G/DL) 32.6 L 07/28 0205 Coagulation APTT (25 - 37 SEC) 49 H Diffential Diagnosis: Possible anxiety disorder Rule out adjustment disorder Rule out depressive disorder Rule out alcohol use disorder Impression: The patient reports visual hallucinations (VH), which may have several possible etiologies, including change in oxygenation, change in medications (?opiates, benzodiazepine), possible infective process (WBC 16.5), insomnia or alcohol withdrawal. From her self-reported history, it seems unlikely that the latter in likely. We hope to get more collateral history from family and caregivers. For now, the hallucinations are not distressing to her, but we suggest that these be monitored for exacerbation. The patient reports poor sleep, which we hope can be addressed tonight, as it can contribute to hallucinations. We suggest that Ambien be avoided. The patient has tried melatonin at home to poor effect. I suggested that she try ramelteon tonight for insomnia. The addition of a small dose of haloperidol, as needed, may help if the VH begin to worsen. the patient seemd receptive to the idea of coming to outpatient psychiatry at the appropriate time. Provisional Treatment Plan: 1. Consider ramelteon 8 mg PO at bedtime as needed for insomnia. 2. If disturbing visual hallucinations or if disorganized thinking, consider haloperidol 1 mg PO every 12 hours as needed. a. Hold for arrhythmia or if QTc greater than 475 mS. b. Monitor and replete potassium and magnesium to the upper portion of the normal range. c. Hold for oversedation or respiratory depression. 3. As much as possible under the circumstances, please try to avoid benzodiazepines, opioid analgesics, and meds with strong anticholinergic properties as much as possible to minimize confusion. The current dosing of lorazepam 0.5 mg every 6 hours as needed for anxiety should be continued for the present, as she has been using this medication at home, and abrupt discontinuation may present further problems. 4. Please initiate the following nonpharmacologic interventions: -Avoid nursing and medical procedures during sleep hours whenever possible - Cluster at night interventions that must be completed as much as possible to minimize sleep disruption - Decrease noise in the patient area during sleeping hours - Reduce lighting at night - Ensure patient has any sensory aids close by that she regularly uses. 5. Pastoral care consult. We will continue to follow along with you. Shelley Mckeon APRN, Pager [phone].
[2016-07-28 22:00] VITALS: BP 138/84
[2016-07-29 04:08] LABS: ABSOLUTE BASOPHIL COUNT 0 /CUMM (0.0-0.2); ABSOLUTE EOSINOPHIL COUNT 0.2 /CUMM (0.0-0.7); ABSOLUTE GRANULOCYTE CT 12.1 /CUMM (1.4-6.5); ABSOLUTE LYMPH COUNT 1.3 /CUMM (1.2-3.4); ABSOLUTE MONOCYTE COUNT 1.4 /CUMM (0.10-0.60); BASOPHIL % 0.2 % (0.0-2.0); EOSINOPHIL % 1.3 % (0-5); GRANULOCYTE % 80.6 % (42.2-75.2); HEMATOCRIT 31.7 % (37-47); MEAN CORPUSCULAR HGB 31.4 PG (27.0-31.0); MEAN CORPUSCULAR VOLUME 95.1 FL (81.0-99.0); MEAN PLATELET VOLUME 8.2 FL (7.4-10.4); PLATELET COUNT 291 /CUMM (130-400); RBC DISTRIBUTION WIDTH 15.9 % (11.5-14.5); RED BLOOD CELL CT 3.33 /CUMM (4.20-5.40)
--- NOTE | 2016-07-29 07:10 | Discharge Summary ---
Visit Information Visit Dates Admission Date: 07/23/16 Discharge Date: 08/01/2016 Hospital Course Course Attending Physician: MARY PENN MD Primary Care Physician: CAROL SHERMAN APRN Other Care Providers: Dr. Marcus - pulmonology Dr. Palomo - oncology Hospital Course: Mrs. Bolton is a 55-year-old female with past medical history significant for hypertension, hyperlipidemia, COPD, GERD, IBS (diarrhea type), chronic back pain with neurostimulator in place, who presents to the ED for evalutation of facial droop. It should be noted that the patient had a pathological fracture of her right proximal humerus which displaced 07/05/16. Subsequently she was admitted to the hospital 07/11/16 for LLE swelling, which turned out to be a left popliteal vein DVT for which she was on aspirin and eliquis. She also had an IVC filter placed for possible lung nodule bx (see below). Also, it should be noted that the patient has a long hx of smoking, currently enrolled in the Lung Ca screening program with multiple nodules, most notably a left hilar mass 3.5 x 2.9 cm which is suspicious for malignancy. She was scheduled for a biopsy of the lesion, however given her DVT, this was deferred. Vital signs initial temperature, 96.5. Heart rate 98. Respiratory rate 18. Blood pressure 106/62 saturating 96% 2 L of oxygen. Physical exam as indicated above. EKG showed normal sinus rhythm at a rate of 95 bpm. UT 144 ms. QTC 438 ms. Questionable Q waves in leads V1 and V2. NIH stroke scale was 13. Labs were significant for white count 13.7, H&H 11.5/35.1, platelets 218. Sodium 133, potassium 4.2. BUN/Cr 10/0.5. Glucose 112. Alkaline phosphatase 221. Troponin 0.33. Chest x-ray showed a possible right lower lobe infiltrate. Head CT without contrast was negative for acute pathology. Previous CT, 07/11/2006 showed a left hilar lung mass highly suspicious for, as well as 5 mm groundglass nodule in the right upper lobe. Multiple subcentimeter micronodules bilaterally were also noted which were unchanged from previous investigation. Additionally, an FDG PET scan identified an FDG avid left hilar mass is most likely malignant, along with FDG avid lymphadenopathy in the proximal left peribronchial region as well as multiple FDG avid mediastinal and a single left supraclavicular FDG avid lymph node are most likely metastases. Areas of wedge shaped opacities were also identified, which were suspicious for a PE, which was confirmed by CTA - " BL lower lobe segmental and subsegmental pulm arteries R>L, with wedge-shaped reticular opacity most suspicious for acute infarct posterior lateral aspect right lower lobe. Smaller groundglass foci noted in the right middle lobe and right upper lobe as well as the left upper lobe may represent mosaic perfusion in this individual." She was admitted to the ICU service and then transferred over to the telemetry service and managed for the following problems: Acute pulmonary embolism * In spite of having an IVC filter and being on eliquis for anticoagulation, multiple acute pulmonary embolisms were identified as indicated above. * Futher anticoagulation with IV heparin was initially held given her acute ischemic CVA, as we were weary of hemorrhagic conversion, when risk/benefit was discussed with the patient, her family and medical team, the decision was made to institute IV heparin without heparin boluses was made. She was eventually converted to lovenox SQ - BID dosing at 1.0 mg/kg, therefore she is now on 50mg of lovenox BID * She did have elevated troponins, which trended down, and were thought to be due to strain/demand ischemia from the PEs. * An echocardiogram revealed = Normal global left ventricular size, wall thickness, systolic function with no obvious regional wall motion abnormalities. Left ventricular ejection fraction is estimated at > 60 %. Normal left ventricular diastolic filling pattern for age. Normal right ventricular size and function. Right ventricular systolic pressure estimated at 35 mmHg. Minimal pericardial effusion. Lung Mass * Lung mass as dictated above by CT scan and FDG PET. She did have LEFT lymph node biopsy and had a provisional diagnosis of non-small cell lung cancer made. * The final report was dictated as numerous atypical cells consistent with malignancy, favor non-small cell carcinoma. Flow cytometry performed on the sample revealed no immuphenotypic evidence for monoclonal non-Hodgkin B-cell lymphoproliferative disease. The tumor stains did screen positive for CK-7, TTF -1. They were negative for NapsinA and CK20. * The patient was agreeable for chemotherapy and radiation however after she regained some strength at rehab. They requested to follow up with [facility] for chemo /radiation evaluation and therapy Right MCA infarct * presented with left sided facial droop, left sided weakness, dysphagia, left visual field defect. * She did eventually pass a swallow evaluation and is working with PT/OT to improve/limit her hemiplegia. * A CT with IV contrast of the head did not show brain lesions * Further evaluation with an MRI could not be performed due to incompatibility of an implanted neurostimulator COPD * TRC/nebs, ipratropium and albuterol Anxiety * Ativan 0.5 mg q6p ordered * Addded rozeron 8mg for sleep * Also added Haloperidol 1mg IM as needed for anxiety * 5mg melatonin at bedtime Chronic back pain/ neck pain and right arm pain - * She was initially treatment with IV analgesics but eventually titrated to PO meds. * Pain is currently well controlled with MS contin 30mg BID and MSIR 15mg q4 hours as needed for breakthrough pain Right humeral fracture * She did have a pathological fracture as dictated above, unsure if it is 2/2 mets in her arm or frailty. * Her case was discussed with orthopedic surgery over the phone and unfortunately is not a candidate for orthopedic intervention at this time. * A shoulder sling as well as physical therapy, occupational therapy was advised Hypomagnesemia - * Slo-Mag 64 mg BID was initiated and regular magnesium level checks with a CBC/ electrolytes are recommended at rehab Diet -heart healthy diet -Puree/nectar thick liquid Allergies: Coded Allergies: moxifloxacin (From AVELOX) (Severe, ANAPHYLAXIS 11/07/15) Penicillins (Intermediate, RASH 11/07/15) bupropion (From WELLBUTRIN) (Intermediate, HEADACHES, SEVERE VOMITING 11/07/15) cephalexin (From KEFLEX) (Intermediate, SEVERE VOMITING 11/07/15) clindamycin (From CLEOCIN) (Intermediate, SEVERE VOMITING 11/07/15) erythromycin base (Intermediate, SEVERE VOMITING 11/07/15) varenicline (From CHANTIX) (SEVERE HEADACHE MAKES LOOPY PER PT 07/11/16) Significant Procedures: SERVICE DATE: 07/23/16 EXAM TYPE: CAT - CTA CHEST-PULMONARY EMBOLISM IMPRESSION: 1. Acute pulmonary embolism noted in bilateral lower lobe segmental and subsegmental pulmonary arteries, right greater than left. 2. Wedge-shaped reticular opacity most suspicious for acute infarct posterior lateral aspect right lower lobe. Smaller groundglass foci noted in the right middle lobe and right upper lobe as well as the left upper lobe may represent mosaic perfusion in this individual. 3. Lobulated left hilar mass and mediastinal lymphadenopathy demonstrates interval increase compared to 07/11/2016. 4. Comminuted fracture subcapital location right humerus is most suspicious for a pathologic fracture. Adjacent masslike hypodensity may be associated with hematoma or soft tissue mass. Soft tissue hyperdensity noted posterior to the humeral shaft may also be associated with hematoma. Given the interval increase in the hyperdensity compared to the previous examination, contrast extravasation from an injured vessel is a likely possibility. Right subclavian DVT suspected as detailed. SERVICE DATE: 07/22/16 EXAM TYPE: PET - PET [facility] IMPRESSION: 1. An FDG avid left hilar mass is most likely malignant. 2. FDG avid lymphadenopathy in the proximal left peribronchial region as well as multiple FDG avid mediastinal and a single left supraclavicular FDG avid lymph node are most likely metastases. 3. Pleural-based wedge shaped opacities including a prominent segmental appearing opacity in the lateral basal segment of the right lower lobe show only minimal FDG activity, and are very strongly suspicious for pulmonary embolism, with infarction in the RIGHT lower lobe focus. Further evaluation with a CTA chest pulmonary embolism study is strongly recommended. If a pneumonitis was responsible for these abnormalities, they would almost certainly be much more FDG avid. 4. Right shoulder fracture with diffuse FDG in the adjacent soft tissues. Photopenia in the right femoral head suggests this might be due to a lytic metastasis, but there is no abnormal FDG activity in the bone to support this. If clinically indicated this could be further evaluated with MRI. 5. A small FDG avid focus in the left axilla shows no corresponding CT abnormality. While this could be metastatic lesion, the patient was injected in the left arm and this may be due to some lymphatic transit of infiltrated radiopharmaceutical at the injection site. 6. A small focus of FDG activity is present in the marrow of the proximal left femur. This may represent some normal marrow uptake, which is also seen elsewhere, but because of the focal appearance, this may also represent a metastasis. 7. No additional abnormalities suspicious for other metastatic or malignant lesions are noted. 8. Hepatomegaly. 9. Vascular calcifications including coronary. SERVICE DATE: 07/23/16 EXAM TYPE: US - US-EXT BILAT VENOUS DOPPLER; US-UNILATERAL VENOUS DOPPLER EXAMINATION: BILATERAL LOWER EXTREMITY VENOUS ULTRASOUND CLINICAL INFORMATION: Follow-up known left DVT COMPARISON: 07/17/2016 TECHNIQUE: Doppler spectral analysis and color flow Doppler imaging was performed of the lower extremities. Compression and augmentation maneuvers were performed. FINDINGS: Right lower extremity negative for DVT. On the left, there is once again completely occlusive clot seen within the popliteal vein similar to previous. No definite propagation. ADDITIONAL FINDINGS: There is no popliteal cyst. There is question of a hernia in the right inguinal region with involvement of bowel IMPRESSION: Stable left-sided popliteal vein occlusive thrombus. No new thrombus seen. Probable right inguinal hernia. EXAMINATION: ARM VENOUS ULTRASOUND WITH DOPPLER, Right CLINICAL INFORMATION: Possible clot COMPARISON: None TECHNIQUE: Upper extremity deep venous ultrasound utilizing Huang scale and normal phasic waveforms respiration. FINDINGS: Normal compressibility. No focal lesion to indicate DVT. Internal jugular and subclavian veins also appear to be patent within the visualized segments. Superficial veins grossly normal. Duplex Doppler. IMPRESSION: No DVT demonstrated in the right upper extremity. Disposition Summary Disposition Principal Diagnosis: Ischemic CVA Pulmonary Embolism Lung cancer Additional Diagnosis: COPD Anxiety Right humeral fracture Hypomagnesemia Discharge Disposition: SNF Discharge Instructions General Discharge Information Code Status: Do Not Resucitate/Intubat Patient's Diet: Puree/nectar thick Patient's Activity: As tolerated Follow-Up Instructions/Appts: * Please follow-up with your PCP within a week of discharge * Please follow-up with Dr. Palomo within a week of discharge for further management of lung cancer that may include chemotherapy and radiotherapy * Please take the medication as advised * You are going to use injection, Lovenox, which increase the chances of bleeding. Please watch for bleeding. If you started having bleeding, stop the Lovenox and come to emergency department or contact your primary care provider Medications at Discharge Discharge Medications: Stop taking the following medications: Celecoxib (Celecoxib) 200 MG CAPSULE ORAL TWICE DAILY Qty = 60 Metaxalone (Metaxalone) 800 MG TABLET ORAL THREE TIMES DAILY as needed for MUSCLE SPASMS Qty = 60 Hydrocodone/Acetaminophen (Hydrocodon-Acetaminoph 7.5-325) 7.5 MG-325 MG TABLET ORAL EVERY 4-6 HOURS NEEDED as needed for PAIN Qty = 40 Rosuvastatin Calcium (Crestor) 10 MG TABLET ORAL DAILY Qty = 90 Aspirin (Ecotrin*) 81 MG TABLET.DR ORAL DAILY Metoprolol Tartrate (Metoprolol Tartrate) 25 MG TABLET ORAL DAILY Magnesium Oxide (Magnesium Oxide) 400 MG TABLET ORAL DAILY Qty = 30 Potassium Chloride (Potassium Chloride) 10 MEQ TABLET.ER ORAL TWICE DAILY Days = 30 Apixaban (Eliquis) 5 MG TABLET ORAL TWICE DAILY Qty = 60 Continue taking these medications: Cyanocobalamin (Vitamin B-12) (Vitamin B12) 2,500 MCG TABLET 1 Tablet ORAL DAILY Comments: Last Taken: 07/18/16 Time: 9:00 AM Cholecalciferol (Vitamin D3) (Vitamin D3) 1,000 UNIT CAPSULE 1 Capsule ORAL DAILY Comments: NOT GIVEN IN HOSPITAL Albuterol Sulfate (Ventolin Hfa) 90 MCG HFA.AER.AD 2 Puff Inhale through mouth EVERY 4 HOURS NEEDED as needed for COPD Qty = 18 Comments: Last Taken: NOT GIVEN IN HOSPITAL Time: Loteprednol Etabonate (Lotemax) 0.5 % DROPS.SUSP 1 Drop In the eye as needed for BOTH EYES - PROPHYLAXIS Qty = 5 Comments: Last Taken: NOT GIVEN IN HOSPITAL Time: Fluticasone/Salmeterol (Advair 500-50 Diskus) 500 MCG-50 MCG/DOSE BLST.W.DEV 1 Puff Inhale through mouth TWICE DAILY Qty = 60 Comments: Last Taken: NOT GIVEN IN HOSPITAL Time: Tiotropium Reedy (Spiriva) 18 MCG CAP.W.DEV 1 Capsule Inhale through mouth DAILY Qty = 30 Comments: Last Taken: 07/18/16 Time: 9:00 AM Bepotastine Besilate (Bepreve) 1.5 % DROPS 1 Drop In the eye as needed for BOTH EYES - PROPHYLAXIS Qty = 10 Comments: Last Taken: NOT GIVEN IN HOSPITAL Time: Zolpidem Tartrate (Zolpidem Tartrate) 10 MG TABLET 1 Tablet ORAL AT BEDTIME as needed for SLEEP Qty = 30 Comments: Last Taken: 07/18/16 Time: 12:55 AM Diclofenac Sodium (Voltaren) 1 % GEL..GRAM. 1 Gram On the skin as needed for JOINT PAIN Qty = 300 Instructions: apply to affected area(s) Comments: Last Taken: NOT GIVEN IN HOSPITAL Time: Lorazepam (Ativan) 0.5 MG TABLET 1 Tablet ORAL DAILY NEEDED as needed for ANXIETY Comments: Last Taken: 08/01/16 Time: 1 PM Albuterol Sulfate (Albuterol Sulfate) 2.5 MG/3 ML (0.083 %) VIAL.NEB 1 Vial Inhale Solution DAILY NEEDED as needed for COPD Comments: Last Taken: 08/01/16 Time: 2:40 PM Omeprazole Magnesium (Prilosec Otc) (Unknown Strength) TABLET. Unknown Dose ORAL Every other day Instructions: Reason to Stop at ADM: hypokalemia Comments: NOT GIVEN IN HOSPITAL Start taking the following new medications: Nicotine (Nicotine Patch) 14 MG/24 HOUR PATCH.TD24 14 Milligram On the skin DAILY Qty = 30 No Refills Comments: Last Taken: 08/01/16 Time: 10 AM Enoxaparin Sodium (Lovenox) 60 MG/0.6 ML SYRINGE 50 Milligram Inject into fatty tissue TWICE DAILY Qty = 30 No Refills Comments: Last Taken: 08/01/16 Time: 10 AM Morphine Sulfate (Morphine Sulfate) 15 MG TABLET 15 Milligram ORAL EVERY 4 HOURS NEEDED as needed for BREAK THROUGH PAIN > 6 Qty = 18 No Refills Comments: Last Taken: 08/01/16 Time: 11:15 AM Morphine Sulfate (Morphine Sulfate ER) 30 MG TABLET.ER 30 Milligram ORAL TWICE DAILY Qty = 10 No Refills Comments: Last Taken: 08/01/16 Time: 10 AM Ramelteon (Rozerem) 8 MG TABLET 8 Milligram ORAL Every night as needed for INSOMNIA Qty = 10 No Refills Comments: NOT GIVEN IN HOSPITAL Magnesium Chloride (Slow-Mag) 71.5 MG TABLET. 64 Milligram ORAL TWICE DAILY Qty = 14 No Refills Comments: Last Taken: 08/01/16 Time: 10 AM Atorvastatin Calcium (Atorvastatin Calcium) 80 MG TABLET 1 Tablet ORAL DAILY Qty = 30 No Refills Comments: NOT GIVEN IN HOSPITAL Copies To: MONROE GOEL,[place]ona KWONG; CAROL SHERMAN APRN; ROLLY GOEL,[facility]
--- NOTE | 2016-07-29 08:22 | PN- Housestaff ---
RADHA GOEL,SHEFALI 07/29/16 0821: Subjective Follow-up For: Right MCA infarct deep vein thrombosis and multiple embolization to the lungs Right humerus fracture Complaints: pain in neck Tele-Events Since Last Visit: Off telemetry Subjective: Patient is seen and examined at the bed side. She was c/o pain in neck and the shoulder. 02/10. She denies for any chest pain, SOB, nausea, vomiting. Review of Systems Constitutional: Reports: weakness. Cardiovascular: Denies: chest pain, edema, orthopena, palpitations. Respiratory: Denies: cough, hemoptysis, orthopnea, short of breath. Gastrointestinal: Denies: abdominal pain, bloating, constipation, diarrhea. Genitourinary: Denies: discharge, dysuria, frequency. Musculoskeletal: Reports: back pain, joint pain, muscle pain, neck pain. Skin: Reports: erythema. Neurological/Psychological: Reports: anxiety, depressed, unable to move upper ext, weakness. Objective Last 24 Hrs of Vital Signs/I&O Vital Signs Date Time Temp Pulse Resp B/P Pulse O2 O2 Flow FiO2 Ox Delivery Rate 07/29 0838 97.9 86 18 114/54 96 Nasal 2.0L Cannula 07/29 0758 95 Nasal 2.0L Cannula 07/29 0527 100.3 07/29 0000 Room Air 07/28 2200 97.8 100 22 138/84 94 Room Air 07/28 1920 91 Room Air 07/28 1653 98.3 93 17 123/69 93 Intake & Output 07/29 1600 07/29 0800 07/29 0000 Intake Total 150 252.6 Output Total 300 525 Balance -150 -272.4 Intake, IV 0 92.6 Intake, Oral 150 160 Number 0 0 Bowel Movements Output, Urine 300 525 Physical Exam General Appearance: Alert, Oriented X3, Cooperative, No Acute Distress Skin: ecchymotic area on right humerouse neck, Neck: pain in neck,no deep tenderness, Cardiovascular: Normal S1, Normal S2 Lungs: Clear to Auscultation Abdomen: Soft, No Tenderness Neurological: Normal Speech, facial droop onleft side, 0/5 in left upper arm, 5/ 5 in both lower leg, Extremities: No Clubbing, No Cyanosis, No Edema Vascular: Normal Pulses, Pulses Symmetrical Current Medications: Current Medications Sig/Ida Start time Last Medication Dose Route Stop Time Status Admin Acetaminophen 1,000 MG Q6P PRN 07/23 1815 AC 07/29 IV 0527 Albuterol Sulfate 3 ML TID 07/26 2200 AC 07/29 INH 0756 Diclofenac Sodium 1 KWADWO Q4P PRN 07/23 1815 AC 07/24 TOP 0310 Enoxaparin Sodium 55 MG BID 07/28 1500 AC 07/28 SC 2207 Enoxaparin Sodium 52 MG BID 07/28 1444 DC SC Glycerin 2 SPRAY Q2P PRN 07/25 0845 AC PO Haloperidol 1 MG Q12 PRN 07/28 2030 AC PO Heparin Sodium 25,000 UNIT Q24H 07/24 1215 DC 07/28 (Porcine) IV 07/28 1530 0320 Sodium Chloride 500 ML Hydromorphone HCl 0.5 MG Q4P PRN 07/23 1815 AC 07/29 IV 0626 Ipratropium Renick 2.5 ML TID 07/26 2200 AC 07/29 INH 0756 Lorazepam 0.5 MG Q6-PRN PRN 07/25 0945 AC 07/29 PO 08/01 0931 0527 Magnesium Chloride 64 MG BID 07/28 2200 AC 07/28 PO 2207 Magnesium Sulfate 1 GM ONCE ONE 07/29 0930 AC Dextrose/Water 100 ML IV 07/29 1329 Melatonin 5 MG AT BEDTIME 07/24 2300 DC 07/27 PO 2134 Morphine Sulfate 2 MG Q4P PRN 07/23 1815 AC 07/29 IV 0932 Nicotine 7 MG DAILY 07/28 1130 07/28 TOP 1314 Patient Medication 1 ED .STK-MED ONE 07/28 1348 DC Teaching ED 07/28 1349 Polyethylene Glycol 17 GM DAILY PRN 07/27 0515 07/27 PO 0828 Potassium Chloride 40 MEQ Q20H 07/29 0945 AC Dextrose/Water 1,000 ML IV Ramelteon 8 MG QPM PRN 07/28 2030 AC 07/28 PO 2207 Senna 187 MG AT BEDTIME PRN 07/27 0515 AC PO Trimethobenzamide HCl 200 MG TID PRN 07/26 0900 AC 07/29 IM 0406 Last 24 Hrs of Lab/Flakito Results Last 24 Hrs of Labs/Mics: Laboratory Tests 07/29/16 0350: Troponin I 0.11 *H 07/29/16 0350: Anion Gap 11, Estimated GFR > 60, BUN/Creatinine Ratio 11.7, Magnesium 1.4 L, CBC w Diff NO MAN DIFF REQ, RBC 3.33 L, MCV 95.1, MCH 31.4 H, RDW 15.9 H, MPV 8.2, Gran % 80.6 H, Lymphocytes % 8.6 L, Monocytes % 9.3, Eosinophils % 1.3, Basophils % 0.2, Absolute Granulocytes 12.1 H, Absolute Lymphocytes 1.3, Absolute Monocytes 1.4 H, Absolute Eosinophils 0.2, Absolute Basophils 0, PUBS MCHC 33.0 07/28/16 1830: APTT Cancelled 07/28/16 1027: Anion Gap 12, Estimated GFR > 60, BUN/Creatinine Ratio 12.0, Magnesium 1.6, APTT 77 H Assessment/Plan Assessment: 55-year-old female with past medical history significant for hypertension, hyperlipidemia, COPD, GERD, IBS (diarrhea type), chronic back pain with neurostimulator in place, DVT s/p IVC filter, on eliquis and aspirin, who presents to the ED for evaluation of left facial droop. In addition to left facial droop, she also has left sided weakness, dysphagia, left visual field defect, with CT showing acute ischemic changes within the right middle cerebral artery territory. Carotid ultrasound shows bilateral carotid stenosis in the range of 50-79% on the left and less than 50% on the right. She was found to have bilateral PE, despite being on eliquis. She was started on IV heparin. Problem list: Right MCA infarct with left sided facial droop, left sided weakness, dysphagia, left visual field defect Acute pulmonary embolism Demand ischemia Suspected lung cancer Right humerus fracture Anxiety Chronic back/Neck pain DVT/PE,on IVC filter Plan - Acute pulmonary embolism * We will continue injection, Lovenox 50 milligrams twice a day according to the weight * Watch for bleeding Suspected lung cancer * Provisional diagnosis of lymph node biopsies, non-small cell lung cancer. We will wait for final biopsy results * Lymph node specimen is negative for any markers for non-Hodgkin's lymphoma * Dr Martinez discussed with the family about the goal of care in detail. Later family decided to change the code status to DNR/DNI COPD * TRC/nebs, ipratropium and albuterol Right MCA infarct with left sided facial droop, left sided weakness, dysphagia, left visual field defect. * CT with IV contrast did not show brain mets * ST,OT,PT * Cannot get MRI due to incompatibility of neurostimulator * Should evaluate for ASD/VSD * Tigan if needed Demand ischemia * On heparin * Patient's recovering we stopped telemetry monitoring Anxiety * Ativan 0.5 mg q6p ordered * Addded rozeron 8mg for sleep * Also added Haloperidol 1mg IM as needed for anxiety * 5mg melatonin at bedtime Chronic back pain * We added Tab MS contin 15mg BID * Consider fentanyl patch Right humeral fracture * Pain management according to pain protocol * We placed orthopedics consult and will follow their rcms * Discussed with Dr chinchilla over phone, he advised to support shoulder with sling.No active intervention is required. He will come and see the patient in evening. Hymagnesemia - * Tab Magnesium 65 mg BID * Today -1.4, added 1gm of mag IV * We will recheck it regulary Hypokalemia * Added 40mEq of K IV Diet -heart healthy diet -Puree/nectar thick liquid DVT prophylaxis -Lovenox CODE STATUS -full code Problem List: 1. Acute CVA (cerebrovascular accident) 2. Mass of left lung 3. Left leg DVT 4. Proximal humeral fracture 5. Hypomagnesemia 6. Hypokalemia Pain Ratin Pain Location: neck, back, Pain Goal: Remain pain free Pain Plan: mild -moderate Tomorrow's Labs & Rationales: BEP, Mg - f/u K,Mg level DVT/Prophylaxis: mechanical, pharmacological RITAIS MARY GOEL 07/29/16 1644: Attending MD Review Statement Attending Statement Attending MD Statement: examined this patient, discuss w/resident/PA/RESEARCH MANUFACTURING OPERATOR, agreed w/resident/PA/RESEARCH MANUFACTURING OPERATOR, reviewed EMR data (avail) Attending Assessment/Plan: 55F PMH hypertension, hyperlipidemia, COPD, GERD, IBS (diarrhea type), chronic back pain with neurostimulator in place, DVT s/p IVC filter, on eliquis and aspirin admitted for acute ischemic stroke, acute bilateral pulmonary emboli, and evidence of new lung cancer with preliminary pathology showing NSCLC. Today patient reports continued pain in her right shoulder at the humerus fracture site. The pain is relieved by Dilaudid. She otherwise feels well and is eating well. Still with dense left sided hemiparesis. Requiring maximal assist of 2 with PT to pivot. Plan - Discontinue telemetry - Continue Lovenox as bridge to Coumadin - Start MS-contin 15mg BID - Continue PRN Morphine - Dilaudid only for severe pain - Bowel regimen to prevent opioid induced constipation - Follow oncology and pulmoanry recommendations - Family meeting today
[2016-07-29 08:38] VITALS: BP 114/54
--- NOTE | 2016-07-29 12:17 | PN- Oncology ---
Subjective Subjective: Her breathing is stable. She denies any new pain. Review of Systems Constitutional: Denies: fever. Cardiovascular: Denies: chest pain. Respiratory: Denies: short of breath. Musculoskeletal: Reports: back pain, joint pain, muscle pain, neck pain. Hematologic/Endocrine: Denies: bleeding. All Other Systems: Reviewed and Negative Objective Vital Signs and I&Os Vital Signs Date Time Temp Pulse Resp B/P Pulse O2 O2 Flow FiO2 Ox Delivery Rate 07/29 0838 97.9 86 18 114/54 96 Nasal 2.0L Cannula 07/29 0800 Nasal 2.0L Cannula 07/29 0758 95 Nasal 2.0L Cannula 07/29 0527 100.3 07/29 0000 Room Air 07/28 2200 97.8 100 22 138/84 94 Room Air 07/28 1920 91 Room Air 07/28 1653 98.3 93 17 123/69 93 Intake & Output 07/29 1600 07/29 0800 07/29 0000 07/28 1600 07/28 0800 07/28 0000 Intake Total 150 252.6 152.5 521.6 752.05 Output Total 300 525 250 400 400 Balance -150 -272.4 -97.5 121.6 352.05 Intake, IV 0 92.6 32.5 281.6 482.05 Intake, Oral 150 160 120 240 270 Number 0 0 1 Bowel Movements Output, Urine 300 525 250 400 400 Physical Exam: General Appearance: no apparent distress, alert, awake, anxious, thin Head: atraumatic, right face with ecchymosis Eyes: Bilateral: PERRL. Ears, Nose, Throat: normal pharynx Respiratory: chest non-tender, no respiratory distress, decreased breath sounds, crackles Cardiovascular: edema, tachycardia, systolic murmur Gastrointestinal: normal bowel sounds, soft, non-tender Extremities: pedal edema (LLE), right arm in sling Neurologic/Psych: awake, alert, oriented x 3, facial droop, motor weakness (left arm unable to be moved and left leg weakness 2/5), mild dysarthria Skin: ecchymosis (scatter) Current Medications: Current Medications Sig/Ida Start time Last Medication Dose Route Stop Time Status Admin Acetaminophen 1,000 MG Q6P PRN 07/23 1815 AC 07/29 IV 0527 Albuterol Sulfate 3 ML TID 07/26 2199 AC 07/29 INH 0756 Diclofenac Sodium 1 KWADWO Q4P PRN 07/23 1815 AC 07/24 TOP 0310 Enoxaparin Sodium 50 MG BID 07/29 1000 AC 07/29 SC 1125 Enoxaparin Sodium 55 MG BID 07/28 1500 DC 07/28 SC 2207 Enoxaparin Sodium 52 MG BID 07/28 1444 DC SC Glycerin 2 SPRAY Q2P PRN 07/25 0845 AC PO Haloperidol 1 MG Q12 PRN 07/28 2030 AC PO Heparin Sodium 25,000 UNIT Q24H 07/24 1215 DC 07/28 (Porcine) IV 07/28 1530 0320 Sodium Chloride 500 ML Hydromorphone HCl 0.5 MG Q4P PRN 07/23 1815 AC 07/29 IV 1026 Ipratropium [place] 2.5 ML TID 07/26 2200 AC 07/29 INH 0756 Lorazepam 0.5 MG Q6-PRN PRN 07/25 0945 AC 07/29 PO 08/01 0931 1125 Magnesium Chloride 64 MG BID 07/28 2200 07/29 PO 1026 Magnesium Sulfate 1 GM ONCE ONE 07/29 0930 AC 07/29 Dextrose/Water 100 ML IV 07/29 1329 1026 Melatonin 5 MG AT BEDTIME 07/24 2300 DC 07/27 PO 2134 Morphine Sulfate 2 MG Q4P PRN 07/23 1815 07/29 IV 0932 Nicotine 7 MG DAILY 07/28 1130 07/29 TOP 1026 Patient Medication 1 ED .STK-MED ONE 07/28 1348 DC Teaching ED 07/28 1349 Polyethylene Glycol 17 GM DAILY PRN 07/27 0515 07/27 PO 0828 Potassium Chloride 40 MEQ Q20H 07/29 0945 07/29 Dextrose/Water 1,000 ML IV 1044 Ramelteon 8 MG QPM PRN 07/28 2030 AC 07/28 PO 2207 Senna 187 MG AT BEDTIME PRN 07/27 0515 AC PO Trimethobenzamide HCl 200 MG .STK-MED ONE 07/29 0401 DC IM 07/29 0402 Trimethobenzamide HCl 200 MG TID PRN 07/26 0900 AC 07/29 IM 0406 Results Last 24 Hours of Lab Results: Laboratory Tests 07/29 07/29 07/28 0350 0350 1830 Chemistry Sodium (137 - 145 mmol/L) 132 L Potassium (3.5 - 5.1 mmol/L) 3.6 Chloride (98 - 107 mmol/L) 94 L Carbon Dioxide (22 - 30 mmol/L) 27 Anion Gap (5 - 16) 11 BUN (7 - 17 mg/dL) 7 Creatinine (0.5 - 1.0 mg/dL) 0.6 Estimated GFR (>60 ml/min) > 60 BUN/Creatinine Ratio (7 - 25 %) 11.7 Magnesium (1.6 - 2.3 mg/dL) 1.4 L Troponin I (< 0.11 ng/ml) 0.11 *H Coagulation APTT Cancelled Hematology CBC w Diff NO MAN DIFF REQ WBC (4.8 - 10.8 /CUMM) 15.0 H RBC (4.20 - 5.40 /CUMM) 3.33 L Hgb (12.0 - 16.0 G/DL) 10.5 L Hct (37 - 47 %) 31.7 L MCV (81.0 - 99.0 FL) 95.1 MCH (27.0 - 31.0 PG) 31.4 H RDW (11.5 - 14.5 %) 15.9 H Plt Count (130 - 400 /CUMM) 291 MPV (7.4 - 10.4 FL) 8.2 Gran % (42.2 - 75.2 %) 80.6 H Lymphocytes % (20.5 - 51.1 %) 8.6 L Monocytes % (1.7 - 9.3 %) 9.3 Eosinophils % (0 - 5 %) 1.3 Basophils % (0.0 - 2.0 %) 0.2 Absolute Granulocytes (1.4 - 6.5 /CUMM) 12.1 H Absolute Lymphocytes (1.2 - 3.4 /CUMM) 1.3 Absolute Monocytes (0.10 - 0.60 /CUMM) 1.4 H Absolute Eosinophils (0.0 - 0.7 /CUMM) 0.2 Absolute Basophils (0.0 - 0.2 /CUMM) 0 PUBS MCHC (33.0 - 37.0 G/DL) 33.0 Assessment/Plan Assessment/Recommendations: Mrs. Bolton is a 55-year-old female with history of HTN, HLD, COPD, GERD, IBS, chronic back pain with a neurostimulator, DVT with IVC filter and on apixaban, right arm fracture, and every day smoker who presented to the hospital with left facial drooping, slurred speech, and left-sided weakness. Due to concern for stroke, she came to the hospital. Initial CT head demonstrated no acute hemorrhage. Repeat scan on 07/24/2016 demonstrated acute ischemic changes within the right middle cerebral artery territory without hemorrhagic transformation. She is currently on heparin drip without bolus. Given her significant clot burden, it is reasonable to continue anticoagulation and monitor for signs and symptoms of hemorrhagic conversion. She is currently transitioned to enoxaparin. Pathology from the left lymph node biopsy is pending but prelim is likely NSCLC. She has a non-specific left mildly FDG avid lesion (SUV 2.5) in the marrow on the left proximal femur on PET scan but his may be secondary to possible ? trauma. 1. Follow up pathology result 2. Monitor for bleeding with enoxaparin 3. Monitor closely for neurological changes Please call [phone] with any questions or concerns. Problem List: 1. Mass of left lung 2. Left leg DVT 3. Acute CVA (cerebrovascular accident) 4. PE (pulmonary thromboembolism)
[2016-07-29 19:05] VITALS: BP 152/70
--- NOTE | 2016-07-29 22:23 | RADIOLOGY REPORT ---
EXAMINATION: XR SHOULDER, RIGHT CLINICAL INFORMATION: Right humeral fracture. COMPARISON: X-ray right shoulder dated 07/06/2016 TECHNIQUE: AP and scapular Y view of the right shoulder. FINDINGS: None displaced right humeral neck fracture. There is shaft width anterior displacement of the distal fragment. Humeral head maintains articulation with the glenoid. Small ossific/calcific density noted adjacent to the glenoid. Visualized right ribs are intact. Visualized scapula also appears to be intact. IMPRESSION: Humeral neck fracture with anterior displacement of the humeral shaft.
[2016-07-29 23:15] VITALS: BP 124/78
--- NOTE | 2016-07-30 07:12 | PN- Housestaff ---
RADHA GOEL,SHEFALI 07/30/16 0712: Subjective Follow-up For: Right MCA infarct deep vein thrombosis and multiple embolization to the lungs Right humerus fracture Complaints: pain in the right humerus, neck, back Tele-Events Since Last Visit: Off telemetry Subjective: Patient was seen and examined at the bedside. She was complaining of pain in her right femur is 10/10, pain in the Neck 8/10, pain in the back. She was also complaining of craving for smoking cigarettes. We discussed about the side effects, cigarettes. We advised to stop smoking. Denies headache, nausea, vomiting, chest pain, shortness of breath. Review of Systems Constitutional: Reports: weakness. Denies: chills, diaphoresis, fever, malaise. Cardiovascular: Denies: chest pain, edema, orthopena, palpitations. Respiratory: Reports: cough. Denies: hemoptysis, orthopnea, short of breath, sputum production. Gastrointestinal: Denies: abdominal pain, bloating, constipation, diarrhea, distention, bowel incontinence, melena. Genitourinary: Denies: discharge, dysuria, frequency, hematuria. Musculoskeletal: Reports: back pain, joint pain, neck pain. Denies: gout, joint swelling. Skin: Reports: change in skin color, erythema. Neurological/Psychological: Reports: anxiety, depressed, unable to move upper ext. Denies: headache, unable to move lower ext. Objective Last 24 Hrs of Vital Signs/I&O Vital Signs Date Time Temp Pulse Resp B/P Pulse O2 O2 Flow FiO2 Ox Delivery Rate 07/30 1627 98.8 100 18 112/68 92 Room Air 07/30 1008 95 Nasal 2.0L Cannula 07/30 0906 98.6 108 20 110/60 98 Nasal Cannula 07/30 0800 Nasal 2.0L Cannula 07/30 0000 Nasal 2.0L Cannula 07/29 2315 98.3 80 18 124/78 97 Nasal 2.0L Cannula 07/29 2044 936 Nasal 2.0L Cannula Intake & Output 07/30 1600 07/30 0800 07/30 0000 Intake Total 620 100 500 Output Total 200 400 200 Balance 420 -300 300 Intake, IV 0 20 Intake, Oral 620 100 480 Number 0 Bowel Movements Output, Urine 200 400 200 Physical Exam General Appearance: Alert, Oriented X3, Cooperative, No Acute Distress Skin: areas of ecchymotic lesions on the upper limbs HEENT: Atraumatic, PERRLA, EOMI Cardiovascular: Regular Rate, Normal S1, Normal S2 Lungs: Clear to Auscultation, Normal Air Movement Abdomen: Soft, No Tenderness Neurological: Normal Speech, right upper limb 2/5, rest of the limbs 5/5, left facial droop, Extremities: No Clubbing, No Cyanosis, No Edema Vascular: Normal Pulses, Pulses Symmetrical Current Medications: Current Medications Sig/Ida Start time Last Medication Dose Route Stop Time Status Admin Acetaminophen 1,000 MG Q6P PRN 07/23 1815 AC 07/29 IV 0527 Albuterol Sulfate 3 ML TID 07/26 2200 AC 07/30 INH 1322 Bisacodyl 5 MG DAILY 07/29 1751 AC 07/30 PO 0936 Diclofenac Sodium 1 KWADWO Q4P PRN 07/23 1815 AC 07/24 TOP 0310 Enoxaparin Sodium 50 MG BID 07/29 1000 AC 07/30 SC 0936 Glycerin 2 SPRAY Q2P PRN 07/25 0845 AC PO Haloperidol 1 MG Q12 PRN 07/28 2030 AC PO Hydromorphone HCl 0.5 MG Q4P PRN 07/23 1815 DC 07/30 IV 0540 Ipratropium [place] 2.5 ML TID 07/26 2200 AC 07/30 INH 1322 Lorazepam 0.5 MG Q6-PRN PRN 07/25 0945 AC 07/30 PO 08/01 0931 1824 Magnesium Chloride 64 MG BID 07/28 2200 AC 07/30 PO 0936 Morphine Sulfate 30 MG BID 07/30 2200 AC PO Morphine Sulfate 15 MG Q4P PRN 07/30 1030 AC 07/30 PO 1635 Morphine Sulfate 15 MG ONCE ONE 07/30 1030 DC 07/30 PO 07/30 1031 1124 Morphine Sulfate 15 MG BID 07/29 2200 DC 07/30 PO 0935 Morphine Sulfate 2 MG Q4P PRN 07/23 1815 DC 07/30 IV 0830 Nicotine 7 MG DAILY 07/28 1130 AC 07/30 TOP 0935 Polyethylene Glycol 17 GM DAILY PRN 07/27 0515 AC 07/27 PO 0828 Ramelteon 8 MG QPM PRN 07/28 2030 AC 07/28 PO 2207 Senna 187 MG AT BEDTIME PRN 07/27 0515 AC PO Trimethobenzamide HCl 200 MG .STK-MED ONE 07/30 0641 DC IM 07/30 0642 Trimethobenzamide HCl 200 MG .STK-MED ONE 07/29 2145 DC IM 07/29 2146 Trimethobenzamide HCl 200 MG TID PRN 07/26 0900 AC 07/30 IM 0644 Last 24 Hrs of Lab/[place] Results Last 24 Hrs of Labs/Mics: Laboratory Tests 07/30/16 1315: Urinalysis LIGHT H, Urine Color ORANG H, Urine Clarity HAZY H, Urine pH 6.0, Ur Specific [place] 1.025, Urine Protein 30 H, Urine Ketones TRACE H, Urine Nitrite NEG, Urine Bilirubin NEG@ICTO, Urine Urobilinogen 1.0, Ur Leukocyte Esterase SMALL H, Ur Microscopic SEDIMENT EXAMINED, Urine RBC 15-25 H, Urine WBC 50-75 H, Ur Epithelial Cells FEW, Urine Bacteria MOD H, Urine Mucus FEW, Micro UA Comment [place] H, Urine Hemoglobin LARGE H, Urine Glucose NEG Microbiology 07/30 1315 URINE ROUT: Urine Culture - RECD Assessment/Plan Assessment: 55-year-old female with past medical history significant for hypertension, hyperlipidemia, COPD, GERD, IBS (diarrhea type), chronic back pain with neurostimulator in place, DVT s/p IVC filter, on eliquis and aspirin, who presents to the ED for evaluation of left facial droop. In addition to left facial droop, she also has left sided weakness, dysphagia, left visual field defect, with CT showing acute ischemic changes within the right middle cerebral artery territory. Carotid ultrasound shows bilateral carotid stenosis in the range of 50-79% on the left and less than 50% on the right. She was found to have bilateral PE, despite being on eliquis. She was started on IV heparin. Problem list: Right MCA infarct with left sided facial droop, left sided weakness, dysphagia, left visual field defect Acute pulmonary embolism Demand ischemia Suspected lung cancer Right humerus fracture Anxiety Chronic back/Neck pain DVT/PE,on IVC filter Plan - Acute pulmonary embolism * We will continue injection, Lovenox 50mg BID according to the weight * Watch for bleeding Suspected lung cancer * Provisional diagnosis of the lymph node biopsy as, non-small cell lung cancer, we will get the final report tomorrow on 07/31/2016. * Lymph node specimen was negative for monoclonal non-Hodgkin's B cell lymphoproliferative disease in the lymph node. * Discussed with Dr. Falcon/radiologist/Dr. Soto, about the requirement of CT of the left femur, to rule out metastasis -and later it was decided not to do it , because it will not change control analyst even it is positive. It was also thought that Bone scan is much better option than CT of left femur. * family doesnt want to go further with the treatment and more towards hospice care at home. COPD * TRC/nebs, ipratropium and albuterol Right MCA infarct with left sided facial droop, left sided weakness, dysphagia, left visual field defect. * CT with IV contrast did not show brain mets * ST,OT,PT * Cannot get MRI due to incompatibility of neurostimulator * Tigan if needed Demand ischemia * On heparin * Patient's recovering we stopped telemetry monitoring Anxiety * Ativan 0.5 mg q6p ordered * Addded rozeron 8mg for sleep * Also added Haloperidol 1mg IM as needed for anxiety * 5mg melatonin at bedtime Chronic back pain/ neck pain and right arm pain - * We started patient on tablet MS Contin 50 mgs BID and Morphine IR for regular pain if needed. Right humeral fracture * Pain management according to pain protocol * We will follow orthopedics rcms * Discussed with Dr chinchilla over phone(07/29/2016), he advise to support shoulder with sling.No active intervention is required. Hymagnesemia - * Tab Magnesium 65 mg BID * We will recheck it regulary Hypokalemia * We will regularly measure it and supplement accordingly Diet -heart healthy diet -Puree/nectar thick liquid DVT prophylaxis -Lovenox CODE STATUS -full code Problem List: 1. PE (pulmonary thromboembolism) 2. Acute CVA (cerebrovascular accident) 3. Mass of left lung 4. Hypomagnesemia 5. Hypokalemia Pain Ratin Pain Location: neck, back, right humerous Pain Goal: Remain pain free Pain Plan: moderate to severe Tomorrow's Labs & Rationales: BEP, Mg - for Hypokalemia/hypomagnesemia DVT/Prophylaxis: mechanical, pharmacological BENTON SOTO MD 07/30/16 8251: Attending Review Statement Attending Statement Attending Statement: examined this patient, discuss w/resident/PA/SINTER FEEDER, agreed w/resident/PA/SINTER FEEDER, reviewed EMR data (avail), discussed with nursing, discussed with case mgmt, reviewed images, amended to note Attending Assessment/Plan: The patient was seen and discussed with house staff. Reviewed prior PET/CT with musculoskeletal radiologist and mild asymmetric uptake of F-18 FDG in proximal left femur is non-specific and there would be no additional information from repeating CT of this area. Oncology considering chem/radiation therapy, however family may prefer home Hospice care. Should have final biopsy result from left SC node tomorrow and will discuss again with family/oncology.
--- NOTE | 2016-07-30 07:56 | PN- Oncology ---
Subjective Subjective: She denies any new pain. She has no fever or chills. Breathing is stable. Review of Systems Constitutional: Reports: weakness. Denies: chills, fever. Cardiovascular: Denies: chest pain. Respiratory: Reports: short of breath. Gastrointestinal: Denies: abdominal pain. Musculoskeletal: Reports: back pain, joint pain, muscle pain, neck pain. Neurological/Psychological: Reports: anxiety. Hematologic/Endocrine: Denies: bleeding. All Other Systems: Reviewed and Negative Objective Vital Signs and I&Os Vital Signs Date Time Temp Pulse Resp B/P Pulse O2 O2 Flow FiO2 Ox Delivery Rate 07/30 0000 Nasal 2.0L Cannula 07/29 2315 98.3 80 18 124/78 97 Nasal 2.0L Cannula 07/29 2044 936 Nasal 2.0L Cannula 07/29 1600 Nasal 2.0L Cannula 07/29 1345 Room Air Room Air 07/29 0838 97.9 86 18 114/54 96 Nasal 2.0L Cannula 07/29 0800 Nasal 2.0L Cannula 07/29 0758 95 Nasal 2.0L Cannula Intake & Output 07/30 0800 07/30 0000 07/29 1600 07/29 0800 07/29 0000 07/28 1600 Intake Total 100 500 440 150 252.6 152.5 Output Total 400 200 350 300 525 250 Balance -300 300 90 -150 -272.4 -97.5 Intake, IV 0 20 200 0 92.6 32.5 Intake, Oral 100 480 240 150 160 120 Number 0 0 0 Bowel Movements Output, Urine 400 200 350 300 525 250 Physical Exam General Appearance: alert, awake, comfortable Head: atraumatic, ecchymosis on righ maxilla Ears, Nose, Throat: on 2L NC Respiratory: normal breath sounds, chest non-tender, decreased breath sounds, crackles Cardiovascular: regular rate/rhythm Abdomen: normal bowel sounds, soft, non-tender Extremities: no edema, right shoulder with sling in place, protrusion of right shoulder Neurologic/Psychiatric: alert, oriented x 3, slight left facial drooping. left arm strength 0/5. left leg strength 2/5 Current Medications: Current Medications Sig/Ida Start time Last Medication Dose Route Stop Time Status Admin Acetaminophen 1,000 MG Q6P PRN 07/23 1815 AC 07/29 IV 0527 Albuterol Sulfate 3 ML TID 07/26 2199 AC 07/29 INH 2016 Bisacodyl 5 MG DAILY 07/29 1751 AC 07/29 PO 1918 Diclofenac Sodium 1 KWADWO Q4P PRN 07/23 1815 AC 07/24 TOP 0310 Enoxaparin Sodium 50 MG BID 07/29 1000 AC 07/29 SC 2259 Enoxaparin Sodium 55 MG BID 07/28 1500 DC 07/28 SC 2207 Glycerin 2 SPRAY Q2P PRN 07/25 0845 AC PO Haloperidol 1 MG Q12 PRN 07/28 2030 AC PO Hydromorphone HCl 0.5 MG Q4P PRN 07/23 1815 AC 07/30 IV 0540 Ipratropium [place] 2.5 ML TID 07/26 2200 AC 07/29 INH 2014 Lorazepam 0.5 MG Q6-PRN PRN 07/25 0945 AC 07/30 PO 08/01 0931 0540 Magnesium Chloride 64 MG BID 07/28 2200 AC 07/29 PO 2138 Magnesium Sulfate 1 GM ONCE ONE 07/29 0930 DC 07/29 Dextrose/Water 100 ML IV 07/29 1329 1026 Morphine Sulfate 15 MG BID 07/29 2200 07/29 PO 2259 Morphine Sulfate 2 MG Q4P PRN 07/23 1815 07/29 IV 2139 Nicotine 7 MG DAILY 07/28 1130 07/29 TOP 1026 Patient Medication 1 ED .STK-MED ONE 07/29 1354 [place] Teaching ED 07/29 1355 Patient Medication 1 ED .STK-MED ONE 07/29 1351 [place] Teaching ED 07/29 1352 Polyethylene Glycol 17 GM DAILY PRN 07/27 0515 07/27 PO 0828 Potassium Chloride 40 MEQ ONCE ONE 07/29 1500 DC 07/29 PO 07/29 1501 1746 Potassium Chloride 40 MEQ Q20H 07/29 0945 [place] 07/29 Dextrose/Water 1,000 ML IV 1044 Ramelteon 8 MG QPM PRN 07/28 2030 AC 07/28 PO 2207 Senna 187 MG AT BEDTIME PRN 07/27 0515 AC PO Trimethobenzamide HCl 200 MG .STK-MED ONE 07/29 2145 DC IM 07/29 2146 Trimethobenzamide HCl 200 MG TID PRN 07/26 0900 AC 07/30 IM 0644 Assessment/Plan Assessment/Recommendations: Mrs. Bolton is a 55-year-old female with history of HTN, HLD, COPD, GERD, IBS, chronic back pain with a neurostimulator, DVT with IVC filter and on apixaban, right arm fracture, and every day smoker who presented to the hospital with left facial drooping, slurred speech, and left-sided weakness. Due to concern for stroke, she came to the hospital. Initial CT head demonstrated no acute hemorrhage. Repeat scan on 07/24/2016 demonstrated acute ischemic changes within the right middle cerebral artery territory without hemorrhagic transformation. Given her significant clot burden, she was started on heparin drip and transition to enoxaparin. She seems to have thrombosis while on apixaban. She has been monitored closely without any evidence of hemorrhagic conversion of stroke. She has had her left supraclavicular lymph node biopsied. She has not other site of obvious metastatic disease except for a non-specific left mildly FDG avid lesion (SUV 2.5) in the marrow on the left proximal femur on PET scan but his may be secondary to possible ? trauma from her fall. Patient does not remember any trauma to the area. This area did not have any CT correlated lesion. This may need to be re-evaluated with a dedicated CT scan. Prelim from biopsy is non-small cell carcinoma. Given current findings, she should be at stage IIIB if lung cancer. Therapeutic option would be concurrent definitive chemoradiation. I'm not too sure she can tolerate concurrent chemotherapy. She may be a candidate for radiation followed by chemotherapy. 1. CT of left femur for ? metastatic disease 2. Follow up pathology result 3. Monitor for bleeding with enoxaparin 4. Pending pathology, will likely need radiation oncology evaluation Please call [phone] with any questions or concerns. Problem List: 1. PE (pulmonary thromboembolism) 2. Acute CVA (cerebrovascular accident) 3. Mass of left lung 4. Left leg DVT
[2016-07-30 08:00] VITALS: BP 140/72
[2016-07-30 09:06] VITALS: BP 110/60
[2016-07-30 16:27] VITALS: BP 112/68
--- NOTE | 2016-07-30 19:43 | NUR ---
Referral received yesterday from skilled nursing case manager, Constance Thompson. The patient is an unfortunate 55 year old woman, admitted to the hospital on 07/23/16 2ith an ischemic CVA. This in the setting of lung cancer and a recent fall with shoulder injury needing orthopedic intervention. Reason for referral was to meet with patients daughter and discuss social security disability aplication process. Met with daughter nAabela, yesterday. Reviewed process for social security application process, etc. She verbalizes understanding. Uncertain dispo plan at this time. Follow and support case managements effort for safe plan.
[2016-07-31 00:28] VITALS: BP 98/60
[2016-07-31 08:04] VITALS: BP 102/78
--- NOTE | 2016-07-31 08:23 | PN- Housestaff ---
RADHA GOEL,SHEFALI 07/31/16 0823: Subjective Follow-up For: Right MCA infarct deep vein thrombosis and multiple embolization to the lungs Right humerus fracture Complaints: pain is improved Tele-Events Since Last Visit: Off telemetry Subjective: Patient was seen and examined at the bedside. Denies headache, nausea, vomiting, chest pain, shortness of breath, any new weakness in the body. Review of Systems Constitutional: Denies: no symptoms. Cardiovascular: Denies: no symptoms. Respiratory: Denies: no symptoms. Gastrointestinal: Denies: no symptoms. Genitourinary: Denies: no symptoms. Musculoskeletal: Reports: back pain, joint pain, neck pain. Skin: Reports: erythema. Neurological/Psychological: Reports: anxiety, depressed, unable to move upper ext. Objective Last 24 Hrs of Vital Signs/I&O Vital Signs Date Time Temp Pulse Resp B/P Pulse O2 O2 Flow FiO2 Ox Delivery Rate 07/31 1640 97.7 109 20 102/66 95 Nasal 2.0L Cannula 07/31 1249 Room Air Room Air 07/31 1059 97 Room Air 07/31 0804 97.9 102 20 102/78 95 Nasal 1.0L Cannula 07/31 0800 Nasal 2.0L Cannula 07/31 0028 98.1 100 20 98/60 97 Nasal 1.0L Cannula 07/31 0000 Nasal 2.0L Cannula 07/30 1930 88 Room Air Intake & Output 07/31 1600 07/31 0800 07/31 0000 Intake Total 200 250 Output Total 110 350 100 Balance -110 -150 150 Intake, IV 0 0 Intake, Oral 200 250 Number 0 0 Bowel Movements Output, Urine 110 350 100 Physical Exam General Appearance: Alert, Oriented X3, Cooperative, No Acute Distress Skin: ecchymotic patches on both hands Cardiovascular: Normal S1, Normal S2 Lungs: Clear to Auscultation, Normal Air Movement Abdomen: Soft, No Tenderness Neurological: slurred speech, although comprehensible, Extremities: No Clubbing, No Cyanosis, No Edema Vascular: Normal Pulses, Pulses Symmetrical Current Medications: Current Medications Sig/Ida Start time Last Medication Dose Route Stop Time Status Admin Acetaminophen 1,000 MG Q6P PRN 07/23 1815 AC 07/29 IV 0527 Albuterol Sulfate 3 ML TID 07/26 2200 AC 07/31 INH 1056 Bisacodyl 5 MG DAILY 07/29 1751 AC 07/31 PO 0859 Diclofenac Sodium 1 KWADWO Q4P PRN 07/23 1815 AC 07/24 TOP 0310 Enoxaparin Sodium 50 MG BID 07/29 1000 AC 07/31 SC 0900 Glycerin 2 SPRAY Q2P PRN 07/25 0845 AC PO Haloperidol 1 MG Q12 PRN 07/28 2030 AC PO Ipratropium [place] 2.5 ML TID 07/26 2200 AC 07/31 INH 1108 Lorazepam 0.5 MG Q6-PRN PRN 07/25 0945 AC 07/31 PO 08/01 0931 1201 Magnesium Chloride 64 MG BID 07/28 2200 AC 07/31 PO 0859 Morphine Sulfate 30 MG BID 07/30 2200 AC 07/31 PO 0900 Morphine Sulfate 15 MG Q4P PRN 07/30 1030 AC 07/31 PO 1307 Nicotine 14 MG DAILY 07/31 1000 AC 07/31 TOP 0859 Nicotine 7 MG DAILY 07/28 1130 DC 07/30 TOP 0935 Patient Medication 1 ED .STK-MED ONE 07/31 1355 OK Teaching ED 07/31 1356 Polyethylene Glycol 17 GM DAILY PRN 07/27 0515 AC 07/27 PO 0828 Ramelteon 8 MG QPM PRN 07/28 2030 AC 07/28 PO 2207 Senna 187 MG AT BEDTIME PRN 07/27 0515 AC PO Trimethobenzamide HCl 200 MG TID PRN 07/26 0900 AC 07/31 IM 1201 Last 24 Hrs of Lab/[place] Results Last 24 Hrs of Labs/Mics: Laboratory Tests 07/31/16 0915: Anion Gap 7, Estimated GFR > 60, BUN/Creatinine Ratio 11.7 Assessment/Plan Assessment: 55-year-old female with past medical history significant for hypertension, hyperlipidemia, COPD, GERD, IBS (diarrhea type), chronic back pain with neurostimulator in place, DVT s/p IVC filter, on eliquis and aspirin, who presents to the ED for evaluation of left facial droop. In addition to left facial droop, she also has left sided weakness, dysphagia, left visual field defect, with CT showing acute ischemic changes within the right middle cerebral artery territory. Carotid ultrasound shows bilateral carotid stenosis in the range of 50-79% on the left and less than 50% on the right. She was found to have bilateral PE, despite being on eliquis. She was started on IV heparin. Problem list: Right MCA infarct with left sided facial droop, left sided weakness, dysphagia, left visual field defect Acute pulmonary embolism Demand ischemia Suspected lung cancer Right humerus fracture Anxiety Chronic back/Neck pain DVT/PE,on IVC filter Plan - Acute pulmonary embolism * We will continue inj Lovenox 50 mgs BID according to the weight * Watch for bleeding Suspected lung cancer * Lymph node biopsies showed (07/31/3016) non-small cell lung cancer. * Lymph node specimen is negative for any markers for non-Hodgkin's lymphoma * Dr Penn discussed with the family about the goal of care in detail. Later family decided to change the code status to DNR/DNI(07/21/2016) * On 07/31/16, family discussion was done and it was decided to start patient on chemotherapy and radiotherapy as an outpatient. She will need STR placement. COPD * TRC/nebs, ipratropium and albuterol Right MCA infarct with left sided facial droop, left sided weakness, dysphagia, left visual field defect. * CT with IV contrast did not show brain mets * ST,OT,PT * Cannot get MRI due to incompatibility of neurostimulator * Should evaluate for ASD/VSD * Tigan if needed Demand ischemia * On heparin * Patient's recovering we stopped telemetry monitoring Anxiety * Ativan 0.5 mg q6p ordered * Addded rozeron 8mg for sleep * Also added Haloperidol 1mg IM as needed for anxiety * 5mg melatonin at bedtime Chronic back pain * We added Tab MS contin 30mg BID * Consider fentanyl patch Right humeral fracture * Pain management according to pain protocol * Discussed with Dr chinchilla over phone, he advised to support shoulder with sling.No active intervention is required. He will come and see the patient in evening. Hypomagnesemia - * Tab Magnesium 65 mg BID * We will recheck it regulary Hypokalemia -recovered Diet -heart healthy diet -Puree/nectar thick liquid DVT prophylaxis -Lovenox CODE STATUS -full code Problem List: 1. PE (pulmonary thromboembolism) 2. Acute CVA (cerebrovascular accident) 3. Mass of left lung 4. Non-small cell lung cancer Pain Ratin Pain Location: right humerouse, neck, back Pain Goal: Remain pain free Pain Plan: mild - moderate Tomorrow's Labs & Rationales: not required,as consistantly have low Mg DVT/Prophylaxis: mechanical, pharmacological MARY PENN MD 07/31/16 1146: Attending MD Review Statement Attending Statement Attending MD Statement: examined this patient, discuss w/resident/PA/VERIFYING SPECIALIST, agreed w/resident/PA/VERIFYING SPECIALIST, reviewed EMR data (avail) Attending Assessment/Plan: 55F PMH hypertension, hyperlipidemia, COPD, GERD, IBS (diarrhea type), chronic back pain with neurostimulator in place, DVT s/p IVC filter, on eliquis and aspirin admitted for acute ischemic stroke, acute bilateral pulmonary emboli, and evidence of new lung cancer with preliminary pathology showing NSCLC. Patient reports that her shoulder pain and her overall pain is improved since started long acting Morphine. She still has pain but is happy with her pain level at this time, and does not wish for an increased dose as it will make her too sleepy. She slept well, is eating well. Family and patient discussions have led to a decision to continue DNR/DNI. Central lines and feeding tubes are permitted. The patient will consider hospice, and has not yet decided if she wishes to pursue treatment for her malignancy. Plan - Discontinue telemetry - Continue Lovenox - Continue MS-contin 30mg BID and MS-IR 15mg PRN - Continue Ativan PRN for anxiety - Bowel regimen to prevent opioid induced constipation - Follow oncology and pulmonary recommendations - Will continue goals of care discussions. Patient can be discharged to [facility] pending decision about treatment goals.
--- NOTE | 2016-07-31 10:05 | PN- Pulmonary ---
Subjective HPI/Critical Care Issues: The patient is awake and alert. She reports feeling improved overall. Her pain is now well controlled. She denies any increased shortness of breath, cough, chest congestion, sputum, hemoptysis, fever or chills. She denies any new complaints today. Objective Current Medications: Current Medications Sig/Ida Start time Last Medication Dose Route Stop Time Status Admin Acetaminophen 1,000 MG Q6P PRN 07/23 1815 AC 07/29 IV 0527 Albuterol Sulfate 3 ML TID 07/26 2200 AC 07/30 INH 1322 Bisacodyl 5 MG DAILY 07/29 1751 AC 07/31 PO 0859 Diclofenac Sodium 1 KWADWO Q4P PRN 07/23 1815 AC 07/24 TOP 0310 Enoxaparin Sodium 50 MG BID 07/29 1000 AC 07/31 SC 0900 Glycerin 2 SPRAY Q2P PRN 07/25 0845 AC PO Haloperidol 1 MG Q12 PRN 07/28 2030 AC PO Hydromorphone HCl 0.5 MG Q4P PRN 07/23 1815 DC 07/30 IV 0540 Ipratropium [place] 2.5 ML TID 07/26 2200 AC 07/30 INH 1322 Lorazepam 0.5 MG Q6-PRN PRN 07/25 0945 AC 07/31 PO 08/01 0931 0600 Magnesium Chloride 64 MG BID 07/28 2200 AC 07/31 PO 0859 Morphine Sulfate 30 MG BID 07/30 2200 AC 07/31 PO 0900 Morphine Sulfate 15 MG Q4P PRN 07/30 1030 AC 07/31 PO 0900 Morphine Sulfate 15 MG ONCE ONE 07/30 1030 DC 07/30 PO 07/30 1031 1124 Morphine Sulfate 15 MG BID 07/29 2200 DC 07/30 PO 0935 Morphine Sulfate 2 MG Q4P PRN 07/23 1815 DC 07/30 IV 0830 Nicotine 14 MG DAILY 07/31 1000 AC 07/31 TOP 0859 Nicotine 7 MG DAILY 07/28 1130 DC 07/30 TOP 0935 Polyethylene Glycol 17 GM DAILY PRN 07/27 0515 AC 07/27 PO 0828 Ramelteon 8 MG QPM PRN 07/28 2030 AC 07/28 PO 2207 Senna 187 MG AT BEDTIME PRN 07/27 0515 AC PO Trimethobenzamide HCl 200 MG TID PRN 07/26 0900 AC 07/30 IM 0644 Vital Signs & I&O Last 24 Hrs of Vitals and I&O: Vital Signs Date Time Temp Pulse Resp B/P Pulse O2 O2 Flow FiO2 Ox Delivery Rate 07/31 0804 97.9 102 20 102/78 95 Nasal 1.0L Cannula 07/31 0028 98.1 100 20 98/60 97 Nasal 1.0L Cannula 07/31 0000 Nasal 2.0L Cannula 07/30 1930 88 Room Air 07/30 1627 98.8 100 18 112/68 92 Room Air 07/30 1008 95 Nasal 2.0L Cannula Intake & Output 07/31 1600 07/31 0800 07/31 0000 Intake Total 200 250 Output Total 350 100 Balance -150 150 Intake, IV 0 0 Intake, Oral 200 250 Number 0 0 Bowel Movements Output, Urine 350 100 Physical Exam General Appearance: no apparent distress, alert, awake, comfortable Head: normal appearance Eyes: PERRL Neck: supple Respiratory: chest non-tender, quiet respiration Cardiovascular: regular rate/rhythm Extremities: no edema Neurologic/Psych: awake, alert, oriented, facial droop, motor weakness, left sided weakness, upper greater than lower extremity, improving Results Last 24 Hrs of Lab Results: Laboratory Tests 07/31/16 0915: Sodium Pending, Potassium Pending, Chloride Pending, Carbon Dioxide Pending, Anion Gap Pending, BUN Pending, Creatinine Pending, BUN/Creatinine Ratio Pending 07/30/16 1315: Urinalysis LIGHT H, Urine Color ORANG H, Urine Clarity HAZY H, Urine pH 6.0, Ur Specific [place] 1.025, Urine Protein 30 H, Urine Ketones TRACE H, Urine Nitrite NEG, Urine Bilirubin NEG@ICTO, Urine Urobilinogen 1.0, Ur Leukocyte Esterase SMALL H, Ur Microscopic SEDIMENT EXAMINED, Urine RBC 15-25 H, Urine WBC 50-75 H, Ur Epithelial Cells FEW, Urine Bacteria MOD H, Urine Mucus FEW, Micro UA Comment BUDDING YEAST H, Urine Hemoglobin LARGE H, Urine Glucose NEG Impression/Plan Impression/Plan Impression/Plan: 1. Acute right-sided ischemic stroke. 2. Bilateral pulmonary emboli in segmental and subsegmental pulmonary arteries, right greater than left, with evidence of pulmonary infarcts. 3. Left lower extremity DVT, now on IV heparin, status post IVC filter placement. 4. Increasing lung mass, mediastinal and hilar lymphadenopathy, and left clavicular lymph node, all suspicious for advancing metastatic lung cancer. 5. Elevated troponin - cardiology consulted. 6. Mild leukocytosis, likely secondary to stress. There is no obvious source of infection at present. 7. Displaced right humerus fracture which will require surgical intervention. 8. History of COPD, currently stable. 9. History of chronic back pain. 10. Chronic constipation. Recommendations: * Please check a CT scan of the brain with IV contrast to rule out metastatic disease. * Follow up biopsy results. * Maintain the patient on aspiration precautions. * Continue the patient on pain pathway. * Monitor strict I's and O's. * Continue Symbicort twice daily and when necessary albuterol. * DVT prophylaxis - on IV heparin. * Once the biopsy results are available, will follow up and make further recommendations.
--- NOTE | 2016-07-31 12:33 | PN- Oncology ---
Subjective Subjective: She denies any new symptoms. Review of Systems: Constitutional: Reports: weakness but stable. Denies: chills, fever. Cardiovascular: Denies: chest pain. Respiratory: Reports: short of breath but stable. Gastrointestinal: Denies: abdominal pain. Musculoskeletal: Reports: back pain, joint pain, muscle pain, neck pain. Neurological/Psychological: Reports: anxiety. Hematologic/Endocrine: Denies: bleeding. All Other Systems: Reviewed and Negative Objective Vital Signs and I&Os Vital Signs Date Time Temp Pulse Resp B/P Pulse O2 O2 Flow FiO2 Ox Delivery Rate 07/31 1059 97 Room Air 07/31 0804 97.9 102 20 102/78 95 Nasal 1.0L Cannula 07/31 0800 Nasal 2.0L Cannula 07/31 0028 98.1 100 20 98/60 97 Nasal 1.0L Cannula 07/31 0000 Nasal 2.0L Cannula 07/30 1930 88 Room Air 07/30 1627 98.8 100 18 112/68 92 Room Air Intake & Output 07/31 1600 07/31 0800 07/31 0000 07/30 1600 07/30 0800 07/30 0000 Intake Total 200 250 620 100 500 Output Total 350 100 200 400 200 Balance -150 150 420 -300 300 Intake, IV 0 0 0 20 Intake, Oral 200 250 620 100 480 Number 0 0 0 Bowel Movements Output, Urine 350 100 200 400 200 Physical Exam: General Appearance: alert, awake, comfortable Head: atraumatic, ecchymosis on righ maxilla Ears, Nose, Throat: on 2L NC Respiratory: normal breath sounds, chest non-tender, decreased breath sounds, crackles Cardiovascular: regular rate/rhythm Abdomen: normal bowel sounds, soft, non-tender Extremities: no edema, right shoulder with sling in place, protrusion of right shoulder Neurologic/Psychiatric: alert, oriented x 3, slight left facial drooping. left arm strength 0/5. left leg strength 2/5 Current Medications: Current Medications Sig/Ida Start time Last Medication Dose Route Stop Time Status Admin Acetaminophen 1,000 MG Q6P PRN 07/23 1814 AC 07/29 IV 0527 Albuterol Sulfate 3 ML TID 07/26 2200 AC 07/31 INH 1056 Bisacodyl 5 MG DAILY 07/29 1751 AC 07/31 PO 0859 Diclofenac Sodium 1 KWADWO Q4P PRN 07/23 1814 AC 07/24 TOP 0310 Enoxaparin Sodium 50 MG BID 07/29 1000 AC 07/31 SC 0900 Glycerin 2 SPRAY Q2P PRN 07/25 0845 AC PO Haloperidol 1 MG Q12 PRN 07/28 2030 AC PO Ipratropium [place] 2.5 ML TID 07/26 220 AC 07/31 INH 1108 Lorazepam 0.5 MG Q6-PRN PRN 07/25 0945 AC 07/31 PO 08/01 0931 1201 Magnesium Chloride 64 MG BID 07/28 220 AC 07/31 PO 0859 Morphine Sulfate 30 MG BID 07/30 2200 AC 07/31 PO 0900 Morphine Sulfate 15 MG Q4P PRN 07/30 1030 AC 07/31 PO 0900 Nicotine 14 MG DAILY 07/31 1000 AC 07/31 TOP 0859 Nicotine 7 MG DAILY 07/28 1130 DC 07/30 TOP 0935 Polyethylene Glycol 17 GM DAILY PRN 07/27 0515 AC 07/27 PO 0828 Ramelteon 8 MG QPM PRN 07/28 2029 AC 07/28 PO 2207 Senna 187 MG AT BEDTIME PRN 07/27 0515 AC PO Trimethobenzamide HCl 200 MG TID PRN 07/26 0900 AC 07/31 IM 1201 Results Last 24 Hours of Lab Results: Laboratory Tests 07/31 07/30 0915 1315 Chemistry Sodium (137 - 145 mmol/L) 131 L Potassium (3.5 - 5.1 mmol/L) 4.2 Chloride (98 - 107 mmol/L) 92 L Carbon Dioxide (22 - 30 mmol/L) 32 H Anion Gap (5 - 16) 7 BUN (7 - 17 mg/dL) 7 Creatinine (0.5 - 1.0 mg/dL) 0.6 Estimated GFR (>60 ml/min) > 60 BUN/Creatinine Ratio (7 - 25 %) 11.7 Urines Urinalysis LIGHT H Urine Color (YEL,AMB,STR) ORANG H Urine Clarity (CLEAR) HAZY H Urine pH (5.0 - 8.0) 6.0 Ur Specific [place] (1.001 - 1.035) 1.025 Urine Protein (NEG,<30 MG/DL) 30 H Urine Ketones (NEG) TRACE H Urine Nitrite (NEG) NEG Urine Bilirubin (NEG) NEG@ICTO Urine Urobilinogen (0.1 - 1.0 EU/dl) 1.0 Ur Leukocyte Esterase (NEG) SMALL H Ur Microscopic SEDIMENT EXAMINED Urine RBC (0 - 5 /HPF) 15-25 H Urine WBC (0 - 2 /HPF) 50-75 H Ur Epithelial Cells (NONE,FEW) FEW Urine Bacteria (NEG/NONE) MOD H Urine Mucus (FEW,NONE) FEW Micro UA Comment BUDDING YEAST H Urine Hemoglobin (NEG) LARGE H Urine Glucose (N MG/DL) NEG Assessment/Plan Assessment/Recommendations: Mrs. Bolton is a 55-year-old female with history of HTN, HLD, COPD, GERD, IBS, chronic back pain with a neurostimulator, DVT with IVC filter and on apixaban, right arm fracture, and every day smoker who presented to the hospital with left facial drooping, slurred speech, and left-sided weakness. Due to concern for stroke, she came to the hospital. Initial CT head demonstrated no acute hemorrhage. Repeat scan on 07/24/2016 demonstrated acute ischemic changes within the right middle cerebral artery territory without hemorrhagic transformation. Given her significant clot burden, she was started on heparin drip and transition to enoxaparin. She seems to have thrombosis while on apixaban. She has been monitored closely without any evidence of hemorrhagic conversion of stroke. She can be continued on enoxaparin. Left supraclavicular lymph node biopsy is pending. She currently seems to have stage III disease if left femur lesion is nonspecific and lung primary. She would be a candidate for concurrent chemoradiation (single agent chemotherapy for radio-sensitization) versus palliative radiation. 1. Follow up pathology result to discuss options 2. Monitor for bleeding with enoxaparin Please call [phone] with any questions or concerns. Problem List: 1. PE (pulmonary thromboembolism) 2. Acute CVA (cerebrovascular accident) 3. Mass of left lung 4. Left leg DVT
[2016-07-31 16:40] VITALS: BP 102/66
[2016-07-31 22:00] VITALS: BP 110/70
--- NOTE | 2016-08-01 07:25 | PN- Housestaff ---
RADHA GOEL,SHEFALI 08/01/16 0724: Subjective Follow-up For: Right MCA infarct deep vein thrombosis and multiple embolization to the lungs Right humerus fracture NSCL cancer, will get chemotherapy/radiotherapy as an outpatient Complaints: pain in the neck, back, right humerus -12/11, Tele-Events Since Last Visit: Off telemetry Subjective: Patient seen and examined at the bedside. She was conscious, cooperative. She is still complaining of pain in the neck, back, right humerus. She states that pain medication helps for 3-4 hours. She also complaining of cough, but it did not bother her a lot. Denies any dizziness, chest pain, shortness of breath, new weakness in the body,bleeding from any site of the body. Review of Systems Constitutional: Reports: weakness. Cardiovascular: Denies: no symptoms. Respiratory: Reports: cough. Gastrointestinal: Reports: constipation. Genitourinary: Denies: no symptoms. Musculoskeletal: Reports: back pain, joint pain, neck pain. Skin: Reports: change in skin color, erythema. Neurological/Psychological: Reports: anxiety, depressed, unable to move upper ext, weakness. Objective Last 24 Hrs of Vital Signs/I&O Vital Signs Date Time Temp Pulse Resp B/P Pulse O2 O2 Flow FiO2 Ox Delivery Rate 08/01 0921 92 Room Air 08/01 0000 Nasal 2.0L Cannula 07/31 2200 97.6 80 20 110/70 95 Nasal 2.0L Cannula 07/31 1910 88 Room Air 07/31 1640 97.7 109 20 102/66 95 Nasal 2.0L Cannula 07/31 1600 Nasal 2.0L Cannula 07/31 1249 Room Air Room Air Intake & Output 08/01 1600 08/01 0800 08/01 0000 Intake Total 100 100 Output Total 200 300 Balance -100 -200 Intake, Oral 100 100 Output, Urine 200 300 Physical Exam General Appearance: Alert, Cooperative, No Acute Distress Skin: areas of ecchymosis on forearm and area of bluish discoloration in right middle arm Cardiovascular: Normal S1, Normal S2 Lungs: Clear to Auscultation, Normal Air Movement Abdomen: Soft, No Tenderness Neurological: comprehensible, able to make complete sentences, left facial droop , 1/10, and in left upper limb. Extremities: No Clubbing, No Cyanosis, No Edema Vascular: Normal Pulses, Pulses Symmetrical Current Medications: Current Medications Sig/Ida Start time Last Medication Dose Route Stop Time Status Admin Acetaminophen 1,000 MG Q6P PRN 07/23 1815 AC 07/29 IV 0527 Albuterol Sulfate 3 ML TID 07/26 2200 AC 08/01 INH 0918 Bisacodyl 10 MG ONCE ONE 08/01 1015 DC HI 08/01 1016 Bisacodyl 5 MG DAILY 07/29 1751 AC 08/01 PO 0954 Diclofenac Sodium 1 KWADWO Q4P PRN 07/23 1815 AC 07/24 TOP 0310 Enoxaparin Sodium 50 MG BID 07/29 1000 AC 08/01 SC 0953 Glycerin 2 SPRAY Q2P PRN 07/25 0845 AC PO Haloperidol 1 MG Q12 PRN 07/28 2030 AC PO Ipratropium [place] 2.5 ML TID 07/26 2200 AC 08/01 INH 0917 Lorazepam 0.5 MG Q6-PRN PRN 07/25 0945 DC 08/01 PO 08/01 0931 0646 Magnesium Chloride 64 MG BID 07/28 2200 AC 08/01 PO 0954 Morphine Sulfate 30 MG BID 07/30 2200 AC 08/01 PO 0954 Morphine Sulfate 15 MG Q4P PRN 07/30 1030 AC 08/01 PO 0537 Nicotine 14 MG DAILY 07/31 1000 AC 08/01 TOP 0954 Patient Medication 1 ED .STK-MED ONE 07/31 1355 DC Teaching ED 07/31 1356 Polyethylene Glycol 17 GM DAILY PRN 07/27 0515 AC 07/27 PO 0828 Ramelteon 8 MG QPM PRN 07/28 2030 AC 07/28 PO 2207 Senna 187 MG AT BEDTIME PRN 07/27 0515 AC PO Trimethobenzamide HCl 200 MG .STK-MED ONE 07/31 1157 DC IM 07/31 1158 Trimethobenzamide HCl 200 MG TID PRN 07/26 0900 AC 07/31 IM 1201 Assessment/Plan Assessment: 55-year-old female with past medical history significant for hypertension, hyperlipidemia, COPD, GERD, IBS (diarrhea type), chronic back pain with neurostimulator in place, DVT s/p IVC filter, on eliquis and aspirin, who presents to the ED for evaluation of left facial droop. In addition to left facial droop, she also has left sided weakness, dysphagia, left visual field defect, with CT showing acute ischemic changes within the right middle cerebral artery territory. Carotid ultrasound shows bilateral carotid stenosis in the range of 50-79% on the left and less than 50% on the right. She was found to have bilateral PE, despite being on eliquis. She was started on IV heparin. Problem list: Right MCA infarct with left sided facial droop, left sided weakness, dysphagia, left visual field defect Acute pulmonary embolism Demand ischemia Suspected lung cancer Right humerus fracture Anxiety Chronic back/Neck pain DVT/PE,on IVC filter Plan - Discharge today Acute pulmonary embolism * We will continue inj Lovenox 50 milligrams BID according to the weight * Watch for bleeding Suspected lung cancer * Lymph node biopsies showed (07/31/3016) non-small cell lung cancer. * Lymph node specimen is negative for any markers for non-Hodgkin's lymphoma * Dr Penn discussed with the family about the goal of care in detail. Later family decided to change the code status to DNR/DNI. * On 07/31/16, family discussion was done and it was decided to start patient on chemotherapy and radiotherapy as an outpatient. She will go to STR. COPD * TRC/nebs, ipratropium and albuterol Right MCA infarct with left sided facial droop, left sided weakness, dysphagia, left visual field defect. * CT with IV contrast did not show brain mets * ST,OT,PT * Cannot get MRI due to incompatibility of neurostimulator * Should evaluate for ASD/VSD * Tigan if needed Demand ischemia * On heparin * Patient's recovering we stopped telemetry monitoring Anxiety * Ativan 0.5 mg q6p ordered * Addded rozeron 8mg for sleep * Also added Haloperidol 1mg IM as needed for anxiety * 5mg melatonin at bedtime Chronic back pain * We will continue Tab MS contin 30 mg BID, Tab MS IR 15mg Q4P * Consider fentanyl patch Right humeral fracture * Pain management according to pain protocol * Discussed with Dr chinchilla over phone, he advised to support shoulder with sling.No active intervention is required. He will come and see the patient in evening. Hypomagnesemia - * Tab Magnesium 65 mg BID * We will recheck it regulary Hypokalemia -recovered Diet -heart healthy diet -Machanical soft / nectar thick liquid DVT prophylaxis -Lovenox CODE STATUS -full code Problem List: 1. Non-small cell lung cancer 2. PE (pulmonary thromboembolism) 3. Acute CVA (cerebrovascular accident) 4. Mass of left lung 5. Left leg DVT 6. Hypokalemia 7. Hypomagnesemia Pain Ratin Pain Location: right humerous, neck and back Pain Goal: Remain pain free Pain Plan: modertae to severe Tomorrow's Labs & Rationales: Not done as patient is stable and planned for discharge to [facility] DVT/Prophylaxis: mechanical, early ambulation low risk MARY PENN MD 08/01/16 1213: Attending MD Review Statement Attending Statement Attending MD Statement: examined this patient, discuss w/resident/PA/WINDOWS CONSULTANT, agreed w/resident/PA/WINDOWS CONSULTANT, reviewed EMR data (avail) Attending Assessment/Plan: 55F PMH hypertension, hyperlipidemia, COPD, GERD, IBS (diarrhea type), chronic back pain with neurostimulator in place, DVT s/p IVC filter, on eliquis and aspirin admitted for acute ischemic stroke, acute bilateral pulmonary emboli, and evidence of new lung cancer with preliminary pathology showing NSCLC. Patient reports that her shoulder pain and her overall pain is improved since started long acting Morphine. She still has pain but is happy with her pain level at this time, and does not wish for an increased dose as it will make her too sleepy. She slept well, is eating well. Family and patient discussions have led to a decision to continue DNR/DNI. Central lines and feeding tubes are permitted. Decision has been made to go forward with treatment options for her malignancy. 1. Stage 3 NSCLC 2. Acute ischemic stroke 3. Bilateral acute pulmonary embolism 4. Right humerus fracture 5. COPD Plan - Patient is constipated, last BM 07/27, given Colace, Dulcolax PO, Dulcolax suppository. Will give Relistor as well. - Continue Lovenox - Continue MS-contin 30mg BID and MS-IR 15mg PRN - Continue Ativan PRN for anxiety - Bowel regimen to prevent opioid induced constipation - Outpatient oncology and pulmonary follow up - Continue home medications
--- NOTE | 2016-08-01 08:44 | PN- Pulmonary ---
Subjective HPI/Critical Care Issues: The patient is awake and alert. She reports feeling improved overall. She remains weak however and continues to have right arm pain. She denies any shortness of breath, chest congestion or sputum production. She offers no pulmonary complaints today. Objective Current Medications: Current Medications Sig/Ida Start time Last Medication Dose Route Stop Time Status Admin Acetaminophen 1,000 MG Q6P PRN 07/23 1815 AC 07/29 IV 0527 Albuterol Sulfate 3 ML TID 07/26 2200 AC 07/31 INH 1910 Bisacodyl 5 MG DAILY 07/29 1751 AC 07/31 PO 0859 Diclofenac Sodium 1 KWADWO Q4P PRN 07/23 1815 AC 07/24 TOP 0310 Enoxaparin Sodium 50 MG BID 07/29 1000 AC 07/31 SC 2108 Glycerin 2 SPRAY Q2P PRN 07/25 0845 AC PO Haloperidol 1 MG Q12 PRN 07/28 2030 AC PO Ipratropium [place] 2.5 ML TID 07/26 2200 AC 07/31 INH 1910 Lorazepam 0.5 MG Q6-PRN PRN 07/25 0945 AC 08/01 PO 08/01 0931 0646 Magnesium Chloride 64 MG BID 07/28 2200 AC 07/31 PO 2108 Morphine Sulfate 30 MG BID 07/30 2200 AC 07/31 PO 2108 Morphine Sulfate 15 MG Q4P PRN 07/30 1030 AC 08/01 PO 0537 Nicotine 14 MG DAILY 07/31 1000 AC 07/31 TOP 0859 Patient Medication 1 ED .STK-MED ONE 07/31 1355 DC Teaching ED 07/31 1356 Polyethylene Glycol 17 GM DAILY PRN 07/27 0515 AC 07/27 PO 0828 Ramelteon 8 MG QPM PRN 07/28 2030 AC 07/28 PO 2207 Senna 187 MG AT BEDTIME PRN 07/27 0515 AC PO Trimethobenzamide HCl 200 MG .STK-MED ONE 07/31 1157 DC IM 07/31 1158 Trimethobenzamide HCl 200 MG TID PRN 07/26 0900 AC 07/31 IM 1201 Vital Signs & I&O Last 24 Hrs of Vitals and I&O: Vital Signs Date Time Temp Pulse Resp B/P Pulse O2 O2 Flow FiO2 Ox Delivery Rate 08/01 0000 Nasal 2.0L Cannula 07/31 2199 97.6 80 20 110/70 95 Nasal 2.0L Cannula 07/31 1910 88 Room Air 07/31 1640 97.7 109 20 102/66 95 Nasal 2.0L Cannula 07/31 1600 Nasal 2.0L Cannula 07/31 1249 Room Air Room Air 07/31 1059 97 Room Air Intake & Output 08/01 1600 08/01 0800 08/01 0000 Intake Total 100 100 Output Total 200 300 Balance -100 -200 Intake, Oral 100 100 Output, Urine 200 300 Physical Exam General Appearance: no apparent distress, alert, awake, comfortable Head: normal appearance Eyes: PERRL Neck: supple Respiratory: chest non-tender, quiet respiration Cardiovascular: regular rate/rhythm Extremities: no edema Neurologic/Psych: awake, alert, oriented, facial droop, motor weakness, left sided weakness, upper greater than lower extremity, improving Results Last 24 Hrs of Lab Results: Laboratory Tests 07/31/16 0915: Anion Gap 7, Estimated GFR > 60, BUN/Creatinine Ratio 11.7 Impression/Plan Impression/Plan Impression/Plan: 1. Acute right-sided ischemic stroke. 2. Bilateral pulmonary emboli in segmental and subsegmental pulmonary arteries, right greater than left, with evidence of pulmonary infarcts. 3. Left lower extremity DVT, now on Lovenox, status post IVC filter placement. 4. Metastatic adenocarcinoma of the lung. 5. History of COPD, with a stable respiratory status. 6. Mild leukocytosis, persistent. 7. Displaced right humerus fracture which will require surgical intervention. 8. History of chronic back pain. Recommendations: * Maintain the patient on aspiration precautions. * Continue the patient on pain pathway. * Continue Symbicort twice daily and when necessary albuterol. * DVT prophylaxis - on Lovenox. * The patient will require short-term rehabilitation and outpatient oncology upon discharge. * CODE STATUS changed to DNR/DNI. * Continue all supportive care. * Will follow up as an out patient.
[2016-08-01] MEDS ORDERED: NICOTINE PATCH1 EAC2 TOP (11:39)
[2016-08-01] MEDS ORDERED: SLOW-MAG71.5 MG PO (11:39)
[2016-08-01] MEDS ORDERED: MORPHINE SULFAT30 M3 PO (11:39)
[2016-08-01] MEDS ORDERED: MORPHINE SULFAT15 M4 PO (11:39)
[2016-08-01] MEDS ORDERED: LOVENOX60 MG/0.1 SC (11:39)
[2016-08-01] MEDS ORDERED: ROZEREM8 M1 PO (11:39)
[2016-08-01] MEDS ORDERED: ATORVASTATIN CA80 M1 PO (11:44)
--- NOTE | 2016-08-01 11:44 | Patient Discharge Instructions ---
Discharge Instructions General Discharge Information You were seen/treated for: Acute stroke Lung cancer Special Instructions: Please follow-up with your PCP within a week of discharge Please follow-up with Dr. Falcon within a week of discharge for further management of lung cancer that may include chemotherapy and radiotherapy Please take the medication as advised You are going to use injection, Lovenox, which increase the chances of bleeding. Please watch for bleeding. If you started having bleeding, stop the Lovenox and come to emergency department or contact your primary care provider Diet Recommended Diet: Heart Healthy Activity Full Activity/No Limits: No (as tolerated) Acute Coronary Syndrome Inclusion Criteria At DC or during hospital stay patient has or had the following: ACS DIAGNOSIS No Discharge Core Measures Meds if any: Prescribed or Continued at Discharge Meds if any: NOT Prescribed or Continued at Discharge Congestive Heart Failure Inclusion Criteria At DC or during hospital stay patient has or had the following: CHF DIAGNOSIS No Discharge Core Measures Meds if any: Prescribed or Continued at Discharge Meds if any: NOT Prescribed or Continued at Discharge Cerebrovascular accident Inclusion Criteria At DC or during hospital stay patient has or had the following: CVA/TIA Diagnosis Yes Discharge Core Measures Meds if any: Prescribed or Continued at Discharge Antithrombotic No Statin (required if LDL =>70) Yes Anticoagulant Yes Meds if any: NOT Prescribed or Continued at Discharge No Antithrombotic d/t Medical Contraindication Venous thromboembolism Inclusion Criteria VTE Diagnosis Yes VTE Type Pulmonary Embolism VTE Confirmed by (Test) CT CHEST ANGIOGRAM Discharge Core Measures - Per Current guidelines, there needs to be overlap - treatment for the first 5 days of Warfarin therapy. - If discharged on Warfarin prior to 5 days of - overlap therapy, the patient will need to be - assessed for post discharge needs including - *Post discharge parental anticoagulation - *Warfarin and/or parental anticoagulation education - *Follow up date to check INR post discharge At least 5 days overlap therapy as Inpatient Yes Meds if any: Prescribed or Continued at Discharge Warfarin No Note: Overlap Therapy is Warfarin and Anticoagulant Meds if any: NOT Prescribed or Continued at Discharge No Warfarin d/t Medical Contraindication No Overlap Therapy d/t Prescribed other Anticoag
--- NOTE | 2016-08-01 14:14 | NUR ---
Following patients progress. Aware of decison to seek STR placement and am aware of bed offers. Please call if other social work needs arise.
--- NOTE | 2016-08-01 15:00 | Cons- Orthopedic ---
General Information and HPI Consulting Request Date of Consult: 07/30/16 Requested By: MARY PENN MD Reason for Consult: Right proximal humerus fracture Source of Information: patient, family, old records Exam Limitations: Recent CVA with hemiparesis and moderate aphasia. History of Present Illness: Vilma Bolton is a 55 year old left handed white female smoker with COPD who is well known to and has been treated for many years by [facility] for multiple arthritic joint, inflammatory soft tissue as well as spine conditions and recently presented to the office with a significantly displaced right proximal humerus fracture after a fall at home on 07/07/2016 in which she directly impacted her right shoulder. She was seen in the [facility] Emergency Department where radiographs documented the completely displaced fracture and she was placed in a sling. She then saw Dr. Nice on who discussed treatment options with the patient including surgical management with the patient clearly understanding that any repair could be complicated by AVN (as well as other potential adverse outcomes or events due to the severity of the injury) and that additional surgery or even possible TSA might ultimately be necessary. She was evidently neurovascularly intact at that time with some prominence of the proximal end of the distal (shaft) fragment in the anterior shoulder region but no soft tissue compromise. She elected to proceed with surgical intervention and so plans for ORIF were initiated. She has evidently had some recent mild constitutional symptoms and changes including some lightheadedness which may have contributed to her fall but were not so severe that she sought separate medical attention for them. She now presents to [facility] through the Emergency Department with a right CVA causing initially dense left (dominant) hemiparesis with some neglect. She is therefore instinctively using her right arm for all upper extremity functions and her proximal humeral shaft at the fractured end has become more prominent beneath the soft tissue although there does not appear to be any thinning of the shoulder muscle girdle or soft tissue compromise at this point. This certainly a concern and [facility] was consulted to evaluate and make recommendations. Over the last 24 hours the patient has also been found to have lung nodules and biopsy (earlier today) is now being preliminarily read as positive for small cell carcinoma. Her other orthopaedic areas of treatment include cervical and lumbar spine, bursitis and rotator cuff tendinopathy of both shoulders, greater trochanteric hip bursitis as well as other conditions detailed in [facility] office notes. Her orthopaedic surgeries include ACDF C5-C7 and subsequent C4-C5, Lumbar fusion L5-S1 and left RCR. The rest of her medical history is detailed in her admitting medical team history & physical examination documentation. Refer to medicine documents for additional details of past medical and surgical history, medications, allergies, social history, family history and review of systems. No additional information was provided or obtained in any of these categories on todays evaluation from either the patient (who has difficulty providing additional history due to CVA and sedation although she is not densely aphasic and is able to communicate) or the family (several of whom were present throughout the evaluation and participated in the discussion of treatment plans). Allergies/Medications Allergies: Coded Allergies: moxifloxacin (From AVELOX) (Severe, ANAPHYLAXIS 11/07/15) Penicillins (Intermediate, RASH 11/07/15) bupropion (From WELLBUTRIN) (Intermediate, HEADACHES, SEVERE VOMITING 11/07/15) cephalexin (From KEFLEX) (Intermediate, SEVERE VOMITING 11/07/15) clindamycin (From CLEOCIN) (Intermediate, SEVERE VOMITING 11/07/15) erythromycin base (Intermediate, SEVERE VOMITING 11/07/15) varenicline (From CHANTIX) (SEVERE HEADACHE MAKES LOOPY PER PT 07/11/16) Home Med List: Albuterol Sulfate (Ventolin Hfa) 90 MCG HFA.AER.AD 2 PUF INH Q4-PRN PRN COPD (Reported) Albuterol Sulfate 2.5 MG/3 ML (0.083 %) VIAL.NEB 1 Vial INH/ERICA DAILY NEEDED PRN COPD (Reported) Apixaban (Eliquis) 5 MG TABLET 2 TAB PO BID BLOOD THINNER 2 TABS BID FOR 7 DAYS FOLLOWED BY 1 TAB BID Aspirin (Ecotrin*) 81 MG TABLET.DR 1 TAB PO DAILY HEART/BLOOD (Reported) Atorvastatin Calcium 80 MG TABLET 1 TAB PO DAILY high cholesterol Bepotastine Besilate (Bepreve) 1.5 % DROPS 1 GTT OPH PRN BOTH EYES - PROPHYLAXIS (Reported) Celecoxib 200 MG CAPSULE 1 CAP PO BID PAIN/INFLAMMATION (Reported) Cholecalciferol (Vitamin D3) (Vitamin D3) 1,000 UNIT CAPSULE 1 CAP PO DAILY SUPPLEMENT (Reported) Cyanocobalamin (Vitamin B-12) (Vitamin B12) 2,500 MCG TABLET 1 TAB PO DAILY SUPPLEMENT (Reported) Diclofenac Sodium (Voltaren) 1 % GEL..GRAM. 1 GM TOP PRN JOINT PAIN (Reported ) apply to affected area(s) Enoxaparin Sodium (Lovenox) 60 MG/0.6 ML SYRINGE 50 MG SC BID stroke Fluticasone/Salmeterol (Advair 500-50 Diskus) 500 MCG-50 MCG/DOSE BLST.W.DEV 1 PUF INH BID COPD (Reported) Hydrocodone/Acetaminophen (Hydrocodon-Acetaminoph 7.5-325) 7.5 MG-325 MG TABLET 1-2 TAB PO Q4-6 PRN PRN PAIN (Reported) Reason to Stop at ADM: pain pathway Lorazepam (Ativan) 0.5 MG TABLET 1 TAB PO DAILY NEEDED PRN ANXIETY ( Reported) Loteprednol Etabonate (Lotemax) 0.5 % DROPS.SUSP 1 GTT OPH PRN BOTH EYES - PROPHYLAXIS (Reported) Magnesium Chloride (Slow-Mag) 71.5 MG TABLET.DR 64 MG PO BID low magnesium Magnesium Oxide 400 MG TABLET 1 TAB PO DAILY Supplement Metaxalone 800 MG TABLET 1 TAB PO TID PRN MUSCLE SPASMS (Reported) Metoprolol Tartrate 25 MG TABLET 0.5 TAB PO DAILY BP (Reported) Morphine Sulfate 15 MG TABLET 15 MG PO Q4P PRN BREAK THROUGH PAIN >6 Morphine Sulfate (Morphine Sulfate ER) 30 MG TABLET.ER 30 MG PO BID Pain Nicotine (Nicotine Patch) 14 MG/24 HOUR PATCH.TD24 14 MG TOP DAILY smoking Omeprazole Magnesium (Prilosec Otc) (Unknown Strength) TABLET.DR (Unknown Dose ) PO EOD GERD (Reported) Reason to Stop at ADM: hypokalemia Potassium Chloride 10 MEQ TABLET.ER 2 TAB PO BID Supplement Ramelteon (Rozerem) 8 MG TABLET 8 MG PO QPM PRN INSOMNIA Rosuvastatin Calcium (Crestor) 10 MG TABLET 1 TAB PO DAILY CHOLESTEROL ( Reported) Tiotropium [place] (Spiriva) 18 MCG CAP.W.DEV 1 CAP INH DAILY COPD (Reported) Zolpidem Tartrate 10 MG TABLET 1 TAB PO AT BEDTIME PRN SLEEP (Reported) Current Medications: Current Medications Sig/Ida Start time Last Medication Dose Route Stop Time Status Admin Acetaminophen 1,000 MG Q6P PRN 07/23 1815 AC 07/29 IV 0527 Albuterol Sulfate 3 ML TID 07/26 2200 AC 08/01 INH 1439 Bisacodyl 10 MG ONCE ONE 08/01 1015 DC 08/01 DC 08/01 1016 1402 Bisacodyl 5 MG DAILY 07/29 1751 AC 08/01 PO 0954 Diclofenac Sodium 1 KWADWO Q4P PRN 07/23 1815 AC 07/24 TOP 0310 Enoxaparin Sodium 50 MG BID 07/29 1000 AC 08/01 SC 0953 Glycerin 2 SPRAY Q2P PRN 07/25 0845 AC PO Haloperidol 1 MG Q12 PRN 07/28 2030 AC PO Ipratropium [place] 2.5 ML TID 07/26 2200 AC 08/01 INH 1439 Lorazepam 0.5 MG Q6-PRN PRN 07/25 0945 DC 08/01 PO 08/01 0931 1314 Magnesium Chloride 64 MG BID 07/28 2200 AC 08/01 PO 0954 Methylnaltrexone 12 MG ONCE ONE 08/01 1430 DC [place] SC 08/01 1431 Morphine Sulfate 30 MG BID 07/30 2200 AC 08/01 PO 0954 Morphine Sulfate 15 MG Q4P PRN 07/30 1030 AC 08/01 PO 1115 Nicotine 14 MG DAILY 07/31 1000 AC 08/01 TOP 0954 Polyethylene Glycol 17 GM DAILY PRN 07/27 0515 AC 07/27 PO 0828 Ramelteon 8 MG QPM PRN 07/28 2030 AC 07/28 PO 2207 Senna 187 MG AT BEDTIME PRN 07/27 0515 AC PO Trimethobenzamide HCl 200 MG TID PRN 07/26 0900 AC 07/31 IM 1201 Past History Medical History Blood Transfusion Hx: No Neurological: migraine EENT: NONE Cardiovascular: hypertension, hyperlipidemia, DVT S/P IVC FILTER Respiratory: COPD, LUNG CA Gastrointestinal: GERD, irritable bowel syndrome Hepatic: NONE Renal: NONE Musculoskeletal: chronic back pain, R SHOULDER FX Psychiatric: anxiety Endocrine: NONE Blood Disorders: NONE Cancer(s): NONE, lung cancer 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 Home Smoking Status: Current Everyday Smoker ETOH Use: heavy use Illicit Drug Use: denies illicit drug use Functional Ability ADLs Independent: dressing, eating, toileting, bathing. Ambulation: independent IADLs Independent: shopping, housework, finances, food prep, telephone, transportation , medication admin. Review of Systems Review of Systems: No additional information was provided or obtained on review of systems compared to medicine admission records. Refer to history & physical as well as subsequent medical team documents for review of systems details. Exam & Diagnostic Data Vital Signs and I&O Vital Signs Date Time Temp Pulse Resp B/P Pulse O2 O2 Flow FiO2 Ox Delivery Rate 08/01 09 92 Room Air 08/01 0800 Nasal 2.0L Cannula 08/01 0000 Nasal 2.0L Cannula 07/31 2200 97.6 80 20 110/70 95 Nasal 2.0L Cannula 07/31 1910 88 Room Air 07/31 1640 97.7 109 20 102/66 95 Nasal 2.0L Cannula 07/31 1600 Nasal 2.0L Cannula Intake & Output 08/01 1600 08/01 0800 08/01 0000 07/31 1600 07/31 0800 07/31 0000 Intake Total 480 100 100 720 200 250 Output Total 200 200 300 110 350 100 Balance 280 -100 -200 610 -150 150 Intake, IV 0 0 Intake, Oral 480 100 100 720 200 250 Number 0 0 Bowel Movements Output, Urine 200 200 300 110 350 100 Physical Exam: On examination she has very limited left upper extremity function but is able to move the digits and flex the elbow slightly which her family states is a new and significant improvement even compared to earlier today. She has a facial droop, difficulty speaking and intermittent neglect although she can focus to the left when triggered to do so and is able to communicate slurred speech and difficulty with word finding but only mild aphasia by gross assessment. On the right she is neurovascularly intact to gross distal evaluation. She is excessively moving the right arm spontaneously even at the shoulder despite sling in place because she is unable to instinctively move the left and so she is compensating with the right. This is resulting in prominence of her proximal humeral shaft fracture end. Fortunately, this does not appear to have a sharp anterior edge or be causing soft tissue compromise. Physical Exam General Appearance: thin Imaging Results: No good quality radiographs are available from this admission for the shoulder and the area is not well visualized on CT scans or chest radiographs. Trauma technique AP and scapular-Y shoulder X-rays were ordered. Assessment/Plan Assessment/Plan An extensive discussion was undertaken with the patient and family regarding options for further treatment of this fracture for the foreseeable future. She understands that, although nonoperative care will likely result in nonunion and possible AVN of the humeral head that her risk of surgery after CVA far outweighs the potential benefit of surgical stabilization at this point. Shoulder immobilizing sling is recommended and the importance of keeping the shoulder immobile (not only to optimize the low but still possible chance of healing but also to minimize the risk of soft tissue compromise) was emphasized. If her medical condition stabilizes sufficiently that surgery would be a consideration and she does not develop AVN then percutaneous, minimally invasive or even possibly (although unlikely) intramedullary fixation might be a consideration to try and optimize her right upper extremity healing and potential function. This seems unlikely at present and so the patient is probably going to go on to chronic nonunion or malunion (more likely the former) . Malunion would actually likely be more functional and less risk and so she is again encouraged to limit arm motion in the hope that she can bridge her fracture gap. Immobilizing sling with swathe torso strap will be placed. There is no need for follow-up until the patients medical condition stabilizes. We will be available for reconsultation at any time for additional questions or concerns regarding her nonoperative management but unfortunately there are few options in this case. Copies To: JYOTI GOEL,WALTER Oh. Consult Acknowledgment - Thank you for your consult request. Attending MD Review Statement Attending Statement Attending MD Statement: examined this patient, discuss w/resident/PA/WOOL WASHER, agreed w/resident/PA/WOOL WASHER, discussed with family, reviewed EMR data (avail), discussed w/ nursing, reviewed images Attending Assessment/Plan: See above Assessment/Plan Section (completed by consulting attending).
[2016-08-01 16:26] VITALS: BP 110/70
[2016-08-01 16:39] VITALS: BP 102/64
--- NOTE | 2016-08-01 16:53 | PN- Oncology ---
Subjective Subjective: She is feeling better. Breathing is improved. Left sided weakness is improved. Review of Systems: Constitutional: Reports: weakness but improved. Denies: chills, fever. Cardiovascular: Denies: chest pain. Respiratory: Reports: short of breath but stable. Gastrointestinal: Denies: abdominal pain. Musculoskeletal: Reports: back pain, joint pain, muscle pain, neck pain. Neurological/Psychological: Reports: anxiety. Hematologic/Endocrine: Denies: bleeding. All Other Systems: Reviewed and Negative Objective Vital Signs and I&Os Vital Signs Date Time Temp Pulse Resp B/P Pulse O2 O2 Flow FiO2 Ox Delivery Rate 08/01 1639 97.8 103 18 102/64 95 Nasal 1.0L Cannula 08/01 1626 97.6 80 20 110/70 08/01 0921 92 Room Air 08/01 0800 Nasal 2.0L Cannula 08/01 0000 Nasal 2.0L Cannula 07/31 2200 97.6 80 20 110/70 95 Nasal 2.0L Cannula 07/31 1910 88 Room Air Intake & Output 08/01 1600 08/01 0800 08/01 0000 07/31 1600 07/31 0800 07/31 0000 Intake Total 480 100 100 720 200 250 Output Total 200 200 300 110 350 100 Balance 280 -100 -200 610 -150 150 Intake, IV 0 0 Intake, Oral 480 100 100 720 200 250 Number 0 0 Bowel Movements Output, Urine 200 200 300 110 350 100 Physical Exam: General Appearance: alert, awake, comfortable Head: atraumatic, ecchymosis on righ maxilla Ears, Nose, Throat: on 2L NC Respiratory: normal breath sounds, chest non-tender, decreased breath sounds, crackles Cardiovascular: regular rate/rhythm Abdomen: normal bowel sounds, soft, non-tender Extremities: no edema, right shoulder with sling in place, protrusion of right shoulder Neurologic/Psychiatric: alert, oriented x 3, left facial drooping. left arm strength 1/5. left leg strength 2/5 Current Medications: Current Medications Sig/Ida Start time Last Medication Dose Route Stop Time Status Admin Acetaminophen 1,000 MG Q6P PRN 07/23 1815 AC 07/29 IV 0527 Albuterol Sulfate 3 ML TID 07/26 2200 AC 08/01 INH 1439 Bisacodyl 10 MG ONCE ONE 08/01 1015 DC 08/01 [place] 08/01 1016 1402 Bisacodyl 5 MG DAILY 07/29 1751 AC 08/01 PO 0954 Diclofenac Sodium 1 KWADWO Q4P PRN 07/23 1815 AC 07/24 TOP 0310 Enoxaparin Sodium 50 MG BID 07/29 1000 AC 08/01 SC 0953 Glycerin 2 SPRAY Q2P PRN 07/25 0845 AC PO Haloperidol 1 MG Q12 PRN 07/28 2030 AC PO Ipratropium [place] 2.5 ML TID 07/26 2200 AC 08/01 INH 1439 Lorazepam 0.5 MG Q6-PRN PRN 07/25 0945 DC 08/01 PO 08/01 0931 1314 Magnesium Chloride 64 MG BID 07/28 2200 AC 08/01 PO 0954 Methylnaltrexone 12 MG ONCE ONE 08/01 1430 DC 08/01 [place] SC 08/01 1431 1504 Morphine Sulfate 30 MG BID 07/30 2200 AC 08/01 PO 0954 Morphine Sulfate 15 MG Q4P PRN 07/30 1030 AC 08/01 PO 1620 Nicotine 14 MG DAILY 07/31 1000 AC 08/01 TOP 0954 Polyethylene Glycol 17 GM DAILY PRN 07/27 0515 AC 07/27 PO 0828 Ramelteon 8 MG QPM PRN 07/28 2030 AC 07/28 PO 2207 Senna 187 MG AT BEDTIME PRN 07/27 0515 AC PO Trimethobenzamide HCl 200 MG TID PRN 07/26 0900 AC 07/31 IM 1201 Results Last 24 Hours of Lab Results: LEFT NECK LYMPH NODE, NEEDLE BIOPSY: METASTATIC LUNG ADENOCARCINOMA. SEE NOTE. NOTE: This case was reviewed by Dr. Reginaldo Pinedo of [facility] who notes: "Tumor cells stain positive for CK7, TTF-1 and negative for NapsinA and CK20. In the setting of a hilar mass nd mediastinal lymphadenopathy, and without a history of thyroid cancer, we favor a metastatic lung adenocarcinoma given this immunophenotype." Assessment/Plan Assessment/Recommendations: Mrs. Bolton is a 55-year-old female with history of HTN, HLD, COPD, GERD, IBS, chronic back pain with a neurostimulator, DVT with IVC filter and on apixaban, right arm fracture, and every day smoker who presented to the hospital with left facial drooping, slurred speech, and left-sided weakness. Due to concern for stroke, she came to the hospital. Initial CT head demonstrated no acute hemorrhage. Repeat scan on 07/24/2016 demonstrated acute ischemic changes within the right middle cerebral artery territory without hemorrhagic transformation. She is doing okay on enoxaparin. She has no obvious bleeding. Her left supraclavicular lymph node biopsy is positive for adenocarcinoma. She seems to have stage III disease. Her left femur is nonspecific. She may be a candidate for concurrent chemoradiation (single agent chemotherapy for radio-sensitization ) versus palliative radiation. She will need to follow up as outpatient for discussion and possible radiation referral. 1. Follow up in 1 week for evaluation 2. Presenting case to tumor boards Please call [phone] with any questions or concerns. Problem List: 1. Non-small cell lung cancer 2. PE (pulmonary thromboembolism) 3. Acute CVA (cerebrovascular accident) 4. Left leg DVT
== END 2016-08-01 17:20 | DRG 40 ==
LOC: ENRESERVDT → ENRESERVTM → ERH 14:48 → CRI 16:37 → ENPENDDIS 16:37 → ERHI 16:37 → EDBEDREQ 19:20 → ERHI 19:23 → CRI 22:20 → 1NO 07-26 17:56
PROVIDERS: Emergency Medicine; Internal Medicine; Internal Medicine Cardiovascular Disease; Internal Medicine Endocrinology, Diabetes & Metabolism; Internal Medicine Pulmonary Disease; Radiology Diagnostic Radiology; Student in an Organized Health Care Education/Training Program; ADMIT Internal Medicine
PROC: 07B23ZX Excision of Left Neck Lymphatic, Percutaneous Approach, Diagnostic (ICD-10-PCS; principal; 2016-07-25)
DX: I63.9 Cerebral infarction, unspecified (principal); I26.99 Other pulmonary embolism without acute cor pulmonale; R64 Cachexia; I24.8 Other forms of acute ischemic heart disease; C77.0 Secondary and unspecified malignant neoplasm of lymph nodes of head, face and neck; G81.94 Hemiplegia, unspecified affecting left nondominant side; C34.92 Malignant neoplasm of unspecified part of left bronchus or lung; I82.532 Chronic embolism and thrombosis of left popliteal vein; M84.421A Pathological fracture, right humerus, initial encounter for fracture; R13.10 Dysphagia, unspecified; E83.42 Hypomagnesemia; Z66 Do not resuscitate; R47.01 Aphasia; J44.9 Chronic obstructive pulmonary disease, unspecified; I10 Essential (primary) hypertension; Z79.01 Long term (current) use of anticoagulants; K21.9 Gastro-esophageal reflux disease without esophagitis; K58.9 Irritable bowel syndrome, unspecified; F41.9 Anxiety disorder, unspecified; E78.5 Hyperlipidemia, unspecified; Z68.20 Body mass index [BMI] 20.0-20.9, adult; R47.1 Dysarthria and anarthria; F17.210 Nicotine dependence, cigarettes, uncomplicated
CPT/HCPCS: 1NP; 36415; 73030-RT; 74230; 81001; 82436; 87040; 87086; 88184; 88305; 93005; 93010; 93306; 93970; 97110-GO; 97112-GO; 97116-GO; 97162-GP; 97166-GO; 97530-GO; 99233; J0131; J1170; J1644; J1650; J2060; J2405; J2765; J3250; J3490; J7042; J7060